=== PATIENT | male | born 1950 | race Caucasian/White ===

== ENCOUNTER 2024-11-24 21:40 | Emergency (ER) | payer MEDICARE, SELFPAY ==
[2024-11-24] VITALS (16 sets, daily range): BP systolic 141; BP diastolic 83; PULSE 97–118; TEMP 36.8; O2SAT 91–100; BMI 26.6
--- NOTE | 2024-11-24 22:00 | ECG_ITS ---
[facility] Test Date: 2024-11-24 Pat Name: ANDERS ABAD Department: Room: - Gender: Male Bartender: : 1950 Requested By: [id number] Order Number: [id number] Reading MD: REY PAZ M.D. Measurements Intervals [place] Rate: 97 P: 90 SD: 160 QRS: 63 QRSD: 90 T: 77 QT: 334 QTc: 389 Interpretive Statements 1100 Sinus rhythm 9110 normal ECG Compared to ECG 09/01/2022 11:35:34 No significant changes Electronically Signed On 11-25-2024 6:32:54 EST by REY PAZ M.D.
--- NOTE | 2024-11-24 22:02 | ED.SOB1 ---
HPI - SOB/Dyspnea General Chief Complaint: Shortness of Breath/Dyspnea Stated Complaint: DIFF BREATHING Time Seen by Provider: 11/24/24 21:54 Source: patient Mode of arrival: Wheelchair History of Present Illness HPI Narrative: This 74-year-old male with a history of tobacco use presents for evaluation of shortness of breath. The patient has been taking Mucinex for a head cold since last weekend. Today his symptoms got worse and he started become short of breath. He denies any gorge chest pain. He denies any hemoptysis. He denies any fevers or chills. He denies any nausea vomiting or diarrhea. He is notably tachypneic upon arrival with 2-3 word conversational dyspnea and marked coughing. Related Data Home Medications ?Medication ?Instructions ?Recorded ?Confirmed atorvastatin 20 mg tablet mg 11/24/24 irbesartan 150 tab 11/24/24 mg-hydrochlorothiazide 12.5 mg tablet omeprazole 20 mg capsule,delayed mg 11/24/24 release tramadol 50 mg tablet mg 11/24/24 zolpidem 10 mg tablet mg 11/24/24 Allergies Allergy/AdvReac Type Severity Reaction Status Date / Time No Known Drug Allergies Allergy Verified 11/24/24 21:54 Review of Systems ROS Status of ROS 10 or more systems reviewed and unremarkable except as noted in history and below [facility] Medical History (Updated 11/24/24 @ 23:15 by Anabel Rockwell MD) Hyperlipemia ?E78.5 - Hyperlipidemia, unspecified (ICD-10) Hypertension ?I10 - Essential (primary) hypertension (ICD-10) Exam Narrative Exam Narrative: Vital signs and Nursing Notes reviewed: Pt afebrile, he is tachycardic with a pulse of 1-2 and tachypneic with a respiratory of 36, he is not hypoxic with pulse ox of 97% on room air General: Awake, alert, oriented, nontoxic adult male with mild respiratory distress and 3-4 word conversational dyspnea HEENT: Normocephalic atraumatic, mucous membranes are moist and pink, eyes are clear, normal conjunctiva, vision is grossly intact, posterior pharynx is normal in appearance. Neck: Supple, no meningeal signs, no anterior or posterior cervical lymphadenopathy Chest: Coarse breath sounds with expiratory wheezing and scattered rhonchi, no rales, mild accessory muscle use with tachypnea, patient is not hypoxic with pulse ox of 97% on room air CVS: Regular rate and rhythm S1-S2, no murmurs rubs or gallops, pulses are brisk and equal bilaterally ABD: Soft, nondistended, nontender, no rebound guarding or rigidity, bowel sounds are normal, no pulsatile masses appreciated Extremities: Moving all extremities, no lower extremity tenderness or swelling noted, negative Homans' sign, patient is wearing a brace over his right knee stating that he has a meniscal tear on his knee Skin: Normal in appearance without rash,pallor, petechiae or purpura Neuro: No focal deficits Constitutional Vital Signs, click to edit/add: Last Vital Signs Temp 98.3 F 11/24/24 21:50 Pulse 107 H 11/24/24 23:00 Resp 20 11/24/24 23:00 BP 141/83 11/24/24 21:50 Pulse Ox 96 11/24/24 23:00 O2 Del Method Room Air 11/24/24 22:49 Course Vital Signs Vital signs: Vital Signs Temperature 98.3 F 11/24/24 21:50 Pulse Rate 102 H 11/24/24 21:50 Respiratory Rate 36 H 11/24/24 21:50 Blood Pressure 141/83 11/24/24 21:50 Pulse Oximetry 97 11/24/24 21:50 Oxygen Delivery Method Room Air 11/24/24 21:50 Temperature 98.3 F 11/24/24 21:50 Pulse Rate 107 H 11/24/24 23:00 Respiratory Rate 20 11/24/24 23:00 Blood Pressure 141/83 11/24/24 21:50 Pulse Oximetry 96 11/24/24 23:00 Oxygen Delivery Method Room Air 11/24/24 22:49 MDM - SOB/Dyspnea MDM Narrative Medical decision making narrative: This 74-year-old male with a history of tobacco use who states he smokes about a half a pack a day of cigarettes presents for evaluation of cough, wheezing and shortness of breath. His symptoms started with a upper respiratory tract infection that he describes as a head cold. Over the past several days it has spread into his chest and today he became short of breath. He denies any fever or chest pain. He has no lower extremity pain or swelling. He had taken 1 dose of amoxicillin that was prescribed to his earlier today without significant improvement. Upon arrival he was seen in room 9. He has diffuse expiratory wheezing and rhonchi. He was given a DuoNeb that he stated did not make him feel much better and given additional DuoNeb with clinical improvement. He was given IV Solu-Medrol, IV fluids and a dose of Tylenol with codeine for his cough. Routine labs are reviewed. He has a normal white count and hemoglobin. He is negative for COVID-19 and influenza. He has a normal troponin. Normal D-dimer. Electrolytes are normal with a mild elevation in his creatinine at 1.73. Lactic acid is normal. On reevaluation the patient's lungs have improved air entry and his cough has subsided somewhat. He was offered admission for further treatment of his shortness of breath but he declines. He will be medicated with a dose of doxycycline prior to discharge and discharged home with prescription for doxycycline, Medrol Dosepak, albuterol MDI and Tylenol with codeine suspension. He was encouraged to drink plenty of liquids and return to the emergency department for worsening symptoms or any concerns. Lab Data Attestation: I reviewed the patient's lab results. Labs: Lab Results 11/24/24 11/24/24 Range/Units 22:04 22:05 WBC 9.7 (4.0-11.0) 10^3/uL RBC 4.45 L (4.70-6.10) 10^6/uL Hgb 13.9 L (14.0-18.0) g/dL Hct 39.4 L (42.0-54.0) % MCV 88.5 (80.0-94.0) fL MCH 31.2 (25.9-34.0) pg MCHC 35.3 H (29.9-35.2) g/dL RDW 12.6 (11.0-15.0) % Plt Count 235 (150-450) 10^3/uL MPV 10.5 (9.5-13.5) fL Neut % (Auto) 82.0 H (43.0-75.0) % Lymph % (Auto) 9.6 L (20.5-60.0) % Andrew % (Auto) 7.2 (1.7-12.0) % Eos % (Auto) 0.6 L (0.9-7.0) % Baso % (Auto) 0.3 (0.2-2.0) % Neut # (Auto) 8.0 H (1.4-6.5) 10^3/uL Lymph # (Auto) 0.9 L (1.2-3.8) 10^3/uL Andrew # (Auto) 0.7 (0.3-0.8) 10^3/uL Eos # (Auto) 0.1 (0.0-0.7) 10^3/uL Baso # (Auto) 0.0 (0.0-0.1) 10^3/uL Abs Immat Gran (auto) 0.03 (0.00-0.03) 10^3/uL Imm/Tot Granulo (auto) 0.3 (0.0-0.5) % D-Dimer 0.39 (<=0.59) mg/L FEU Sodium 136 (136-145) mmol/L Potassium 3.4 L (3.5-5.1) mmol/L Chloride 98 (98-107) mmol/L Carbon Dioxide 22.5 (21.0-32.0) mmol/L Anion Gap 18.9 BUN 16.0 (7.0-18.0) mg/dL Creatinine 1.73 H (0.70-1.30) mg/dL Est GFR ( Amer) 47 L (>=60 mL/min/1.73m^2) Est GFR (Non-Af Amer) 39 L (>=60 mL/min/1.73m^2) BUN/Creatinine Ratio 9.2 Glucose 126 H (74-106) mg/dL Lactate 1.9 (0.4-2.0) mmol/L Calcium 9.1 (8.5-10.1) mg/dL Total Bilirubin 0.3 (0.2-1.0) mg/dL AST 33 (15-37) U/L ALT 38 (16-63) U/L Alkaline Phosphatase 107 (46-116) U/L Troponin I High Sens 7.1 (4.0-76.1) pg/mL NT-Pro-B Natriuret Pep 86.0 (<=900.0) pg/mL Total Protein 7.5 (6.4-8.2) g/dL Albumin 3.7 (3.4-5.0) g/dL Globulin 3.8 g/dL Albumin/Globulin Ratio 1.0 Influenza Type A Ag Negative Influenza Type B Ag Negative SARS-CoV-2 Ag (CV2AG) Negative (NEGATIVE) ECG Data Attestation: I personally reviewed and interpreted this ECG as follows: (Sinus rhythm 97 bpm, normal axis, normal intervals, no acute ST segment elevation or T wave inversion) Discharge Plan Discharge Chief Complaint: Shortness of Breath/Dyspnea Clinical Impression: Upper respiratory infection, acute Patient Disposition: Home, Self-Care Time of Disposition Decision: 23:15 Condition: Good Prescriptions / Home Meds: No Action atorvastatin 20 mg tablet irbesartan-hydrochlorothiazide 150-12.5 mg tablet tramadol 50 mg tablet omeprazole 20 mg capsule,delayed release(DR/EC) zolpidem 10 mg tablet Print Language: Armenian Instructions: Upper Respiratory Infection (ED), Acute Bronchitis (ED) Referrals: Physician,Non-Staff, [Physician] - 1 week
[2024-11-24] MEDS: IPRATROPIUM/ALBUTEROL SULFATE 3 ML AMPUL.NEB IH ×2 (22:14→22:51)
[2024-11-24] MEDS: HYDROCODONE BIT/HOMATROP 5 MG/1.5 MG TABLET 1 TAB PO (22:29)
[2024-11-24] MEDS: METHYLPREDNISOLONE SOD SUCC PF 125 MG/2 ML VIAL IVP (22:29)
[2024-11-24] MEDS: ONDANSETRON PF 4 MG/2 ML VIAL IV (22:29)
[2024-11-24 22:30] LABS: Basophils Percent Auto 0.3 % (0.2-2.0); Eosinophils Absolute Auto 0.1 10^3/uL (0.0-0.7); Eosinophils Percent Auto 0.6 % (0.9-7.0); Hematocrit 39.4 % (42.0-54.0); Hemoglobin 13.9 g/dL (14.0-18.0); Immature Granulocytes Abs Auto 0.03 10^3/uL (0.00-0.03); Immature Granulocytes Pct Auto 0.3 % (0.0-0.5); Lymphocytes Absolute Auto 0.9 10^3/uL (1.2-3.8); Lymphocytes Percent Auto 9.6 % (20.5-60.0); Mean Corpuscular HGB Conc 35.3 g/dL (29.9-35.2); Mean Corpuscular Hemoglobin 31.2 pg (25.9-34.0); Mean Corpuscular Volume 88.5 fL (80.0-94.0); Mean Platelet Volume 10.5 fL (9.5-13.5); Monocytes Absolute Auto 0.7 10^3/uL (0.3-0.8); Monocytes Percent Auto 7.2 % (1.7-12.0); Platelet Count 235 10^3/uL (150-450); Red Blood Count 4.45 10^6/uL (4.70-6.10); Red Cell Distribution Width 12.6 % (11.0-15.0); White Blood Count 9.7 10^3/uL (4.0-11.0)
[2024-11-24] MEDS: 0.9 % SODIUM CHLORIDE 1,000 ML 1000 ML IV (22:30)
[2024-11-24 22:48] LABS: Influenza Virus A Antigen Negative; Influenza Virus B Antigen Negative; Internal Control Within Normal Limits; SARS-CoV-2 Ag NEGATIVE (NEGATIVE)
[2024-11-24 22:54] LABS: Lactate/Lactic Acid 1.9 mmol/L (0.4-2.0)
[2024-11-24 22:59] LABS: Alanine Aminotransferase 38 U/L (16-63); Albumin Level 3.7 g/dL (3.4-5.0); Alkaline Phosphatase 107 U/L (46-116); Anion Gap 18.9; Aspartate Amino Transferase 33 U/L (15-37); BUN Creatinine Ratio 9.2; Bilirubin Total 0.3 mg/dL (0.2-1.0); Calcium 9.1 mg/dL (8.5-10.1); Carbon Dioxide 22.5 mmol/L (21.0-32.0); Chloride 98 mmol/L (98-107); Estimated GFR (African America 47 (>=60 mL/min/1.73m^2); Estimated GFR (Non-African Ame 39 (>=60 mL/min/1.73m^2); Globulin 3.8 g/dL; Glucose 126 mg/dL (74-106); Potassium 3.4 mmol/L (3.5-5.1); Sodium 136 mmol/L (136-145); Total Protein 7.5 g/dL (6.4-8.2); Troponin I High Sensitivity 7.1 pg/mL (4.0-76.1)
[2024-11-24 23:00] LABS: D Dimer 0.39 mg/L FEU (<=0.59)
[2024-11-24] MEDS: ALBUTEROL SULFATE 200 PUFF/6.7 GM INHALER IH (23:53)
[2024-11-24] MEDS: DOXYCYCLINE MONOHYDRATE 100 MG CAPSULE PO (23:53)
[2024-11-25] VITALS: PULSE 116
== END 2024-11-25 00:22 | disposition home or self-care (01) ==
PROVIDERS: Emergency Provider Emergency Medicine; PCP Internal Medicine
DX: J06.9 Acute upper respiratory infection, unspecified (principal); R06.02 Shortness of breath; F17.210 Nicotine dependence, cigarettes, uncomplicated
CPT/HCPCS: 36415; 71045; 80053; 83605; 83880; 84484; 85025; 85378; 87804; 87811; 93005; 94640; 96374; 96375; 99285; J2405; J2919

== ENCOUNTER 2025-01-04 14:23 | Outpatient (OUT) | payer MEDICARE, SELFPAY ==
--- NOTE | 2025-01-04 15:11 | P.GSHP_ITS ---
History of Present Illness History of Present Illness Chief complaint: bladder tumors, hx of bladder ca Narrative: Patient presents for presurgical testing. The patient states he has a yearly cystoscopy for surveillance of prior bladder cancer. The patient states he does have nocturia but denies any other urinary complaints at this time. Review of Systems ROS Narrative REVIEW OF SYSTEMS: Negative except as stated in HPI, ten or more systems reviewed. Constitutional: No fever, chills, weakness ENT: No sore throat or epistaxis Cardiovascular: No edema, chest pain, palpitations, or activity intolerance Respiratory: No shortness of breath, cough, or wheezing Musculoskeletal: No joint pain or swelling Gastrointestinal: No abdominal pain, constipation, diarrhea, or vomiting Genitourinary: No dysuria or hematuria Neurological: No numbness, tingling, weakness, or headache Psychiatric: No mood changes PFSH PFSH Medical History (Updated 01/04/25 @ 15:02 by Breana Parra NP) Hearing loss ?H91.90 - Unspecified hearing loss, unspecified ear (ICD-10) Back pain ?M54.9 - Dorsalgia, unspecified (ICD-10) Arthritis ?M19.90 - Unspecified osteoarthritis, unspecified site (ICD-10) Bladder cancer ?C67.9 - Malignant neoplasm of bladder, unspecified (ICD-10) Kidney stones ?N20.0 - Calculus of kidney (ICD-10) Bladder tumor ?D49.4 - Neoplasm of unspecified behavior of bladder (ICD-10) GERD (gastroesophageal reflux disease) ?K21.9 - Gastro-esophageal reflux disease without esophagitis (ICD-10) Bronchitis (11/24/24) ?J40 - Bronchitis, not specified as acute or chronic (ICD-10) Postoperative nausea and vomiting ?R11.2 - Nausea with vomiting, unspecified (ICD-10) ?Z98.890 - Other specified postprocedural states (ICD-10) Hyperlipemia ?E78.5 - Hyperlipidemia, unspecified (ICD-10) Hypertension ?I10 - Essential (primary) hypertension (ICD-10) Surgical History (Updated 01/04/25 @ 14:50 by Breana Parra NP) History of colonoscopy ?Z98.890 - Other specified postprocedural states (ICD-10) H/O transurethral resection of prostate ?Z98.890 - Other specified postprocedural states (ICD-10) ?Z90.79 - Acquired absence of other genital organ(s) (ICD-10) H/O transurethral resection of bladder tumor (TURBT) ?Z98.890 - Other specified postprocedural states (ICD-10) ?Z86.03 - Personal history of neoplasm of uncertain behavior (ICD-10) S/P cystoscopy ?Z98.890 - Other specified postprocedural states (ICD-10) History of lumbosacral spine surgery ?Z98.890 - Other specified postprocedural states (ICD-10) S/P cataract extraction and insertion of intraocular lens ?Z98.49 - Cataract extraction status, unspecified eye (ICD-10) ?Z96.1 - Presence of intraocular lens (ICD-10) Family History (Updated 01/04/25 @ 14:50 by Breana Parra NP) Other Family history of cancer Family history of coronary artery disease Family history of diabetes mellitus Family history of heart disease Family history of hypertension Family history of stroke Social History (Updated 01/04/25 @ 14:43 by Breana Parra NP) Within the past year, how often did you have a drink containing alcohol: never Score interpretation: A score less than 4 is consistent with normal alcohol consumption. Smoking status: Current every day smoker What tobacco products do you use: cigarettes Cigarettes per day: 10 Years smoked: 50 Smoking pack-years: 25.00 Non-prescribed substance use: denies use Highest level of school completed/degree received: high school graduate Meds Home Medications and Allergies Home Medications ?Medication ?Instructions ?Recorded ?Confirmed ?Type atorvastatin 20 mg tablet 20 mg PO DAILY 11/24/24 01/04/25 History irbesartan 150 1 tab PO DAILY 11/24/24 01/04/25 History mg-hydrochlorothiazide 12.5 mg tablet omeprazole 20 mg capsule,delayed 20 mg PO DAILY 11/24/24 01/04/25 History release tramadol 50 mg tablet 50 mg PO Q8H 11/24/24 01/04/25 History zolpidem 10 mg tablet 10 mg PO QPM 11/24/24 01/04/25 History aspirin 325 mg capsule 325 mg PO DAILY 01/04/25 01/04/25 History calcium 600 mg (as 1 tab PO DAILY 01/04/25 01/04/25 History carbonate)-vitamin D3 5 mcg (200 unit) tablet (Calcium 600 + D(3)) cranberry 500 mg capsule 500 mg PO DAILY 01/04/25 01/04/25 History multivitamin (Daily Multi-Vitamin 1 tab PO DAILY 01/04/25 01/04/25 History tablet) tadalafil 20 mg tablet 20 mg PO DAILY PRN sexual activity 01/04/25 01/04/25 History vitamin B complex (Complex B-100 1 tab PO DAILY 01/04/25 01/04/25 History tablet,extended release) Allergies Allergy/AdvReac Type Severity Reaction Status Date / Time No Known Drug Allergies Allergy Verified 01/04/25 14:42 Exam Narrative Exam Narrative: Constitutional: Awake, alert, comfortable, well-appearing, nontoxic, interactive , vital signs as charted Head: Normocephalic, atraumatic Neck: Supple, normal appearance, normal range of motion, no meningeal signs, no lymphadenopathy Respiratory: No respiratory distress, breath sounds clear Cardiovascular: Regular rate and rhythm, strong and regular heart tones Abdomen: Nontender, normal bowel sounds, soft, no CVA tenderness Musculoskeletal: Normal gait, no swelling or edema Skin: No rashes or induration, no lesions, only visible skin inspected Neuro: No neurological deficits, normal sensation Psychiatric: Oriented ?3, normal affect Assessment and Plan Assessment and Plan (1) Bladder tumor: (2) Bladder cancer: Plan Cystoscopy, TURBT, mitomycin bladder instillation scheduled with Dr. Leo January 17, 2025.
[2025-01-04 15:12] LABS: Basophils Percent Auto 0.5 % (0.2-2.0); Eosinophils Absolute Auto 0.2 10^3/uL (0.0-0.7); Eosinophils Percent Auto 2.5 % (0.9-7.0); Hematocrit 40.7 % (42.0-54.0); Immature Granulocytes Abs Auto 0.02 10^3/uL (0.00-0.03); Immature Granulocytes Pct Auto 0.3 % (0.0-0.5); Lymphocytes Absolute Auto 1.7 10^3/uL (1.2-3.8); Lymphocytes Percent Auto 21.1 % (20.5-60.0); Mean Corpuscular HGB Conc 34.4 g/dL (29.9-35.2); Mean Corpuscular Hemoglobin 31.3 pg (25.9-34.0); Mean Corpuscular Volume 90.8 fL (80.0-94.0); Mean Platelet Volume 10.1 fL (9.5-13.5); Monocytes Absolute Auto 0.7 10^3/uL (0.3-0.8); Monocytes Percent Auto 8.2 % (1.7-12.0); Neutrophils Absolute Auto 5.3 10^3/uL (1.4-6.5); Neutrophils Percent Auto 67.4 % (43.0-75.0); Platelet Count 268 10^3/uL (150-450); Red Blood Count 4.48 10^6/uL (4.70-6.10); Red Cell Distribution Width 13.2 % (11.0-15.0); White Blood Count 7.9 10^3/uL (4.0-11.0)
[2025-01-04 15:21] LABS: BUN Creatinine Ratio 10.9; Calcium 8.9 mg/dL (8.5-10.1); Chloride 102 mmol/L (98-107); Estimated GFR (African America 53 (>=60 mL/min/1.73m^2); Estimated GFR (Non-African Ame 44 (>=60 mL/min/1.73m^2); Glucose 88 mg/dL (74-106); Sodium 139 mmol/L (136-145)
[2025-01-04 15:36] LABS: INR 1.05; Partial Thromboplastin Time 25.1 sec (22.3-36.2); Prothrombin Time 11.1 sec (9.0-11.6)
== END 2025-01-04 14:24 | disposition home or self-care (01) ==
LOC: PST 14:24
PROVIDERS: PCP Internal Medicine; Visit Provider Urology
DX: Z01.812 Encounter for preprocedural laboratory examination (principal); Z01.818 Encounter for other preprocedural examination; D49.4 Neoplasm of unspecified behavior of bladder
CPT/HCPCS: 80048; 85025; 85610; 85730; G0463

== ENCOUNTER 2025-01-17 07:55 | Day surgery (SDC) | payer MEDICARE, SELFPAY ==
[2025-01-04 15:01] VITALS: BP 142/87; PULSE 75; TEMP 36.4; O2SAT 100; BMI 25.2
[2025-01-17] VITALS (13 sets, daily range): BP systolic 116–148; BP diastolic 64–97; PULSE 73–92; TEMP 36.1–36.7; O2SAT 96–100; BMI 24.9
[2025-01-17] MEDS: LACTATED RINGER'S SOLUTION 1,000 ML 50 ML IV ×2 (08:20→10:35)
[2025-01-17] MEDS: ALBUTEROL SULFATE 2.5 MG/3 ML VIAL NEB IH (08:55)
[2025-01-17] MEDS: CEFAZOLIN SODIUM 2 GM/50 ML D5W PREMIX IV (09:19)
[2025-01-17] MEDS: MITOMYCIN 40 MG in WATER FOR INJECTION,STERILE 20 ML 20 MG INTRAVESIC (09:57)
--- NOTE | 2025-01-17 10:06 | PM.URSON ---
Urology Surgery Operative Note Operative Note Procedure Date: 01/17/25 Time Out Performed: yes Pre-op Diagnosis: Recurrent bladder tumors Post-op Diagnosis: same as pre-op Procedures performed: 1. Cystoscopy. 2. Transurethral resection of bladder tumors approximately 3 cm. 3. Intravesical placement of Mitomycin-C Anesthesia: NILTON Primary Surgeon: Gerald Leo Complications: None Estimated blood loss (mL): 5 Findings: 2 areas of bladder tumors. 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 On surveillance cystoscopy he was found to have recurrent tumors. He now presents for TURBT and intravesical placement of Mitomycin-C. He has signed an informed consent after risks were explained. Detailed description of Procedure: The patient was brought to the operating room and placed on the operating room table in the supine position. SCDs were placed on the lower extremities and turned on and functioning during the entire case. Timeout was done by all parties in the room. We all agreed upon the patient's identification and the planned procedures for this patient. Genn. anesthesia was then administered. The patient was then repositioned into the modified dorsal lithotomy position. All pressure points were satisfactorily padded. Genitalia were sterilely prepped and draped in usual fashion. I started by passing a 26 Tristanian Olympus resectoscope with a standard bipolar loop electrode per urethra and into the bladder. The entire bladder was carefully evaluated. I found the 2 areas of tumors noted on the office cystoscopy. No other tumors were noted. I then started on the tumor near the dome. I uniformly and deeply resected this. The resection bed was coagulated fully. The back wall patch of tumors was then similarly resected and coagulated. The Ilich evacuator was used to get all the tumor pieces out of the bladder. These were sent for permanent sections. The scope was then removed. An 18 Tristanian Mohamud catheter was placed in the bladder. 40 mg of Mitomycin-C was then passed through the catheter and placed in the bladder. The catheter was clamped with a hemostat. The anesthetic was then reversed. He was then transferred to a [facility] bed and wheeled to PACU in stable condition.
--- NOTE | 2025-01-17 10:31 | PC.NURSE ---
1030- Patient positioned to right side. Catheter remains clamped.
--- NOTE | 2025-01-17 10:48 | PC.NURSE ---
1145- Patient positioned to left side. Catheter remains clamped.
--- NOTE | 2025-01-17 11:04 | PC.NURSE ---
1100- Repositioned on back. Catheter remains clamped.
--- NOTE | 2025-01-17 11:29 | PC.NURSE ---
1115- Patient positioned to Right side. Catheter remains clamped.
--- NOTE | 2025-01-17 11:30 | PC.NURSE ---
1130- Patient positioned to left side. Catheter remains clamped.
--- NOTE | 2025-01-17 11:47 | PC.NURSE ---
1145- Patient repositioned to back. Catheter remains intact.
--- NOTE | 2025-01-17 12:34 | PC.NURSE ---
1220- Patient c/o feeling full. Bladder scanned for 161cc of urine. Patient states that he wants to go home. Encouraged patient to drink a lot of fluids once getting home. Patient and patient's verbalized a understanding.
--- NOTE | 2025-01-18 06:23 | PC.NURSE ---
Addendum entered by Kiera Davis RN 01/18/25 07:46: The date for this entry was 01/17/25 was at 1230. Original Note: 01/18/25- (1230) Patient to BR and voids 100cc of slightly blood tinged urine without difficulty.
--- NOTE | 2025-01-18 06:24 | PC.NURSE ---
01/17/25 (1205) Mohamud unclamped and bladder drained. Mohamud removed.
== END 2025-01-17 12:38 | disposition home or self-care (01) ==
PROVIDERS: PCP Internal Medicine; Visit Provider Urology
PROC: (CPT 51720; principal; 2025-01-17 08:50)
DX: C67.9 Malignant neoplasm of bladder, unspecified (principal); K21.9 Gastro-esophageal reflux disease without esophagitis; E78.5 Hyperlipidemia, unspecified; R31.9 Hematuria, unspecified; R35.1 Nocturia; F17.210 Nicotine dependence, cigarettes, uncomplicated
CPT/HCPCS: 51720; 52234; 36415; 51798; 88305; J0690; J1100; J1805; J2405; J2704; J3010; J9281

== ENCOUNTER 2025-01-18 10:05 | Emergency (ER) | payer MEDICARE, SELFPAY ==
[2025-01-18 10:10] VITALS: BP 170/102; PULSE 86; TEMP 36.7; O2SAT 100; BMI 25.0
--- NOTE | 2025-01-18 10:23 | ED.GENADUL1 ---
HPI HPI - General Adult General Chief complaint: Urogenital-Male Stated complaint: post surgical complications - unable to urinate Time Seen by Provider: 01/18/25 10:07 Source: patient Mode of arrival: walk-in Limitations: no limitations History of Present Illness HPI narrative: Patient presents to ED complaining of lower abdominal pain and urinary retention. Patient states he had a cystoscopy yesterday and tumor resection in his bladder. He then had a chemo medication placed in the bladder and he said he had to turn from [id number] for 2 hours. He did say he is feeling constipated as well. The said they gave him Colace last night and he still has been unable to go. Patient states he has not urinated since midnight. Bladder scan done immediately on arrival reveals that there is about 190 mL in the bladder. Patient states he has been drinking but he did also have some vomiting. They called Dr. Leo office and they told him to either come to the emergency room or come to the office for evaluation. states she was not sure if she could drive him all the way to [place] because he has been vomiting. They came here for further evaluation. No fevers. Patient is slightly uncomfortable with lower abdominal pain. Resting in the bed alert and oriented x 3 Related Data Home Medications ?Medication ?Instructions ?Recorded ?Confirmed atorvastatin 20 mg tablet 20 mg PO DAILY 11/24/24 01/17/25 irbesartan 150 1 tab PO DAILY 11/24/24 01/17/25 mg-hydrochlorothiazide 12.5 mg tablet omeprazole 20 mg capsule,delayed 20 mg PO DAILY 11/24/24 01/17/25 release tramadol 50 mg tablet 50 mg PO Q8H 11/24/24 01/17/25 zolpidem 10 mg tablet 10 mg PO QPM 11/24/24 01/17/25 aspirin 325 mg capsule 325 mg PO DAILY 01/04/25 01/17/25 calcium 600 mg (as 1 tab PO DAILY 01/04/25 01/17/25 carbonate)-vitamin D3 5 mcg (200 unit) tablet (Calcium 600 + D(3)) cranberry 500 mg capsule 500 mg PO DAILY 01/04/25 01/17/25 multivitamin (Daily Multi-Vitamin 1 tab PO DAILY 01/04/25 01/17/25 tablet) tadalafil 20 mg tablet 20 mg PO DAILY PRN sexual activity 01/04/25 01/17/25 vitamin B complex (Complex B-100 1 tab PO DAILY 01/04/25 01/17/25 tablet,extended release) Previous Rx's ?Medication ?Instructions ?Recorded ondansetron 4 mg disintegrating 4 mg PO DAILY PRN nausea and 01/18/25 tablet vomiting #15 tabs oxybutynin chloride 5 mg tablet 5 mg PO Q8H PRN bladder spasms #20 01/18/25 tabs Allergies Allergy/AdvReac Type Severity Reaction Status Date / Time No Known Drug Allergies Allergy Verified 01/04/25 14:42 Opioid HPI Opioid Management Most Recent Opioid Data: Last Pain Scale 9 Today, 12:58 Last Pain Assessment 01/17/25, 07:58 Last MAR Pain Assessment Today, 10:34 Review of Systems ROS Status of ROS 10 or more systems reviewed and unremarkable except as noted in history and below [facility] Medical History (Updated 01/18/25 @ 14:14 by Doris Hollingsworth DO) Hearing loss ?H91.90 - Unspecified hearing loss, unspecified ear (ICD-10) Back pain ?M54.9 - Dorsalgia, unspecified (ICD-10) Arthritis ?M19.90 - Unspecified osteoarthritis, unspecified site (ICD-10) Bladder cancer ?C67.9 - Malignant neoplasm of bladder, unspecified (ICD-10) Kidney stones ?N20.0 - Calculus of kidney (ICD-10) Bladder tumor ?D49.4 - Neoplasm of unspecified behavior of bladder (ICD-10) GERD (gastroesophageal reflux disease) ?K21.9 - Gastro-esophageal reflux disease without esophagitis (ICD-10) Bronchitis (11/24/24) ?J40 - Bronchitis, not specified as acute or chronic (ICD-10) Postoperative nausea and vomiting ?R11.2 - Nausea with vomiting, unspecified (ICD-10) ?Z98.890 - Other specified postprocedural states (ICD-10) Hyperlipemia ?E78.5 - Hyperlipidemia, unspecified (ICD-10) Hypertension ?I10 - Essential (primary) hypertension (ICD-10) Surgical History (Updated 01/04/25 @ 14:50 by Breana Parra NP) History of colonoscopy ?Z98.890 - Other specified postprocedural states (ICD-10) H/O transurethral resection of prostate ?Z98.890 - Other specified postprocedural states (ICD-10) ?Z90.79 - Acquired absence of other genital organ(s) (ICD-10) H/O transurethral resection of bladder tumor (TURBT) ?Z98.890 - Other specified postprocedural states (ICD-10) ?Z86.03 - Personal history of neoplasm of uncertain behavior (ICD-10) S/P cystoscopy ?Z98.890 - Other specified postprocedural states (ICD-10) History of lumbosacral spine surgery ?Z98.890 - Other specified postprocedural states (ICD-10) S/P cataract extraction and insertion of intraocular lens ?Z98.49 - Cataract extraction status, unspecified eye (ICD-10) ?Z96.1 - Presence of intraocular lens (ICD-10) Family History (Updated 01/04/25 @ 14:50 by Breana Parra NP) Other Family history of cancer Family history of coronary artery disease Family history of diabetes mellitus Family history of heart disease Family history of hypertension Family history of stroke Social History (Updated 01/04/25 @ 14:43 by Breana Parra NP) Within the past year, how often did you have a drink containing alcohol: never Score interpretation: A score less than 4 is consistent with normal alcohol consumption. Smoking status: Current every day smoker What tobacco products do you use: cigarettes Cigarettes per day: 10 Years smoked: 50 Smoking pack-years: 25.00 Non-prescribed substance use: denies use Highest level of school completed/degree received: high school graduate Little interest or pleasure in doing things: not at all Feeling down, depressed, or hopeless: not at all Exam Narrative Exam Narrative: Time Seen: [] Vital Signs: [Per nurse's notes.] General: [Alert] Skin: [Warm, dry, no rash.] Head: [Normocephalic, atraumatic.] Neck: [Supple, trachea midline.] Eye: [Pupils are equal, round and reactive to light, extraocular movements are intact, normal conjunctiva.] Ears, nose, mouth and throat: oral mucosa moist. Cardiovascular: [Regular rate and rhythm, no murmur.] Respiratory: [Lungs are clear to auscultation, respirations are non-labored, breath sounds are equal.] Gastrointestinal: [Soft suprapubic tenderness as well as right and left lower quadrant tenderness. Hypoactive bowel sounds, non distended, MSK: 5 out of 5 muscle strength x 4 extremities no calf pain or edema Psychiatric: [Cooperative, appropriate mood & affect.] Neurological: [Alert and oriented to person, place, time, and situation, no focal neurological deficit observed.] Constitutional Vital Signs, click to edit/add: Last Vital Signs Temp 98.1 F 01/18/25 10:10 Pulse 87 01/18/25 13:01 Resp 18 01/18/25 13:01 BP 161/92 H 01/18/25 13:01 Pulse Ox 98 01/18/25 13:01 O2 Del Method Room Air 01/18/25 10:10 Course Vital Signs Vital signs: Vital Signs Temperature 98.1 F 01/18/25 10:10 Pulse Rate 86 01/18/25 10:10 Respiratory Rate 20 01/18/25 10:10 Blood Pressure 170/102 H 01/18/25 10:10 Pulse Oximetry 100 01/18/25 10:10 Oxygen Delivery Method Room Air 01/18/25 10:10 Temperature 98.1 F 01/18/25 10:10 Pulse Rate 87 01/18/25 13:01 Respiratory Rate 18 01/18/25 13:01 Blood Pressure 161/92 H 01/18/25 13:01 Pulse Oximetry 98 01/18/25 13:01 Oxygen Delivery Method Room Air 01/18/25 10:10 Medical Decision Making MDM Narrative Medical decision making narrative: Patient's labs show a slightly elevated white blood cell count of 15. His creatinine has bumped to 3. Patient received IV fluids and was given Ditropan for bladder spasms. CT scan does not show any acute bowel obstruction no free air no impacted stool or severe constipation. Normal postoperative findings on CT scan. Patient was able to urinate while he was here. I called and talked to Dr. Leo about the findings. He requested a Mohamud catheter be placed and remain in until his follow-up appointment on Thursday. He also reports that his office will order outpatient labs for another BUN and creatinine prior to his visit on Thursday. He was informed of the elevated creatinine. He told me to have the patient drink a lot of water and he wanted the Mohamud catheter. I relayed all this information to the patient who adamantly refused the Mohamud catheter placement. I informed him it was important for intake and output assessment as well as helping to prevent an acute bladder outlet obstruction. The patient expresses understanding but still refuses catheter placement. He said he will return if he is not urinating for greater than 6 hours. Patient will be discharged home with Ditropan for bladder spasms. Follow-up with Dr. Leo on Thursday as scheduled. Return to ED if unable to urinate or if he develops fevers vomiting or worsening symptoms in any way. Patient and are comfortable with care plan for home Differential Diagnosis Differential Diagnosis: UTI, bladder outlet obstruction, constipation hematuria Lab Data Lab results reviewed: Yes I reviewed the patient's lab results Labs: Lab Results 01/18/25 01/18/25 Range/Units 10:30 13:50 WBC 15.1 H (4.0-11.0) 10^3/uL RBC 4.45 L (4.70-6.10) 10^6/uL Hgb 14.1 (14.0-18.0) g/dL Hct 39.7 L (42.0-54.0) % MCV 89.2 (80.0-94.0) fL MCH 31.7 (25.9-34.0) pg MCHC 35.5 H (29.9-35.2) g/dL RDW 13.1 (11.0-15.0) % Plt Count 286 (150-450) 10^3/uL MPV 10.0 (9.5-13.5) fL Neut % (Auto) 85.1 H (43.0-75.0) % Lymph % (Auto) 9.0 L (20.5-60.0) % [place] % (Auto) 5.4 (1.7-12.0) % Eos % (Auto) 0.1 L (0.9-7.0) % Baso % (Auto) 0.1 L (0.2-2.0) % Neut # (Auto) 12.8 H (1.4-6.5) 10^3/uL Lymph # (Auto) 1.4 (1.2-3.8) 10^3/uL [place] # (Auto) 0.8 (0.3-0.8) 10^3/uL Eos # (Auto) 0.0 (0.0-0.7) 10^3/uL Baso # (Auto) 0.0 (0.0-0.1) 10^3/uL Abs Immat Gran (auto) 0.05 H (0.00-0.03) 10^3/uL Imm/Tot Granulo (auto) 0.3 (0.0-0.5) % Sodium 135 L (136-145) mmol/L Potassium 3.5 (3.5-5.1) mmol/L Chloride 95 L (98-107) mmol/L Carbon Dioxide 26.3 (21.0-32.0) mmol/L Anion Gap 17.2 BUN 30.0 H (7.0-18.0) mg/dL Creatinine 3.02 H (0.70-1.30) mg/dL Est GFR ( Amer) 25 L (>=60 mL/min/1.73m^2) Est GFR (Non-Af Amer) 20 L (>=60 mL/min/1.73m^2) BUN/Creatinine Ratio 9.9 Glucose 91 (74-106) mg/dL Calcium 9.5 (8.5-10.1) mg/dL Total Bilirubin 0.6 (0.2-1.0) mg/dL AST 18 (15-37) U/L ALT 13 L (16-63) U/L Alkaline Phosphatase 95 (46-116) U/L Total Protein 7.1 (6.4-8.2) g/dL Albumin 3.6 (3.4-5.0) g/dL Globulin 3.5 g/dL Albumin/Globulin Ratio 1.0 Urine Color Lt. yellow (YELLOW) Urine Clarity Clear (CLEAR) Urine pH 6.0 (5.0-9.0) Ur Specific [place] <=1.005 A (1.005-1.025) Urine Protein Negative (NEG/TRACE) mg/dL Urine Glucose (UA) Negative (NEGATIVE) mg/dL Urine Ketones Negative (NEGATIVE) mg/dL Urine Occult Blood Small A (NEGATIVE) Urine Nitrite Negative (NEGATIVE) Urine Bilirubin Negative (NEGATIVE) Urine Urobilinogen 0.2 (0.2-1.0) EU/dL Ur Leukocyte Esterase Trace A (NEGATIVE) Urine RBC 5-10 A (0-2) #/HPF Urine WBC 5-10 A (NONE SEEN) #/HPF Ur Squamous Epith Cells Few A (NONE/RARE) #/LPF Urine Crystals None seen (None Seen) #/HPF Urine Bacteria Trace A (NONE SEEN) #/HPF Urine Casts Seen A (NONE SEEN) #/LPF Hyaline Casts Rare Urine Mucus None seen (NONE SEEN) Ur Culture Indicated? Yes-[facility] [place] Data CT scan - abdomen: Attestation: I have reviewed the pertinent imaging results. Discharge Plan Discharge Chief Complaint: Urogenital-Male Clinical Impression: MARKY (acute kidney injury), Acute dehydration, Bladder spasms Patient Disposition: Home, Self-Care Time of Disposition Decision: 14:14 Condition: Good Mode of Transportation: Private Vehicle Prescriptions / Home Meds: New oxybutynin chloride 5 mg tablet 5 mg PO Q8H PRN (Reason: bladder spasms) Qty: 20 0RF ondansetron 4 mg tablet,disintegrating 4 mg PO DAILY PRN (Reason: nausea and vomiting) Qty: 15 0RF No Action tadalafil 20 mg tablet 20 mg PO DAILY PRN (Reason: sexual activity) multivitamin [Daily Multi-Vitamin] Tablet 1 tab PO DAILY Complex B-100 Tablet Extended Release 1 tab PO DAILY cranberry 500 mg capsule 500 mg PO DAILY Rx Instructions: administer with a meal calcium carbonate-vitamin D3 [Calcium 600 + D(3)] 600 mg-5 mcg (200 unit) tablet 1 tab PO DAILY aspirin 325 mg capsule 325 mg PO DAILY atorvastatin 20 mg tablet 20 mg PO DAILY irbesartan-hydrochlorothiazide 150-12.5 mg tablet 1 tab PO DAILY tramadol 50 mg tablet 50 mg PO Q8H omeprazole 20 mg capsule,delayed release(DR/EC) 20 mg PO DAILY zolpidem 10 mg tablet 10 mg PO QPM Print Language: Pashto Instructions: Acute Kidney Injury (DC) Referrals: IDANIA LUTZ [Primary Care Provider, Internal Medicine] - 1 week Gerald Leo MD [Physician, Urology] - 01/24/25 Discharge Date/Time: 01/18/25 14:23
[2025-01-18] MEDS: KETOROLAC TROMETHAMINE 30 MG/ML VIAL 15 MG IM (10:34)
[2025-01-18] MEDS: ONDANSETRON PF 4 MG/2 ML VIAL IV (10:34)
[2025-01-18] MEDS: 0.9 % SODIUM CHLORIDE 1,000 ML 100 ML IV (10:35)
[2025-01-18 10:39] LABS: Basophils Percent Auto 0.1 % (0.2-2.0); Eosinophils Percent Auto 0.1 % (0.9-7.0); Hematocrit 39.7 % (42.0-54.0); Hemoglobin 14.1 g/dL (14.0-18.0); Immature Granulocytes Abs Auto 0.05 10^3/uL (0.00-0.03); Immature Granulocytes Pct Auto 0.3 % (0.0-0.5); Lymphocytes Absolute Auto 1.4 10^3/uL (1.2-3.8); Mean Corpuscular HGB Conc 35.5 g/dL (29.9-35.2); Mean Corpuscular Hemoglobin 31.7 pg (25.9-34.0); Mean Corpuscular Volume 89.2 fL (80.0-94.0); Monocytes Absolute Auto 0.8 10^3/uL (0.3-0.8); Monocytes Percent Auto 5.4 % (1.7-12.0); Neutrophils Absolute Auto 12.8 10^3/uL (1.4-6.5); Neutrophils Percent Auto 85.1 % (43.0-75.0); Platelet Count 286 10^3/uL (150-450); Red Blood Count 4.45 10^6/uL (4.70-6.10); Red Cell Distribution Width 13.1 % (11.0-15.0); White Blood Count 15.1 10^3/uL (4.0-11.0)
[2025-01-18 10:58] LABS: Alanine Aminotransferase 13 U/L (16-63); Albumin Level 3.6 g/dL (3.4-5.0); Alkaline Phosphatase 95 U/L (46-116); Anion Gap 17.2; Aspartate Amino Transferase 18 U/L (15-37); BUN Creatinine Ratio 9.9; Bilirubin Total 0.6 mg/dL (0.2-1.0); Calcium 9.5 mg/dL (8.5-10.1); Carbon Dioxide 26.3 mmol/L (21.0-32.0); Chloride 95 mmol/L (98-107); Estimated GFR (African America 25 (>=60 mL/min/1.73m^2); Estimated GFR (Non-African Ame 20 (>=60 mL/min/1.73m^2); Globulin 3.5 g/dL; Glucose 91 mg/dL (74-106); Potassium 3.5 mmol/L (3.5-5.1); Sodium 135 mmol/L (136-145); Total Protein 7.1 g/dL (6.4-8.2)
[2025-01-18] MEDS: OXYBUTYNIN CHLORIDE 5 MG TAB XL PO (12:58)
[2025-01-18] MEDS: MORPHINE SULFATE 2 MG/ML SYRINGE IV (12:58)
[2025-01-18 13:01] VITALS: BP 161/92; PULSE 87; O2SAT 98
[2025-01-18 13:58] LABS: Bilirubin Urine NEGATIVE (NEGATIVE); Blood Urine SMALL (NEGATIVE); Clarity Urine CLEAR (CLEAR); Color Urine LT. YELLOW (YELLOW); Glucose Urine UA NEGATIVE (NEGATIVE); Ketones Urine NEGATIVE (NEGATIVE); Leukocyte Esterase Urine TRACE (NEGATIVE); Nitrite Urine NEGATIVE (NEGATIVE); Protein Urine NEGATIVE (NEG/TRACE); Specific Gravity Urine <=1.005 (1.005-1.025); Urobilinogen Urine 0.2 EU/dL (0.2-1.0)
[2025-01-18 14:09] LABS: Bacteria Urine TRACE #/HPF (NONE SEEN); Cast Seen? SEEN #/LPF (NONE SEEN); Crystals Seen? None Seen #/HPF (None Seen); Hyaline Casts Urine RARE; Mucus Urine NONE SEEN (NONE SEEN); Squamous Epithelial Cell Urine FEW #/LPF (NONE/RARE); Urine Culture Indicated YES-FRMC
== END 2025-01-18 14:23 | disposition home or self-care (01) ==
PROVIDERS: Emergency Provider Emergency Medicine; PCP Internal Medicine
DX: N17.9 Acute kidney failure, unspecified (principal); E86.0 Dehydration; N32.89 Other specified disorders of bladder; R10.30 Lower abdominal pain, unspecified; R33.9 Retention of urine, unspecified; F17.210 Nicotine dependence, cigarettes, uncomplicated; Z98.890 Other specified postprocedural states
CPT/HCPCS: 36415; 74176; 80053; 81001; 85025; 87086; 96361; 96372; 96374; 96375; 99285; J1885; J2270; J2405

== ENCOUNTER 2025-01-19 14:41 | Emergency (ER) | payer MEDICARE, SELFPAY ==
[2025-01-19 14:46] VITALS: BP 168/109; PULSE 114; TEMP 36.8; O2SAT 95; BMI 25.0
[2025-01-19] MEDS: ONDANSETRON PF 4 MG/2 ML VIAL IV ×2 (15:24→17:30)
[2025-01-19] MEDS: FENTANYL CITRATE/PF 100 MCG/2 ML VIAL 25 MCG IV (15:24)
[2025-01-19 15:35] VITALS: BP 143/85; PULSE 80; O2SAT 95
[2025-01-19 15:45] LABS: Basophils Percent Auto 0.4 % (0.2-2.0); Eosinophils Absolute Auto 0.1 10^3/uL (0.0-0.7); Eosinophils Percent Auto 0.7 % (0.9-7.0); Hematocrit 34.7 % (42.0-54.0); Hemoglobin 12.3 g/dL (14.0-18.0); Immature Granulocytes Abs Auto 0.04 10^3/uL (0.00-0.03); Immature Granulocytes Pct Auto 0.4 % (0.0-0.5); Lymphocytes Absolute Auto 1.1 10^3/uL (1.2-3.8); Lymphocytes Percent Auto 10.6 % (20.5-60.0); Mean Corpuscular HGB Conc 35.4 g/dL (29.9-35.2); Mean Corpuscular Hemoglobin 31.8 pg (25.9-34.0); Mean Corpuscular Volume 89.7 fL (80.0-94.0); Mean Platelet Volume 9.8 fL (9.5-13.5); Monocytes Absolute Auto 0.5 10^3/uL (0.3-0.8); Monocytes Percent Auto 4.8 % (1.7-12.0); Neutrophils Absolute Auto 8.3 10^3/uL (1.4-6.5); Neutrophils Percent Auto 83.1 % (43.0-75.0); Platelet Count 249 10^3/uL (150-450); Red Blood Count 3.87 10^6/uL (4.70-6.10); Red Cell Distribution Width 13.3 % (11.0-15.0)
[2025-01-19 15:55] LABS: Bilirubin Urine NEGATIVE (NEGATIVE); Blood Urine SMALL (NEGATIVE); Clarity Urine CLEAR (CLEAR); Color Urine LT. YELLOW (YELLOW); Glucose Urine UA NEGATIVE (NEGATIVE); Ketones Urine TRACE mg/dL (NEGATIVE); Leukocyte Esterase Urine TRACE (NEGATIVE); Nitrite Urine NEGATIVE (NEGATIVE); Protein Urine NEGATIVE (NEG/TRACE); Urobilinogen Urine 0.2 EU/dL (0.2-1.0)
[2025-01-19 15:56] LABS: Urine Microscopic Indicated YES
[2025-01-19 15:59] LABS: Alanine Aminotransferase 11 U/L (16-63); Albumin Globulin Ratio 1.1; Albumin Level 3.2 g/dL (3.4-5.0); Alkaline Phosphatase 85 U/L (46-116); Anion Gap 16.1; Aspartate Amino Transferase 15 U/L (15-37); BUN Creatinine Ratio 10.1; Bilirubin Total 0.7 mg/dL (0.2-1.0); Calcium 8.7 mg/dL (8.5-10.1); Carbon Dioxide 24.4 mmol/L (21.0-32.0); Chloride 95 mmol/L (98-107); Estimated GFR (African America 18 (>=60 mL/min/1.73m^2); Estimated GFR (Non-African Ame 15 (>=60 mL/min/1.73m^2); Glucose 83 mg/dL (74-106); Potassium 3.5 mmol/L (3.5-5.1); Sodium 132 mmol/L (136-145); Total Protein 6.2 g/dL (6.4-8.2)
[2025-01-19 16:03] LABS: Bacteria Urine TRACE #/HPF (NONE SEEN); Cast Seen? NONE SEEN #/LPF (NONE SEEN); Crystals Seen? None Seen #/HPF (None Seen); Mucus Urine NONE SEEN (NONE SEEN); Squamous Epithelial Cell Urine RARE #/LPF (NONE/RARE); Transitional Epi Cells Urine RARE #/LPF (NONE SEEN); Urine Culture Indicated YES-FRMC
[2025-01-19] MEDS: 0.9 % SODIUM CHLORIDE 1,000 ML 1000 ML IV ×2 (16:27→17:30)
--- NOTE | 2025-01-19 16:40 | ED.GENADUL1 ---
HPI HPI - General Adult General Chief complaint: Abdominal Pain Stated complaint: BLADDER SURGERY 2 DAYS AGO/ IN PAIN Time Seen by Provider: 01/19/25 14:45 Source: patient Mode of arrival: Wheelchair Limitations: no limitations History of Present Illness HPI narrative: Patient presents to the ED with severe suprapubic pain and nausea with vomiting. 2 days ago he underwent cystoscopy and removal of couple of bladder tumors following instillation of mitomycin. He presented to the ED yesterday with urinary retention but was able to void and declined urinary catheterization. It was noted that his kidney function had declined yesterday. Patient states that he last voided around midnight and has had very little urine output today. He does not report chills or fever. Related Data Home Medications ?Medication ?Instructions ?Recorded ?Confirmed atorvastatin 20 mg tablet 20 mg PO DAILY 11/24/24 01/17/25 irbesartan 150 1 tab PO DAILY 11/24/24 01/17/25 mg-hydrochlorothiazide 12.5 mg tablet omeprazole 20 mg capsule,delayed 20 mg PO DAILY 11/24/24 01/17/25 release tramadol 50 mg tablet 50 mg PO Q8H 11/24/24 01/17/25 zolpidem 10 mg tablet 10 mg PO QPM 11/24/24 01/17/25 aspirin 325 mg capsule 325 mg PO DAILY 01/04/25 01/17/25 calcium 600 mg (as 1 tab PO DAILY 01/04/25 01/17/25 carbonate)-vitamin D3 5 mcg (200 unit) tablet (Calcium 600 + D(3)) cranberry 500 mg capsule 500 mg PO DAILY 01/04/25 01/17/25 multivitamin (Daily Multi-Vitamin 1 tab PO DAILY 01/04/25 01/17/25 tablet) tadalafil 20 mg tablet 20 mg PO DAILY PRN sexual activity 01/04/25 01/17/25 vitamin B complex (Complex B-100 1 tab PO DAILY 01/04/25 01/17/25 tablet,extended release) Previous Rx's ?Medication ?Instructions ?Recorded ondansetron 4 mg disintegrating 4 mg PO DAILY PRN nausea and 01/18/25 tablet vomiting #15 tabs oxybutynin chloride 5 mg tablet 5 mg PO Q8H PRN bladder spasms #20 01/18/25 tabs cephalexin 500 mg capsule 500 mg PO BID 7 days #14 caps 01/19/25 hydrocodone 5 mg-acetaminophen 325 1 tab PO TID PRN pain 4 days #12 01/19/25 mg tablet tabs ondansetron 4 mg disintegrating 4 mg PO Q6H PRN nausea and 01/19/25 tablet vomiting #10 tabs Allergies Allergy/AdvReac Type Severity Reaction Status Date / Time No Known Drug Allergies Allergy Verified 01/04/25 14:42 Opioid HPI Opioid Management Most Recent Opioid Data: Last Pain Scale 9 01/18/25, 12:58 Last Pain Assessment 01/17/25, 07:58 Last MAR Pain Assessment 01/18/25, 10:34 Review of Systems ROS Status of ROS 10 or more systems reviewed and unremarkable except as noted in history and below [facility] Medical History Hearing loss ?H91.90 - Unspecified hearing loss, unspecified ear (ICD-10) Back pain ?M54.9 - Dorsalgia, unspecified (ICD-10) Arthritis ?M19.90 - Unspecified osteoarthritis, unspecified site (ICD-10) Bladder cancer ?C67.9 - Malignant neoplasm of bladder, unspecified (ICD-10) Kidney stones ?N20.0 - Calculus of kidney (ICD-10) Bladder tumor ?D49.4 - Neoplasm of unspecified behavior of bladder (ICD-10) GERD (gastroesophageal reflux disease) ?K21.9 - Gastro-esophageal reflux disease without esophagitis (ICD-10) Bronchitis (11/24/24) ?J40 - Bronchitis, not specified as acute or chronic (ICD-10) Postoperative nausea and vomiting ?R11.2 - Nausea with vomiting, unspecified (ICD-10) ?Z98.890 - Other specified postprocedural states (ICD-10) Hyperlipemia ?E78.5 - Hyperlipidemia, unspecified (ICD-10) Hypertension ?I10 - Essential (primary) hypertension (ICD-10) Surgical History History of colonoscopy ?Z98.890 - Other specified postprocedural states (ICD-10) H/O transurethral resection of prostate ?Z98.890 - Other specified postprocedural states (ICD-10) ?Z90.79 - Acquired absence of other genital organ(s) (ICD-10) H/O transurethral resection of bladder tumor (TURBT) ?Z98.890 - Other specified postprocedural states (ICD-10) ?Z86.03 - Personal history of neoplasm of uncertain behavior (ICD-10) S/P cystoscopy ?Z98.890 - Other specified postprocedural states (ICD-10) History of lumbosacral spine surgery ?Z98.890 - Other specified postprocedural states (ICD-10) S/P cataract extraction and insertion of intraocular lens ?Z98.49 - Cataract extraction status, unspecified eye (ICD-10) ?Z96.1 - Presence of intraocular lens (ICD-10) Family History Other Family history of cancer Family history of coronary artery disease Family history of diabetes mellitus Family history of heart disease Family history of hypertension Family history of stroke Social History Within the past year, how often did you have a drink containing alcohol: never Score interpretation: A score less than 4 is consistent with normal alcohol consumption. Smoking status: Current every day smoker What tobacco products do you use: cigarettes Cigarettes per day: 10 Years smoked: 50 Smoking pack-years: 25.00 Non-prescribed substance use: denies use Highest level of school completed/degree received: high school graduate Little interest or pleasure in doing things: not at all Feeling down, depressed, or hopeless: not at all Exam Narrative Exam Narrative: Patient is acutely distressed upon arrival complaining of suprapubic pain. Vital signs are fairly stable and he is afebrile. HEENT exam is normal to inspection. Neck supple. Lung sounds are clear to auscultation bilaterally. Heart has regular rate and rhythm S1-S2 normal. Abdomen soft with tenderness over the suprapubic region. No masses are felt. Extremities warm and dry. Constitutional Vital Signs, click to edit/add: Last Vital Signs Temp 98.2 F 01/19/25 14:46 Pulse 80 01/19/25 15:35 Resp 18 01/19/25 15:35 BP 143/85 H 01/19/25 15:35 Pulse Ox 95 01/19/25 15:35 O2 Del Method Room Air 01/19/25 14:46 Course Vital Signs Vital signs: Vital Signs Temperature 98.2 F 01/19/25 14:46 Pulse Rate 114 H 01/19/25 14:46 Respiratory Rate 18 01/19/25 14:46 Blood Pressure 168/109 H 01/19/25 14:46 Pulse Oximetry 95 01/19/25 14:46 Oxygen Delivery Method Room Air 01/19/25 14:46 Temperature 98.2 F 01/19/25 14:46 Pulse Rate 80 01/19/25 15:35 Respiratory Rate 18 01/19/25 15:35 Blood Pressure 143/85 H 01/19/25 15:35 Pulse Oximetry 95 01/19/25 15:35 Oxygen Delivery Method Room Air 01/19/25 14:46 Medical Decision Making MDM Narrative Medical decision making narrative: Patient voided 100 cc of clear looking urine in the ED. A Mohamud catheter was then inserted and he put out 500 cc of urine. His blood work is remarkable for marked worsening of his kidney function. I see that 2 weeks ago he had a normal BUN of 17 and today it is 40 his creatinine then was 1.56 and today it is 3.98. He is started on a bolus of 1 L of IV normal saline. I feel his renal function decline is secondary to urinary outflow obstruction. Patient is bolused with a second liter of saline and given Zofran for residual vomiting. He feels much better at this time. I have discussed his findings with Dr. Leo with whom he has an appointment on Thursday. He will be placed on [place] for pain, Zofran and on Keflex. He will be sent home with an indwelling Mohamud catheter. Lab Data Labs: Lab Results 01/19/25 01/19/25 Range/Units 15:00 15:40 WBC 10.0 (4.0-11.0) 10^3/uL RBC 3.87 L (4.70-6.10) 10^6/uL Hgb 12.3 L (14.0-18.0) g/dL Hct 34.7 L (42.0-54.0) % MCV 89.7 (80.0-94.0) fL MCH 31.8 (25.9-34.0) pg MCHC 35.4 H (29.9-35.2) g/dL RDW 13.3 (11.0-15.0) % Plt Count 249 (150-450) 10^3/uL MPV 9.8 (9.5-13.5) fL Neut % (Auto) 83.1 H (43.0-75.0) % Lymph % (Auto) 10.6 L (20.5-60.0) % [place] % (Auto) 4.8 (1.7-12.0) % Eos % (Auto) 0.7 L (0.9-7.0) % Baso % (Auto) 0.4 (0.2-2.0) % Neut # (Auto) 8.3 H (1.4-6.5) 10^3/uL Lymph # (Auto) 1.1 L (1.2-3.8) 10^3/uL [place] # (Auto) 0.5 (0.3-0.8) 10^3/uL Eos # (Auto) 0.1 (0.0-0.7) 10^3/uL Baso # (Auto) 0.0 (0.0-0.1) 10^3/uL Abs Immat Gran (auto) 0.04 H (0.00-0.03) 10^3/uL Imm/Tot Granulo (auto) 0.4 (0.0-0.5) % Sodium 132 L (136-145) mmol/L Potassium 3.5 (3.5-5.1) mmol/L Chloride 95 L (98-107) mmol/L Carbon Dioxide 24.4 (21.0-32.0) mmol/L Anion Gap 16.1 BUN 40.0 H (7.0-18.0) mg/dL Creatinine 3.98 H (0.70-1.30) mg/dL Est GFR ( Amer) 18 L (>=60 mL/min/1.73m^2) Est GFR (Non-Af Amer) 15 L (>=60 mL/min/1.73m^2) BUN/Creatinine Ratio 10.1 Glucose 83 (74-106) mg/dL Calcium 8.7 (8.5-10.1) mg/dL Total Bilirubin 0.7 (0.2-1.0) mg/dL AST 15 (15-37) U/L ALT 11 L (16-63) U/L Alkaline Phosphatase 85 (46-116) U/L Total Protein 6.2 L (6.4-8.2) g/dL Albumin 3.2 L (3.4-5.0) g/dL Globulin 3.0 g/dL Albumin/Globulin Ratio 1.1 Urine Color Lt. yellow (YELLOW) Urine Clarity Clear (CLEAR) Urine pH 6.0 (5.0-9.0) Ur Specific [place] 1.010 (1.005-1.025) Urine Protein Negative (NEG/TRACE) mg/dL Urine Glucose (UA) Negative (NEGATIVE) mg/dL Urine Ketones Trace A (NEGATIVE) mg/dL Urine Occult Blood Small A (NEGATIVE) Urine Nitrite Negative (NEGATIVE) Urine Bilirubin Negative (NEGATIVE) Urine Urobilinogen 0.2 (0.2-1.0) EU/dL Ur Leukocyte Esterase Trace A (NEGATIVE) Urine RBC 2-5 A (0-2) #/HPF Urine WBC 5-10 A (NONE SEEN) #/HPF Ur Squamous Epith Cells Rare (NONE/RARE) #/LPF Ur Transition Epith Cell Rare A (NONE SEEN) #/LPF Urine Crystals None seen (None Seen) #/HPF Urine Bacteria Trace A (NONE SEEN) #/HPF Urine Casts None seen (NONE SEEN) #/LPF Urine Mucus None seen (NONE SEEN) Ur [place] [place] Discharge Chief Complaint: Abdominal Pain Clinical Impression: Acute urinary retention, MARKY (acute kidney injury) Patient Disposition: Home, Self-Care Time of Disposition Decision: 18:07 Condition: Good Mode of Transportation: Private Vehicle Prescriptions / Home Meds: New hydrocodone-acetaminophen 5-325 mg tablet 1 tab PO TID PRN (Reason: pain) 4 Days Qty: 12 0RF cephalexin 500 mg capsule 500 mg PO BID 7 Days Qty: 14 0RF ondansetron 4 mg tablet,disintegrating 4 mg PO Q6H PRN (Reason: nausea and vomiting) Qty: 10 0RF No Action tadalafil 20 mg tablet 20 mg PO DAILY PRN (Reason: sexual activity) multivitamin [Daily Multi-Vitamin] Tablet 1 tab PO DAILY Complex B-100 Tablet Extended Release 1 tab PO DAILY cranberry 500 mg capsule 500 mg PO DAILY Rx Instructions: administer with a meal calcium carbonate-vitamin D3 [Calcium 600 + D(3)] 600 mg-5 mcg (200 unit) tablet 1 tab PO DAILY aspirin 325 mg capsule 325 mg PO DAILY atorvastatin 20 mg tablet 20 mg PO DAILY irbesartan-hydrochlorothiazide 150-12.5 mg tablet 1 tab PO DAILY tramadol 50 mg tablet 50 mg PO Q8H omeprazole 20 mg capsule,delayed release(DR/EC) 20 mg PO DAILY zolpidem 10 mg tablet 10 mg PO QPM oxybutynin chloride 5 mg tablet 5 mg PO Q8H PRN (Reason: bladder spasms) Qty: 20 0RF ondansetron 4 mg tablet,disintegrating 4 mg PO DAILY PRN (Reason: nausea and vomiting) Qty: 15 0RF Print Language: Kazakh Instructions: Acute Kidney Injury (DC), Mohamud Catheter Placement and Care (ED) Referrals: IDANIA LUTZ [Primary Care Provider, Internal Medicine] - 1 week
== END 2025-01-19 18:20 | disposition home or self-care (01) ==
PROVIDERS: Emergency Provider Emergency Medicine; PCP Internal Medicine
DX: R33.9 Retention of urine, unspecified (principal); N17.9 Acute kidney failure, unspecified; R10.9 Unspecified abdominal pain; R11.2 Nausea with vomiting, unspecified; Z98.890 Other specified postprocedural states; F17.210 Nicotine dependence, cigarettes, uncomplicated
CPT/HCPCS: 36415; 80053; 81001; 85025; 87086; 96361; 96374; 96375; 96376; 99285; J2405; J3010

== ENCOUNTER 2025-01-20 21:47 | Emergency (ER) | payer MEDICARE, SELFPAY ==
[2025-01-20 21:57] VITALS: BP 130/84; PULSE 95; TEMP 36.8; O2SAT 97; BMI 25.0
--- NOTE | 2025-01-20 22:39 | ED.MALEGU1 ---
HPI - Male Genitourinary General Chief complaint: Urogenital-Male Stated complaint: leaking cath Time Seen by Provider: 01/20/25 22:30 Source: patient Mode of arrival: walk-in History of Present Illness HPI Narrative: The patient is a 74 year old male presenting for urine leaking around his boateng catheter. It was preceded by a sensation that he actually had to have urination. He originally had the Boateng catheter placed for urinary retention. Patient stated he felt the urge to urinate. He said it was pressure but was not pain and it was simply the same sensation he would get when have to urinate. He states that then the urine went around the Boateng catheter but it was not a lot of urine. It was enough to soil his undergarments but was not an entire stream of urine. Patient denies any pain or discomfort at this time. He did not pull on the catheter. There has been no blood present. There is no blood in the urine. Patient has not followed up with urology or his primary care physician since placement yet. Related Data Home Medications ?Medication ?Instructions ?Recorded ?Confirmed atorvastatin 20 mg tablet 20 mg PO DAILY 11/24/24 01/17/25 irbesartan 150 1 tab PO DAILY 11/24/24 01/17/25 mg-hydrochlorothiazide 12.5 mg tablet omeprazole 20 mg capsule,delayed 20 mg PO DAILY 11/24/24 01/17/25 release tramadol 50 mg tablet 50 mg PO Q8H 11/24/24 01/17/25 zolpidem 10 mg tablet 10 mg PO QPM 11/24/24 01/17/25 aspirin 325 mg capsule 325 mg PO DAILY 01/04/25 01/17/25 calcium 600 mg (as 1 tab PO DAILY 01/04/25 01/17/25 carbonate)-vitamin D3 5 mcg (200 unit) tablet (Calcium 600 + D(3)) cranberry 500 mg capsule 500 mg PO DAILY 01/04/25 01/17/25 multivitamin (Daily Multi-Vitamin 1 tab PO DAILY 01/04/25 01/17/25 tablet) tadalafil 20 mg tablet 20 mg PO DAILY PRN sexual activity 01/04/25 01/17/25 vitamin B complex (Complex B-100 1 tab PO DAILY 01/04/25 01/17/25 tablet,extended release) Previous Rx's ?Medication ?Instructions ?Recorded ondansetron 4 mg disintegrating 4 mg PO DAILY PRN nausea and 01/18/25 tablet vomiting #15 tabs oxybutynin chloride 5 mg tablet 5 mg PO Q8H PRN bladder spasms #20 01/18/25 tabs cephalexin 500 mg capsule 500 mg PO BID 7 days #14 caps 01/19/25 hydrocodone 5 mg-acetaminophen 325 1 tab PO TID PRN pain 4 days #12 01/19/25 mg tablet tabs ondansetron 4 mg disintegrating 4 mg PO Q6H PRN nausea and 01/19/25 tablet vomiting #10 tabs Allergies Allergy/AdvReac Type Severity Reaction Status Date / Time No Known Drug Allergies Allergy Verified 01/04/25 14:42 Review of Systems ROS Narrative 10 Systems were reviewed, and unless noted in the HPI, all other systems are reviewed, unremarkable, or noncontributory. [facility] Medical History Hearing loss ?H91.90 - Unspecified hearing loss, unspecified ear (ICD-10) Back pain ?M54.9 - Dorsalgia, unspecified (ICD-10) Arthritis ?M19.90 - Unspecified osteoarthritis, unspecified site (ICD-10) Bladder cancer ?C67.9 - Malignant neoplasm of bladder, unspecified (ICD-10) Kidney stones ?N20.0 - Calculus of kidney (ICD-10) Bladder tumor ?D49.4 - Neoplasm of unspecified behavior of bladder (ICD-10) GERD (gastroesophageal reflux disease) ?K21.9 - Gastro-esophageal reflux disease without esophagitis (ICD-10) Bronchitis (11/24/24) ?J40 - Bronchitis, not specified as acute or chronic (ICD-10) Postoperative nausea and vomiting ?R11.2 - Nausea with vomiting, unspecified (ICD-10) ?Z98.890 - Other specified postprocedural states (ICD-10) Hyperlipemia ?E78.5 - Hyperlipidemia, unspecified (ICD-10) Hypertension ?I10 - Essential (primary) hypertension (ICD-10) Surgical History History of colonoscopy ?Z98.890 - Other specified postprocedural states (ICD-10) H/O transurethral resection of prostate ?Z98.890 - Other specified postprocedural states (ICD-10) ?Z90.79 - Acquired absence of other genital organ(s) (ICD-10) H/O transurethral resection of bladder tumor (TURBT) ?Z98.890 - Other specified postprocedural states (ICD-10) ?Z86.03 - Personal history of neoplasm of uncertain behavior (ICD-10) S/P cystoscopy ?Z98.890 - Other specified postprocedural states (ICD-10) History of lumbosacral spine surgery ?Z98.890 - Other specified postprocedural states (ICD-10) S/P cataract extraction and insertion of intraocular lens ?Z98.49 - Cataract extraction status, unspecified eye (ICD-10) ?Z96.1 - Presence of intraocular lens (ICD-10) Family History Other Family history of cancer Family history of coronary artery disease Family history of diabetes mellitus Family history of heart disease Family history of hypertension Family history of stroke Social History Within the past year, how often did you have a drink containing alcohol: never Score interpretation: A score less than 4 is consistent with normal alcohol consumption. Smoking status: Current every day smoker What tobacco products do you use: cigarettes Cigarettes per day: 10 Years smoked: 50 Smoking pack-years: 25.00 Non-prescribed substance use: denies use Highest level of school completed/degree received: high school graduate Little interest or pleasure in doing things: not at all Feeling down, depressed, or hopeless: not at all Exam Narrative Exam Narrative: Prior to examining the patient, I have washed with hospital approved and provided Antiseptic Hand Hospital Monitor and have also applied gloves.? Prior to touching the patient, I asked for consent to examine the patient.? General: Alert and oriented, well nourished, mild distress. Eye: PERRL, EOMI, normal conjunctiva. HENT: Normocephalic, normal hearing, moist oral mucosa, no scleral icterus, Lungs: Clear to auscultation and percussion, non-labored respiration. Heart: Normal rate, regular rhythm, no murmur, gallop or edema. Abdomen: Soft, non-tender, non-distended, normal bowel sounds, no masses. : circumcized male with a penile urethra boateng catheter placed. Bilateral descended testicles. No urine leaking around. Musculoskeletal: Normal range of motion and strength, no tenderness or swelling. Skin: Skin is warm, dry and pink, no rashes or lesions. Neurologic: Awake, alert, and oriented X3, CN II-XII intact. Psychiatric: Cooperative, appropriate mood and affect.? Following the conclusion of the examination, I have washed my hands thoroughly after removing examination gloves. Constitutional Vital Signs, click to edit/add: Last Vital Signs Temp 98.3 F 01/20/25 21:57 Pulse 95 H 01/20/25 21:57 Resp 18 01/20/25 21:57 BP 130/84 01/20/25 21:57 Pulse Ox 97 01/20/25 21:57 O2 Del Method Room Air 01/20/25 21:57 Course Course Hospital Course: Patient was seen and evaluated in the emergency department. I wanted to make sure that the patient was not having a Boateng catheter blockage. We checked a bladder scan and there is only 8 mL of urine present. Therefore I am not sure as to what happened but the amount of urine seemed negligible and the balloon appears to be intact and the Boateng catheter is in place. Vital Signs Vital signs: Vital Signs Temperature 98.3 F 01/20/25 21:57 Pulse Rate 95 H 01/20/25 21:57 Respiratory Rate 18 01/20/25 21:57 Blood Pressure 130/84 01/20/25 21:57 Pulse Oximetry 97 01/20/25 21:57 Oxygen Delivery Method Room Air 01/20/25 21:57 Temperature 98.3 F 01/20/25 21:57 Pulse Rate 95 H 01/20/25 21:57 Respiratory Rate 18 01/20/25 21:57 Blood Pressure 130/84 01/20/25 21:57 Pulse Oximetry 97 01/20/25 21:57 Oxygen Delivery Method Room Air 01/20/25 21:57 MDM - Male Genitourinary Differential Diagnosis Differential diagnosis: Likely urinary tract infection, urethritis and acute retention of urine Discharge Plan Discharge Chief Complaint: Urogenital-Male Clinical Impression: Complication of Boateng catheter Patient Disposition: Home, Self-Care Time of Disposition Decision: 22:41 Condition: Good Mode of Transportation: Private Vehicle Prescriptions / Home Meds: No Action tadalafil 20 mg tablet 20 mg PO DAILY PRN (Reason: sexual activity) multivitamin [Daily Multi-Vitamin] Tablet 1 tab PO DAILY Complex B-100 Tablet Extended Release 1 tab PO DAILY cranberry 500 mg capsule 500 mg PO DAILY Rx Instructions: administer with a meal calcium carbonate-vitamin D3 [Calcium 600 + D(3)] 600 mg-5 mcg (200 unit) tablet 1 tab PO DAILY aspirin 325 mg capsule 325 mg PO DAILY hydrocodone-acetaminophen 5-325 mg tablet 1 tab PO TID PRN (Reason: pain) 4 Days Qty: 12 0RF cephalexin 500 mg capsule 500 mg PO BID 7 Days Qty: 14 0RF ondansetron 4 mg tablet,disintegrating 4 mg PO Q6H PRN (Reason: nausea and vomiting) Qty: 10 0RF atorvastatin 20 mg tablet 20 mg PO DAILY irbesartan-hydrochlorothiazide 150-12.5 mg tablet 1 tab PO DAILY tramadol 50 mg tablet 50 mg PO Q8H omeprazole 20 mg capsule,delayed release(DR/EC) 20 mg PO DAILY zolpidem 10 mg tablet 10 mg PO QPM oxybutynin chloride 5 mg tablet 5 mg PO Q8H PRN (Reason: bladder spasms) Qty: 20 0RF ondansetron 4 mg tablet,disintegrating 4 mg PO DAILY PRN (Reason: nausea and vomiting) Qty: 15 0RF Print Language: Nicaraguan Instructions: Boateng Catheter Placement and Care (ED) Additional Instructions: Thank you for trusting us with your care today. Please follow-up with your urologist or primary care doctor for further instructions about the Boateng catheter. Referrals: IDANIA LUTZ [Primary Care Provider, Internal Medicine] - 1 week Discharge Date/Time: 01/20/25 22:50 Procedures ED Procedure Instructions Procedures Procedures: Bladder scan is 8 ml.
== END 2025-01-20 22:50 | disposition home or self-care (01) ==
PROVIDERS: Emergency Provider Emergency Medicine; PCP Internal Medicine
DX: T83.038A Leakage of other urinary catheter, initial encounter (principal); F17.210 Nicotine dependence, cigarettes, uncomplicated
CPT/HCPCS: 99284

== ENCOUNTER 2025-01-21 12:00 | Outpatient (OUT) | payer MEDICARE, SELFPAY ==
[2025-01-21 12:37] LABS: Basophils Percent Auto 0.3 % (0.2-2.0); Eosinophils Absolute Auto 0.2 10^3/uL (0.0-0.7); Eosinophils Percent Auto 3.3 % (0.9-7.0); Hematocrit 37.1 % (42.0-54.0); Hemoglobin 12.8 g/dL (14.0-18.0); Immature Granulocytes Abs Auto 0.02 10^3/uL (0.00-0.03); Immature Granulocytes Pct Auto 0.3 % (0.0-0.5); Lymphocytes Absolute Auto 0.7 10^3/uL (1.2-3.8); Lymphocytes Percent Auto 11.2 % (20.5-60.0); Mean Corpuscular HGB Conc 34.5 g/dL (29.9-35.2); Mean Corpuscular Hemoglobin 31.8 pg (25.9-34.0); Mean Corpuscular Volume 92.1 fL (80.0-94.0); Mean Platelet Volume 10.3 fL (9.5-13.5); Monocytes Absolute Auto 0.2 10^3/uL (0.3-0.8); Monocytes Percent Auto 3.8 % (1.7-12.0); Neutrophils Absolute Auto 5.2 10^3/uL (1.4-6.5); Neutrophils Percent Auto 81.1 % (43.0-75.0); Platelet Count 249 10^3/uL (150-450); Red Blood Count 4.03 10^6/uL (4.70-6.10); Red Cell Distribution Width 13.2 % (11.0-15.0); White Blood Count 6.4 10^3/uL (4.0-11.0)
[2025-01-21 12:42] LABS: Estimated GFR (African America 54 (>=60 mL/min/1.73m^2); Estimated GFR (Non-African Ame 45 (>=60 mL/min/1.73m^2)
== END 2025-01-21 12:01 | disposition home or self-care (01) ==
PROVIDERS: PCP Internal Medicine; Visit Provider Urology
DX: D72.829 Elevated white blood cell count, unspecified (principal); R33.9 Retention of urine, unspecified; D41.4 Neoplasm of uncertain behavior of bladder
CPT/HCPCS: 36415; 82565; 84520; 85025

== ENCOUNTER 2025-04-02 09:11 | Emergency (ER) | payer MEDICARE, SELFPAY ==
[2025-04-02 09:15] VITALS: BP 134/89; PULSE 89; TEMP 37.1; O2SAT 99; BMI 24.6
--- OUTSIDE RECORDS SUMMARY | 2025-04-02 09:19 | XMS_ITS | CCD ---
Author Organization [facility] Team Providers Care Cad Specialist Name Role Phone RICHARD DENNIS Primary Care Physician AHMET, DR CARUSO Attending Unavailable AHMET, DR CARUSO Admitting Unavailable BOLIVAR, DR EMERSON Primary Care Unavailable AHMET, DR CARUSO Consulting Unavailable NEFCY, PETER Consulting Unavailable AHMET, DR CARUSO Attending Unavailable AHMET, DR CARUSO Admitting Unavailable BOLIVAR, DR EMERSON Primary Care Unavailable AHMET, DR CARUSO Consulting Unavailable SHARP, LEE ANN Consulting Unavailable GEMBUS, RICHARD Consulting Unavailable Richard Dennis MD Unavailable [phone] Richard Dennis MD Primary Care Provider Gerald Leo MD Attending Provider Doris Hollingsworth DO Attending Provider Yunior Wong MD Attending Provider Gerald Leo Admitting Unavailable Gerald Leo Attending Unavailable Doris Hollingsworth Admitting Unavailable Doris Hollingsworth Attending Unavailable Yunior Wong Admitting Unavailable Yunior Wong Attending Unavailable Gerald LEO Attending Unavailable Gerald LEO Attending Unavailable Gerald LEO R Attending Unavailable Gerald LEO R Admitting Unavailable Gerald LEO Attending Unavailable MCKENNA GOMEZ Attending Unavailable MCKENNA GOMEZ Attending Unavailable ANKIT BROOKS Attending Unavailable RICHARD DENNIS Attending Unavailable MCKENNA GOMEZ Attending Unavailable MCKENNA GOMEZ Attending Unavailable Gerald LEO Attending Unavailable AWAIS DE LA CRUZ Attending Unavailable AWAIS DE LA CRUZ Attending Unavailable Allergies Allergy Classification Reported Allergen(s) Allergy Type Date of Onset Reaction(s) Facility (20 sources) beta-Blocking agent Drug Allergy 3 [facility] (2 sources) No Known Medication Allergies; Translations: [No Known Medication Allergies] Propensity to adverse reactions (disorder) [facility] Medications Current Medications Medication Drug Class(es) Dates Sig (Normalized) Sig (Original) aspirin 325 mg delayed release oral tablet (10 sources) Platelet Aggregation Inhibitor, Nonsteroidal Anti-inflammatory Drug Start: 06-07-2019 take 1 tablet by mouth once daily aspirin 325 mg Oral EC Tab 325 mg = 1 tab(s), Oral, Daily Start Date: 06/07/19 Status: Ordered Repeat number: 1 atorvastatin 20 mg oral tablet (20 sources) HMG-CoA Reductase Inhibitor Start: 06-07-2019 take 1 tablet by mouth in the morning atorvastatin (Lipitor) 20 MG tablet Indications: Mixed hyperlipidemia TAKE 1 TABLET BY MOUTH IN THE MORNING 100 tablet 3 03/21/2025 Active Calcium Citrate / Vitamin D (10 sources) Start: 08-19-2022 calcium-vitamin D Start Date: 08/19/22 Status: Ordered Repeat number: 1 Start: 08-19-2022 calcium-vitami n D Start Date: 08/19/22 Status: Ordered CALCIUM-VITAMIN D PO (20 sources) Start: 08-19-2022 CALCIUM-VITAMI N D PO Daily. 08/19/2022 Active Start: 08-19-2022 CALCIUM-VITAMI N D PO Daily. 0 08/19/2022 Active Cranberry preparation (20 sources) Non-Standardized Food Allergenic Extract, Non-Standardized Plant Allergenic Extract Start: 08-19-2022 Cranberry Start Date: 08/19/22 Status: Ordered Repeat number: 1 Start: 08-19-2022 Cranberry Star t Date: 08/19/22 Status: Ordered Start: 08-19-2022 Cranberry 125 MG tablet Daily. 08/19/2022 Active Start: 08-19-2022 Cranberry 125 MG tablet Daily. 0 08/19/2022 Active cyclobenzaprine hydrochloride 10 mg oral tablet (11 sources) Muscle Relaxant Start: 06-07-2019 take 1 tablet by mouth once daily as needed for muscle spasms cyclobenzaprine 10 mg Tab 10 mg = 1 tab(s), Oral, Daily, PRN for spasm Start Date: 06/07/19 Status: Ordered Repeat number: 1 diclofenac sodium 0.01 mg/mg topical gel (12 sources) Nonsteroidal Anti-inflammatory Drug diclofenac sodium 1 % gel Indications: Primary osteoarthritis of right knee Apply 2 g topically in the morning and 2 g in the evening and 2 g before bedtime. Active doxycycline hyclate 100 mg oral capsule (2 sources) Tetracycline-clas s Drug Start: 12-01-2024 End: 12-04-2024 doxycycline (Vibramycin) 100 MG capsule Indications: Acute bronchitis, unspecified organism Take 1 capsule (100 mg) by mouth in the morning and 1 capsule (100 mg) before bedtime. Do all this for 3 days. Take with at least 8 ounces (large glass) of water, do not lie down for 30 minutes after. 6 capsule 12/01/2024 12/04/2024 Active esomeprazole 20 mg delayed release oral capsule (10 sources) Proton Pump Inhibitor Start: 06-07-2019 take 1 capsule by mouth once daily Nexium 20 mg Cap-DR 20 mg = 1 cap(s), Oral, Daily Start Date: 06/07/19 Status: Ordered Repeat number: 1 hydroCHLOROthiazide 12.5 mg / irbesartan 150 mg oral tablet (20 sources) Thiazide Diuretic, Angiotensin 2 Receptor Katlyn Start: 06-15-2024 take 1 tablet by mouth in the morning irbesartan-hydroCHL OROthiazide (Avalide) 150-12.5 MG tablet Indications: Benign essential hypertension TAKE 1 TABLET BY MOUTH IN THE MORNING 100 tablet 3 06/15/2024 Active Start: 04-06-2023 take 1 tablet by desiree th in the morning irbesartan-hydroCHLOROthiazide (Avalide) 150-12.5 MG tablet Indications: Benign essential hypertension (CMS/HCC) TAKE 1 TABLET BY MOUTH IN THE MORNING 100 tablet 3 04/06/2023 Active Start: 08-19-2022 take 1 tablet by desiree th once daily hydrochlorothiazide-irbesartan 12.5 mg-1 50 mg Tab tab(s), Oral, Daily Start Date: 08/19/22 Status: Ordered Repeat number: 1 methylPREDNISolone 4 mg oral tablet (2 sources) Corticosteroid Start: 11-25-2024 End: 12-01-2024 methylPREDNISolone (Medrol Dospak) 4 MG tablets TAKE BY MOUTH DIRECTED ON INSIDE OF PACKAGE 11/25/2024 12/01/2024 Discontinued (Therapy completed) Multi Vitamin+ (10 sources) Start: 06-07-2019 Multi Vitamin+ See Instructions, Refill(s) 0 Start Date: 06/07/19 Status: Ordered Repeat number: 1 Start: 06-07-2019 Multi Vitamin+ See Instructions, Refill(s) 0 Start Date: 06/07/19 Status: Ordered omeprazole 20 mg delayed release oral capsule (20 sources) Proton Pump Inhibitor Start: 03-21-2025 take 1 capsule by mouth before mealtime omeprazole (PriLOSEC) [address] capsule Indications: Gastro-esophageal reflux disease without esophagitis TAKE 1 CAPSULE BY MOUTH IN THE MORNING BEFORE MEAL(S) 100 capsule 3 03/21/2025 Active Start: 03-16-2024 take 1 capsule by mo uth before mealtime omeprazole (PriLOSEC) [address] capsule Indications: Gastro-esophageal reflux disease without esophagitis TAKE 1 CAPSULE BY MOUTH IN THE MORNING BEFORE MEAL(S) 100 capsule 3 03/16/2024 Active Start: 02-24-2023 take 1 capsule by mo uth before mealtime omeprazole (PriLOSEC) [address] capsule Indications: Gastro-esophageal reflux disease without esophagitis Take 1 capsule (20 mg) by mouth in the morning. Take before meals. 100 capsule 3 02/24/2023 Active Start: 06-25-2021 take 1 mg by mouth once daily Omeprazole 20 mg Cap - DR mg, Oral, Daily, Refills(s) 0 Start Date: 06/25/21 Status: Ordered Repeat number: 1 oxybutynin chloride 5 mg oral tablet (3 sources) Cholinergic Muscarinic Antagonist Start: 03-27-2025 End: 05-26-2025 take 2 tablets by mouth at bedtime oxybutynin 5 mg Tab 10 mg = 2 tab(s), Oral, Bedtime, X 30 day(s), # 60 tab(s), Refills(s) 1, Pharmacy: [id number], 165, cm, 03/27/25 12:12:00 EDT, Height/Length Dosing, 67.3, kg, 03/27/25 12:12:00 EDT, Weight Dosing Start Date: 03/27/25 Stop Date: 05/26/25 Status: Ordered Quantity: 60.0 Unit: tab(s) Repeat number: 2 Start: 01-23-2025 End: 01-26-2025 take 1 tablet by mouth in the morning oxybutynin (Ditropan) 5 MG tablet Take 5 mg by mouth in the morning and 5 mg before bedtime. 01/23/2025 01/26/2025 Discontinued (Therapy completed) phenazopyridine hydrochloride 200 mg oral tablet (1 source) Start: 01-31-2025 End: 02-05-2025 take 1 tablet by mouth three times daily as needed for pain Pyridium 200 mg Tab 200 mg = 1 tab(s), Oral, TID, PRN bladder pain, X 5 day(s), # 15 tab(s), Refills(s) 0, Pharmacy: [id number], 165, cm, 01/31/25 10:27:00 EDT, Height/Length Dosing, 69.3, kg, 01/31/25 10:27:00 EDT, Weight Dosing Start Date: 01/31/25 Stop Date: 02/05/25 Status: Ordered Quantity: 15.0 Unit: tab(s) Repeat number: 1 predniSONE 10 mg oral tablet (2 sources) Start: 10-22-2023 End: 11-05-2023 take 1 tablet by mouth three times daily, then take 1 tablet by mouth twice daily, then take 1 tablet by mouth once daily predniSONE (Deltasone) 10 MG tablet Indications: Acute pain of right knee Take 1 tablet (10 mg) by mouth 3 (three) times a day for 3 days, THEN 1 tablet (10 mg) 2 (two) times a day for 3 days, THEN 1 tablet (10 mg) Daily for 3 days. 18 tablet 0 10/28/2023 11/05/2023 Active tadalafil 20 mg oral tablet (2 sources) Phosphodiesterase 5 Inhibitor Start: 03-30-2025 End: 03-30-2026 take 1 tablet by mouth once daily as needed tadalafil (Cialis) 20 MG tablet Indications: Erectile dysfunction, unspecified erectile dysfunction type Take 1 tablet (20 mg) by mouth Daily as needed for erectile dysfunction 10 tablet 11 03/30/2025 03/30/2026 Active Start: 06-15-2023 End: 06-14-2024 take 1 tablet by mouth once daily as needed tadalafil (Cialis) 20 MG tablet Indications: Erectile dysfunction, unspecified erectile dysfunction type Take 1 tablet (20 mg) by mouth Daily as needed for erectile dysfunction. 20 tablet 11 06/15/2023 06/14/2024 Active traMADol hydrochloride 50 mg oral tablet (20 sources) Opioid Agonist Start: 01-09-2025 End: 03-10-2025 take 1 tablet by mouth every six hours for pain traMADol (Ultram) 50 MG tablet Indications: DDD (degenerative disc disease), lumbar Take 1 tablet (50 mg) by mouth every 6 (six) hours if needed for severe pain 120 tablet 1 01/09/2025 03/10/2025 Active Start: 11-14-2024 End: 12-14-2024 take 1 tablet by mouth every six hours for pain traMADol (Ultram) 50 MG tablet Indications: DDD (degenerative disc disease), lumbar Take 1 tablet (50 mg) by mouth every 6 (six) hours if needed for severe pain 120 tablet 11/14/2024 12/14/2024 Active Start: 09-26-2024 End: 10-26-2024 take 1 tablet by mouth every six hours for pain traMADol (Ultram) 50 MG tablet Indications: DDD (degenerative disc disease), lumbar Take 1 tablet (50 mg) by mouth every 6 (six) hours if needed for severe pain 120 tablet 09/26/2024 10/26/2024 Active Start: 07-06-2024 End: 08-05-2024 take 1 tablet by mouth every six hours for pain traMADol (Ultram) 50 MG tablet Indications: DDD (degenerative disc disease), lumbar Take 1 tablet (50 mg) by mouth every 6 (six) hours if needed for severe pain 120 tablet 07/06/2024 08/05/2024 Active Start: 08-24-2023 take 1 tablet by desiree th every six hours for pain traMADol (Ultram) 50 MG tablet Indications: DDD (degenerative disc disease), lumbar , Chronic bilateral low back pain without sciatica Take 1 tablet (50 mg) by mouth every 6 (six) hours if needed for moderate pain 120 tablet 0 08/24/2023 Active Start: 06-07-2019 take 1 tablet by desiree th once daily traMADOL 50 mg Tab 50 mg = 1 tab(s), Oral, Daily Start Date: 06/07/19 Status: Ordered Repeat number: 1 traZODone hydrochloride 50 mg oral tablet (4 sources) Serotonin Reuptake Inhibitor Start: 01-30-2025 traZODone (Desyrel) 50 MG tablet Indications: Chronic insomnia Take 1 tablet (50 mg) by mouth as needed at bedtime for sleep 01/30/2025 Active Start: 01-26-2025 traZODone (Brendan yrel) 50 MG tablet Indications: Chronic insomnia Take 1-2 tablets (50-100 mg) by mouth as needed at bedtime for sleep 60 tablet 2 01/26/2025 Active zolpidem tartrate 10 mg oral tablet (20 sources) gamma-Aminobutyric Acid-ergic Agonist Start: 02-16-2025 zolpidem (Ambien) 10 MG tablet Indications: Chronic insomnia Take 1 tablet (10 mg) by mouth as needed at bedtime for sleep ICD 10:F51.04 30 tablet 5 02/16/2025 Active Start: 01-30-2025 End: 02-16-2025 zolpidem (Ambien) 10 MG tabl et Indications: Chronic insomnia Take 1 tablet (10 mg) by mouth as needed at bedtime for sleep ICD 10:F51.04 01/30/2025 02/16/2025 Discontinued (Reorder) Start: 01-27-2024 End: 01-26-2025 zolpidem (Ambien) 10 MG tabl et Indications: Chronic insomnia Take 1 tablet (10 mg) by mouth as needed at bedtime for sleep ICD 10:F51.04 30 tablet 2 11/14/2024 01/26/2025 Discontinued (Ineffective) Start: 06-15-2023 take 1 tablet by desiree th every 30 days as needed for sleep zolpidem (Ambien) 10 MG tablet Indications: Chronic insomnia Take 1 tablet (10 mg) by mouth as needed at bedtime for sleep. ICD 10:F51.04; 30 tablets is a 30 day supply 30 tablet 5 06/15/2023 Active Start: 06-25-2021 take 1 tablet by desiree th once daily at bedtime as needed for sleep zolpidem 10 mg oral tablet 10 mg = 1 tab(s), Oral, Once a day (at bedtime), PRN for sleep, Refills(s) 0 Start Date: 06/25/21 Status: Ordered Repeat number: 1 Completed/Discontinued Medications Medication Drug Class(es) Dates Sig (Normalized) Sig (Original) acetaminophen 325 mg / HYDROcodone bitartrate 5 mg oral tablet (2 sources) Opioid Agonist Start: 01-23-2025 End: 01-26-2025 take 1 tablet by mouth every six hours as needed HYDROcodone-acetam inophen (Tracy) 5-325 MG tablet Take 1 tablet by mouth every 6 (six) hours if needed 01/23/2025 01/26/2025 Discontinued (Therapy completed) cephalexin 500 mg oral capsule (2 sources) Cephalosporin Antibacterial Start: 01-23-2025 End: 01-26-2025 take 1 capsule by mouth in the morning cephalexin (Keflex) 500 MG capsule Take 500 mg by mouth in the morning and 500 mg before bedtime. 01/23/2025 01/26/2025 Discontinued (Therapy completed) ciprofloxacin 500 mg oral tablet (6 sources) Quinolone Antimicrobial Start: 01-23-2025 End: 01-26-2025 take 1 tablet by mouth in the morning ciprofloxacin (Cipro) 500 MG tablet Take 500 mg by mouth in the morning and 500 mg before bedtime. 01/23/2025 01/26/2025 Discontinued (Therapy completed) Start: 11-04-2024 take 1 tablet by desiree th once daily Cipro 500 mg Tab 500 mg = 1 tab(s), Oral, Daily, Take 1 tablet the day before the procedure and 1 tablet after the procedure, # 2 tab(s), Refills(s) 0, Pharmacy: [facility], 165, cm, 06/16/23 13:24:00 EDT, Height/Length Dosing, 75, kg, 06/16/23 13:24:00 EDT, Weight Dosing Start Date: 11/04/24 Status: Ordered Quantity: 2.0 Unit: tab(s) Repeat number: 1 Start: 11-10-2023 take 1 tablet by desiree th once daily Cipro 500 mg Tab 500 mg = 1 tab(s), Oral, Daily, Take 1 tablet the day before the procedure and 1 tablet after the procedure, # 2 tab(s), Refills(s) 0, Pharmacy: [id number], 165, cm, 06/16/23 13:24:00 EDT, Height/Length Dosing, 75, kg, 06/16/23 13:24:00 EDT, Weight Dosing Start Date: 11/10/23 Status: Ordered Start: 07-29-2022 take 1 tablet by desiree th once daily Cipro 500 mg Tab 500 mg = 1 tab(s), Oral, Daily, Take 1 tablet the day before the procedure and 1 tablet after the procedure, # 2 tab(s), Refills(s) 0, Pharmacy: [id number], 165, cm, 06/25/21 13:28:00 EDT, Height/Length Dosing, 71, kg, 06/25/21 13:28:00 EDT... Start Date: 07/29/22 Status: Ordered ondansetron 4 mg disintegrating oral tablet (2 sources) Serotonin-3 Receptor Antagonist Start: 01-18-2025 End: 01-26-2025 take 1 tablet by mouth every eight hours as needed ondansetron ODT (Zofran-ODT) 4 MG disintegrating tablet Take 4 mg by mouth every 8 (eight) hours if needed 01/18/2025 01/26/2025 Discontinued (Therapy completed) Problems Active Problems Problem Classification Problem Date Documented Date Episodic/Chronic Acute bronchitis (2 sources) Acute bronchitis; Translations: [Acute bronchitis, unspecified] 12-01-2024 Episodic Cancer; other and unspecified primary (8 sources) History of bladder neoplasm 05-12-2019 Episodic Chronic kidney disease (16 sources) Chronic kidney disease stage 3A ; Translations: [Chronic kidney disease, stage 3a (HCC) (CMS/HCC)] Onset: 12-06-2024 Resolved: 01-13-2025 06-06-2024 Chronic Disorders of lipid metabolism (20 sources) Hyperlipidemia; Translations: [Hyperlipidemia, unspecified] Onset: 09-11-2022 05-12-2019 Chronic Esophageal disorders (20 sources) Gastroesophageal reflux disease; Translations: [Gastro-esophageal reflux disease without esophagitis] Onset: 09-11-2022 05-12-2019 Chronic Essential hypertension (20 sources) Benign essential hypertension; Translations: [Essential (primary) hypertension] Onset: 12-19-2021 Resolved: 01-29-2024 02-22-2023 Chronic Hyperplasia of prostate (20 sources) Benign prostatic hypertrophy with outflow obstruction; Translations: [Benign prostatic hyperplasia with lower urinary tract symptoms] Onset: 08-19-2022 Chronic Miscellaneous mental health disorders (20 sources) Chronic insomnia; Translations: [Psychophysiologic insomnia] Onset: 02-22-2023 02-22-2023 Chronic Neoplasms of unspecified nature or uncertain behavior (4 sources) Neoplasm of unspecified behavior of bladder; Translations: [Neoplasm of uncertain behavior of bladder] Onset: 09-06-2022 01-03-2025 Episodic Osteoarthritis (20 sources) Osteoarthritis of right knee joint; Translations: [Unilateral primary osteoarthritis, right knee] Onset: 11-06-2023 11-06-2023 Chronic Other aftercare (1 source) snf (current) use of anticoagulants; Translations: [RETIREMENT CURRNT USE ANTICOAGULANTS] Onset: 09-11-2022 Episodic Other aftercare (1 source) snf (current) use of aspirin; Translations: [RETIREMENT CURRENT USE OF ASPIRIN] Onset: 09-11-2022 Episodic Other aftercare (1 source) Other roasterman (current) drug therapy; Translations: [OTH COMMISSARY STEWARD CURRENT DRUG THERAPY] Onset: 09-11-2022 Episodic Other diseases of bladder and urethra (1 source) Disorder of bladder; Translations: [Other specified disorders of bladder] Onset: 08-19-2022 Chronic Other diseases of kidney and ureters (2 sources) Urinary tract obstruction; Translations: [Other obstructive and reflux uropathy] Onset: 12-16-2022 Episodic Other male genital disorders (10 sources) Impotence of organic origin 05-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 Chronic Other male genital disorders (20 sources) Male erectile dysfunction, unspecified; Translations: [Impotence of organic origin] Onset: 02-22-2023 02-22-2023 Chronic Other nervous system disorders (20 sources) Chronic pain; Translations: [Other chronic pain] Onset: 02-22-2023 02-22-2023 Chronic Other non-traumatic joint disorders (1 source) Pain in right knee; Translations: [Pain in joint, lower leg] 10-28-2023 Episodic Screening and history of mental health and substance abuse codes (1 source) Personal history of nicotine dependence; Translations: [PERSONAL HISTORY OF NICOTINE DEPEND] Onset: 09-11-2022 Episodic Spondylosis; intervertebral disc disorders; other back problems (20 sources) Degeneration of lumbar intervertebral disc; Translations: [Other intervertebral disc degeneration, lumbar region] Onset: 02-22-2023 02-22-2023 Chronic Substance-related disorders (20 sources) Cigarette smoker ; Translations: [Nicotine dependence, cigarettes, uncomplicated] Onset: 02-22-2023 02-22-2023 Chronic Unclassified (1 source) CONTACT W/AND (SUSP) EXPOS COVID-19; Translations: [CONTACT W/AND (SUSP) EXPOS COVID-19] Onset: 09-06-2022 Past or Other Problems Problem Classification Problem Date Documented Date Episodic/Chronic Abdominal hernia (20 sources) Hiatal hernia; Translations: [Diaphragmatic hernia without obstruction or gangrene] Onset: 02-22-2023 02-22-2023 Episodic Calculus of urinary tract (20 sources) Kidney stone; Translations: [Calculus of kidney] Onset: 02-22-2023 05-12-2019 Episodic Cancer of bladder (20 sources) Malignant tumor of urinary bladder; Translations: [Malignant neoplasm of bladder, unspecified] Onset: 09-10-2022 Resolved: 12-06-2024 Chronic Cancer of bladder (20 sources) History of malignant neoplasm of bladder; Translations: [Personal history of malignant neoplasm of bladder] Onset: 08-19-2022 Episodic Genitourinary symptoms and ill-defined conditions (20 sources) Microscopic hematuria; Translations: [Other microscopic hematuria] Onset: 10-22-2023 05-12-2019 Episodic Other diseases of bladder and urethra (20 sources) Mass of urinary bladder; Translations: [Other specified disorders of bladder] Onset: 10-22-2023 Resolved: 12-06-2024 08-19-2022 Chronic Other injuries and conditions due to external causes (20 sources) Foreign body in bladder; Translations: [Foreign body in bladder, initial encounter] Onset: 09-10-2022 Episodic Other nervous system disorders (20 sources) Unsteady when standing; Translations: [Unsteadiness on feet] Onset: 02-22-2023 02-22-2023 Episodic Other nervous system disorders (20 sources) Abnormal gait; Translations: [Unspecified abnormalities of gait and mobility] Onset: 06-17-2021 10-22-2023 Episodic Other nutritional; endocrine; and metabolic disorders (20 sources) Overweight in adulthood with body mass index of 25 or more but less than 30; Translations: [Body mass index (BMI) 27.0-27.9, adult] Onset: 09-10-2022 Episodic Residual codes; unclassified (20 sources) Tobacco user; Translations: [Tobacco use] Onset: 01-26-2020 10-22-2023 Episodic Spondylosis; intervertebral disc disorders; other back problems (20 sources) Chronic low back pain; Translations: [Chronic low back pain] Onset: 02-22-2023 02-22-2023 Episodic Unclassified (1 source) Erectile dysfunction, unspecified erectile dysfunction type 03-30-2025 Results Test Name Value Interpretation Reference Range Facility Urology Office/Clinic Noteon 03-27-2025 Urology Office/Clinic Note Urology Office/Clinic Note HPI Staff Pt is here today for nocturia and also urge incontinence during sleep. Pt states that this started about 3-4 weeks ago. Pt states that he has been taking the Oxybutynin 1 in the morning and at night. Pt has started wearing pads at night. He does not need them during the day. He states that he is drinking normally during the day and not voiding very often but at night he is waking up sometimes 10x and wetting himself when he sleeps without knowing it. Bladder scan today is 38ml. Last urination was one hour ago. Review of Systems PHQ Score Initial Depression Screen Score: 1 SCORE No fever, chills, malaise, myalgia. No dysuria, pain w/ ejaculation, pain w/ BM. No blood in urine, ejaculate, or stool. No straining, stream changes. No discharge, odor, or change in color of urine. No perineal pain/pressure, scrotal pain, or suprapubic pain. Physical Exam Vitals & Measurements T: 37 ???C(Temporal Artery) HR: 83(Peripheral) RR: 16 BP: 134/80 HT: 65 in HT: 165 cm WT: 67.3 kg WT: 148.371 lb BMI: 24.72 General: nontoxic, NAD Mouth: moist mucosa Lungs: normal respiratory effort Cardio: regular rate, good distal perfusion Abdomen: nondistended Neurologic: Grossly normal Skin: No rashes or suspicious lesions Assessment/Plan 1. Nocturia (R35.1: Nocturia) Pain from last ov completely resolved. No daytime sx. Voiding up to 10x overnight and waking up wet. Taking Oxybutynin 5mg BID. PVR 38ml UA neg. No prostatitis sx. No LE edema. No AMBROCIO. -Switch to 10mg qhs. Call in 1 week w update. Ordered: [id number] Measure Post Void residual urine and/or bladder capacity by US- non-imaging E&M of Est. Patient Moderate 30-39 Min 36538 Urnls Dip Stick Auto w/o Microscopy POC [id number] Orders: oxybutynin, 10 mg = 2 tab(s), Oral, Bedtime, X 30 day(s), # 60 tab(s), Refills(s) 1, Pharmacy: [id number], 165, cm, 03/27/25 12:12:00 EDT, Height/Length Dosing, 67.3, kg, 03/27/25 12:12:00 EDT, Weight Dosing Follow-up With When Contact Information [facility] Additional Instructions: For procedure as scheduled. Patient Education Urinary Frequency, Adult Problem List/Past Medical History Ongoing Bladder cancer Bladder pain BMI 27.0-27.9,adult BPH without urinary obstruction Chronic GERD Hyperlipemia Kidney stone Nocturia Organic impotence Historical No qualifying data Procedure/Surgical History TURBT - Transurethral resection of bladder tumor (01/17/2025), Cystoscope (01/03/2025), Cystoscopy (06/16/2023), Cystoscopy (12/16/2022), TURBT - Transurethral resection of bladder tumor (09/04/2022), Cystoscopy (08/19/2022), Cystoscopy (06/25/2021), Cystoscopy (06/12/2020), Cystoscopy (06/07/2019), Cystoscopy (06/08/2018), TURP - Transurethral resection of prostate (11/23/2014), Cystoscopy and transurethral resection of bladder tumour (04/27/2014), Cystoscopy to remove object (06/08/2012), Cystoscopic anastomosis of ureter to bladder with insertion of stent into ureter (05/13/2012), Transrectal biopsy of prostate using ultrasound (US) guidance (10/24/2009), back surgery, Colonoscopy. Medications aspirin 325 mg Oral EC Tab, 325 mg= 1 tab(s), Oral, Daily atorvastatin 20 mg Tab, 20 mg= 1 tab(s), Oral, Daily calcium-vitamin D cyclobenzaprine 10 mg Tab, 10 mg= 1 tab(s), Oral, Daily, PRN hydrochlorothiazide- irbesartan 12.5 mg-150 mg Tab, Oral, Daily Multi Vitamin+, See Instructions Nexium 20 mg Cap-DR, 20 mg= 1 cap(s), Oral, Daily Omeprazole 20 mg Cap - DR, Oral, Daily oxybutynin 5 mg Tab, 10 mg= 2 tab(s), Oral, Bedtime, 1 refills traMADOL 50 mg Tab, 50 mg= 1 tab(s), Oral, Daily zolpidem 10 mg oral tablet, 10 mg= 1 tab(s), Oral, Once a day (at bedtime), PRN Allergies No Known Medication Allergies Social History Alcohol - Denies Alcohol Use, 06/07/2019 Never., 03/27/2025 Substance Abuse - Denies Substance Abuse, 06/07/2019 Never., 03/27/2025 Tobacco - Denies Tobacco Use, 06/07/2019 Former smoker, quit more than 30 days ago Tobacco Use:. Never Smokeless Tobacco Use:. Cigarettes, Yes, 03/27/2025 Family History Cancer: Mother.Negative: Brother. Heart disease: Father. Hypertension: Father. Immunizations Vaccine Date Status Comments SARS-CoV-2 (COVID-19) mRNA BNT-162b2 vax 07/11/2021 Recorded SARS-CoV-2 (COVID-19) Ad26 vaccine 12/14/2020 Recorded SARS-CoV-2 (COVID-19) mRNA BNT-162b2 vax 12/06/2020 Recorded SARS-CoV-2 (COVID-19) Ad26 vaccine 11/23/2020 Recorded SARS-CoV-2 (COVID-19) mRNA BNT-162b2 vax 11/15/2020 Recorded 2022-09-10: TPV65 pneumococcal 13-valent vaccine 08/02/2020 Recorded pneumococcal 23-valent vaccine 01/26/2020 Recorded pneumococcal 13-valent vaccine 09/03/2015 Recorded pneumococcal 23-valent vaccine 07/22/2007 Recorded Lab Results Ambulatory Point of Care Results Bilirubin Urine Dipstick: Negative (03/27/25 13:46:00) Blood Urine Dipstick: Negative (03/27/25 13:46:00) Gluco (more content not included)... Normal [facility] Comment on above: Result Comment: Elec tronically Signed By: AWAIS DE LA CRUZ PA-C\Date and Time Signed: 03/27/25 13:59 EDT Urology Office/Clinic Noteon 02-01-2025 Urology Office/Clinic Note Urology Office/Clinic Note Chief Complaint Bladder pain HPI Staff 74 year old male patient here for urinary pain since 01/26. Previous dx: bladder cancer, BPH without urinary obstruction. S/P TURBT, mitomycin C intraversal placement 01/17/25. PVR: 140 ml IPSS: 12 Was given oxybutynin 5mg qd, pain pill and antibiotic and stopped them per PRW 01/23/25. Took oxybutynin yesterday and felt better. Would want to start oxybutynin daily or something else to help. Denies hematuria. Review of Systems PHQ Score Initial Depression Screen Score: 0 SCORE No fever, chills, malaise, myalgia. No blood in urine, ejaculate, or stool. No discharge, odor, or change in color of urine. No perineal pain/pressure, scrotal pain. Physical Exam Vitals & Measurements HR: 79(Peripheral) RR: 16 BP: 128/82 HT: 165 cm HT: 65 in WT: 69.3 kg WT: 152.78 lb BMI: 25.45 General: nontoxic, NAD Mouth: moist mucosa Lungs: normal respiratory effort Cardio: regular rate, good distal perfusion Abdomen: nondistended Neurologic: Grossly normal Skin: No rashes or suspicious lesions Assessment/Plan 1. Bladder pain (R39.89: Other symptoms and signs involving the genitourinary system) Original TURBT 09/04/22 - Low grade noninvasive urothelial carcinoma. [1] S/p Cysto 01/03/25 - Two 1-2 cm tumors, one on the dome and one on the back floor. They look like classic low grade. Neg FISH/cytol. S/p TURBT, Mitomycin C intravesical placement 01/17/25 - Low grade noninvasive papillary urothelial carcinoma. Went to [facility] ER 01/18/25 due to inability to urinate, and 01/19/25 and 01/20/25 due to pain with catheter. Was given abx and pain meds. Advised pt to finish abx course. Renal fxn 01/21/25 - BUN 21, Cr 1.53, GFR 45. Advised pt function has improved. Was seen by PRW on 01/23/2025 to review pathology. Pt continues to have bladder pain. 9/10 pain when urinating. Mild at rest. Says the Oxybutynin from ER made no difference. PVR 140ml IO UA shows sm hgb only. No infection. Discussed we will trial Pyridium. Risks/benefits/side effects discussed. Call if no improvement after a few doses. Ordered: E&M of Est. Patient Moderate 30-39 Min [id number] Orders: ciprofloxacin, 500 mg = 1 tab(s), Oral, Daily, Take 1 tablet the day before the procedure and 1 tablet after the procedure, every 3 months, # 8 tab(s), Refills(s) 0, Pharmacy: [id number], 165, cm, 01/23/25 12:31:00 EDT, Height/Length Dosing, 69.3, kg, ... phenazopyridine, 200 mg = 1 tab(s), Oral, TID, PRN bladder pain, X 5 day(s), # 15 tab(s), Refills(s) 0, Pharmacy: [id number], 165, cm, 01/31/25 10:27:00 EDT, Height/Length Dosing, 69.3, kg, 01/31/25 10:27:00 EDT, Weight Dosing Urnls Dip Stick Auto w/o Microscopy POC [id number] Follow-up With When Contact Information Keep previously scheduled follow-up appointment. Additional Instructions: Patient Education Abdominal Pain, Adult Problem List/Past Medical History Ongoing Bladder cancer Bladder pain BMI 27.0-27.9,adult BPH without urinary obstruction Chronic GERD Hyperlipemia Kidney stone Organic impotence Historical No qualifying data Procedure/Surgical History TURBT - Transurethral resection of bladder tumor (01/17/2025), Cystoscope (01/03/2025), Cystoscopy (06/16/2023), Cystoscopy (12/16/2022), TURBT - Transurethral resection of bladder tumor (09/04/2022), Cystoscopy (08/19/2022), Cystoscopy (06/25/2021), Cystoscopy (06/12/2020), Cystoscopy (06/07/2019), Cystoscopy (06/08/2018), TURP - Transurethral resection of prostate (11/23/2014), Cystoscopy and transurethral resection of bladder tumour (04/27/2014), Cystoscopy to remove object (06/08/2012), Cystoscopic anastomosis of ureter to bladder with insertion of stent into ureter (05/13/2012), Transrectal biopsy of prostate using ultrasound (US) guidance (10/24/2009), back surgery, Colonoscopy. Medications aspirin 325 mg Oral EC Tab, 325 mg= 1 tab(s), Oral, Daily atorvastatin 20 mg Tab, 20 mg= 1 tab(s), Oral, Daily calcium-vitamin D cyclobenzaprine 10 mg Tab, 10 mg= 1 tab(s), Oral, Daily, PRN hydrochlorothiazide- irbesartan 12.5 mg-150 mg Tab, Oral, Daily Multi Vitamin+, See Instructions Nexium 20 mg Cap-DR, 20 mg= 1 cap(s), Oral, Daily Omeprazole 20 mg Cap - DR, Oral, Daily Pyridium 200 mg Tab, 200 mg= 1 tab(s), Oral, TID, PRN traMADOL 50 mg Tab, 50 mg= 1 tab(s), Oral, Daily zolpidem 10 mg oral tablet, 10 mg= 1 tab(s), Oral, Once a day (at bedtime), PRN Allergies No Known Medication Allergies Social History Alcohol - Denies Alcohol Use, 06/07/2019 Substance Abuse - Denies Substance Abuse, 06/07/2019 Tobacco - Denies Tobacco Use, 06/07/2019 Former smoker, quit more than 30 days ago Tobacco Use:. Never Smokeless Tobacco Use:. Cigarettes, Yes, 01/31/2025 Family History Cancer: Mother.Negative: Brother. Heart disease: Father. Hypertension: Father. Immunizations Vaccine Date Status Comments SARS-CoV-2 (COVID-19) mRNA BNT-162b2 vax 07/11/2021 Recor (more content not included)... Normal [facility] Comment on above: Result Comment: Elec tronically Signed By: AWAIS DE LA CRUZ PA-C\.nancy\Date and Time Signed: 02/01/25 09:40 EDT Ambulatory Visit Summaryon 0 01-31-2025 Ambulatory Visit Summary Ambulatory Visit Summary ANDERS LYMAN :1950 Visit Date:01/31/2025 Ambulatory Visit Instructions Your Diagnosis BPH without urinary obstruction Your Care Team Attending Physician - JONO CONN, AWAIS Potts Primary Care Physician - RICHARD DENNIS MD This Is Your Medications List acetaminophen-hydroc odone (acetaminophen-hydro codone 325 mg-5 mg oral tablet) aspirin (aspirin 325 mg Oral EC Tab) atorvastatin (atorvastatin 20 mg Tab) calcium-vitamin D cephalexin (cephalexin 500 mg Cap) cranberry (Cranberry) cyclobenzaprine (cyclobenzaprine 10 mg Tab) esomeprazole (Nexium 20 mg Cap-DR) hydrochlorothiazide- irbesartan (hydrochlorothiazide -irbesartan 12.5 mg-150 mg Tab) multivitamin (Multi Vitamin+) omeprazole (Omeprazole 20 mg Cap - DR) oxybutynin (oxybutynin 5 mg Tab) tramadol (traMADOL 50 mg Tab) zolpidem (zolpidem 10 mg oral tablet) Procedures Performed TURBT - Transurethral resection of bladder tumor (01/17/2025), Cystoscope (01/03/2025), Cystoscopy (06/16/2023), Cystoscopy (12/16/2022), TURBT - Transurethral resection of bladder tumor (09/04/2022), Cystoscopy (08/19/2022), Cystoscopy (06/25/2021), Cystoscopy (06/12/2020), Cystoscopy (06/07/2019), Cystoscopy (06/08/2018), TURP - Transurethral resection of prostate (11/23/2014), Cystoscopy and transurethral resection of bladder tumour (04/27/2014), Cystoscopy to remove object (06/08/2012), Cystoscopic anastomosis of ureter to bladder with insertion of stent into ureter (05/13/2012), Transrectal biopsy of prostate using ultrasound (US) guidance (10/24/2009), back surgery, Colonoscopy. Discharge Vitals Heart Rate (Peripheral) 79 Respiratory Rate 16 Blood Pressure 128/82 Height 165 cm Height 65 in Weight 69.3 kg Weight 152.78 lb BMI 25.45 What to do next Scheduled Follow-Up Appointments Thursday 8:15 AM EDT With: AHMET BLOCK, Gerald Farnsworth Where: [facility] [address] [address]- Medications What How Much When Instructions Unchanged acetaminophen-hydroc odone (acetaminophen-hydro codone 325 mg-5 mg oral tablet) 1 Tablets Unchanged aspirin (aspirin 325 mg Oral EC Tab) 1 Tablets By Mouth Every day Unchanged atorvastatin (atorvastatin 20 mg Tab) 1 Tablets By Mouth Every day Unchanged calcium-vitamin D Unchanged cephalexin (cephalexin 500 mg Cap) Unchanged cranberry (Cranberry) Unchanged cyclobenzaprine (cyclobenzaprine 10 mg Tab) 1 Tablets By Mouth Every day as needed for for spasm Unchanged esomeprazole (Nexium 20 mg Cap-DR) 1 Capsules By Mouth Every day Unchanged hydrochlorothiazide- irbesartan (hydrochlorothiazide -irbesartan 12.5 mg-150 mg Tab) By Mouth Every day Unchanged multivitamin (Multi Vitamin+) See instructions Unchanged omeprazole (Omeprazole 20 mg Cap - DR) By Mouth Every day Unchanged oxybutynin (oxybutynin 5 mg Tab) 1 Tablets Unchanged tramadol (traMADOL 50 mg Tab) 1 Tablets By Mouth Every day Unchanged zolpidem (zolpidem 10 mg oral tablet) 1 Tablets By Mouth Once a day (at bedtime) as needed for for sleep Allergies No Known Medication Allergies Problems Ongoing - Any problem that you are currently receiving treatment for. Bladder cancer Bladder neoplasm of uncertain malignant potential BMI 27.0-27.9,adult BPH without urinary obstruction Chronic GERD Hx of bladder cancer Hyperlipemia Kidney stone Organic impotence Patient Survey You may receive a survey via text or e-mail asking about your office visit. Please share your experience with us by completing your survey. We appreciate your feedback and thank you for choosing us for your care. Normal [facility] Reminderson 01-23-2025 Reminders Reminders - From: Sanaz Nichols To: RICKIE - Judi Leo; Sent: 01/23/2025 13:18:02 EDT Show up: 05/22/2025 13:17:00 EDT Subject: cysto/FISH/cytol Due Date/Time: 06/12/2025 13:18:00 EDT Reminder/Recall Patient is due in Jul 2025 for 3 month cysto/fish/cytol, bt ck Normal [facility] Urology Office/Clinic Noteon 01-23-2025 Urology Office/Clinic Note Urology Office/Clinic Note Chief Complaint f/u to TURBT HPI Staff 74 yr old male here for f/u following TURBT, Mohamud removal and PATH results. Dx: Hx of bladder cancer, BPH without urinary obstruction, Bladder neoplasm of uncertain malignant potential Pt states that he returned to the [facility] ED due to pain and they gave him a script for pain meds, 7 days of Keflex 500mg BID and Oxybutynin. History of Present Illness Tests reviewed: reviewed UA, operative note, path report, renal function labs, CBC I have reviewed the previous health record information and history for this patient from Dr. Leo. I have reviewed and verified the staff HPI to be accurate for this encounter. Review of Systems ROS - Provider Constitutional: denies weight loss, denies hot flashes. Eyes: denies eye problems. Gastrointestinal: denies nausea, denies vomiting. Cardiovascular: denies chest pain or angina. Integumentary: no dryness Musculoskeletal: denies musculoskeletal symptoms. ENMT: denies otolaryngeal symptoms. Respiratory: no shortness of breath. Heme/Lymph: denies easy bleeding tendency, denies easy bruising tendency. Psychiatric: no confusion, no anxiety. Genitourinary: See HPI. Physical Exam Vitals & Measurements T: 37 ???C(Temporal Artery) HR: 79(Peripheral) RR: 18 BP: 130/89 HT: 165 cm HT: 65 in WT: 69.3 kg WT: 152.78 lb BMI: 25.45 General Appearance: alert, no distress, well nourished, well developed male. Assessment/Plan 1. Bladder cancer (C67.9: Malignant neoplasm of bladder, unspecified) Original TURBT 09/04/22 - Low grade noninvasive urothelial carcinoma. [1] S/p Cysto 01/03/25 - Two 1-2 cm tumors, one on the dome and one on the back floor. They look like classic low grade. Neg FISH/cytol. S/p TURBT, Mitomycin C intravesical placement 01/17/25 - Low grade noninvasive papillary urothelial carcinoma. Catheter removed IO today wo complications. Previously went to [facility] ER 01/18/25 due to inability to urinate, and 01/19/25 and 01/20/25 due to pain with catheter. Was given abx and pain meds. Advised pt to finish abx course. Renal fxn 01/21/25 - BUN 21, Cr 1.53, GFR 45. Advised pt function has improved. I had a long session of counseling with the patient today. The pathology report reveals that bladder cancer is present, and I discussed the nature of this cancer in detail, including the grade of the cancer and the apparent stage, utilizing diagrams. We discussed the different treatment options for the cancer, based on the grade and stage of tumor. We discussed the available intravesical therapeutic options including perioperative, induction, and maintenance dosing schedules. Pt wishes to wait until cystoscopy for induction for mitomycin. -Will schedule surveillance cystoscopy w/ mitomycin induction. The risks and benefits for cystoscopy have been discussed. The risks include bleeding, infection, and irritation of the bladder and urinary channel, among others. The patient, after being informed of procedural details and after questions have been answered, wishes to proceed. Full informed consent has been obtained. Will order Local anesthesia. 2. BPH without urinary obstruction (N40.0: Benign prostatic hyperplasia without lower urinary tract symptoms) PSA: 05/07/21 - 14.3 (prostatitis) 06/04/21 - 2.40 12/16/22 - 1.5 12/18/23 - 1.74 S/p TURP 11/2014. No BPH meds. Follow-up With When Contact Information AHMET BLOCK, Gerald Farnsworth, URL [facility] [address] [place] [address] [phone] Additional Instructions: sched cysto/mitomycin Patient Education Chemotherapy Bladder Cancer I, Telma Dennis, personally scribed for Dr. Leo on 01/23/2025 12:59:26. . Documentation recorded by the scribe, Telma Dennis, accurately reflects the services(s) I performed and decisions made by me. Authenticated by Dr. Leo on 01/23/2025 13:01:32. Problem List/Past Medical History Ongoing Bladder cancer Bladder neoplasm of uncertain malignant potential BMI 27.0-27.9,adult BPH without urinary obstruction Chronic GERD Hx of bladder cancer Hyperlipemia Kidney stone Organic impotence Historical No qualifying data Procedure/Surgical History TURBT - Transurethral resection of bladder tumor (01/17/2025), Cystoscope (01/03/2025), Cystoscopy (06/16/2023), Cystoscopy (12/16/2022), TURBT - Transurethral resection of bladder tumor (09/04/2022), Cystoscopy (08/19/2022), Cystoscopy (06/25/2021), Cystoscopy (06/12/2020), Cystoscopy (06/07/2019), Cystoscopy (06/08/2018), TURP - Transurethral resection of prostate (11/23/2014), Cystoscopy and transurethral resection of bladder tumour (04/27/2014), Cystoscopy to remove object (06/08/2012), Cystoscopic anastomosis of ureter to bladder with insertion of stent into ureter (05/13/2012), Transrectal biopsy of prostate using ultrasound (US) guidance (10/24/2009), back surgery, Colonoscopy. Medications acetaminophen-hydroc o (more content not included)... Normal [facility] Comment on above: Result Comment: Elec tronically Signed By: Gerald LEO MD\.br\Date and Time Signed: 01/23/25 13:01 EDT\.br\Electronically Co-Signed By: Telma Dennis\.br\Date and Time Co-Signed: 01/23/25 12:59 EDT ALL CBC WITH AUTO DIFFon BASOPHILS ABSOLUTE AUTO 0 [facility] Basophils/100 WBC (Bld) 0.3 % 0.2 - 2.0 % [facility] Eosinophils/100 WBC (Bld) 3.3 % 0.9 - 7.0 % [facility] Erythrocyte distribution width (RBC) [Ratio] 13.2 % 11.0 - 15.0 % [facility] Hematocrit (Bld) [Volume fraction] 37.1 % Low 42.0 - 54.0 % [facility] Hemoglobin (Bld) [Mass/Vol] 12.8 g/dL Low 14.0 - 18.0 g/dL [facility] IMMATURE GRANULOCYTES ABS AUTO 0.02 [facility] Immature granulocytes/100 WBC (Bld) 0.3 % 0.0 - 0.5 % [facility] Interpretation and review of laboratory results Abnormal [facility] LYMPHOCYTES ABSOLUTE AUTO 0.7 Low [facility] Lymphocytes/100 WBC (Bld) 11.2 % Low 20.5 - 60.0 % [facility] MCH (RBC) [Entitic mass] 31.8 pg 25.9 - 34.0 pg [facility] MCHC (RBC) [Mass/Vol] 34.5 g/dL 29.9 - 35.2 g/dL [facility] MCV (RBC) [Entitic vol] 92.1 fL 80.0 - 94.0 fL [facility] MONOCYTES ABSOLUTE AUTO 0.2 Low [facility] Monocytes/100 WBC (Bld) 3.8 % 1.7 - 12.0 % [facility] NEUTROPHILS ABSOLUTE AUTO 5.2 [facility] Neutrophils/100 WBC (Bld) 81.1 % High 43.0 - 75.0 % [facility] Platelet mean volume (Bld) [Entitic vol] 10.3 fL 9.5 - 13.5 fL [facility] EO # 0.2 [facility] PLT 249 [facility] RBC 4.03 Low [facility] WBC 6.4 [facility] Urine Cultureon 01-19-2025 Bacteria identified Cx Nom (U) No Growth 2 Days PERFORMED BY: [place] [address] PATHOLOGIST PORTFOLIO MANAGER SOY SANDERS M.D. Normal [facility] Comment on above: Performed By: #### C UU #### [address] Urine Cultureon 01-18-2025 Bacteria identified Cx Nom (U) No Growth 2 Days PERFORMED BY: [place] [address] PATHOLOGIST PORTFOLIO MANAGER SOY SANDERS M.D. Normal [facility] Comment on above: Performed By: #### C UU #### [address] [place] [address] [facility] 01-17-2025 L Specimen: [id number] Received: 01/17/25 Status: THUY Giles Num: [id number] Spec Type: Surgical Subm Dr: Gerald Leo MD Tissues: A Urinary Bladder - TUR (BLADDER TUMORS) Procedures: Mai CHEATHAM/Zander Zazueta Age/ Patient Sex Location Account Attending Physician Anders Lyman 74/M LABELL [id number] Gerald Leo MD SPEC NUM: [id number] RECD: 01/17/25 STATUS: THUY GILES NUM: [id number] KOLBY: 01/17/[address]: Gerald Leo MD ENTERED: 01/17/[address] [facility] [address]: Malachi Orlando SPEC TYPE: Surgical DEPT: MOISÉS RENDON ENTERED BY: [id number] RECV BY: [id number] ORDERED: HE, Gross/Micro L5 ORDERED: HE, Gross/Micro L5 Pathological Diagnosis Tumor, urinary bladder, TURB: Low-grade papillary urothelial carcinoma, noninvasive. Muscularis propria is noted, negative for tumor. Comment: This case has been peer reviewed by another pathologist with agreement. Clinical Information Bladder tumor lesions, history of bladder cancer, hematuria Gross Description Part A is received in formalin labeled with the patients name, date of , and bladder tumors are 3 pink-acosta, rubbery tissue chips, 0.4, 0.5 and 0.8 cm in greatest dimension that weigh less than 1 g. The specimen is entirely submitted in a single cassette. (1, ns, BS07- 272 A) CPT Codes 17198 Specimen: [id number] Received: 01/17/25 Status: THUY Pattenbritta Num: [id number] Spec Type: Surgical Subm Dr: Gerald Leo MD Tissues: A Urinary Bladder - TUR (BLADDER TUMORS) Procedures: HE, Gross/Micro L5 Patient: Anders Lyman [id number] (Continued) Signed (signature on file) Soy Sanders MD 01/18/25 1513 Normal [facility] UroVysion Fish and Urine Cyt o ( Labs)on 01-11-2025 UVFISH & UC Diagnosis Info Invalid Interpretation Code [facility] Comment on above: Result Comment: A:Ur ine,Urine:Voided Diagnosis Summary - Adequate cellularity for evaluation. Diagnosis Summary - The [facility] FISH study detected normal copy numbers for chromosomes 3, 7, 17, and 9p21. 58 cells were analyzed in this evaluation. 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 This test does not rule out the possibility of a low grade non-invasive papillary urothelial carcinoma. These findings should be correlated with cytology and cystoscopy results. * CPT: 73742, 93287. Microscopic Notes - Microscopic Notes - Abnormal cells 9p21 deletions: Abnormal cells aneploid events: Total cells analyzed: 58 Hematuria: Gross Description Site ID:A color Yellow fixative Alcohol Received 100 mls of clear yellow fluid with the patient's name and, Urine on the vial. Electronically signed by : on: 01/11/2025 08:02:09 Performed By: #### 1 [id number] #### [facility] [address] [place] [id number] ALL BASIC METABOLIC PANELon 01-04-2025 Anion gap [Moles/Vol] 11 mmol/L [facility] Calcium [Mass/Vol] 8.9 mg/dL 8.5 - 10. 1 mg/dL [facility] Chloride [Moles/Vol] 102 mmol/L 98 - 107 mmol/L [facility] CO2 [Moles/Vol] 30 mmol/L 21.0 - 32.0 mmol/L [facility] Creatinine [Mass/Vol] 1.56 mg/dL High 0.70 - 1.30 mg/dL [facility] GFR/1.73 sq M.predicted CKD-EPI (S/P/Bld) [Vol rate/Area] 53 Low >=60 mL/min/1.73m 2 [facility] Glucose [Mass/Vol] 88 mg/dL 74 - 106 mg/dL [facility] Interpretation and review of laboratory results Abnormal [facility] Potassium [Moles/Vol] 4 mmol/L 3.5 - 5.1 mmol/L [facility] Sodium [Moles/Vol] 139 mmol/L 136 - 145 mmol/L [facility] EGFR-NON AF [place] 44 Low >=60 mL/min/1.73m 2 [facility] Urea nitrogen [Mass/Vol] 17 mg/dL 7.0 - 18.0 mg/dL [facility] Urea nitrogen/Creatinine [Mass ratio] 10.9 mg/mg [facility] Ambulatory Visit Summaryon 0 01-03-2025 Ambulatory Visit Summary Ambulatory Visit Summary ANDERS LYMAN :1950 Visit Date:01/03/2025 Ambulatory Visit Instructions Your Diagnosis Hx of bladder cancer BPH without urinary obstruction Bladder neoplasm of uncertain malignant potential Your Care Team Attending Physician - AHMET BLOCK, Gerald Farnsworth Primary Care Physician - BOLIVAR BLOCK, RICHARD Lopez This Is Your Medications List ciprofloxacin (Cipro 500 mg Tab) Contact prescribing physician if questions or concerns aspirin (aspirin 325 mg Oral EC Tab) atorvastatin (atorvastatin 20 mg Tab) calcium-vitamin D cranberry (Cranberry) cyclobenzaprine (cyclobenzaprine 10 mg Tab) esomeprazole (Nexium 20 mg Cap-DR) hydrochlorothiazide- irbesartan (hydrochlorothiazide -irbesartan 12.5 mg-150 mg Tab) multivitamin (Multi Vitamin+) omeprazole (Omeprazole 20 mg Cap - DR) tramadol (traMADOL 50 mg Tab) zolpidem (zolpidem 10 mg oral tablet) Procedures Performed Cystoscope (01/03/2025), Cystoscopy (06/16/2023), Cystoscopy (12/16/2022), TURBT - Transurethral resection of bladder tumor (09/04/2022), Cystoscopy (08/19/2022), Cystoscopy (06/25/2021), Cystoscopy (06/12/2020), Cystoscopy (06/07/2019), Cystoscopy (06/08/2018), TURP - Transurethral resection of prostate (11/23/2014), Cystoscopy and transurethral resection of bladder tumour (04/27/2014), Cystoscopy to remove object (06/08/2012), Cystoscopic anastomosis of ureter to bladder with insertion of stent into ureter (05/13/2012), Transrectal biopsy of prostate using ultrasound (US) guidance (10/24/2009), back surgery, Colonoscopy. Discharge Vitals Weight 69.3 kg Weight 152.78 lb What to do next You Need to Schedule the Following Appointments Follow Up with AHMET BLOCK, SHANELL Rodrigues When: Where: [facility] [address], [place] [address]- Medications What How Much When Instructions Unchanged ciprofloxacin (Cipro 500 mg Tab) 1 Tablets By Mouth Every day Take 1 tablet the day before the procedure and 1 tablet after the procedure Unchanged aspirin (aspirin 325 mg Oral EC Tab) 1 Tablets By Mouth Every day Contact prescribing physician if questions or concerns Unchanged atorvastatin (atorvastatin 20 mg Tab) 1 Tablets By Mouth Every day Contact prescribing physician if questions or concerns Unchanged calcium-vitamin D Contact prescribing physician if questions or concerns Unchanged cranberry (Cranberry) Contact prescribing physician if questions or concerns Unchanged cyclobenzaprine (cyclobenzaprine 10 mg Tab) 1 Tablets By Mouth Every day as needed for for spasm Contact prescribing physician if questions or concerns Unchanged esomeprazole (Nexium 20 mg Cap-DR) 1 Capsules By Mouth Every day Contact prescribing physician if questions or concerns Unchanged hydrochlorothiazide- irbesartan (hydrochlorothiazide -irbesartan 12.5 mg-150 mg Tab) By Mouth Every day Contact prescribing physician if questions or concerns Unchanged multivitamin (Multi Vitamin+) See instructions Contact prescribing physician if questions or concerns Unchanged omeprazole (Omeprazole 20 mg Cap - DR) By Mouth Every day Contact prescribing physician if questions or concerns Unchanged tramadol (traMADOL 50 mg Tab) 1 Tablets By Mouth Every day Contact prescribing physician if questions or concerns Unchanged zolpidem (zolpidem 10 mg oral tablet) 1 Tablets By Mouth Once a day (at bedtime) as needed for for sleep Contact prescribing physician if questions or concerns Medications and Immunizations Administered Given lidocaine Top 2% Gel w/Appl 6 mL, 5.5 mL, Topical. For: Hx of bladder cancer, BPH without urinary obstruction Allergies No Known Medication Allergies Problems Ongoing - Any problem that you are currently receiving treatment for. Bladder cancer Bladder neoplasm of uncertain malignant potential BMI 27.0-27.9,adult BPH without urinary obstruction Chronic GERD Hx of bladder cancer Hyperlipemia Kidney stone Organic impotence Patient Survey You may receive a survey via text or e-mail asking about your office visit. Please share your experience with us by completing your survey. We appreciate your feedback and thank you for choosing us for your care. Education Materials Transurethral Resection of Bladder Tumor, Care After The following information offers guidance on how to care for yourself after your procedure. Your health care provider may also give you more specific instructions. If you have problems or questions, contact your health care provider. What can I expect after the procedure? After the procedure, it is common to have: ??? A small amount of blood or small blood clots in your urine for up to 2 weeks. ??? Soreness or mild pain from your catheter. After your catheter is removed, you may have mild soreness, especially when urinating. ??? A need to urinate often. ??? Pain in your lower abdomen. Follow these instructions at home: Medicines ??? Ta (more content not included)... Normal [facility] Fish and Urine Cyt o ([facility])on 01-03-2025 [facility] Method of Extraction Voided Normal [facility] Comment on above: Performed By: #### 1 [id number] #### [facility] [address] [place] [address] [facility] Number of Jars 1 Invalid Interpretation Code [facility] Comment on above: Performed By: #### 1 [id number] #### [facility] [address] [place] [address] [facility] Specimen Urine Normal [facility] Comment on above: Performed By: #### 1 [id number] #### [facility] [address] [place] [address] [facility] Type of Service Technical Only Normal [facility] Comment on above: Performed By: #### 1 [id number] #### [facility] [address] [place] [address] Urology Office/Clinic Noteon 01-03-2025 Urology Office/Clinic Note Urology Office/Clinic Note Chief Complaint Cysto HPI Staff Cysto ABX TAKEN, need fish/cytol History of Present Illness Tests reviewed: I have reviewed the previous health record information and history for this patient from Dr. Leo. I have reviewed and verified the staff HPI to be accurate for this encounter. Review of Systems PHQ Score Initial Depression Screen Score: 0 SCORE ROS - Provider Constitutional: denies weight loss, denies hot flashes. Eyes: denies eye problems. Gastrointestinal: denies nausea, denies vomiting. Cardiovascular: denies chest pain or angina. Integumentary: no dryness Musculoskeletal: denies musculoskeletal symptoms. ENMT: denies otolaryngeal symptoms. Respiratory: no shortness of breath. Heme/Lymph: denies easy bleeding tendency, denies easy bruising tendency. Psychiatric: no confusion, no anxiety. Genitourinary: See HPI. Physical Exam Vitals & Measurements WT: 152.78 lb WT: 69.3 kg General Appearance: alert, no distress, well nourished, well developed male. Procedure Operative Information Anesthesia Type: Local Procedure: Local Cystoscopy Complications: None Surgical risks, benefits, details of the procedure have been explained to the patient. Full informed consent has been obtained. Intraoperative Information Prepped: Patient is brought back to the endoscopy suite. Patient is placed in supine position. Patient prepped in the usual fashion with Betadine solution. 2% Xylocaine Jelly is placed per Urethra. After waiting several minutes, the Cystoscope is introduced. The Urethra is: Normal The Prostatic Urethra is: Unobstructed The Bladder: _Two 1-2 cm tumors, one on the dome and one on the back floor. They look like classic low grade tumors. Trabeculated: Moderate (2) The Ureteral orifices: Show efflux of clear urine Specimens Removed: Voided specimen sent for FISH and Cytology test Removal: Cystoscope is removed. The patient tolerated it well. Postoperative Information Patient is discharged home with antibiotic coverage. Follow up arranged. Assessment/Plan 1. Hx of bladder cancer (Z85.51: Personal history of malignant neoplasm of bladder) Original TURBT 09/04/22 - Low grade noninvasive urothelial carcinoma. Prior cysto 12/22/23. Pt had IO cysto to check for bladder tumor recurrence without complications today. Pt took prophylactic abx prior to procedure. Will send voided specimen for FISH/cytol and call pt if positive. 2. BPH without urinary obstruction (N40.0: Benign prostatic hyperplasia without lower urinary tract symptoms) PSA: 05/07/21 - 14.3 (prostatitis) 06/04/21 - 2.40 12/16/22 - 1.5 12/18/23 - 1.74 S/p TURP 11/2014. No BPH meds. 3. Bladder neoplasm of uncertain malignant potential (D41.4: Neoplasm of uncertain behavior of bladder) See procedure section. -Will schedule Cysto with TURBT and mitomycin. The procedure risks, benefits, details, and treatment alternatives have been discussed with the patient. These include bleeding -- sometimes to the point of hemorrhaging, infection, risk of bladder perforation, recurrence of bladder tumor in 60-70% of patients, need for indwelling catheter for a variable amount of time, as well as the rare risk of needing an open operation to repair the bladder, among others. Additional therapy as well as follow-up bladder evaluation will most likely be required. Full informed consent has been obtained. Will order General anesthesia. -Surveillance cysto in 3 mos Follow-up With When Contact Information AHMET BLOCK, Gerald Farnsworth, URL [facility] [address] [place] [address]- Additional Instructions: sched TURBT/mitomycin then 3 mo surveillance cysto Patient Education Transurethral Resection of Bladder Tumor, Care After Transurethral Resection of Bladder Tumor Joelle Benítez, personally scribed for Dr. Leo on 01/03/2025 15:05:31. . Documentation recorded by the Joelle escalante, accurately reflects the services(s) I performed and decisions made by me. Authenticated by Dr. Loe on 01/03/2025 15:08:06. Problem List/Past Medical History Ongoing Bladder cancer Bladder neoplasm of uncertain malignant potential BMI 27.0-27.9,adult BPH without urinary obstruction Chronic GERD Hx of bladder cancer Hyperlipemia Kidney stone Organic impotence Historical No qualifying data Procedure/Surgical History Cystoscope (01/03/2025), Cystoscopy (06/16/2023), Cystoscopy (12/16/2022), TURBT - Transurethral resection of bladder tumor (09/04/2022), Cystoscopy (08/19/2022), Cystoscopy (06/25/2021), Cystoscopy (06/12/2020), Cystoscopy (06/07/2019), Cystoscopy (06/08/2018), TURP - Transurethral resection of prostate (11/23/2014), Cystoscopy and transurethral resection of bladder tumour (04/27/2014), Cystoscopy to remove object (06/08/2012), Cystoscopic anastomosis of ureter to bladder with insertion of stent into (more content not included)... Normal [facility] Comment on above: Result Comment: Elec tronically Signed By: Gerald LEO MD\.br\Date and Time Signed: 01/03/25 15:08 EDT\.br\Electronically Co-Signed By: Joelle Mullins\.br\Date and Time Co-Signed: 01/03/25 15:05 EDT Reminderson 11-03-2024 Reminders Reminders - From: Sanaz Nichols To: [facility] - Recalls Ahmet; Sent: 11/03/2024 15:05:19 EST Show up: 09/21/2025 15:05:00 EST Subject: cysto/fish/cytol Due Date/Time: 10/16/2025 15:05:00 EST Reminder/Recall Patient is due in December 2025 for 1 year cysto/needs fish/cytol, bt ck, PCP does PSA Normal [facility] CBC AUTO DIFFon 12-12-2022 BASO # 0.1 103/ul Normal 0.0-0.[address] [facility] Comment on above: Performed By: #### C BC #### [facility] [address] [place] [address] Dr. Som Puckett Basophils/100 WBC (Bld) 0.7 % Normal 0.2-2.[address] [facility] Comment on above: Performed By: #### C BC #### [facility] [address] [place] [address] Dr. Som Puckett EO # 0.3 103/ul Normal 0.0-0.7 [facility] Comment on above: Performed By: #### C BC #### [facility] [address] [place] [address] Dr. Som Puckett Eosinophils/100 WBC (Bld) 4.1 % Normal 0.9-7.[address] [facility] Comment on above: Performed By: #### C BC #### [facility] [address] [place] [address] Dr. Som Puckett Erythrocyte distribution width (RBC) [Ratio] 12.9 % Normal 11.0-15.[address] [facility] Comment on above: Performed By: #### C BC #### [facility] [address] [place] [address] Dr. Som Puckett Hematocrit (Bld) [Volume fraction] 43.2 % Normal 42.0-54.[address] [facility] Comment on above: Performed By: #### C BC #### [facility] [address] [place] [address] Dr. Som Puckett Hemoglobin (Bld) [Mass/Vol] 14.7 g/dL Normal 14.0-18.[address] [facility] Comment on above: Performed By: #### C BC #### [facility] [address] [place] [address] Dr. Som Puckett IG # 0.01 10e3/ul Normal 0.00-0.[address] [facility] Comment on above: Performed By: #### C BC #### [facility] [address] [place] [address] Dr. Som Puckett IG % 0.1 % Normal 0.0-0.[address] [facility] Comment on above: Performed By: #### C BC #### [facility] [address] [place] [address] Dr. Som Puckett LYMPH # 1.8 103/ul Normal 1.2-3.[address] [facility] Comment on above: Performed By: #### C BC #### [facility] [address] [place] [address] Dr. Som Puckett Lymphocytes/100 WBC (Bld) 26.1 % Normal 20.5-60.[address] [facility] Comment on above: Performed By: #### C BC #### [facility] [address] [place] [address] Dr. Som Puckett MANUAL DIFF REQ NO Normal [facility] Comment on above: Performed By: #### C BC #### [facility] [address] [place] [address] Dr. Som Puckett MCH (RBC) [Entitic mass] 30.4 pg Normal 25.9-34.[address] [facility] Comment on above: Performed By: #### C BC #### [facility] [address] [place] [address] Dr. Som Puckett MCHC (RBC) [Mass/Vol] 34.0 g/dL Normal 29.9-35.[address] [facility] Comment on above: Performed By: #### C BC #### [facility] [address] [place] [address] Dr. Som Puckett MCV (RBC) [Entitic vol] 89.3 fL Normal 80.0-94.[address] [facility] Comment on above: Performed By: #### C BC #### [facility] [address] [place] [address] Dr. Som Puckett MONO # 0.6 103/ul Normal 0.3-0.[address] [facility] Comment on above: Performed By: #### C BC #### [facility] [address] [place] [address] Dr. Som Puckett Monocytes/100 WBC (Bld) 8.4 % Normal 1.7-12.[address] [facility] Comment on above: Performed By: #### C BC #### [facility] [address] [address] [address] Som Puckett NEUT # 4.1 103/ul Normal 1.4-6.5 [facility] Comment on above: Performed By: #### C BC #### [facility] [address] [address] [address] Som Puckett Neutrophils/100 WBC (Bld) 60.6 % Normal 43.0-75.[address] [facility] Comment on above: Performed By: #### C BC #### [facility] [address] [place] [address] Dr. Som Puckett Platelet mean volume (Bld) [Entitic vol] 10.1 fL Normal 9.5-13.[address] [facility] Comment on above: Performed By: #### C BC #### [facility] [address] [place] [address] Dr. Som Puckett PLT 275 103/ul Normal 150-450 [facility] Comment on above: Performed By: #### C BC #### [facility] [address] [place] [address] Dr. Som Puckett RBC 4.84 106/ul Normal 4.70-6.10 [facility] Comment on above: Performed By: #### C BC #### [facility] [address] [place] [address] Dr. Som Puckett WBC 6.8 103/ul Normal 4.0-11.[address] [facility] Comment on above: Performed By: #### C BC #### [facility] [address] [place] [address] Dr. Som Puckett [facility] 08[facility]21 SARS-CoV-2 (COVID-19) RNA BRENDA+probe Ql (Unsp spec) Not detected Normal NOT DETECTED [facility] Comment on above: Result Comment: This test is not yet approved or cleared by the [place] FDA. When there are no FDA-approved or cleared tests available, and other criteria are met, FDA can make tests available under an emergency access mechanism called an Emergency Use Authorization (EUA). The EUA for this test is supported by the [place] of Health and Human Service's (HHS's) declaration that circumstances exist to justify the emergency use of in vitro diagnostics for the detection and/or diagnosis of the virus that causes COVID-19. This EUA will remain in effect (meaning this test can be used) for the duration of the COVID-19 declaration justifying emergency of IVDs, unless it is terminated or revoked by FDA (after which the test may no longer be used). When diagnostic testing is negative, the possibility of a false negative should be considered in the context of a patient's recent exposures and the presence of clinical signs and symptoms consistent with SARS-CoV-2. Performed By: #### [facility] #### [facility] [address] [place] [address] Dr. Som Puckett PROF CHEM 8 (BAS METB)on Anion gap [Moles/Vol] 12.0 mmol/L Normal [facility] Comment on above: Performed By: #### B MP #### [facility] [address] [place] [address] Dr. Som Puckett Calcium [Mass/Vol] 9.6 mg/dL Normal 8.5-10.1 [facility] Comment on above: Performed By: #### B MP #### [facility] [address] [place] [address] Dr. Som Puckett Chloride [Moles/Vol] 101 mmol/L Normal 98-107 [facility] Comment on above: Performed By: #### B MP #### [facility] [address] [place] [address] Dr. Som Puckett CO2 [Moles/Vol] 31.6 mmol/L Normal 21.0-32.0 [facility] Comment on above: Performed By: #### B MP #### [facility] [address] [place] [address] Dr. Som Puckett Creatinine [Mass/Vol] 1.36 mg/dL Critically high 0.70-1.30 [facility] Comment on above: Performed By: #### B MP #### [facility] [address] [address] [address] Som Puckett EGFR-AF SALVADOREAN >60 Normal >=60 [facility] Comment on above: Performed By: #### B MP #### [facility] [address] [address] [address] Som Puckett EGFR-NON AF [place]AN 52 mL/min/1.73m2 Critically low >=[address] [facility] Comment on above: Performed By: #### B MP #### [facility] [address] [address] [address] Som Puckett Glucose [Mass/Vol] 92 mg/dL Normal 74-106 [facility] Comment on above: Performed By: #### B MP #### [facility] [address] [address] [address] Som Puckett Potassium [Moles/Vol] 4.6 mmol/L Normal 3.5-5.[address] [facility] Comment on above: Performed By: #### B MP #### [facility] [address] [address] [address] Som Puckett Sodium [Moles/Vol] 140 mmol/L Normal 136-145 [facility] Comment on above: Performed By: #### B MP #### [facility] [address] [address] [address] Som Puckett Urea nitrogen [Mass/Vol] 19.0 mg/dL Critically high 7.0-18.[address] [facility] Comment on above: Performed By: #### B MP #### [facility] [address] [address] [address] Som Puckett Urea nitrogen/Creatinine [Mass ratio] 14.0 mg/mg Normal [facility] Comment on above: Performed By: #### B MP #### [facility] [address] [address] [address] Som Puckett PROTIMEon 09-01-2022 INR Coag (PPP) [Relative time] 1.01 {INR} Normal [facility] Comment on above: Performed By: #### P T, PTT #### [facility] [address] [place] [address] Dr. Som Puckett INR GUIDELINES SEE BELOW Normal [facility] Comment on above: Result Comment: MARIO RED INR: 2.0 - 3.0 CONDITIONS NOT LISTED BELOW 2.5 - 3.5 FOR PROSTHETIC HEART VALVE REPLACEMENT 2.5 - 3.5 RECURRENT THROMBOSIS Performed By: #### P T, PTT #### [facility] [address] [place] [address] Dr. Som Puckett PT Coag (PPP) [Time] 10.9 s Normal 9.0-11.[address] [facility] Comment on above: Performed By: #### P T, PTT #### [facility] [address] [place], [place] [address] Dr. Som Puckett PTTon 09-01-2022 aPTT Coag (Bld) [Time] 26.5 s Normal 22.3-36.[address] [facility] Comment on above: Performed By: #### P T, PTT #### [facility] [address] [address] [address] Som Puckett Vital Signs Date Time Vital Sign Value Performing Clinician Facility 01-31-2025 10:25-0400 Diastolic blood pressure 82 mm[Hg] AWAIS DE LA CRUZ [facility] 01-31-2025 10:25-0400 Heart rate 79 /min AWAIS DE LA CRUZ [facility] 01-31-2025 10:25-0400 Respiratory rate 16 /min AWAIS DE LA CRUZ [facility] 01-31-2025 10:25-0400 Systolic blood pressure 128 mm[Hg] AWAIS DE LA CRUZ [facility] 01-26-2025 13:40-0400 Body height 165.1 cm Mckenna GARDNER Work Phone: [facility] 01-26-2025 13:40-0400 Body mass index (BMI) [Ratio] 24.96 kg/m2 Mckenna Romanomer PA Work Phone: [facility] 01-26-2025 13:40-0400 Body weight 68.04 kg Mckenna Hemmer PA Work Phone: [facility] 01-26-2025 13:40-0400 Diastolic blood pressure 82 mm[Hg] Mckenna Hemmer PA Work Phone: [facility] 01-26-2025 13:40-0400 Heart rate 88 /min Mckenna Hemmer PA Work Phone: [facility] 01-26-2025 13:40-0400 Respiratory rate 16 /min Mckenna Hemmer PA Work Phone: [facility] 01-26-2025 13:40-0400 SaO2% (BldA) [Mass fraction] 97 % Mckenna Hemmer PA Work Phone: [facility] 01-26-2025 13:40-0400 Systolic blood pressure 124 mm[Hg] Mckenna Hemmer PA Work Phone: [facility] 01-13-2025 09:06-0400 Body height 165.1 cm Mckenna Hemmer PA Work Phone: [facility] 01-13-2025 09:06-0400 Body mass index (BMI) [Ratio] 25.13 kg/m2 Mckenna Hemmer PA Work Phone: [facility] 01-13-2025 09:06-0400 Body weight 68.49 kg Mckenna Hemmer PA Work Phone: [facility] 01-13-2025 09:06-0400 Diastolic blood pressure 80 mm[Hg] Mckenna Hemmer PA Work Phone: [facility] 01-13-2025 09:06-0400 Heart rate 81 /min Mckenna Hemmer PA Work Phone: [facility] 01-13-2025 09:06-0400 SaO2% (BldA) [Mass fraction] 96 % Cmkenna Hemmer PA Work Phone: [facility] 01-13-2025 09:06-0400 Systolic blood pressure 110 mm[Hg] Mckenna Hemmer PA Work Phone: [facility] 12-01-2024 10:42-0400 Body height 165.1 cm Mckenna Hemmer PA Work Phone: [facility] 12-01-2024 10:42-0400 Body mass index (BMI) [Ratio] 25.76 kg/m2 Mckenna Hemmer PA Work Phone: [facility] 12-01-2024 10:42-0400 Body temperature 97.3 [degF] Mckenna Hemmer PA Work Phone: [facility] 12-01-2024 10:42-0400 Body weight 70.22 kg Mckenna Hemmer PA Work Phone: [facility] 12-01-2024 10:42-0400 Diastolic blood pressure 74 mm[Hg] Mckenna Hemmer PA Work Phone: [facility] 12-01-2024 10:42-0400 Heart rate 81 /min Mckenna Hemmer PA Work Phone: [facility] 12-01-2024 10:42-0400 Respiratory rate 16 /min Mckenna Hemmer PA Work Phone: [facility] 12-01-2024 10:42-0400 SaO2% (BldA) [Mass fraction] 97 % Mckenna Hemmer PA Work Phone: [facility] 12-01-2024 10:42-0400 Systolic blood pressure 126 mm[Hg] Mckenna Hemmer PA Work Phone: [facility] 06-06-2024 09:59-0400 Body height 165.1 cm Richard Dennis MD Work Phone: [facility] 06-06-2024 09:59-0400 Body mass index (BMI) [Ratio] 24.96 kg/m2 Richard Dennis MD Work Phone: [facility] 06-06-2024 09:59-0400 Body weight 68.04 kg Richard Dennis MD Work Phone: [facility] 06-06-2024 09:59-0400 Diastolic blood pressure 80 mm[Hg] Richard Dennis MD Work Phone: [facility] 06-06-2024 09:59-0400 Heart rate 68 /min Richard Dennis MD Work Phone: [facility] 06-06-2024 09:59-0400 SaO2% (BldA) [Mass fraction] 95 % Richard Dennis MD Work Phone: [facility] 06-06-2024 09:59-0400 Systolic blood pressure 124 mm[Hg] Richard Dennis MD Work Phone: [facility] 12-16-2022 14:19-0400 Blood Pressure Location Gerald LEO [facility] 12-16-2022 14:19-0400 Diastolic blood pressure 99 mm[Hg] Gerald LEO [facility] 12-16-2022 14:19-0400 Heart rate 95 /min Gerald LEO [facility] 12-16-2022 14:19-0400 Systolic blood pressure 155 mm[Hg] Gerald LEO [facility] 08-19-2022 14:11-0500 Blood Pressure Location Gerald LEO [facility] 08-19-2022 14:11-0500 Diastolic blood pressure 99 mm[Hg] Gerald LEO [facility] 08-19-2022 14:11-0500 Heart rate 108 /min Gerald LEO [facility] 08-19-2022 14:11-0500 Systolic blood pressure 146 mm[Hg] Gerald LEO [facility] [place] Encounters Encounter Date Encounter Type Care Provider Facility Start: 03-30-2025 End: 03-30-2025 Telephone encounter Bria Phillips LPN Work Phone: [facility] Comment on above: Med Refill Start: 03-27-2025 End: 03-27-2025 ambulatory AWAIS DE LA CRUZ Facility:[facility] Start: 03-27-2025 End: 03-27-2025 Patient encounter procedure AWAIS DE LA CRUZ [facility] Start: 02-16-2025 End: 02-16-2025 Refill Miracle Lamb MA [facility] Comment on above: Chronic insomnia Start: 01-31-2025 End: 01-31-2025 ambulatory AWAIS DE LA CRUZ Facility:[facility] Start: 01-31-2025 End: 01-31-2025 Patient encounter procedure AWAIS DE LA CRUZ [facility] [place] Start: 01-30-2025 ambulatory Geraldemiliana LEO Facility :[facility] Start: 01-26-2025 End: 01-26-2025 Bamboo flowsmaxim GARDNER Work Phone: [facility] Start: 01-26-2025 End: 01-26-2025 Bamboo flowsheet Mckenna Gomez PA Work Phone: [facility] Start: 01-26-2025 End: 01-26-2025 Office outpatient visit 15 minutes Mckenna GARDNER Work Phone: [facility] Comment on above: Chronic insomnia (Pr imary Dx) Start: 01-26-2025 End: 01-26-2025 ambulatory MCKENNA GOMEZ Not Available Start: 01-23-2025 End: 01-23-2025 ambulatory Gerald Farnsworth LEO [facility] Start: 01-21-2025 End: 01-21-2025 Clinisync Result Encounter Generic External Data Provider [facility] Unsolicited Start: 01-21-2025 End: 01-21-2025 Clinisync Result Encounter Generic External Data Provider [facility] Unsolicited Start: 01-19-2025 End: 01-19-2025 ambulatory Yunior Wong [facility] Work Phone: Start: 01-19-2025 End: 01-19-2025 Departed Referred Gerald Leo MD Work Phone: [facility] Start: 01-19-2025 End: 01-19-2025 Clinisync Result Encounter Generic External Data Provider [facility] External Department Unsolicited Start: 01-19-2025 End: 01-19-2025 Clinisync Result Encounter Generic External Data Provider [facility] External Department Unsolicited Start: 01-18-2025 End: 01-18-2025 ambulatory Doris Hollingsworth [facility] Work Phone: Start: 01-18-2025 End: 01-18-2025 Departed Referred Gerald Leo MD Work Phone: [facility] Start: 01-18-2025 End: 01-18-2025 Clinisync Result Encounter Generic External Data Provider [facility] Department Unsolicited Start: 01-18-2025 End: 01-18-2025 Clinisync Result Encounter Generic External Data Provider [facility] External Department Unsolicited Start: 01-17-2025 End: 01-17-2025 ambulatory Gerald Leo [facility] Work Phone: Start: 01-17-2025 End: 01-17-2025 Departed Referred Gerald Leo MD Work Phone: [facility] Start: 01-17-2025 End: 01-17-2025 ambulatory Gerald LEO Facility:[id number] Start: 01-13-2025 End: 01-13-2025 Office outpatient visit 25 minutes Mckenna GARDNER Work Phone: [facility] Comment on above: Neoplasm of uncertai n behavior of bladder (Primary Dx); Hx of bladder cancer; Pre-operative examination; Stage 3b chronic kidney disease (HCC) (CMS/HCC); Benign essential hypertension (CMS/HCC) Start: 01-13-2025 End: 01-13-2025 Preprocedural examination done Mckenna GARDNER Work Phone: [facility] Start: 01-13-2025 End: 01-13-2025 ambulatory MCKENNA GOMEZ Not Available Start: 01-09-2025 End: 01-09-2025 Francisco Dennis MD Work Phone: [facility] Comment on above: DDD (degenerative di sc disease), lumbar Start: 01-04-2025 End: 01-04-2025 Clinisync Result Encounter Generic External Data Provider [facility] External Department Unsolicited Start: 01-04-2025 End: 01-04-2025 Clinisync Result Encounter Generic External Data Provider [facility] Department Unsolicited Start: 01-03-2025 End: 01-03-2025 Lab Drop off Gerald LEO [facility] Start: 01-03-2025 End: 01-03-2025 ambulatory Gerald LEO Facility:[facility] Start: 12-06-2024 End: 12-06-2024 ambulatory MCKENNA GOMEZ Not Available Start: 12-01-2024 End: 12-01-2024 Bamboo flowsheet Mckenna Gomez PA Work Phone: [facility] Start: 12-01-2024 End: 12-01-2024 Bamboo flowsheet Mckenna GARDNER Work Phone: [facility] Start: 12-01-2024 End: 12-01-2024 Office outpatient visit 25 minutes Mckenna GARDNER Work Phone: [facility] Comment on above: Acute bronchitis, un specified organism (Primary Dx); Tobacco user Start: 12-01-2024 End: 12-01-2024 ambulatory MCKENNA GOMEZ Not Available Start: 11-14-2024 End: 11-14-2024 Refill Richard Dennis MD Work Phone: [facility] Comment on above: Chronic insomnia; DDD (degenerative disc disease), lumbar Start: 09-26-2024 End: 09-26-2024 Refill Becki Hoff MD Work Phone: [facility] Comment on above: DDD (degenerative di sc disease), lumbar Start: 08-11-2024 End: 08-11-2024 Refill Miracle Lamb MA [facility] Comment on above: Chronic insomnia Start: 07-06-2024 End: 07-06-2024 Refill Miracle Lamb MA [facility] Comment on above: DDD (degenerative di sc disease), lumbar; Chronic insomnia Start: 06-06-2024 End: 06-06-2024 Bamboo flowsheet Richard Dennis MD Work Phone: [facility] Start: 06-06-2024 End: 06-06-2024 Bamboo flowsheet Richard Dennis MD Work Phone: [facility] Start: 06-06-2024 End: 06-06-2024 Office outpatient visit 15 minutes Richard Dennis MD Work Phone: [facility] Comment on above: Chronic kidney disea se, stage 3a (N18.31) (Primary Dx); Benign essential hypertension (CMS/HCC); Benign prostatic hyperplasia without lower urinary tract symptoms; Mixed hyperlipidemia (CMS/HCC) Start: 06-06-2024 End: 06-06-2024 ambulatory RICHARD DENNIS Not Available Start: 02-09-2024 End: 02-09-2024 ambulatory ANKIT BROOKS Not Available Start: 12-22-2023 End: 12-22-2023 Lab Drop off Gerald LEO [facility] Start: 12-22-2023 End: 12-22-2023 Patient encounter procedure Gerald LEO [facility] [place] Start: 10-28-2023 Telephone encounter Esther Monroy MA [facility] Comment on above: Med Refill Start: 06-16-2023 End: 06-16-2023 Lab Drop off Gerald LEO [facility] Start: 12-16-2022 End: 12-16-2022 Lab Drop off Gerald LEO [facility] Start: 12-16-2022 End: 12-16-2022 Patient encounter procedure Gerald LEO [facility] [employer] Start: 09-10-2022 End: 09-10-2022 Patient encounter procedure Gerald LEO [facility] [employer] Start: 09-06-2022 Encounter for preprocedural cardiovascular examination DR GERALD LEO [facility] Start: 09-06-2022 Encounter for preprocedural laboratory examination DR GERALD LEO [facility] Start: 09-04-2022 End: 09-04-[address] GERALD LEO Facility:[facility] Start: 09-01-2022 End: 09-02-[address] GERALD LEO Facility:[facility] Start: 09-01-2022 End: 09-02-2022 Encounter for preprocedural cardiovascular examination DR GERALD LEO Facility:[facility] Start: 08-19-2022 End: 08-19-2022 Patient encounter procedure Gerald LEO [facility] Procedures Date Procedure Procedure Detail Performing Clinician Start: 01-21-2025 ALL CBC WITH AUTO DIFF Generic External Data Provider Start: 01-19-2025 [facility]ULTURE - [facility] Ge neric External Data Provider Start: 01-18-2025 URINE CULTURE - [facility] Ge neric External Data Provider Start: 01-17-2025 Transurethral resect ion of bladder neoplasm AWAIS DE LA CRUZ Start: 01-04-2025 ALL BASIC METABOLIC PANEL Generic External Data Provider Start: 01-03-2025 Cystoscope, device (physical object) Gerald LEO Start: 06-16-2023 Cystoscopy Gerald ANDRESS Start: 12-16-2022 Cystoscopy Gerald UGALDE TERS Start: 09-04-2022 Transurethral resect ion of bladder neoplasm Gerald LEO Start: 08-19-2022 Cystoscopy Gerald ANDRESS Start: 06-25-2021 Cystoscopy Gerald ANDRESS Start: 06-12-2020 Cystoscopy Gerald ROPER Start: 06-07-2019 Cystoscopy Gerald ANDRESS Start: 06-08-2018 Cystoscopy Gerald ROPER Comment on above: 12/07/2006, 06/16/20 06, 09/18/2015, 04/25/2014, 08/01/2014, 10/31/2014, 02/20/2015, 06/05/2015, 12/11/2015, 06/10/2016, 06/09/2017, 06/08/2018 Start: 08-17-2017 Colonoscopy Esther Torres darlene ORELLANA Start: 11-23-2014 Transurethral prostatectomy Gerald LEO Start: 04-27-2014 Cystoscopy and transurethral resection of bladder tumor Gerald LEO Comment on above: Cysto/TURBT, rt rg, rt ureter, right stone basket Start: 06-08-2012 Cystoscopy to remove object Gerald LEO Start: 05-13-2012 Cystoscopic anastomo sis of ureter to bladder with insertion of stent into ureter Gerald LEO Comment on above: Cysto, Lt rg, left u reter, left ureteral dilation, left stent placement Start: 10-24-2009 Transrectal biopsy o f prostate using ultrasound guidance Gerald LEO back surgery Gerald LEO Colonoscopy Gerald LEO Plan of Treatment Date Care Activity Detail Author Start: 08-17-2027 Screening for malign ant neoplasm of colon [facility] Start: 05-22-2025 Influenza vaccination [facility] Start: 05-01-2025 End: 05-01-2025 Patient encounter procedure 05/01/2025 9:00 AM EDT Office Visit [facility] [address] [facility] [address] [place] [address] Mckenna Gomez PA [address] [facility] [address] [place] [address] [facility] Start: 04-24-2025 ambulatory Ambulatory Facility:[facility] Start: 01-26-2025 Medicare Annual Wellness (AWV) Medicare Annual Wellness (AWV) [facility] Start: 01-26-2025 End: 01-26-2025 Patient encounter procedure 01/26/2025 1:30 PM EDT Office Visit [facility] [address] [place] [address] [place] [address] Mckenna Gomez PA [address] [facility] [address] [place] [address] Arrived [facility] Comment on above: Arrived Start: 01-19-2025 Urine culture [facility] Start: 01-19-2025 Bacteria identified in Urine by Culture Urine Culture [facility] Start: 01-18-2025 End: 01-18-2025 Urine culture [facility] Start: 01-18-2025 Bacteria identified in Urine by Culture Urine Culture [facility] Start: 12-01-2024 End: 12-01-2024 Patient encounter procedure 12/01/2024 10:30 AM EDT Office Visit [facility] [address] [place] [address] [place] [address] Mckenna Gomez PA [address] [place] [address] [place] [address] Arrived [facility] Comment on above: Arrived Start: 06-06-2024 End: 06-06-2024 Patient encounter procedure 06/06/2024 10:00 AM EDT Office Visit [facility] [address] [place] [address] [place] [address] Richard Dennis MD [address] [place] [address] [place] [address] Arrived [facility] Comment on above: Arrived Start: 05-22-2024 Influenza vaccination Influenza Vacc ine (#1) [facility] Start: 05-06-2024 Medicare Annual Wellness (AWV) Medicare Annual Wellness (AWV) [facility] Start: 05-22-2023 Influenza vaccination Influenza Vacc ine (#1) [facility] Start: 1950 Screening for malign ant neoplasm of colon [facility] Start: 1950 Screening for malign ant neoplasm of lung Lung Cancer Screening Shared Decision Making [facility] [place] [facility] Lab Routine 01/18/2025 1:50 PM EDT [facility] - [facility] Lab Routine 01/19/2025 3:00 PM EDT [facility] Immunizations Immunization Date Immunization Notes Care Provider Fa cility 07-11-2021 SARS-CoV-2 (COVID-19 ) mRNA BNT-162b2 vax Gerald LEO [facility] 12-14-2020 SARS-CoV-2 (COVID-19 ) Ad26 vaccine, recombinant Gerald LEO [facility] 12-06-2020 SARS-CoV-2 (COVID-19 ) mRNA BNT-162b2 vax Gerald LEO [facility] 11-23-2020 SARS-CoV-2 (COVID-19 ) Ad26 vaccine, recombinant Gerald LEO [facility] 11-15-2020 SARS-CoV-2 (COVID-19 ) mRNA BNT-162b2 vax Gerald LEO [facility] Comment on above: Result Comment: 2021: [id number] 08-02-2020 pneumococcal conjuga te vaccine, 13 valent Geraldemiliana LEO [facility] 01-26-2020 pneumococcal polysaccharide vaccine, 23 valent Gerald LEO [facility] 09-03-2015 pneumococcal conjuga te vaccine, 13 valent Geraldemiliana LEO [facility] 07-22-2007 pneumococcal polysaccharide vaccine, 23 valent Gerald LEO [facility] Payers Date Payer Category Payer Self-pay 2022 Medicare [id number] 2022 Medicare (Managed Care) [employer] [id number] 2022 Private Health Insurance [id number] 1958 Medicare [id number] 1950 Unknown [id number] [id number] .2.593 1950 Unknown [id number] 2.16.840.1.983833.3.579 .2.593 1950 Unknown [id number] 2.16.840.1.776953.3.579 .2.727 1950 Unknown [id number] 2.16.840.1.729944.3.579 .2.72 1950 Unknown [id number] 2.16.840.1.429376.3.579 .2.727 1950 Unknown [id number] 2.16.840.1.144747.3.579 .2.727 1951 Unknown [id number] 2.16.840.1.787508.3.579 .2.1259 1951 Unknown [id number] 2.16.840.1.325386.3.579 .2.1259 1951 Unknown [id number] 2.16.840.1.445652.3.579 .2.1259 1951 Unknown [id number] 2.16.840.1.803660.3.579 .2.1259 1951 Unknown [id number] 2.16.840.1.191114.3.579 .2.1259 1951 Unknown [id number] 2.16.840.1.069152.3.579 .2.1259 1951 Unknown [id number] 2.16.840.1.277625.3.579 .2.727 1951 Unknown [id number] 2.16.840.1.187886.3.579 .2.727 1950 Unknown [id number] 2.16.840.1.072605.3.579 .2.727 Medicare Medicare [id number] Private Health Insurance [employer] [id number] Unknown [id number] 2.16.840.1.287343.3.579 .2.531 Unknown [id number] 2.16.840.1.266875.3.579 .2.531 Unknown [id number] 2.16.840.1.953179.3.579 .2.531 Social History Date Type Detail Facility Start: 08-19-2022 End: 03-27-2025 Tobacco smoking status Ex-smoker (finding) [facility] Start: 10-22-2023 End: 01-26-2025 Sex Assigned At Male [facility] Tobacco smoking status Never [facility] Start: 04-29-2023 [facility] Start: 04-29-2023 End: 01-13-2025 Tobacco use and exposure Smokeless tobacco non-user [facility] Start: 10-22-2023 End: 01-26-2025 History of Social function [facility] Start: 1950 Sex Assigned At Not on file [facility] Start: 01-27-2024 End: 01-13-2025 Tobacco smoking status NHIS Smokes tobacco daily [facility] History of tobacco use Cigarette Smoker [facility] Start: 06-06-2024 End: 01-26-2025 Alcoholic beverage intake Ex-drinker (finding) [facility] Start: 11-06-2023 Alcohol Comment Caffeine intak e: 1-2 cups per day [facility] Sexual Orientation [facility] Start: 05-12-2019 End: 01-21-2025 Sex Male (finding) [facility] Tobacco smoking stat us [facility]IS Unknown if ever smoked [facility] Work Phone: Start: 1950 Sex Assigned At Male [facility] Functional Status Date Assessment Result Facility 01-31-2025 Functional Status N/A [facility] 01-26-2025 Patient Health Quest ionnaire 2 item (PHQ-2) [Reported] [facility] 12-16-2022 Functional Status N/A [facility] 09-10-2022 Functional Status N/A [facility] 08-19-2022 Functional Status N/A [facility] Clinical Notes 08-19-2022 to 03-30-2025 Telephone Encounter - KENDRA Hamilton - 03/30/2025 1:00 PM EDTTelephone Encounter - KENDRA Hamilton - 03/30/2025 1:00 PM EDTTelephone Encounter - Bria Phillips LPN - 03/30/2025 11:18 AM EDT Note Date & Type Note Facility 03-30-2025 Telephone encounter Note Tadalafil sent. [facility] 03-30-2025 Miscellaneous Notes Tadalafil sent. LM on VM asking for refill of Tadalafil, not on current med list, looks like it was stopped in January 2023. documented in this encounter [facility] 03-30-2025 Telephone encounter Note LM on VM asking for refill of Tadalafil, not on current med list, looks like it was stopped in January 2023. T [facility] 03-27-2025 Hospital Discharge instructions Patient Education 03/27/2025 13:58:39 Urinary Frequency, Adult Urinary Frequency, Adult Urinary frequency means urinating more often than usual. You may urinate every 1 2 hours even though you drink a normal amount of fluid and do not have a bladder infection or condition. Although you urinate more often than normal, the total amount of urine produced in a day is normal. With urinary frequency, you may have an urgent need to urinate often. The stress and anxiety of needing to find a bathroom quickly can make this urge worse. This condition may go away on its own, or you may need treatment at home. Home treatment may include bladder training, exercises, taking medicines, or making changes to your diet. Follow these instructions at home: Bladder health Your health care provider will tell you what to do to improve bladder health. You may be told to: Keep a bladder diary. Keep track of: ?What you eat and drink. ?How often you urinate. ?How much you urinate. Follow a bladder training program. This may include: ?Learning to delay going to the bathroom. ?Double urinating, also called voiding. This helps if you are not completely emptying your bladder. ?Scheduled voiding. Do Kegel exercises. Kegel exercises strengthen the muscles that help control urination, which may help the condition. Eating and drinking Follow instructions from your health care provider about eating or drinking restrictions. You may be told to: Avoid caffeine. Drink fewer fluids, especially alcohol. Avoid drinking in the evening. Avoid foods or drinks that may irritate the bladder. These include coffee, tea, soda, artificial sweeteners, citrus, tomato-based foods, and chocolate. Eat foods that help prevent or treat constipation. Constipation can make urinary frequency worse. You may need to take these actions to prevent or treat constipation: ?Drink enough fluid to keep your urine pale yellow. ?Take kqfv-mqi-auerofy or prescription medicines. ?Eat foods that are high in fiber, such as beans, whole grains, and fresh fruits and vegetables. ?Limit foods that are high in fat and processed sugars, such as fried or sweet foods. General instructions Take ncix-aox-chjlskc and prescription medicines only as told by your health care provider. Keep all follow-up visits. This is important. Contact a health care provider if: You start urinating more often. You feel pain or irritation when you urinate. You notice blood in your urine. Your urine looks cloudy. You develop a fever. You begin vomiting. Get help right away if: You are unable to urinate. Summary Urinary frequency means urinating more often than usual. With urinary frequency, you may urinate every 1 2 hours even though you drink a normal amount of fluid and do not have a bladder infection or other bladder condition. Your health care provider may recommend that you keep a bladder diary, follow a bladder training program, or make dietary changes. If told by your health care provider, do Kegel exercises to strengthen the muscles that help control urination. Take xugw-ast-zxhlkjt and prescription medicines only as told by your health care provider. Contact a health care provider if your symptoms do not improve or get worse. This information is not intended to replace advice given to you by your health care provider. Make sure you discuss any questions you have with your health care provider. Document Revised: 04/12/2021 Document Reviewed: 04/12/2021 [employer] Patient Education 2023 miiCard. Follow Up Care 03/22/2025 08:43:26 With:[facility] Natalya Address: When: Unknown Comments:For procedure as scheduled. [facility] [place] 03-27-2025 Note Patient Education Urology Urinary Frequency, Adult Urinary frequency means urinating more often than usual. You may urinate every 1?2 hours even though you drink a normal amount of fluid and do not have a bladder infection or condition. Although you urinate more often than normal, the total amount of urine produced in a day is normal. With urinary frequency, you may have an urgent need to urinate often. The stress and anxiety of needing to find a bathroom quickly can make this urge worse. This condition may go away on its own, or you may need treatment at home. Home treatment may include bladder training, exercises, taking medicines, or making changes to your diet. Follow these instructions at home: Bladder health Your health care provider will tell you what to do to improve bladder health. You may be told to: ??? Keep a bladder diary. Keep track of: ? What you eat and drink. ? How often you urinate. ? How much you urinate. ??? Follow a bladder training program. This may include: ? Learning to delay going to the bathroom. ? Double urinating, also called voiding. This helps if you are not completely emptying your bladder. ? Scheduled voiding. ??? Do Kegel exercises. Kegel exercises strengthen the muscles that help control urination, which may help the condition. Eating and drinking Follow instructions from your health care provider about eating or drinking restrictions. You may be told to: ??? Avoid caffeine. ??? Drink fewer fluids, especially alcohol. ??? Avoid drinking in the evening. ??? Avoid foods or drinks that may irritate the bladder. These include coffee, tea, soda, artificial sweeteners, citrus, tomato-based foods, and chocolate. ??? Eat foods that help prevent or treat constipation. Constipation can make urinary frequency worse. You may need to take these actions to prevent or treat constipation: ? Drink enough fluid to keep your urine pale yellow. ? Take qcvd-hbq-mhdjwxn or prescription medicines. ? Eat foods that are high in fiber, such as beans, whole grains, and fresh fruits and vegetables. ? Limit foods that are high in fat and processed sugars, such as fried or sweet foods. General instructions ??? Take piwy-jgu-gjctims and prescription medicines only as told by your health care provider. ??? Keep all follow-up visits. This is important. Contact a health care provider if: ??? You start urinating more often. ??? You feel pain or irritation when you urinate. ??? You notice blood in your urine. ??? Your urine looks cloudy. ??? You develop a fever. ??? You begin vomiting. Get help right away if: ??? You are unable to urinate. Summary ??? Urinary frequency means urinating more often than usual. With urinary frequency, you may urinate every 1?2 hours even though you drink a normal amount of fluid and do not have a bladder infection or other bladder condition. ??? Your health care provider may recommend that you keep a bladder diary, follow a bladder training program, or make dietary changes. ??? If told by your health care provider, do Kegel exercises to strengthen the muscles that help control urination. ??? Take kvqc-dvg-vxacmja and prescription medicines only as told by your health care provider. ??? Contact a health care provider if your symptoms do not improve or get worse. This information is not intended to replace advice given to you by your health care provider. Make sure you discuss any questions you have with your health care provider. Document Revised: 04/12/2021 Document Reviewed: 04/12/2021 [email or web address] Patient Education ? 2023 [email or web address]. [facility] 02-16-2025 Miscellaneous Notes OARRS reviewed, Rx sent into patient's pharmacy. documented in this encounter [facility] 02-16-2025 Telephone encounter Note OARRS reviewed, Rx sent into patient's pharmacy. [facility] 02-01-2025 Note Patient Education Gastroenterology Abdominal Pain, Adult Pain in the abdomen (abdominal pain) can be caused by many things. In most cases, it gets better with no treatment or by being treated at home. But in some cases, it can be serious. Your health care provider will ask questions about your medical history and do a physical exam to try to figure out what is causing your pain. Follow these instructions at home: Medicines ??? Take [id number] and prescription medicines only as told by your provider. ??? Do not take medicines that help you poop (laxatives) unless told by your provider. General instructions ??? Watch your condition for any changes. ??? Drink enough fluid to keep your pee (urine) pale yellow. Contact a health care provider if: ??? Your pain changes, gets worse, or lasts longer than expected. ??? You have severe cramping or bloating in your abdomen, or you vomit. ??? Your pain gets worse with meals, after eating, or with certain foods. ??? You are constipated or have diarrhea for more than 2?3 days. ??? You are not hungry, or you lose weight without trying. ??? You have signs of dehydration. These may include: ? Dark pee, very little pee, or no pee. ? Cracked lips or dry mouth. ? Sleepiness or weakness. ??? You have pain when you pee (urinate) or poop. ??? Your abdominal pain wakes you up at night. ??? You have blood in your pee. ??? You have a fever. Get help right away if: ??? You cannot stop vomiting. ??? Your pain is only in one part of the abdomen. Pain on the right side could be caused by appendicitis. ??? You have bloody or black poop (stool), or poop that looks like tar. ??? You have trouble breathing. ??? You have chest pain. These symptoms may be an emergency. Get help right away. Call 911. ??? Do not wait to see if the symptoms will go away. ??? Do not drive yourself to the hospital. This information is not intended to replace advice given to you by your health care provider. Make sure you discuss any questions you have with your health care provider. Document Revised: 06/24/2023 Document Reviewed: 06/24/2023 [employer] Patient Education ? 2023 [email or web address]. [facility] 01-26-2025 History of Present illness Narrative Images from the original note were not included. Subjective Patient ID: Anders Lyman is a 74 y.o. male who presents for insomnia. Anders is present today for evaluation of insomnia. States on January 17 he had a procedure on his bladder to remove 2 tumors. They injected a med in his bladder (states it is like a chemo med - Mitomycin-C) and ever since that procedure he cannot sleep and his mind is racing. He feels like his mind is wired, his body feels different. He is currently on Ambien and it is not working at all. had a lot of pain and was in the ER three times due to his pain level. 01/18, 01/19, and 01/20 was in [place] ER. Saw Dr. Leo on Thursday, the tumors were low grade, labs looked good. States he took as second Ambien 2-3 hours after the first last night and still could not sleep. Has increased his water intake. Current Outpatient Medications on File Prior to Visit Medication Sig Dispense Refill [DISCONTINUED] cephalexin (Keflex) 500 MG capsule Take 500 mg by mouth in the morning and 500 mg before bedtime. [DISCONTINUED] ciprofloxacin (Cipro) 500 MG tablet Take 500 mg by mouth in the morning and 500 mg before bedtime. [DISCONTINUED] HYDROcodone-acetaminophen (Tracy) 5-325 MG tablet Take 1 tablet by mouth every 6 (six) hours if needed [DISCONTINUED] ondansetron ODT (Zofran-ODT) 4 MG disintegrating tablet Take 4 mg by mouth every 8 (eight) hours if needed [DISCONTINUED] oxybutynin (Ditropan) 5 MG tablet Take 5 mg by mouth in the morning and 5 mg before bedtime. atorvastatin (Lipitor) 20 MG tablet TAKE 1 TABLET BY MOUTH IN THE MORNING 100 tablet 3 CALCIUM-VITAMIN D PO Daily. Cranberry 125 MG tablet Daily. diclofenac sodium 1 % gel Apply 2 g topically in the morning and 2 g in the evening and 2 g before bedtime. irbesartan-hydroCHLOROthiazide (Avalide) 150-12.5 MG tablet TAKE 1 TABLET BY MOUTH IN THE MORNING 100 tablet 3 omeprazole (PriLOSEC) [address] capsule TAKE 1 CAPSULE BY MOUTH IN THE MORNING BEFORE MEAL(S) 100 capsule 3 traMADol (Ultram) 50 MG tablet Take 1 tablet (50 mg) by mouth every 6 (six) hours if needed for severe pain 120 tablet 1 [DISCONTINUED] zolpidem (Ambien) 10 MG tablet Take 1 tablet (10 mg) by mouth as needed at bedtime for sleep ICD 10:F51.04 30 tablet 2 No current facility-administered medications on file prior to visit. I have reviewed and reconciled the history and medication list with the patient today. Allergies Allergen Reactions Beta Adrenergic Blockers Other Reaction(s): bronchospasm Social History Tobacco Use Smoking status: Every Day Current packs/day: 0.50 Average packs/day: 0.5 packs/day for 57.0 years (28.5 ttl pk-yrs) Types: Cigarettes Smokeless tobacco: Never Vaping Use Vaping status: Never Used Substance Use Topics Alcohol use: Not Currently Comment: Caffeine intake: 1-2 cups per day Drug use: Never Family History Problem Relation Name Age of Onset Cancer Mother Diabetes Mother Stroke Father Diabetes Father Hypertension Father Heart disease Father Past Medical History: Diagnosis Date Benign prostatic hyperplasia without lower urinary tract symptoms Bladder cancer (CMS/HCC) 10/22/2023 Bladder mass 10/22/2023 Chronic kidney disease DDD (degenerative disc disease), lumbar Diverticulitis Enlarged prostate Gastritis Gastroesophageal reflux disease without esophagitis Hiatal hernia Hyperlipemia (CMS/HCC) Insomnia Low back pain Lumbar degenerative disc disease Other chronic pain Right nephrolithiasis Sinusitis Past Surgical History: Procedure Laterality Date CATARACT EXTRACTION, BILATERAL 2023 COLONOSCOPY 2017 CYSTOSCOPY 04/2014 EGD 2017 LITHOTRIPSY 12/2014 LUMBAR FUSION 2011 PROSTATE BIOPSY TURP / TRANSURETHRAL INCISION / DRAINAGE PROSTATE 11/2014 Visit Vitals BP 124/82 Pulse 88 Resp 16 Ht 5' 5 Wt 150 lb SpO2 97% BMI 24.96 kg/m Smoking Status Every Day BSA 1.77 m Review of Systems Constitutional: Negative for chills, fatigue and fever. Respiratory: Negative for cough, shortness of breath and wheezing. Cardiovascular: Negative for chest pain, palpitations and leg swelling. Gastrointestinal: Negative for abdominal pain, constipation, diarrhea, nausea and vomiting. Genitourinary: Negative for dysuria, frequency, hematuria and urgency. Skin: Negative for rash. Psychiatric/Behavioral: Positive for sleep disturbance. Negative for dysphoric mood. The patient is nervous/anxious. Objective Physical Exam Constitutional: General: He is not in acute distress. Appearance: Normal appearance. HENT: Head: Normocephalic and atraumatic. Right Ear: Decreased hearing noted. Left Ear: Decreased hearing noted. Eyes: General: No scleral icterus. Cardiovascular: Rate and Rhythm: Normal rate and regular rhythm. Heart sounds: No murmur heard. Pulmonary: Effort: Pulmonary effort is normal. No respiratory distress. Breath sounds: Examination of the left-upper field reveals wheezing. Examination of the left-middle field reveals wheezing. Examination of the left-lower field reveals wheezing. Wheezing present. No rhonchi or rales. Musculoskeletal: General: No swelling. Skin: General: Skin is warm and dry. Neurological: General: No focal deficit present. Mental Status: He is alert and oriented to person, place, and time. Psychiatric: Mood and Affect: Mood is anxious (Appeared edgy). Speech: Speech normal. Behavior: Behavior is cooperative. Thought Content: Thought content normal. Cognition and Memory: Cognition normal. Judgment: Judgment normal. Assessment/Plan Diagnoses and all orders for this visit: Chronic insomnia - traZODone (Desyrel) 50 MG tablet; Take 1-2 tablets (50-100 mg) by mouth as needed at bedtime for sleep Stop Ambien as it has not been working for the patient. Trazodone as prescribed, can take 50-100 mg at bedtime, starting at 50 mg first to see how it affects him. Reviewed how the medication works as well as potential s/e. If not improving with the above, can consider alternative medications. They can contact the office on Thursday if needed. Follow up for Appointment As Scheduled. documented in this encounter [facility] 01-23-2025 Note Patient Education Oncology Chemotherapy Chemotherapy is a cancer treatment. It uses medicines to slow down or stop the growth of cancer. You may have chemotherapy to: ??? Cure your cancer. ??? Prevent the cancer from growing or spreading (metastasizing). ??? Ease symptoms and improve your quality of life (palliative care). ??? Improve the effects of radiation treatment. ??? Shrink a tumor before surgery. ??? Rid the body of cancer cells that remain after having a tumor surgically removed. The length of chemotherapy treatment depends on many factors, including: ??? The type and stage of your cancer. ??? How you respond to the chemotherapy. ??? Your side effects. What are the risks? Generally, this is a safe treatment. However, problems may occur, including: ??? Infection. ??? Bleeding. ??? Allergic reactions to medicines. You may have side effects from chemotherapy. What side effects you have depend on a variety of factors, including: ??? The type of chemotherapy medicine used. ??? Your dosage. ??? How long the medicine is used for. ??? Your overall health. What happens before treatment? You will meet with your cancer care team to discuss: ? Your treatment schedule. ? How your chemotherapy medicine will be given. ? Common side effects and how to prevent or treat them, which may include being given medicines. ??? You may have blood tests. What happens during treatment? Chemotherapy may be given continuously over time, or it may be given in cycles. Some common ways chemotherapy may be given include: ??? As a pill or capsule. ??? As a shot (injection). ??? As a skin (topical) cream. ??? As a special wafer that is put in your body where the cancer is. The wafer contains chemotherapy medicine. ??? As an injection into the cerebrospinal fluid (CSF) in the brain or spinal cord (intraventricular or intrathecal chemotherapy). ??? As an installation into the intraperitoneal (abdominal) cavity. ??? Through a small, thin tube (catheter). There are different kinds of catheters. You might have one that: ? Goes into a vein (intravenous catheter). An IV may be inserted into a vein each time you get a treatment or it can be used over several days. ? Goes into a vein in your neck that leads to a large vein close to your heart (non-tunneled catheter). This catheter has a risk of infection, so it is used for only a short time. ? Goes into a vein near your elbow (PICC line) and passes through into a large vein in your chest or upper arm. This may be used for weeks or months. ? Connects to an implanted device (port) that is inserted under the skin of your chest (port catheter). The port is attached to a catheter that is passed through into a large vein in your chest or upper arm. The port may stay in place for months or years. ? Goes through the skin of your chest and into a large vein close to your heart (tunneled catheter). This catheter may stay in place for months or years. While you are receiving your chemotherapy medicine, your cancer care team may monitor your blood pressure, heart rate, breathing rate, and blood oxygen level (vital signs) and watch for any problems. Some types of chemotherapy medicine are given only one time. Others are given for months, years, or for life. What can I expect after treatment? After chemotherapy, you may have side effects, such as: ??? Nausea and vomiting. ??? Appetite loss or a change in the way foods taste. ??? Constipation or diarrhea. ??? Fatigue. ??? Increased risk of infections, bruising, or bleeding. ??? Hair loss. ??? Mouth or throat sores. ??? Tingling, pain, or numbness in the hands and feet. ??? Dry, sensitive, itchy, or sore skin. ??? Memory changes. Follow these instructions at home: General instructions ??? If you get chemotherapy through an IV, PICC line, or port, check the site every day for signs of infection. Check for redness, swelling, pain, fluid, or warmth. ??? Wash your hands frequently with soap and water. Scrub your hands for at least 20 seconds. If soap and water are not available, use an alcohol based hand steam hoist operator that contains at least 60% alcohol. Have other members of your household wash their hands often. ??? Chemotherapy medicines leave the body through urine or stool (feces), but they can also be present in other body fluids including vomit, blood, vaginal fluids, and semen for up to 48 hours after receiving the medication. You must carefully follow some safety precautions to prevent harm to others while you are taking these medicines: ? Wash laundry that comes in contact with your body fluids separately. This includes clothing, sheets, and towels. Machine wash laundry twice in hot water with regular laundry detergent. ? Use a condom during vaginal, anal, and oral sex while you are taking chemotherapy medicines. These medicines can stay active in your (more content not included)... [facility] 01-13-2025 History of Present illness Narrative Images from the original note were not included. HPI surgical clearance Additional comments: Pt having cystocoopy/turbt-bladder tumor removal with dr leo on 01/17/25 Last edited by Miracle Lamb MA on 01/13/2025 7:11 AM. Subjective Patient ID: Anders Lyman is a 74 y.o. male who presents for surgical clearance (Pt having cystocoopy/turbt-bladder tumor removal with dr leo on 01/17/25 ). Pt stated TB stated the EKG from November that they are fine with using for clearance. States the only issue with anesthesia in the distant past was vomiting, but that was with a much longer procedure. Has had two other surgeries with Dr. Leo and has had no issues either time. No family history of difficulty with anesthesia. States the symptoms related to the bronchitis are completely gone. Has been walking more lately, trying to gradually increase how much he is walking. Does not drink any water, drinks Mt. Dew mostly, also lemonade. Takes Advil 4-5 times a week. Current Outpatient Medications on File Prior to Visit Medication Sig Dispense Refill atorvastatin (Lipitor) 20 MG tablet TAKE 1 TABLET BY MOUTH IN THE MORNING 100 tablet 3 CALCIUM-VITAMIN D PO Daily. Cranberry 125 MG tablet Daily. diclofenac sodium 1 % gel Apply 2 g topically in the morning and 2 g in the evening and 2 g before bedtime. irbesartan-hydroCHLOROthiazide (Avalide) 150-12.5 MG tablet TAKE 1 TABLET BY MOUTH IN THE MORNING 100 tablet 3 omeprazole (PriLOSEC) [address] capsule TAKE 1 CAPSULE BY MOUTH IN THE MORNING BEFORE MEAL(S) 100 capsule 3 traMADol (Ultram) 50 MG tablet Take 1 tablet (50 mg) by mouth every 6 (six) hours if needed for severe pain 120 tablet 1 zolpidem (Ambien) 10 MG tablet Take 1 tablet (10 mg) by mouth as needed at bedtime for sleep ICD 10:F51.04 30 tablet 2 [DISCONTINUED] traMADol (Ultram) 50 MG tablet Take 1 tablet (50 mg) by mouth every 6 (six) hours if needed for severe pain 120 tablet 0 No current facility-administered medications on file prior to visit. I have reviewed and reconciled the history and medication list with the patient today. Allergies Allergen Reactions Beta Adrenergic Blockers Other Reaction(s): bronchospasm Social History Tobacco Use Smoking status: Every Day Current packs/day: 0.50 Average packs/day: 0.5 packs/day for 57.0 years (28.5 ttl pk-yrs) Types: Cigarettes Smokeless tobacco: Never Substance Use Topics Alcohol use: Not Currently Comment: Caffeine intake: 1-2 cups per day Drug use: Never Family History Problem Relation Name Age of Onset Cancer Mother Diabetes Mother Stroke Father Diabetes Father Hypertension Father Heart disease Father Past Medical History: Diagnosis Date Benign prostatic hyperplasia without lower urinary tract symptoms Bladder cancer (CMS/HCC) 10/22/2023 Bladder mass 10/22/2023 Chronic kidney disease DDD (degenerative disc disease), lumbar Diverticulitis Enlarged prostate Gastritis Gastroesophageal reflux disease without esophagitis Hiatal hernia Hyperlipemia (CMS/HCC) Insomnia Low back pain Lumbar degenerative disc disease Other chronic pain Right nephrolithiasis Sinusitis Past Surgical History: Procedure Laterality Date CATARACT EXTRACTION, BILATERAL 2023 COLONOSCOPY 2016 CYSTOSCOPY 04/2014 EGD 2017 LITHOTRIPSY 12/2014 LUMBAR FUSION 2012 PROSTATE BIOPSY TURP / TRANSURETHRAL INCISION / DRAINAGE PROSTATE 11/2014 Visit Vitals BP 110/80 Pulse 81 Ht 5' 5 Wt 151 lb SpO2 96% BMI 25.13 kg/m Smoking Status Every Day BSA 1.77 m Review of Systems Constitutional: Negative for chills, fatigue and fever. HENT: Negative for congestion, ear pain, rhinorrhea, sinus pressure and sore throat. Eyes: Negative for pain, discharge and redness. Respiratory: Negative for cough, shortness of breath and wheezing. Cardiovascular: Negative for chest pain, palpitations and leg swelling. Gastrointestinal: Negative for abdominal pain, constipation, diarrhea, nausea and vomiting. Genitourinary: Negative for dysuria, frequency and urgency. Musculoskeletal: Negative for arthralgias and back pain. Skin: Negative for rash. Neurological: Negative for dizziness, numbness and headaches. Psychiatric/Behavioral: Negative for confusion, dysphoric mood and sleep disturbance. Objective Physical Exam Constitutional: General: He is not in acute distress. Appearance: Normal appearance. HENT: Head: Normocephalic and atraumatic. Right Ear: Tympanic membrane normal. There is impacted cerumen. Left Ear: Tympanic membrane and ear canal normal. Nose: Nose normal. Mouth/Throat: Mouth: Mucous membranes are moist. Pharynx: Oropharynx is clear. Eyes: General: No scleral icterus. Extraocular Movements: Extraocular movements intact. Conjunctiva/sclera: Conjunctivae normal. Pupils: Pupils are equal, round, and reactive to light. Cardiovascular: Rate and Rhythm: Normal rate and regular rhythm. Pulses: Normal pulses. Pulmonary: Effort: Pulmonary effort is normal. Breath sounds: Normal breath sounds. No wheezing, rhonchi or rales. Abdominal: General: Bowel sounds are normal. There is no distension. Palpations: Abdomen is soft. Tenderness: There is no abdominal tenderness. There is no guarding. Musculoskeletal: General: No swelling, tenderness, deformity or signs of injury. Normal range of motion. Cervical back: Normal range of motion. No tenderness. Lymphadenopathy: Cervical: No cervical adenopathy. Skin: General: Skin is warm and dry. Findings: No erythema. Neurological: General: No focal deficit present. Mental Status: He is alert and oriented to person, place, and time. Cranial Nerves: No cranial nerve deficit. Sensory: No sensory deficit. Motor: No weakness. Coordination: Coordination normal. Gait: Gait normal. Psychiatric: Mood and Affect: Mood normal. Behavior: Behavior normal. Thought Content: Thought content normal. Judgment: Judgment normal. Clinisync Result Encounter on 01/04/2025 Component Date Value Ref Range Status SODIUM 01/04/2025 139 136 - 145 mmol/L Final POTASSIUM 01/04/2025 4.0 3.5 - 5.1 mmol/L Final CHLORIDE 01/04/2025 102 98 - 107 mmol/L Final CARBON DIOXIDE 01/04/2025 30.0 21.0 - 32.0 mmol/L Final ANION GAP 01/04/2025 11.0 Final GLUCOSE 01/04/2025 88 74 - 106 mg/dL Final BLOOD UREA NITROGEN 01/04/2025 17.0 7.0 - 18.0 mg/dL Final CREATININE 01/04/2025 1.56 (H) 0.70 - 1.30 mg/dL Final [facility] EGFR-AF SALVADOREAN 01/04/2025 53 (L) >=60 mL/min/1.73m 2 Final [facility] EGFR-NON AF SALVADOREAN 01/04/2025 44 (L) >=60 mL/min/1.73m 2 Final BUN CREATININE RATIO 01/04/2025 10.9 Final CALCIUM 01/04/2025 8.9 8.5 - 10.1 mg/dL Final [facility] WBC 01/04/2025 7.9 4.0 - 11.0 10 3/uL Final [facility] RBC 01/04/2025 4.48 (L) 4.70 - 6.10 10 6/uL Final [facility] HGB 01/04/2025 14.0 14.0 - 18.0 g/dL Final [facility] HCT 01/04/2025 40.7 (L) 42.0 - 54.0 % Final [facility] MCV 01/04/2025 90.8 80.0 - 94.0 fL Final [facility] MCH 01/04/2025 31.3 25.9 - 34.0 pg Final [facility] MCHC 01/04/2025 34.4 29.9 - 35.2 g/dL Final [facility] RDW 01/04/2025 13.2 11.0 - 15.0 % Final [facility] PLT 01/04/2025 268 150 - 450 10 3/uL Final [facility] MPV 01/04/2025 10.1 9.5 - 13.5 fL Final NEUTROPHILS PERCENT AUTO 01/04/2025 67.4 43.0 - 75.0 % Final LYMPHOCYTES PERCENT AUTO 01/04/2025 21.1 20.5 - 60.0 % Final MONOCYTES PERCENT AUTO 01/04/2025 8.2 1.7 - 12.0 % Final [facility] EO % 01/04/2025 2.5 0.9 - 7.0 % Final BASOPHILS PERCENT AUTO 01/04/2025 0.5 0.2 - 2.0 % Final IMMATURE GRANULOCYTES PCT AUTO 01/04/2025 0.3 0.0 - 0.5 % Final NEUTROPHILS ABSOLUTE AUTO 01/04/2025 5.3 1.4 - 6.5 10 3/uL Final LYMPHOCYTES ABSOLUTE AUTO 01/04/2025 1.7 1.2 - 3.8 10 3/uL Final MONOCYTES ABSOLUTE AUTO 01/04/2025 0.7 0.3 - 0.8 10 3/uL Final [facility] EO # 01/04/2025 0.2 0.0 - 0.7 10 3/uL Final BASOPHILS ABSOLUTE AUTO 01/04/2025 0.0 0.0 - 0.1 10 3/uL Final IMMATURE GRANULOCYTES ABS AUTO 01/04/2025 0.02 0.00 - 0.03 10 3/uL Final PROTHROMBIN TIME 01/04/2025 11.1 9.0 - 11.6 sec Final [facility] INR 01/04/2025 1.05 Final Comment: DESIRED INR: 2.0-3.0 CONDITIONS NOT LISTED BELOW 2.5-3.5 FOR PROSTHETIC HEART VALVE REPLACEMENT 2.5-3.5 RECURRENT THROMBOSIS PARTIAL THROMBOPLASTIN TIME 01/04/2025 25.1 22.3 - 36.2 sec Final Assessment/Plan Diagnoses and all orders for this visit: Neoplasm of uncertain behavior of bladder Patient is scheduled for a Cystoscopy, TURBT - Bladder Tumor Removal, with Dr. Gerald Leo on 01/17/2025. He will be under general anesthesia for the procedure. Hx of bladder cancer See above. Pre-operative examination The patient was interviewed and examined. The patient's medical history and medications were reviewed. Patient is to follow guidance of surgical team regarding all medications. He is currently holding his Aspirin. There are no uncontrolled medical problems at present. Patient is active and has no chest pain or dyspnea. All available PAT was reviewed including labs from 01/04/2025, also reviewed ECG from 11/24/2024 which showed Sinus Rhythm, normal ECG. There are no medical contraindications for surgery noted at this time, and the patient is considered low to intermediate risk for the planned upcoming procedure. The patient is cleared for surgery without additional testing. Stage 3b chronic kidney disease (HCC) ([facility]) Advised pt that his kidney function has gradually been worsening. He is now stage 3b. Advised pt to limit OTC NSAID use whenever possible. Can try Tylenol as needed. Also encouraged him to gradually decrease his Mt. Dew intake and increase his water intake. Benign essential hypertension ([facility]) Patient's blood pressure is currently well controlled. Continue with current medications and I will continue to monitor. Advised that hydrochlorothiazide may also Follow up for Appointment As Scheduled. documented in this encounter [facility] 01-03-2025 Note Patient Education Oncology Transurethral Resection of Bladder Tumor, Care After The following information offers guidance on how to care for yourself after your procedure. Your health care provider may also give you more specific instructions. If you have problems or questions, contact your health care provider. What can I expect after the procedure? After the procedure, it is common to have: ??? A small amount of blood or small blood clots in your urine for up to 2 weeks. ??? Soreness or mild pain from your catheter. After your catheter is removed, you may have mild soreness, especially when urinating. ??? A need to urinate often. ??? Pain in your lower abdomen. Follow these instructions at home: Medicines ??? Take rnfc-uxo-ychxowo and prescription medicines only as told by your health care provider. ??? If you were prescribed an antibiotic medicine, take it as told by your health care provider. Do not stop taking the antibiotic even if you start to feel better. ??? Ask your health care provider if the medicine prescribed to you: ? Requires you to avoid driving or using machinery. ? Can cause constipation. You may need to take these actions to prevent or treat constipation: ? Drink enough fluid to keep your urine pale yellow. ? Take zvvh-nax-sfaypqa or prescription medicines. ? Eat foods that are high in fiber, such as beans, whole grains, and fresh fruits and vegetables. ? Limit foods that are high in fat and processed sugars, such as fried or sweet foods. Activity ??? If you were given a sedative during the procedure, it can affect you for several hours. Do not drive or operate machinery until your health care provider says that it is safe. ??? Rest as told by your health care provider. ??? Avoid sitting for a long time without moving. Get up to take short walks every 1?2 hours. This is important to improve blood flow and breathing. Ask for help if you feel weak or unsteady. ??? Do not lift anything that is heavier than 10 lb (4.5 kg), or the limit that you are told, until your health care provider says that it is safe. ??? Avoid intense physical activity for as long as told by your health care provider. ??? Do not have sex until your health care provider approves. ??? Return to your normal activities as told by your health care provider. Ask your health care provider what activities are safe for you. General instructions ??? If you have a catheter, follow instructions from your health care provider about caring for your catheter and your drainage bag. ??? Do not drink alcohol for as long as told by your health care provider. This is especially important if you are taking prescription pain medicines. ??? Do not use any products that contain nicotine or tobacco. These products include cigarettes, chewing tobacco, and vaping devices, such as e-cigarettes. If you need help quitting, ask your health care provider. ??? Wear compression stockings as told by your health care provider. These stockings help to prevent blood clots and reduce swelling in your legs. ??? Keep all follow-up visits. This is important. ? You will need to be followed closely with regular checks of your bladder and urethra (cystoscopies) to make sure that the cancer does not come back. Contact a health care provider if: ??? You have blood in your urine for more than 2 weeks. ??? You become constipated. Signs of constipation may include: ? Having fewer than three bowel movements in a week. ? Difficulty having a bowel movement. ? Stools that are dry, hard, or larger than normal. ??? You have a urinary catheter in place, and you have: ? Spasms or pain. ? Problems with your catheter or your catheter is blocked. ??? Your catheter has been taken out but you are unable to urinate. ??? You have signs of infection, such as: ? Fever or chills. ? Cloudy or bad-smelling urine. Get help right away if: ??? You have severe abdominal pain that gets worse or does not improve with medicine. ??? You have a lot of large blood clots in your urine. ??? You develop swelling or pain in your leg. ??? You have difficulty breathing. These symptoms may be an emergency. Get help right away. Call 911. ??? Do not wait to see if the symptoms will go away. ??? Do not drive yourself to the hospital. Summary ??? After your procedure, it is common to have a small amount of blood or small blood clots in your urine, soreness or mild pain from your catheter, and pain in your lower abdomen. ??? Take rtgt-pja-mvjftvu and prescription medicines only as told by your health care provider. ??? Rest as told by your health care provider. Follow your health care provider's instructions about returning to normal activities. Ask what activities are safe for you. ??? If you have a catheter, follow instructions from your health care provider about caring for your catheter and your drainage bag. (more content not included)... [facility] 12-01-2024 History of Present illness Narrative Images from the original note were not included. Subjective Patient ID: Anders Lyman is a 74 y.o. male who presents for [facility] ER follow up from 11/24/24. Anders is present today for [facility] follow up. He was seen at [facility] ER on 11/24/24 Dx. Bronchitis and rx'd Doxycycline and Methylprednisolone. He is improving but still has a cough with yellow phlegm, chest congestion, SOB. He has 1 more pill of the ATB and did finish the steroid yesterday. Also has Albuterol HFA on hand as needed. He is using Robitussin for cough. They did two breathing treatments on him, was negative for Covid and Influenza. ECG and CXR were done and were good per pt. Current Outpatient Medications on File Prior to Visit Medication Sig Dispense Refill [DISCONTINUED] methylPREDNISolone (Medrol Dospak) 4 MG tablets TAKE BY MOUTH DIRECTED ON INSIDE OF PACKAGE atorvastatin (Lipitor) 20 MG tablet TAKE 1 TABLET BY MOUTH IN THE MORNING 100 tablet 3 CALCIUM-VITAMIN D PO Daily. Cranberry 125 MG tablet Daily. irbesartan-hydroCHLOROthiazide (Avalide) 150-12.5 MG tablet TAKE 1 TABLET BY MOUTH IN THE MORNING 100 tablet 3 omeprazole (PriLOSEC) [address] capsule TAKE 1 CAPSULE BY MOUTH IN THE MORNING BEFORE MEAL(S) 100 capsule 3 traMADol (Ultram) 50 MG tablet Take 1 tablet (50 mg) by mouth every 6 (six) hours if needed for severe pain 120 tablet 0 zolpidem (Ambien) 10 MG tablet Take 1 tablet (10 mg) by mouth as needed at bedtime for sleep ICD 10:F51.04 30 tablet 2 No current facility-administered medications on file prior to visit. I have reviewed and reconciled the history and medication list with the patient today. Allergies Allergen Reactions Beta Adrenergic Blockers Other Reaction(s): bronchospasm Social History Tobacco Use Smoking status: Every Day Current packs/day: 0.50 Average packs/day: 0.5 packs/day for 57.0 years (28.5 ttl pk-yrs) Types: Cigarettes Smokeless tobacco: Never Substance Use Topics Alcohol use: Not Currently Comment: Caffeine intake: 1-2 cups per day Drug use: Never Family History Problem Relation Name Age of Onset Cancer Mother Diabetes Mother Stroke Father Diabetes Father Hypertension Father Heart disease Father Past Medical History: Diagnosis Date Benign prostatic hyperplasia without lower urinary tract symptoms Chronic kidney disease DDD (degenerative disc disease), lumbar Diverticulitis Enlarged prostate Gastritis Gastroesophageal reflux disease without esophagitis Hiatal hernia Hyperlipemia (CMS/HCC) Insomnia Low back pain Lumbar degenerative disc disease Other chronic pain Right nephrolithiasis Sinusitis Past Surgical History: Procedure Laterality Date COLONOSCOPY 2017 CYSTOSCOPY 04/2014 EGD 2017 LITHOTRIPSY 12/2014 LUMBAR FUSION 2012 PROSTATE BIOPSY TURP / TRANSURETHRAL INCISION / DRAINAGE PROSTATE 11/2014 Visit Vitals BP 126/74 Pulse 81 Temp 97.3 F Resp 16 Ht 5' 5 Wt 154 lb 12.8 oz SpO2 97% BMI 25.76 kg/m Smoking Status Every Day BSA 1.79 m Review of Systems Constitutional: Negative for chills, fatigue and fever. Respiratory: Positive for cough and shortness of breath. Negative for wheezing. Cardiovascular: Negative for chest pain, palpitations and leg swelling. Gastrointestinal: Negative for abdominal pain, constipation, diarrhea, nausea and vomiting. Skin: Negative for rash. Objective Physical Exam Constitutional: General: He is not in acute distress. Appearance: Normal appearance. HENT: Head: Normocephalic and atraumatic. Right Ear: Decreased hearing noted. Left Ear: Decreased hearing noted. Eyes: General: No scleral icterus. Cardiovascular: Rate and Rhythm: Normal rate and regular rhythm. Heart sounds: No murmur heard. Pulmonary: Effort: Pulmonary effort is normal. No respiratory distress. Breath sounds: Examination of the right-upper field reveals rhonchi. Examination of the left-upper field reveals rhonchi. Rhonchi present. No wheezing or rales. Musculoskeletal: General: No swelling. Skin: General: Skin is warm and dry. Neurological: General: No focal deficit present. Mental Status: He is alert and oriented to person, place, and time. Psychiatric: Mood and Affect: Mood normal. Behavior: Behavior normal. Assessment/Plan Diagnoses and all orders for this visit: Acute bronchitis, unspecified organism Will have patient complete 10 full days of Doxycycline, additional 3 day supply was sent to patient's pharmacy. Pt has completed Medrol Bandar. Continue Albuterol as needed. Can use OTC Robitussin or Mucinex prn. Stay hydrated. Get plenty of rest. Contact office if symptoms do not continue to improve. Hold Calcium while on the Doxycycline. Tobacco user Discussed smoking cessation with the patient. Encouraged patient to cut back and soon quit smoking. Health risks of smoking, and benefits of quitting reviewed with the patient. The patient was seen today in follow up of recent hospital ER visit. All available hospital records/labs/diagnostics were reviewed and discussed with the patient. ER discharge meds were reviewed. Any changes to plan are as noted. Follow up in about 2 months (around 01/31/2025) for Medicare Wellness Visit. documented in this encounter [facility] 08-11-2024 Telephone encounter Note OARRS reviewed, Rx sent into patient's pharmacy. [facility] 08-11-2024 Miscellaneous Notes OARRS reviewed, Rx sent into patient's pharmacy. documented in this encounter [facility] 07-06-2024 Telephone encounter Note OARRS reviewed, Rx sent into patient's pharmacy. [facility] 07-06-2024 Miscellaneous Notes OARRS reviewed, Rx sent into patient's pharmacy. documented in this encounter [facility] 06-06-2024 History of Present illness Narrative Images from the original note were not included. HPI Follow-up Additional comments: Pain med Results Additional comments: labs Last edited by Rosio Valentin LPN on 06/06/2024 9:59 AM. Subjective Patient ID: Anders Lyman is a 74 y.o. male who presents for Follow-up (Pain med), Results (labs), and Hypertension. Hypertension Patient is here for follow-up of elevated blood pressure. Blood pressure is well controlled at home. Cardiac symptoms: none. Patient denies chest pain, claudication, dyspnea, near-syncope, syncope, and tachypnea. Hypertension Pertinent negatives include no chest pain, palpitations or shortness of breath. Current Outpatient Medications on File Prior to Visit Medication Sig Dispense Refill atorvastatin (Lipitor) 20 MG tablet TAKE 1 TABLET BY MOUTH IN THE MORNING 100 tablet 3 CALCIUM-VITAMIN D PO Daily. Cranberry 125 MG tablet Daily. irbesartan-hydroCHLOROthiazide (Avalide) 150-12.5 MG tablet TAKE 1 TABLET BY MOUTH IN THE MORNING 100 tablet 3 omeprazole (PriLOSEC) [address] capsule TAKE 1 CAPSULE BY MOUTH IN THE MORNING BEFORE MEAL(S) 100 capsule 3 zolpidem (Ambien) 10 MG tablet Take 1 tablet (10 mg) by mouth as needed at bedtime for sleep ICD 10:F51.04; 30 tablets is a 30 day supply 30 tablet 5 [] traMADol (Ultram) 50 MG tablet Take 1 tablet (50 mg) by mouth every 6 (six) hours if needed for severe pain 120 tablet 0 No current facility-administered medications on file prior to visit. I have reviewed and reconciled the history and medication list with the patient today. Allergies Allergen Reactions Beta Adrenergic Blockers Other Reaction(s): bronchospasm Social History Tobacco Use Smoking status: Every Day Current packs/day: 0.50 Average packs/day: 0.5 packs/day for 57.0 years (28.5 ttl pk-yrs) Types: Cigarettes Smokeless tobacco: Never Substance Use Topics Alcohol use: Not Currently Comment: Caffeine intake: 1-2 cups per day Drug use: Never Family History Problem Relation Name Age of Onset Cancer Mother Diabetes Mother Stroke Father Diabetes Father Hypertension Father Heart disease Father Past Medical History: Diagnosis Date Benign prostatic hyperplasia without lower urinary tract symptoms Chronic kidney disease DDD (degenerative disc disease), lumbar Diverticulitis Enlarged prostate Gastritis Gastroesophageal reflux disease without esophagitis Hiatal hernia Hyperlipemia (CMS/HCC) Insomnia Low back pain Lumbar degenerative disc disease Other chronic pain Right nephrolithiasis Sinusitis Past Surgical History: Procedure Laterality Date COLONOSCOPY 2017 CYSTOSCOPY 04/2014 EGD 2017 LITHOTRIPSY 12/2014 LUMBAR FUSION 2011 PROSTATE BIOPSY TURP / TRANSURETHRAL INCISION / DRAINAGE PROSTATE 11/2014 Visit Vitals Ht 5' 5 BMI 25.96 kg/m Smoking Status Every Day BSA 1.8 m Review of Systems Respiratory: Negative for shortness of breath. Cardiovascular: Negative for chest pain and palpitations. Objective Physical Exam Constitutional: General: He is not in acute distress. Appearance: He is normal weight. He is not ill-appearing. HENT: Head: Normocephalic. Cardiovascular: Rate and Rhythm: Normal rate and regular rhythm. Heart sounds: Normal heart sounds. No murmur heard. Pulmonary: Effort: Pulmonary effort is normal. Breath sounds: Normal breath sounds. Musculoskeletal: General: No swelling. Left lower leg: No edema. Neurological: Mental Status: He is alert. Psychiatric: Mood and Affect: Mood normal. No visits with results within 2 Month(s) from this visit. Latest known visit with results is: Office Visit on 01/27/2024 Component Date Value Ref Range Status WHITE BLOOD CELL COUNT 04/27/2024 5.7 3.8 - 10.8 Thousand/uL Final RED BLOOD CELL COUNT 04/27/2024 4.61 4.20 - 5.80 Million/uL Final HEMOGLOBIN 04/27/2024 14.0 13.2 - 17.1 g/dL Final HEMATOCRIT 04/27/2024 42.3 38.5 - 50.0 % Final MCV 04/27/2024 91.8 80.0 - 100.0 fL Final MCH 04/27/2024 30.4 27.0 - 33.0 pg Final MCHC 04/27/2024 33.1 32.0 - 36.0 g/dL Final RDW 04/27/2024 13.6 11.0 - 15.0 % Final PLATELET COUNT 04/27/2024 262 140 - 400 Thousand/uL Final MPV 04/27/2024 10.7 7.5 - 12.5 fL Final ABSOLUTE NEUTROPHILS 04/27/2024 3,386 1,500 - 7,800 cells/uL Final ABSOLUTE LYMPHOCYTES 04/27/2024 1,454 850 - 3,900 cells/uL Final ABSOLUTE MONOCYTES 04/27/2024 507 200 - 950 cells/uL Final ABSOLUTE EOSINOPHILS 04/27/2024 336 15 - 500 cells/uL Final ABSOLUTE BASOPHILS 04/27/2024 17 0 - 200 cells/uL Final NEUTROPHILS 04/27/2024 59.4 % Final LYMPHOCYTES 04/27/2024 25.5 % Final MONOCYTES 04/27/2024 8.9 % Final EOSINOPHILS 04/27/2024 5.9 % Final BASOPHILS 04/27/2024 0.3 % Final TSH W/REFLEX TO FT4 04/27/2024 1.73 0.40 - 4.50 mIU/L Final CHOLESTEROL, TOTAL 04/27/2024 163 <200 mg/dL Final HDL CHOLESTEROL 04/27/2024 43 > OR = 40 mg/dL Final TRIGLYCERIDES 04/27/2024 133 <150 mg/dL Final LDL-CHOLESTEROL 04/27/2024 97 mg/dL (calc) Final Comment: Reference range: <100 Desirable range <100 mg/dL for primary prevention; <70 mg/dL for patients with CHD or diabetic patients with > or = 2 CHD risk factors. LDL-C is now calculated using the Ana calculation, which is a validated novel method providing better accuracy than the Friedewald equation in the estimation of LDL-C. [place] RIGGS et al. MEKA. 2013;310(19): 5329-3839 (http://education.FinalCAD/faq/VTA787) CHOL/HDLC RATIO 04/27/2024 3.8 <5.0 (calc) Final NON HDL CHOLESTEROL 04/27/2024 120 <130 mg/dL (calc) Final Comment: For patients with diabetes plus 1 major ASCVD risk factor, treating to a non-HDL-C goal of <100 mg/dL (LDL-C of <70 mg/dL) is considered a therapeutic option. Glucose 04/27/2024 93 65 - 99 mg/dL Final Comment: Fasting reference interval BUN 04/27/2024 16 7 - 25 mg/dL Final Creatinine 04/27/2024 1.41 (H) 0.70 - 1.28 mg/dL Final EGFR 04/27/2024 53 (L) > OR = 60 mL/min/1.73m2 Final BUN/CREATININE RATIO 04/27/2024 11 6 - 22 (calc) Final Sodium 04/27/2024 140 135 - 146 mmol/L Final Potassium, Bld 04/27/2024 4.3 3.5 - 5.3 mmol/L Final Chloride 04/27/2024 103 98 - 110 mmol/L Final Carbon Dioxide 04/27/2024 30 20 - 32 mmol/L Final Calcium 04/27/2024 9.4 8.6 - 10.3 mg/dL Final PROTEIN, TOTAL 04/27/2024 6.9 6.1 - 8.1 g/dL Final ALBUMIN 04/27/2024 4.2 3.6 - 5.1 g/dL Final GLOBULIN 04/27/2024 2.7 1.9 - 3.7 g/dL (calc) Final ALBUMIN/GLOBULIN RATIO 04/27/2024 1.6 1.0 - 2.5 (calc) Final BILIRUBIN, TOTAL 04/27/2024 0.6 0.2 - 1.2 mg/dL Final ALKALINE PHOSPHATASE 04/27/2024 83 35 - 144 U/L Final AST 04/27/2024 19 10 - 35 U/L Final ALT 04/27/2024 11 9 - 46 U/L Final Assessment/Plan Diagnoses and all orders for this visit: Chronic kidney disease, stage 3a (N18.31) - This is a chronic medical condition that is stable since last assessment. No changes in treatment are suggested at this time. Benign essential hypertension (CMS/HCC) Benign prostatic hyperplasia without lower urinary tract symptoms - seeing Urology. Mixed hyperlipidemia (CMS/HCC) - Recent lab work for this condition was reviewed and discussed with the patient. Labs are at or near goal, no changes to medication are planned. No follow-ups on file. documented in this encounter [facility] 12-22-2023 Hospital Discharge instructions Patient Education 12/22/2023 12:59:38 Cancer Screening for Men Cancer Screening for Men A cancer screening is a test or exam that checks for cancer. Your health care provider will recommend specific cancer screenings based on your age, medical history (including risk factors), and family history of cancer. Work with your health care provider to create a cancer screening schedule that protects your health. Who should have screening? All men should be considered for screening of certain cancers, including colorectal cancer, prostate cancer, lung cancer, and skin cancer. Your health care provider may recommend screenings for other types of cancer if: You had cancer before. You have a family member with cancer. You have abnormal genes that could increase the risk of cancer. You have risk factors for certain cancers, such as current or past use of tobacco products, or being overweight. When you should be screened for cancer depends on: Your age. Your medical history and your family's medical history. Certain lifestyle factors, such as smoking or other use of tobacco products. Environmental exposure, such as to asbestos. How is screening done? Colorectal cancer All adults should have screenings starting at age 45 and continuing until age 75. Your health care provider may recommend screening before age 45. You will have tests every 1 10 years, depending on your results and the type of screening test. People at increased risk should start screening at an earlier age. Talk with your health care provider about which screening test is right for you and how often you should be screened. Colorectal cancer screening looks for cancer or for growths called polyps that often form before cancer starts. Tests to look for cancer or polyps include: Colonoscopy or flexible sigmoidoscopy. For these procedures, a flexible tube with a small camera is inserted into the rectum. CT colonography. This test uses X-rays and a contrast dye to check the colon for polyps. If a polyp is found, you may need to have a colonoscopy so the polyp can be located and removed. Tests to look for cancer in the stool (feces) include: Guaiac-based fecal occult blood test (FOBT). This test can find blood in stool. It can be done at home with a kit. Fecal immunochemical test (FIT). This test can find blood in stool. For this test, you will need to collect stool samples at home. Stool DNA test. This test looks for blood in stool and any changes in DNA that can lead to colon cancer. For this test, you will need to collect a stool sample at home and send it to a lab. Prostate cancer Prostate cancer screening for men with average risk may start at age 50. Men with risk factors may need to be screened earlier, at ages 40 45. Talk with your health care provider about whether screening is right for you and, if so, how often you should be screened. Prostate cancer screening is done with blood tests and a digital rectal exam. During this exam, a health care provider uses a gloved finger to check prostate size. You may need to be screened for prostate cancer if: You have risk factors for prostate cancer, such as being or having a close family member with prostate cancer. You have had gene changes or a genetic condition that was passed on to you from a parent (inherited). These gene changes or genetic conditions include BRCA1 or BRCA2 gene mutations or Mcdonald syndrome. You have symptoms of prostate cancer, such as problems urinating or problems getting or keeping an erection (erectile dysfunction). When you have been screened for prostate cancer, future screening may be recommended based on the results of your blood tests. Lung cancer Lung cancer screening is done with a CT scan that looks for abnormal changes in the lungs. Discuss lung cancer screening with your health care provider if you are 50 80 years old and if any of the following apply to you: You currently smoke. You used to smoke heavily. You have a smoking history of 1 pack of cigarettes a day for 20 years or 2 packs a day for 10 years. You have quit smoking within the past 15 years. You may need to be screened every year if you smoke heavily or if you used to smoke. Skin cancer Skin cancer screening is done by checking the skin for unusual moles or spots and any changes in existing moles. Your health care provider should check your skin for signs of skin cancer at every physical exam. You should check your skin every month and tell your health care provider right away if anything looks unusual. Men with a bgkaoz-xvkx-swtlfq risk for skin cancer may want to see a skin tanner (mechanical handyman) for an annual body check. What are the benefits of screening? Cancer screening is done to look for cancer in the very early stages, before it spreads and becomes harder to treat and before you would start to notice symptoms. Finding cancer early improves the chances of successful treatment. It may save your life. Where to find more information [place] [employer]: www.cancer.org Centers for Disease Control and Prevention: www.cdc.gov National Cancer [place]: www.cancer.gov Contact a health care provider if: You have concerns about any signs or symptoms of cancer. These may include: Skin problems. You may have: ?Moles of an unusual shape or color. ?Changes in existing moles. ?A sore on your skin that does not heal. Tiredness (fatigue) that does not go away. Losing weight without trying. Blood in your urine or stool. Problems with urination. You may have: ?Changes in urination habits. ?Painful urination. Painful ejaculation. Problems with coughing or breathing. These may include: ?Coughing or trouble breathing that does not go away. ?Coughing up blood. Frequent pain or cramping in your abdomen. Summary Your health care provider will recommend specific cancer screenings based on your age, medical history, and family history of cancer. Work with your health care provider to create a cancer screening schedule that protects your health. Finding cancer early improves the chances of successful treatment. It may save your life. Contact a health care provider if you have concerns about any signs or symptoms of cancer. This information is not intended to replace advice given to you by your health care provider. Make sure you discuss any questions you have with your health care provider. Document Revised: 02/03/2022 Document Reviewed: 08/03/2020 [employer] Patient Education 2022 miiCard. Follow Up Care 11/10/2023 15:38:08 With:AHMET BLOCK, Gerald Farnsworth, URL Address: [facility] [address] [place] [address]- [phone] When: Unknown Comments:cysto in 1 yr [facility] 12-22-2023 Evaluation + Plan note Diagnostic Tests PendingPSA Total 12/22/23 [facility] 12-22-2023 Evaluation + Plan note Diagnostic Tests PendingUroVysion Fish [facility] Urine Cyto ([facility]) 12/22/23 [facility] 10-28-2023 Telephone encounter Note [facility] Systems 10-28-2023 Miscellaneous Notes Sent Anders called stating he has 2 more prednisone pills left and is getting better but still having a decent amount of pain, he was wondering if he could get another refill of prednisone? documented in this encounter [facility] 10-28-2023 Telephone encounter Note Anders called stating he has 2 more prednisone pills left and is getting better but still having a decent amount of pain, he was wondering if he could get another refill of prednisone? [facility] 06-16-2023 Evaluation + Plan note Diagnostic Tests Pending[facility]Vysion Fish and Urine Cyto ([facility]) 06/16/23 [facility] 12-16-2022 Hospital Discharge instructions Patient Education 12/16/2022 15:20:59 Benign Prostatic Hyperplasia Benign Prostatic Hyperplasia Benign prostatic hyperplasia (BPH) is an enlarged prostate gland that is caused by the normal aging process and not by cancer. The prostate is a walnut-sized gland that is involved in the production of semen. It is located in front of the rectum and below the bladder. The bladder stores urine and the urethra is the tube that carries the urine out of the body. The prostate may get bigger as a man gets older. An enlarged prostate can press on the urethra. This can make it harder to pass urine. The build-up of urine in the bladder can cause infection. Back pressure and infection may progress to bladder damage and kidney (renal) failure. What are the causes? This condition is part of a normal aging process. However, not all men develop problems from this condition. If the prostate enlarges away from the urethra, urine flow will not be blocked. If it enlarges toward the urethra and compresses it, there will be problems passing urine. What increases the risk? This condition is more likely to develop in men over the age of 50 years. What are the signs or symptoms? Symptoms of this condition include: Getting up often during the night to urinate. Needing to urinate frequently during the day. Difficulty starting urine flow. Decrease in size and strength of your urine stream. Leaking (dribbling) after urinating. Inability to pass urine. This needs immediate treatment. Inability to completely empty your bladder. Pain when you pass urine. This is more common if there is also an infection. Urinary tract infection (UTI). How is this diagnosed? This condition is diagnosed based on your medical history, a physical exam, and your symptoms. Tests will also be done, such as: A post-void bladder scan. This measures any amount of urine that may remain in your bladder after you finish urinating. A digital rectal exam. In a rectal exam, your health care provider checks your prostate by putting a lubricated, gloved finger into your rectum to feel the back of your prostate gland. This exam detects the size of your gland and any abnormal lumps or growths. An exam of your urine (urinalysis). A prostate specific antigen (PSA) screening. This is a blood test used to screen for prostate cancer. An ultrasound. This test uses sound waves to electronically produce a picture of your prostate gland. Your health care provider may refer you to a specialist in kidney and prostate diseases (urologist). How is this treated? Once symptoms begin, your health care provider will monitor your condition (active surveillance or watchful waiting). Treatment for this condition will depend on the severity of your condition. Treatment may include: Observation and yearly exams. This may be the only treatment needed if your condition and symptoms are mild. Medicines to relieve your symptoms, including: ?Medicines to shrink the prostate. ?Medicines to relax the muscle of the prostate. Surgery in severe cases. Surgery may include: ?Prostatectomy. In this procedure, the prostate tissue is removed completely through an open incision or with a laparoscope or robotics. ?Transurethral resection of the prostate (TURP). In this procedure, a tool is inserted through the opening at the tip of the penis (urethra). It is used to cut away tissue of the inner core of the prostate. The pieces are removed through the same opening of the penis. This removes the blockage. ?Transurethral incision (TUIP). In this procedure, small cuts are made in the prostate. This lessens the prostate's pressure on the urethra. ?Transurethral microwave thermotherapy (TUMT). This procedure uses microwaves to create heat. The heat destroys and removes a small amount of prostate tissue. ?Transurethral needle ablation (TUNA). This procedure uses radio frequencies to destroy and remove a small amount of prostate tissue. ?Interstitial laser coagulation (ILC). This procedure uses a laser to destroy and remove a small amount of prostate tissue. ?Transurethral electrovaporization (TUVP). This procedure uses electrodes to destroy and remove a small amount of prostate tissue. ?Prostatic urethral lift. This procedure inserts an implant to push the lobes of the prostate away from the urethra. Follow these instructions at home: Take byle-ucf-qiguejl and prescription medicines only as told by your health care provider. Monitor your symptoms for any changes. Contact your health care provider with any changes. Avoid drinking large amounts of liquid before going to bed or out in public. Avoid or reduce how much caffeine or alcohol you drink. Give yourself time when you urinate. Keep all follow-up visits as told by your health care provider. This is important. Contact a health care provider if: You have unexplained back pain. Your symptoms do not get better with treatment. You develop side effects from the medicine you are taking. Your urine becomes very dark or has a bad smell. Your lower abdomen becomes distended and you have trouble passing your urine. Get help right away if: You have a fever or chills. You suddenly cannot urinate. You feel lightheaded, or very dizzy, or you faint. There are large amounts of blood or clots in the urine. Your urinary problems become hard to manage. You develop moderate to severe low back or flank pain. The flank is the side of your body between the ribs and the hip. These symptoms may represent a serious problem that is an emergency. Do not wait to see if the symptoms will go away. Get medical help right away. Call your local emergency services (911 in the [place] Do not drive yourself to the hospital. Summary Benign prostatic hyperplasia (BPH) is an enlarged prostate that is caused by the normal aging process and not by cancer. An enlarged prostate can press on the urethra. This can make it hard to pass urine. This condition is part of a normal aging process and is more likely to develop in men over the age of 50 years. Get help right away if you suddenly cannot urinate. This information is not intended to replace advice given to you by your health care provider. Make sure you discuss any questions you have with your health care provider. Document Released: 09/07/2006 Document Revised: 08/02/2019 Document Reviewed: 10/12/2017 [employer] Patient Education 2020 [employer]. Follow Up Care 11/24/2022 09:28:41 With:AHMET BLOCK, Gerald Farnsworth, URL Address: [address] [place] [phone] When: Unknown Comments:6 month cysto/fish/cytol [facility] 12-16-2022 Evaluation + Plan note Diagnostic Tests PendingPSA Total 12/16/22 [facility] 12-16-2022 Evaluation + Plan note Diagnostic Tests PendingUroVysion Fish and Urine Cyto ([facility]) 12/16/22 [facility] 09-10-2022 Hospital Discharge instructions Patient Education 09/10/2022 12:32:12 Bladder Cancer Bladder Cancer Bladder cancer is an abnormal growth of tissue in the bladder. The bladder is the balloon-like sac in the pelvis. It collects and stores urine that comes from the kidneys through the ureters. The bladder wall is made of layers. If cancer spreads into these layers and through the wall of the bladder, it becomes more difficult to treat. What are the causes? The cause of this condition is not known. What increases the risk? The following factors may make you more likely to develop this condition: Smoking. Workplace risks (occupational exposures), such as rubber, leather, textile, dyes, chemicals, and paint. Being white. Your age. Most people with bladder cancer are over the age of 55. Being male. Having chronic bladder inflammation. Having a personal history of bladder cancer. Having a family history of bladder cancer (heredity). Having had chemotherapy or radiation therapy to the pelvis. Having been exposed to arsenic. What are the signs or symptoms? Initial symptoms of this condition include: Blood in the urine. Painful urination. Frequent bladder or urine infections. Increase in urgency and frequency of urination. Advanced symptoms of this condition include: Not being able to urinate. Low back pain on one side. Loss of appetite. Weight loss. Fatigue. Swelling in the feet. Bone pain. How is this diagnosed? This condition is diagnosed based on your medical history, a physical exam, urine tests, lab tests, imaging tests, and your symptoms. You may also have other tests or procedures done, such as: A narrow tube being inserted into your bladder through your urethra (cystoscopy) in order to view the lining of your bladder for tumors. A biopsy to sample the tumor to see if cancer is present. If cancer is present, it will then be staged to determine its severity and extent. Staging is an assessment of: The size of the tumor. Whether the cancer has spread. Where the cancer has spread. It is important to know how deeply into the bladder wall cancer has grown and whether cancer has spread to any other parts of your body. Staging may require blood tests or imaging tests, such as a CT scan, MRI, bone scan, or chest X-ray. How is this treated? Based on the stage of cancer, one treatment or a combination of treatments may be recommended. The most common forms of treatment are: Surgery to remove the cancer. Procedures that may be done include transurethral resection and cystectomy. Radiation therapy. This is high-energy X-rays or other particles. This is often used in combination with chemotherapy. Chemotherapy. During this treatment, medicines are used to kill cancer cells. Immunotherapy. This uses medicines to help your own immune system destroy cancer cells. Follow these instructions at home: Take yzgs-xbd-zkyhapc and prescription medicines only as told by your health care provider. Maintain a healthy diet. Some of your treatments might affect your appetite. Consider joining a support group. This may help you learn to cope with the stress of having bladder cancer. Tell your cancer care team if you develop side effects. They may be able to recommend ways to relieve them. Keep all follow-up visits as told by your health care provider. This is important. Where to find more information [employer] [employer]: www.cancer.org National Cancer [place] (NCI): www.cancer.gov Contact a health care provider if: You have symptoms of a urinary tract infection. These include: ?Fever. ?Chills. ?Weakness. ?Muscle aches. ?Abdominal pain. ?Frequent and intense urge to urinate. ?Burning feeling in the bladder or urethra during urination. Get help right away if: There is blood in your urine. You cannot urinate. You have severe pain or other symptoms that do not go away. Summary Bladder cancer is an abnormal growth of tissue in the bladder. This condition is diagnosed based on your medical history, a physical exam, urine tests, lab tests, imaging tests, and your symptoms. Based on the stage of cancer, surgery, chemotherapy, or a combination of treatments may be recommended. Consider joining a support group. This may help you learn to cope with the stress of having bladder cancer. This information is not intended to replace advice given to you by your health care provider. Make sure you discuss any questions you have with your health care provider. Document Released: 09/09/2004 Document Revised: 08/20/2018 Document Reviewed: 08/11/2017 [employer] Patient Education 2020 [employer]. 09/10/2022 12:32:11 Calorie Counting for Weight Loss Calorie Counting for Weight Loss Calories are units of energy. Your body needs a certain amount of calories from food to keep you going throughout the day. When you eat more calories than your body needs, your body stores the extra calories as fat. When you eat fewer calories than your body needs, your body cruz fat to get the energy it needs. Calorie counting means keeping track of how many calories you eat and drink each day. Calorie counting can be helpful if you need to lose weight. If you make sure to eat fewer calories than your body needs, you should lose weight. Ask your health care provider what a healthy weight is for you. For calorie counting to work, you will need to eat the right number of calories in a day in order to lose a healthy amount of weight per week. A dietitian can help you determine how many calories you need in a day and will give you suggestions on how to reach your calorie goal. A healthy amount of weight to lose per week is usually 1 2 lb (0.5 0.9 kg). This usually means that your daily calorie intake should be reduced by 500 750 calories. Eating 1,200 1,500 calories per day can help most women lose weight. Eating 1,500 1,800 calories per day can help most men lose weight. What is my plan? My goal is to have calories per day. If I have this many calories per day, I should lose around pounds per week. What do I need to know about calorie counting? In order to meet your daily calorie goal, you will need to: Find out how many calories are in each food you would like to eat. Try to do this before you eat. Decide how much of the food you plan to eat. Write down what you ate and how many calories it had. Doing this is called keeping a food log. To successfully lose weight, it is important to balance calorie counting with a healthy lifestyle that includes regular activity. Aim for 150 minutes of moderate exercise (such as walking) or 75 minutes of vigorous exercise (such as running) each week. Where do I find calorie information? The number of calories in a food can be found on a Nutrition Facts label. If a food does not have a Nutrition Facts label, try to look up the calories online or ask your dietitian for help. Remember that calories are listed per serving. If you choose to have more than one serving of a food, you will have to multiply the calories per serving by the amount of servings you plan to eat. For example, the label on a package of bread might say that a serving size is 1 slice and that there are 90 calories in a serving. If you eat 1 slice, you will have eaten 90 calories. If you eat 2 slices, you will have eaten 180 calories. How do I keep a food log? Immediately after each meal, record the following information in your food log: What you ate. Don't forget to include toppings, sauces, and other extras on the food. How much you ate. This can be measured in cups, ounces, or number of items. How many calories each food and drink had. The total number of calories in the meal. Keep your food log near you, such as in a small notebook in your pocket, or use a mobile wilbur or website. Some programs will calculate calories for you and show you how many calories you have left for the day to meet your goal. What are some calorie counting tips? Use your calories on foods and drinks that will fill you up and not leave you hungry: ?Some examples of foods that fill you up are nuts and nut butters, vegetables, lean proteins, and high-fiber foods like whole grains. High-fiber foods are foods with more than 5 g fiber per serving. ?Drinks such as sodas, specialty coffee drinks, alcohol, and juices have a lot of calories, yet do not fill you up. Eat nutritious foods and avoid empty calories. Empty calories are calories you get from foods or beverages that do not have many vitamins or protein, such as candy, sweets, and soda. It is better to have a nutritious high-calorie food (such as an avocado) than a food with few nutrients (such as a bag of chips). Know how many calories are in the foods you eat most often. This will help you calculate calorie counts faster. Pay attention to calories in drinks. Low-calorie drinks include water and unsweetened drinks. Pay attention to nutrition labels for low fat or fat free foods. These foods sometimes have the same amount of calories or more calories than the full fat versions. They also often have added sugar, starch, or salt, to make up for flavor that was removed with the fat. Find a way of tracking calories that works for you. Get creative. Try different apps or programs if writing down calories does not work for you. What are some portion control tips? Know how many calories are in a serving. This will help you know how many servings of a certain food you can have. Use a measuring cup to measure serving sizes. You could also try weighing out portions on a kitchen scale. With time, you will be able to estimate serving sizes for some foods. Take some time to put servings of different foods on your favorite plates, bowls, and cups so you know what a serving looks like. Try not to eat straight from a bag or box. Doing this can lead to overeating. Put the amount you would like to eat in a cup or on a plate to make sure you are eating the right portion. Use smaller plates, glasses, and bowls to prevent overeating. Try not to multitask (for example, watch TV or use your computer) while eating. If it is time to eat, sit down at a table and enjoy your food. This will help you to know when you are full. It will also help you to be aware of what you are eating and how much you are eating. What are tips for following this plan? Reading food labels Check the calorie count compared to the serving size. The serving size may be smaller than what you are used to eating. Check the source of the calories. Make sure the food you are eating is high in vitamins and protein and low in saturated and trans fats. Shopping Read nutrition labels while you shop. This will help you make healthy decisions before you decide to purchase your food. Make a grocery list and stick to it. Cooking Try to cook your favorite foods in a healthier way. For example, try baking instead of frying. Use low-fat dairy products. Meal planning Use more fruits and vegetables. Half of your plate should be fruits and vegetables. Include lean proteins like poultry and fish. How do I count calories when eating out? Ask for smaller portion sizes. Consider sharing an entree and sides instead of getting your own entree. If you get your own entree, eat only half. Ask for a box at the beginning of your meal and put the rest of your entree in it so you are not tempted to eat it. If calories are listed on the menu, choose the lower calorie options. Choose dishes that include vegetables, fruits, whole grains, low-fat dairy products, and lean protein. Choose items that are boiled, broiled, grilled, or steamed. Stay away from items that are buttered, battered, fried, or served with cream sauce. Items labeled crispy are usually fried, unless stated otherwise. Choose water, low-fat milk, unsweetened iced tea, or other drinks without added sugar. If you want an alcoholic beverage, choose a lower calorie option such as a glass of wine or light beer. Ask for dressings, sauces, and syrups on the side. These are usually high in calories, so you should limit the amount you eat. If you want a salad, choose a garden salad and ask for grilled meats. Avoid extra toppings like cabral, cheese, or fried items. Ask for the dressing on the side, or ask for olive oil and vinegar or lemon to use as dressing. Estimate how many servings of a food you are given. For example, a serving of cooked rice is cup or about the size of half a baseball. Knowing serving sizes will help you be aware of how much food you are eating at restaurants. The list below tells you how big or small some common portion sizes are based on everyday objects: ?1 oz 4 stacked dice. ?3 oz 1 deck of cards. ?1 tsp 1 . ?1 Tbsp a ping-pong ball. ?2 Tbsp 1 ping-pong ball. ? cup baseball. ?1 cup 1 baseball. Summary Calorie counting means keeping track of how many calories you eat and drink each day. If you eat fewer calories than your body needs, you should lose weight. A healthy amount of weight to lose per week is usually 1 2 lb (0.5 0.9 kg). This usually means reducing your daily calorie intake by 500 750 calories. The number of calories in a food can be found on a Nutrition Facts label. If a food does not have a Nutrition Facts label, try to look up the calories online or ask your dietitian for help. Use your calories on foods and drinks that will fill you up, and not on foods and drinks that will leave you hungry. Use smaller plates, glasses, and bowls to prevent overeating. This information is not intended to replace advice given to you by your health care provider. Make sure you discuss any questions you have with your health care provider. Document Released: 09/07/2006 Document Revised: 05/27/2019 Document Reviewed: 08/07/2017 [employer] Patient Education 2020 [employer] Follow Up Care 08/21/2022 10:38:02 With:AHMET BLOCK, Gerald Farnsworth, URL Address: [address] [place] [phone] (1) When:Within 4 Month(s) Comments:Cysto & FISH/Cyto [facility] Natalya 09-01-2022 Note EXAM: XR CHEST 2 V HISTORY: Pre-surgery evaluation COMPARISON: None. TECHNIQUE: Upright PA and lateral chest x-ray FINDINGS: The heart is not enlarged and there is elongation of the thoracic aorta. No acute infiltrate, effusion or pneumothorax is identified. A small amount of linear atelectasis or scarring is seen in the right mid lung anteriorly. The osseous structures are grossly intact. Hardware projects over the lumbar spine. IMPRESSION: No acute infiltrate or evidence of cardiac decompensation. A very small amount of linear atelectasis or scarring is seen in the right side. Direct comparison with a previous study is recommended to verify stability of these findings. Electronically authenticated by: PRECIOUS AVERY Date: 2022-09-01 13:[address] [facility] 08-19-2022 Hospital Discharge instructions Patient Education 08/19/2022 14:14:54 Benign Prostatic Hyperplasia Benign Prostatic Hyperplasia Benign prostatic hyperplasia (BPH) is an enlarged prostate gland that is caused by the normal aging process and not by cancer. The prostate is a walnut-sized gland that is involved in the production of semen. It is located in front of the rectum and below the bladder. The bladder stores urine and the urethra is the tube that carries the urine out of the body. The prostate may get bigger as a man gets older. An enlarged prostate can press on the urethra. This can make it harder to pass urine. The build-up of urine in the bladder can cause infection. Back pressure and infection may progress to bladder damage and kidney (renal) failure. What are the causes? This condition is part of a normal aging process. However, not all men develop problems from this condition. If the prostate enlarges away from the urethra, urine flow will not be blocked. If it enlarges toward the urethra and compresses it, there will be problems passing urine. What increases the risk? This condition is more likely to develop in men over the age of 50 years. What are the signs or symptoms? Symptoms of this condition include: Getting up often during the night to urinate. Needing to urinate frequently during the day. Difficulty starting urine flow. Decrease in size and strength of your urine stream. Leaking (dribbling) after urinating. Inability to pass urine. This needs immediate treatment. Inability to completely empty your bladder. Pain when you pass urine. This is more common if there is also an infection. Urinary tract infection (UTI). How is this diagnosed? This condition is diagnosed based on your medical history, a physical exam, and your symptoms. Tests will also be done, such as: A post-void bladder scan. This measures any amount of urine that may remain in your bladder after you finish urinating. A digital rectal exam. In a rectal exam, your health care provider checks your prostate by putting a lubricated, gloved finger into your rectum to feel the back of your prostate gland. This exam detects the size of your gland and any abnormal lumps or growths. An exam of your urine (urinalysis). A prostate specific antigen (PSA) screening. This is a blood test used to screen for prostate cancer. An ultrasound. This test uses sound waves to electronically produce a picture of your prostate gland. Your health care provider may refer you to a specialist in kidney and prostate diseases (urologist). How is this treated? Once symptoms begin, your health care provider will monitor your condition (active surveillance or watchful waiting). Treatment for this condition will depend on the severity of your condition. Treatment may include: Observation and yearly exams. This may be the only treatment needed if your condition and symptoms are mild. Medicines to relieve your symptoms, including: ?Medicines to shrink the prostate. ?Medicines to relax the muscle of the prostate. Surgery in severe cases. Surgery may include: ?Prostatectomy. In this procedure, the prostate tissue is removed completely through an open incision or with a laparoscope or robotics. ?Transurethral resection of the prostate (TURP). In this procedure, a tool is inserted through the opening at the tip of the penis (urethra). It is used to cut away tissue of the inner core of the prostate. The pieces are removed through the same opening of the penis. This removes the blockage. ?Transurethral incision (TUIP). In this procedure, small cuts are made in the prostate. This lessens the prostate's pressure on the urethra. ?Transurethral microwave thermotherapy (TUMT). This procedure uses microwaves to create heat. The heat destroys and removes a small amount of prostate tissue. ?Transurethral needle ablation (TUNA). This procedure uses radio frequencies to destroy and remove a small amount of prostate tissue. ?Interstitial laser coagulation (ILC). This procedure uses a laser to destroy and remove a small amount of prostate tissue. ?Transurethral electrovaporization (TUVP). This procedure uses electrodes to destroy and remove a small amount of prostate tissue. ?Prostatic urethral lift. This procedure inserts an implant to push the lobes of the prostate away from the urethra. Follow these instructions at home: Take dufn-jco-buvqwsa and prescription medicines only as told by your health care provider. Monitor your symptoms for any changes. Contact your health care provider with any changes. Avoid drinking large amounts of liquid before going to bed or out in public. Avoid or reduce how much caffeine or alcohol you drink. Give yourself time when you urinate. Keep all follow-up visits as told by your health care provider. This is important. Contact a health care provider if: You have unexplained back pain. Your symptoms do not get better with treatment. You develop side effects from the medicine you are taking. Your urine becomes very dark or has a bad smell. Your lower abdomen becomes distended and you have trouble passing your urine. Get help right away if: You have a fever or chills. You suddenly cannot urinate. You feel lightheaded, or very dizzy, or you faint. There are large amounts of blood or clots in the urine. Your urinary problems become hard to manage. You develop moderate to severe low back or flank pain. The flank is the side of your body between the ribs and the hip. These symptoms may represent a serious problem that is an emergency. Do not wait to see if the symptoms will go away. Get medical help right away. Call your local emergency services (911 in the [place] Do not drive yourself to the hospital. Summary Benign prostatic hyperplasia (BPH) is an enlarged prostate that is caused by the normal aging process and not by cancer. An enlarged prostate can press on the urethra. This can make it hard to pass urine. This condition is part of a normal aging process and is more likely to develop in men over the age of 50 years. Get help right away if you suddenly cannot urinate. This information is not intended to replace advice given to you by your health care provider. Make sure you discuss any questions you have with your health care provider. Document Released: 09/07/2006 Document Revised: 08/02/2019 Document Reviewed: 10/12/2017 [employer] Patient Education 2020 [employer]Card. Follow Up Care 07/29/2022 11:11:04 With:Gerald LEO MD, URL Address: [facility] [address], [place] [address]- When: Unknown [facility] 08-19-2022 Evaluation + Plan note Diagnostic Tests PendingUroVysion Fish and Urine Cyto ([facility]) 08/19/22 [facility] Evaluation + Plan note Future Appointments Appointment Date:01/23/2025 12:15:00 PM Scheduled Provider:Gerald LEO MD Location:[facility] Appointment Type:URO Office Visit Diagnostic Tests PendingUroVysion Fish and Urine Cyto ([facility]) 01/03/25 [facility] Evaluation + Plan note Future Appointments Appointment Date:04/24/2025 08:15:00 AM Scheduled Provider:Gerald LEO MD Location:[facility] Appointment Type:URO Procedure 15 min [facility] Evaluation note Diagnosis Acute pain of right knee documented [facility] encounter [facility] Diagnosis DDD (degenerative disc disease), lumbar Degeneration of lumbar or lumbosacral intervertebral disc Chronic insomnia Insomnia, unspecified documented [facility]* Diagnosis Chronic insomnia Insomnia, unspecified documented [facility]* Diagnosis Chronic kidney disease, stage 3a (N18.31)- Primary Benign essential hypertension (CMS/HCC) Essential hypertension, benign Benign prostatic hyperplasia without lower urinary tract symptoms Mixed hyperlipidemia (CMS/HCC) Mixed hyperlipidemia documented [facility]* Diagnosis DDD (degenerative disc disease), lumbar Degeneration of lumbar or lumbosacral intervertebral disc documented [facility]* Diagnosis Chronic insomnia Insomnia, unspecified DDD (degenerative disc disease), lumbar Degeneration of lumbar or lumbosacral intervertebral disc documented [facility]* Diagnosis Acute bronchitis, unspecified organism- Primary Tobacco user Tobacco use disorder documented in [facility]* Diagnosis DDD (degenerative disc disease), lumbar Degeneration of lumbar or lumbosacral intervertebral disc documented in this encounter 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 noteNo assessment information [facility]University [facility] Work Phone: Evaluation note* Diagnosis Chronic insomnia- Primary Insomnia, unspecified documented in this encounter [facility]* Diagnosis Chronic insomnia Insomnia, unspecified documented in this encounter [facility]* Diagnosis Erectile dysfunction, unspecified erectile dysfunction type documented in this encounter [facility] course Narrative No data available for this section [facility] Hospital Discharge instructions No data available for this section [facility] No data available for this section [facility] Summary Purpose Family History No Family History Records Found No data available for this section No data available for this section No data available for this section No Family History Records FoundNo Family History Records FoundNo Family History Records Found No data available for this section No data available for this section No Family History Records Found Advance Directives No Advanced Directives Records Found Advance Directive Response Recorded Date/ Time Advance Directives No June 29, 2021 10:26am Chief Complaint and Reason for Visit Chief Complaint Admit Date Unknown January 17, 2025 9:5 5am Unknown January 18, 2025 2:1 0pm Unknown January 19, 2025 3:00pm Additional Source Comments Patient Care team informatio n (unrecognized section and content) Cad Specialist Relationship Specialty Start Date End Date Richard Dennis MD [address] [place] [address] [address] [place] [address] PCP - [employer] 09/21/21 Richard Dennis MD [address] [place] [address] [place] [address] PCP - General Internal Medicine 02/23/23 Cad Specialist Relationship Specialty Start Date End Date Richard Dennis MD [address] [place] [address] [place] [address] PCP - [employer] 09/21/21 Richard Dennis MD [address] [place] [place] [address] PCP - General Internal Medicine 02/23/23 Cad Specialist Relationship Specialty Start Date End Date Richard Dennis MD [address] [place] [address] PCP - [employer] 09/21/21 Richard Dennis MD [address] [place] [address] PCP - General Internal Medicine 02/23/23 Cad Specialist Relationship Specialty Start Date End Date Richard Dennis MD [address] [place] [place] [address] PCP - [employer] 09/21/21 Richard Dennis MD [address] [place] [address] PCP - General Internal Medicine 02/23/23 Cad Specialist Relationship Specialty Start Date End Date Richard Dennis MD [address] [place] [address] PCP - [employer] 09/21/21 Richard Dennis MD [address] [place] [place] [address] PCP - General Internal Medicine 02/23/23 Cad Specialist Relationship Specialty Start Date End Date Richard Dennis MD [address] [place] [address] PCP - [employer] 09/21/21 Richard Dennis MD [address] [place] [address] PCP - General Internal Medicine 02/23/23 Cad Specialist Relationship Specialty Start Date End Date Richard Dennis MD [address] [place] [address] PCP - Human 09/21/21 Richard Dennis MD [address] [place] [place] [address] PCP - General Internal Medicine 02/23/23 Cad Specialist Relationship Specialty Start Date End Date Richard Dennis MD [address] [place] [address] PCP - [employer] 09/21/21 Richard Dennis MD [address] [place] [address] PCP - General Internal Medicine 02/23/23 Team Status: Inactive Member Role Status Dates Gerald Leo MD Attending Provider Active St art: January 17, 2025 End: January 17, 2025 Team Status: Inactive Member Role Status Dates Doris Hollingsworth DO Attending Provider Active Sta rt: January 18, 2025 End: January 18, 2025 Team Status: Inactive Member Role Status Dates Yunior Wong MD Attending Provider Active Start : January 19, 2025 End: January 19, 2025 Cad Specialist Relationship Specialty Start Date End Date Richard Dennis MD [address] [facility] [address] [place] [address] PCP - [employer] 09/21/21 Richard Dennis MD [address] [facility] [address] [place] [address] PCP - General Internal Medicine 02/23/23 Cad Specialist Relationship Specialty Start Date End Date Richard Dennis MD [address] [facility] [address] [place] [address] PCP - [employer] 09/21/21 Richard Dennis MD [address] [facility] [address] [place] [address] PCP - General Internal Medicine 02/23/23 Cad Specialist Relationship Specialty Start Date End Date Richard Dennis MD [address] [facility] [address] [place] [address] PCP - [employer] 09/21/21 Richard Dennis MD [address] [facility] [address] [place] [address] PCP - General Internal Medicine 02/23/23 (unrecognized sect ion and content) No Status Records FoundNo Status Records FoundNo Status Records FoundNo Status Records FoundNo Status Records Found INFORMATION SOURCE (unrecogn ized section and content) DATE CREATED AUTHOR 09/13/2022 [facility] [place] [facility] DATE CREATED AUTHOR AUTHOR'S ORGANIZ ATION 01/24/2025 [facility] DATE CREATED AUTHOR AUTHOR'S ORGANIZ ATION 01/25/2025 [facility] DATE CREATED AUTHOR AUTHOR'S ORGANIZ ATION 01/28/2025 [facility] DATE CREATED AUTHOR AUTHOR'S ORGANIZ ATION 03/31/2025 [facility] Reason for Visit (unrecogniz ed section and content) Reason Onset Date Comments Med Refill 10/28/2023 Reason Onset Date Comments Med Refill 07/06/2024 Reason Onset Date Comments Med Refill 08/11/2024 Reason Comments Follow-up Pain med Results labs Hypertension Reason Onset Date Comments Med Refill 09/26/2024 Reason Onset Date Comments Med Refill 11/14/2024 Reason Onset Date Comments Med Refill 01/09/2025 Reason Comments surgical clearance Pt having cystocoopy /turbt-bladder tumor removal with dr leo on 01/17/25 Reason Onset Date Comments Med Refill 02/16/2025 Reason Onset Date Comments Med Refill 03/30/2025 Goals (unrecognized section and content) Goals may be documented in a n alternate section FOR RECORDS PERTAINING TO PATIENTS WHO ARE OR HAVE BEEN ENROLLED IN A CHEMICAL DEPENDENCY/SUBSTANCEABUSE PROGRAM, SOME INFORMATION MAY BE OMITTED. This clinical summary was aggregated from multiple sources. Caution should be exercised in using it in the provision of clinical care. This summary normalizes information from multiple sources, and as a consequence, information in this document may materially change the coding, format and clinical context of patient data. In addition, data may be omitted in some cases. CLINICAL DECISIONS SHOULD BE BASED ON THE PRIMARY CLINICAL RECORDS. [facility]. provides no warranty or guarantee of the accuracy or completeness of information in this document.
--- NOTE | 2025-04-02 09:37 | CT_ITS ---
The [address] [address] Patient Name: ANDERS ABAD MRN: [id number] date: 1950 Sex: M Assigned Patient Location: ER Current Patient Location: ER Accession/Order Number: [id number] Exam Date: 04/02/2025 10:39 Report Date: 04/02/2025 10:43 At the request of: ITALO EUBANKS MD Procedure: CT lumbar spine wo con CT lumbar spine wo con 04/02/2025 10:23 AM History:Back pain TECHNIQUE: Multi detector CT axial slices of the lumbar spine were obtained without IV contrast. Volumetric acquisition sagittal, coronal, and 3-D reconstructions were performed and reviewed on a separate workstation. CT was performed with one or more of the following dose reduction techniques: Automated exposure control, adjustment of the mA and/or kV according to patient size, or use of iterative reconstruction technique. COMPARISON: 01/18/2025 FINDINGS: There is preservation of the vertebral body heights. There is posterior and intervertebral fusion from L3 through L5. No hardware complication or malalignment. Posterior decompression is noted at L4. There is severe disc height loss at L1-L2, L2-3, and L5-S1. No fractures or dislocations are seen. There is 2 mm of retrolisthesis of L1 upon L2 and L2 upon L3 secondary to facet hypertrophy. The paraspinous soft tissues are within normal limits. The visualized lung parenchyma is unremarkable. Multiple 1 to 2 mm nonobstructing renal stones are present. Atherosclerotic changes are noted in the abdominal aorta with mild aneurysmal dilatation just above the bifurcation measuring up to 3 cm in greatest axial dimension. CT/CT lumbar spine wo con IMPRESSION: No acute bony abnormality or malalignment. There is posterior and intervertebral fusion from L3 through L5. No hardware complication or malalignment. There is severe disc height loss at L1-L2, L2-3, and L5-S1. Impression dictated by: Jack Barrow M.D. 04/02/2025 10:43 AM Dictation Location: [place] [address] Electronically authenticated by: [id number] Y Date: 04/02/2025 10:43
[2025-04-02] MEDS: OXYCODONE HCL/ACETAMINOPHEN 5MG/325MG 1 TAB PO (10:07)
[2025-04-02] MEDS: KETOROLAC TROMETHAMINE 30 MG/ML VIAL 15 MG IM (10:08)
[2025-04-02] MEDS: ORPHENADRINE 60 MG/2 ML VIAL IM (10:08)
[2025-04-02] MEDS: METHYLPREDNISOLONE SOD SUCC PF 40 MG/ML VIAL IM (10:09)
--- NOTE | 2025-04-02 13:58 | ED.BACK1 ---
HPI HPI - Back Pain/Injury General Chief Complaint: Back Pain/Injury Stated Complaint: BACK PAIN Time Seen by Provider: 04/02/25 09:29 Source: patient Mode of arrival: walk-in Limitations: no limitations History of Present Illness HPI Narrative: The patient presented to us with a lower back pain not associated with any numbness tingling or any radiation to the lower extremity, the patient have a history of chronic back issues and multiple surgeries Patient mentioned that her pain got worse after he carried some bottles of water, and this happened few days ago Patient have no incontinence of urine or stool ,he does not have any numbness tingling down his leg Related Data Home Medications ?Medication ?Instructions ?Recorded ?Confirmed atorvastatin 20 mg tablet 20 mg PO DAILY 11/24/24 04/02/25 irbesartan 150 1 tab PO DAILY 11/24/24 04/02/25 mg-hydrochlorothiazide 12.5 mg tablet omeprazole 20 mg capsule,delayed 20 mg PO DAILY 11/24/24 04/02/25 release tramadol 50 mg tablet 50 mg PO Q8H 11/24/24 01/17/25 zolpidem 10 mg tablet 10 mg PO QPM 11/24/24 04/02/25 aspirin 325 mg capsule 325 mg PO DAILY 01/04/25 04/02/25 calcium 600 mg (as 1 tab PO DAILY 01/04/25 04/02/25 carbonate)-vitamin D3 5 mcg (200 unit) tablet (Calcium 600 + D(3)) cranberry 500 mg capsule 500 mg PO DAILY 01/04/25 04/02/25 multivitamin (Daily Multi-Vitamin 1 tab PO DAILY 01/04/25 01/17/25 tablet) tadalafil 20 mg tablet 20 mg PO DAILY PRN sexual activity 01/04/25 04/02/25 vitamin B complex (Complex B-100 1 tab PO DAILY 01/04/25 01/17/25 tablet,extended release) Previous Rx's ?Medication ?Instructions ?Recorded ondansetron 4 mg disintegrating 4 mg PO DAILY PRN nausea and 01/18/25 tablet vomiting #15 tabs oxybutynin chloride 5 mg tablet 5 mg PO Q8H PRN bladder spasms #20 01/18/25 tabs cephalexin 500 mg capsule 500 mg PO BID 7 days #14 caps 01/19/25 hydrocodone 5 mg-acetaminophen 325 1 tab PO TID PRN pain 4 days #12 01/19/25 mg tablet tabs ondansetron 4 mg disintegrating 4 mg PO Q6H PRN nausea and 01/19/25 tablet vomiting #10 tabs orphenadrine citrate 100 mg 100 mg PO DAILY #10 tabs 04/02/25 tablet,extended release prednisone 20 mg tablet 40 mg (2 x 20 mg) PO DAILY 5 days 04/02/25 #10 tabs tramadol 50 mg tablet 50 mg PO BID PRN pain 3 days #6 04/02/25 tabs Allergies Allergy/AdvReac Type Severity Reaction Status Date / Time No Known Drug Allergies Allergy Verified 04/02/25 09:20 Opioid HPI Opioid Management Most Recent Opioid Data: Last Pain Scale 0 Today, 10:32 Last ED Pain Assessment Today, 10:32 Last MAR Pain Assessment Today, 10:07 Review of Systems ROS Status of ROS 10 or more systems reviewed and unremarkable except as noted in history and below [facility] Medical History Hearing loss ?H91.90 - Unspecified hearing loss, unspecified ear (ICD-10) Back pain ?M54.9 - Dorsalgia, unspecified (ICD-10) Arthritis ?M19.90 - Unspecified osteoarthritis, unspecified site (ICD-10) Bladder cancer ?C67.9 - Malignant neoplasm of bladder, unspecified (ICD-10) Kidney stones ?N20.0 - Calculus of kidney (ICD-10) Bladder tumor ?D49.4 - Neoplasm of unspecified behavior of bladder (ICD-10) GERD (gastroesophageal reflux disease) ?K21.9 - Gastro-esophageal reflux disease without esophagitis (ICD-10) Bronchitis (11/24/24) ?J40 - Bronchitis, not specified as acute or chronic (ICD-10) Postoperative nausea and vomiting ?R11.2 - Nausea with vomiting, unspecified (ICD-10) ?Z98.890 - Other specified postprocedural states (ICD-10) Hyperlipemia ?E78.5 - Hyperlipidemia, unspecified (ICD-10) Hypertension ?I10 - Essential (primary) hypertension (ICD-10) Surgical History History of colonoscopy ?Z98.890 - Other specified postprocedural states (ICD-10) H/O transurethral resection of prostate ?Z98.890 - Other specified postprocedural states (ICD-10) ?Z90.79 - Acquired absence of other genital organ(s) (ICD-10) H/O transurethral resection of bladder tumor (TURBT) ?Z98.890 - Other specified postprocedural states (ICD-10) ?Z86.03 - Personal history of neoplasm of uncertain behavior (ICD-10) S/P cystoscopy ?Z98.890 - Other specified postprocedural states (ICD-10) History of lumbosacral spine surgery ?Z98.890 - Other specified postprocedural states (ICD-10) S/P cataract extraction and insertion of intraocular lens ?Z98.49 - Cataract extraction status, unspecified eye (ICD-10) ?Z96.1 - Presence of intraocular lens (ICD-10) Family History Other Family history of cancer Family history of coronary artery disease Family history of diabetes mellitus Family history of heart disease Family history of hypertension Family history of stroke Social History Within the past year, how often did you have a drink containing alcohol: never Score interpretation: A score less than 4 is consistent with normal alcohol consumption. Smoking status: Current every day smoker What tobacco products do you use: cigarettes Cigarettes per day: 10 Years smoked: 50 Smoking pack-years: 25.00 Non-prescribed substance use: denies use Highest level of school completed/degree received: high school graduate Little interest or pleasure in doing things: not at all Feeling down, depressed, or hopeless: not at all Exam Narrative Exam Narrative: Nurses notes and vital signs reviewed and patient is not hypoxic. General: Well-appearing and in no apparent distress. Skin: Warm, dry, no pallor noted. No rash. Head: Normocephalic, atraumatic. Neck: Supple, non-tender. Eye: Pupils are equal, round and EOMI. No scleral icterus. Ears, Nose, Mouth, and Throat: TM are clear, no nasal mucosal hypertrophy. Oral mucosa is moist, no posterior oropharynx erythema, uvula is mid-line Cardiovascular: Regular Rate and Rhythm without murmur, gallop or rub. Respiratory: No accessory muscle use or respiratory distress. Lungs are clear to auscultation, no wheezing, rales or rhonchi Chest Wall: no tenderness Back: Intervertebral line tenderness at the lumbar level there is no intervertebral line tenderness at the thoracic or cervical level, the patient also have paraspinal muscle tenderness of the lower right lumbar level Musculoskeletal: normal ROM, no calf or popliteal tenderness, no lower extremity edema/swelling GI: Abdomen is soft, non-distended. Normal bowel sounds. No masses appreciated. No tenderness to palpation. No rebound, guarding, or rigidity noted. Neurological: A&O x4. No cranial nerve dysfunction observed. Constitutional Vital Signs, click to edit/add: Last Vital Signs Temp 98.7 F 04/02/25 09:15 Pulse 89 04/02/25 09:15 Resp 20 04/02/25 09:15 BP 134/89 04/02/25 09:15 Pulse Ox 99 04/02/25 09:15 O2 Del Method Room Air 04/02/25 09:15 Course Vital Signs Vital signs: Vital Signs Temperature 98.7 F 04/02/25 09:15 Pulse Rate 89 04/02/25 09:15 Respiratory Rate 20 04/02/25 09:15 Blood Pressure 134/89 04/02/25 09:15 Pulse Oximetry 99 04/02/25 09:15 Oxygen Delivery Method Room Air 04/02/25 09:15 Temperature 98.7 F 04/02/25 09:15 Pulse Rate 89 04/02/25 09:15 Respiratory Rate 20 04/02/25 09:15 Blood Pressure 134/89 04/02/25 09:15 Pulse Oximetry 99 04/02/25 09:15 Oxygen Delivery Method Room Air 04/02/25 09:15 MDM - Back Pain/Injury MDM Narrative Medical decision making narrative: The patient presented to us with exacerbation of his back pain and causing him to have significantly severe pain mostly with movement CT of the lumbar spine showed no acute pathology The patient was provided with pain medication in the ER after which she was feeling much better he was discharged home with supportive care and pain medication . And educated about alarming symptoms that would bring him back to the ER The patient is to follow up with primary care physician in next 2-3 days or to return to the emergency department should any of the signs or symptoms worsen or new symptoms develop. The patient agrees with the following Diagnosis and Treatment plan and the patient will be discharged home. Discharge Plan Discharge Chief Complaint: Back Pain/Injury Clinical Impression: Back pain Patient Disposition: Home, Self-Care Time of Disposition Decision: 11:22 Condition: Good Prescriptions / Home Meds: New prednisone 20 mg tablet 40 mg PO DAILY 5 Days Qty: 10 0RF tramadol 50 mg tablet 50 mg PO BID PRN (Reason: pain) 3 Days Qty: 6 0RF orphenadrine citrate 100 mg tablet extended release 100 mg PO DAILY Qty: 10 0RF No Action tadalafil 20 mg tablet 20 mg PO DAILY PRN (Reason: sexual activity) multivitamin [Daily Multi-Vitamin] Tablet 1 tab PO DAILY Complex B-100 Tablet Extended Release 1 tab PO DAILY cranberry 500 mg capsule 500 mg PO DAILY Rx Instructions: administer with a meal calcium carbonate-vitamin D3 [Calcium 600 + D(3)] 600 mg-5 mcg (200 unit) tablet 1 tab PO DAILY aspirin 325 mg capsule 325 mg PO DAILY hydrocodone-acetaminophen 5-325 mg tablet 1 tab PO TID PRN (Reason: pain) 4 Days Qty: 12 0RF cephalexin 500 mg capsule 500 mg PO BID 7 Days Qty: 14 0RF ondansetron 4 mg tablet,disintegrating 4 mg PO Q6H PRN (Reason: nausea and vomiting) Qty: 10 0RF atorvastatin 20 mg tablet 20 mg PO DAILY irbesartan-hydrochlorothiazide 150-12.5 mg tablet 1 tab PO DAILY tramadol 50 mg tablet 50 mg PO Q8H omeprazole 20 mg capsule,delayed release(DR/EC) 20 mg PO DAILY zolpidem 10 mg tablet 10 mg PO QPM oxybutynin chloride 5 mg tablet 5 mg PO Q8H PRN (Reason: bladder spasms) Qty: 20 0RF ondansetron 4 mg tablet,disintegrating 4 mg PO DAILY PRN (Reason: nausea and vomiting) Qty: 15 0RF Print Language: Tamazight Instructions: Back Pain (ED) Referrals: IDANIA LUTZ [Primary Care Provider, Internal Medicine] - 1 week Discharge Date/Time: 04/02/25 11:41
== END 2025-04-02 11:41 | disposition home or self-care (01) ==
PROVIDERS: Emergency Provider Emergency Medicine; PCP Internal Medicine
DX: M54.50 Low back pain, unspecified (principal); Z98.1 Arthrodesis status; F17.210 Nicotine dependence, cigarettes, uncomplicated
CPT/HCPCS: 72131; 96372; 99285; J1885; J2360; J2919

== ENCOUNTER 2025-07-27 13:43 | Outpatient (OUT) | payer MEDICARE, SELFPAY ==
--- OUTSIDE RECORDS SUMMARY | 2023-12-02 08:55 | XMS_ITS | Continuity of Care Document ---
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 Trochanteric bursitis, left hip (chief complaint) Trochanteric bursitis, left hip True Jack. [address], [place], [id number] , [place]. tel:[phone] Referring Provider: Jack Novak, [address] [place], [address] . tel:[phone] Office/outpa tient visit,[facility], [facility], [address] [place], [address], [place] tel:[phone] Trochanteric bursitis, left hip (chief complaint) Trochanteric bursitis, left hip 4 True Jack. [address], [place], [id number] , [place]. tel:[phone] Referring Provider: Jack Novak, [address] [facility], [place], [address] . tel:[phone] Family History Family Member Type Diagnosis Age At Onset Sister Problem (finding) Diabetes mellitus Mother Problem (finding) Family history of Osteo arthritis Brother Problem (finding) Congenital heart diseas e Brother Problem (finding) Diabetes mellitus Brother Problem (finding) Hypertension Mother Problem (finding) Family history of Spine Disorder Payers Payer name Insurance type Covered green party ID Authoriza tiluis(s) [place] [employer] - [id number] Social History Type Description Quantity Date Captured Comments Alcohol Use Details Unknown Caffeine Use Details Unknown Tobacco Use Status No Information Smoking Status No Information Sex Male Chief Complaint And Reason For Visit From encounter dated '12/02/2023 13:55'. Trochanteric bursitis, left hip (chief complaint). Description: Patient seen today for follow-up ofhis left hip. Had an epidural steroid injection a week ago and by the next morning had almost complete relief of his left lateral hip pain. Continues to have significant improvement. Reason For Referral Reason For Referral No Information History Of Present Illness Encounter Date Complaint History Of Prese nt Illness Trochanteric bursitis, left hip Patient seen today for follow-up of his left hip. Had an epidural steroid injection a week ago and by the next morning had almost complete relief of his left lateral hip pain. Continues to have significant improvement. Trochanteric bursitis, left hip Patient comes in the office today for evaluation of his left hip. Patient reports having increased lateral sided left hip pain for the last 6 weeks. He does not recall any injury or event leading to the onset of symptoms. He has tried some [id number] medications without any symptomatic improvement. He reports the pain bothers him on a daily basis at this point. His symptoms are worse with standing and ambulation. After he is up moving for a little bit it does seem to loosen up to a moderate degree. He has some pain at night but has not really been awoken by his symptoms as of yet. He also feels some pain with going up and down stairs. Most the pain is lateral over the greater trochanter region. He has a little bit of radiation of pain down the lateral thigh. He denies any pain in the anterior hip or groin region. He does have a history of some lumbar issues and does get epidural steroid injections on occasion. He denies any current associated numbness, tingling or focal motor weakness. Functional Status Date Functional Assessmen t No Information Instructions Date Instruction Additional Infor makayla Given the response t o the epidural certainly seems like his back is the more likely source of his hip pain and trochanteric bursitis but he certainly has a component of that as well. For now going to hold off on any further hip treatment. He did go to therapy a few times for trochanteric bursitis and this was not helpful at all. Again I think reinforcing the back is the likely source of his symptoms. Continue with his current back treatment options and will follow-up with us for his hip as needed Related to Trochanteric bursitis, left hip We have reviewed the patient's history, imaging and exam findings in detail. We explained to the patient that his history and exam findings are most consistent with some trochanteric bursitis we cannot fully rule out some contribution from his back or his hip. At this time, we have recommended moving forward with a course of physical therapy to try and work on hip mobility and IT band stretching as well as treatments for his trochanteric bursitis. Unfortunately he cannot use anti-inflammatories as he has some cardiac issues that require anticoagulant. The patient is in agreement with this plan. Should the patient have continued symptoms after 4 to 6 weeks he will plan to follow back up in clinic for further treatment recommendations. Related to Trochanteric bursitis, left hip Assessments Type Assessment Date assessment Trochanteric bursitis, left hip Mental Status Date Cognitive Assessment Orientation - [place] ed to time, place, person, situation. Patient Care Teams Name Effective Dates (start - stop) Status Members No Information
--- NOTE | 2025-07-27 13:47 | CT_ITS ---
The [address] [address] Patient Name: ANDERS ABAD MRN: [id number] date: 1950 Sex: M Assigned Patient Location: CT Current Patient Location: CT Accession/Order Number: [id number] Exam Date: 07/27/2025 13:51 Report Date: 07/27/2025 15:25 At the request of: SHADY SHANNON MD Procedure: CT abdomen pelvis wo con CT ABDOMEN AND PELVIS WITHOUT INTRAVENOUS CONTRAST: CLINICAL HISTORY: Suprapubic Pain, History Of Kidney Stones COMPARISON: 01/18/2025 TECHNIQUE: Spiral images were obtained through the abdomen and pelvis without intravenous contrast. This CT exam was performed using one or more following dose reduction techniques: Automated exposure control, adjustment of the mA and/or kV according to patient size, or use of iterative reconstruction technique. FINDINGS: Lung Bases: [No focal opacity.] Organs:Punctate left renal calculus, nonobstructive. No hydronephrosis or obstructive uropathy. Otherwise the liver, spleen, adrenals, kidneys, and pancreas are unremarkable.[ GI: Mild retained stool the colon. No bowel obstruction. Colonic diverticulosis noted. Small right inguinal hernia containing a small loop of bowel.[ Pelvis:[There is bladder wall thickening anteriorly measuring extending to the anterior anterior aspect of the dome. 9 mm. There is minimal residual prevesical haziness perivesicle haziness..] Peritoneum/Retroperitoneum:No free air or free fluid. Moderate plaque involving the aorta measure up to 2.5 x 2.7 cm.[ Abd wall/Bones:Postsurgical changes lumbar spine[ CT/CT abdomen pelvis wo con IMPRESSION: Anterior bladder wall thickening up to 9 mm could relate to under distention versus possible neoplastic process. Consider correlation with cystoscopy versus cystogram as warranted.. Minimal residual haziness of the prevesical fat overall improved from prior examination. Punctate left renal calculus no hydronephrosis or obstructive uropathy.. Suspected small right inguinal hernia containing a loop of nonobstructive small bowel. Impression dictated by: Werner Ellis M.D. 07/27/2025 3:25 PM Dictation Location: [place] [address] Electronically authenticated by: [id number] Y Date: 07/27/2025 15:25
--- OUTSIDE RECORDS SUMMARY | 2025-07-27 13:49 | XMS_ITS | Encounter Summary ---
Author Organization [facility] Address [address] [place] [address] Care Team Providers Care Gas Dispatcher Name Role Phone Richard Dennis MD Primary Care Provider [phone] Mckenna Dawn PA Unavailable [phone] Encounter Details DateTypeDepartmentCare Team (Latest Contact Info)Ncrbbvlpxzt34/05/2025bstract [facility] [address] [place] [address] Richard Dennis MD [address] [place] [address] Social History Tobacco UseTypesPacks/DayYears UsedDateSmoking Tobacco: Every DayCigarettes0.557 Smokeless Tobacco: NeverAlcohol UseStandard Drinks/WeekCommentsNot Currently0 (1 standard drink = 0.6 oz pure alcohol)Caffeine intake: 1-2 cups per dayPHQ-2 AnswerDate RecordedPatient Health Questionnaire-2 [id number] and Gender InformationValueDate RecordedSex Assigned at BirthNot on fileLegal SexMale 12/03/2022 7:10 PM EDTGender IdentityNot on fileSexual OrientationNot on file documented as of this encounter Plan of Treatment Not on file documented as of this encounter Visit Diagnoses Not on filedocumented in this encounter Additional Health Concerns AssessmentNoted TimePHQ-9 Depression Total Score: 8:00 AM EDT documented as of this encounter Care Teams Team MemberRelationshipSpecialtyStart DateEnd Date Richard Dennis MD [address] [place], [place] [id number] PCP - GeneralInternal Medicine02/23/23 Mckenna Dawn PA [address] [place] [id number] PCP - Human09/21/2211documented as of this encounter
--- OUTSIDE RECORDS SUMMARY | 2025-07-27 13:49 | XMS_ITS | CCD ---
Author Organization [facility] Care Team Providers Care Broadcast Operations Engineer Name Role Phone RICHARD DENNIS Primary Care Physician MIRTHA, DR CARUSO Attending Unavailable MIRTHA, DR CARUSO Admitting Unavailable BOLIVAR, DR EMERSON Primary Care Unavailable MIRTHA, DR CARUSO Consulting Unavailable NEFCY, PETER Consulting Unavailable SHANNON, DR CARUSO Attending Unavailable SHANNON, DR CARUSO Admitting Unavailable DENNIS, DR EMERSON Primary Care Unavailable MIRTHA, DR CARUSO Consulting Unavailable SHARP, LEE ANN Consulting Unavailable GEMBUS, RICHARD Consulting Unavailable Richard Dennis MD Unavailable Richard Dennis MD Primary Care Provider Shady Shannon MD Attending Provider [phone] Doris Hollingsworth DO Attending Provider [phone] Yunior Wong MD Attending Provider [phone] Shady Shannon Admitting Unavailable Shady Shannon Attending Unavailable Doris Hollingsworth Admitting Unavailable Doris Hollingsworth Attending Unavailable Yunior Wong Admitting Unavailable Yunior Wong Attending Unavailable FILOMENA STEVENS Attending Unavailable FILOMENA STEVENS Attending Unavailable Shady SHANNON Admitting Unavailable SHANNON, Shady Farnsworth Attending Unavailable SHANNONShady Attending Unavailable HEMMERMCKENNA Attending Unavailable HEMMERMCKENNA Attending Unavailable HEMMERMCKENNA Attending Unavailable HEMMERMCKENNA Attending Unavailable HEMMERMCKENNA Attending Unavailable RICHARD DENNIS Attending Unavailable Shady SHANNON R Attending Unavailable SHANNON, Shady R Attending Unavailable SHANNON, Shady R Attending Unavailable SHANNON, Shady R Admitting Unavailable SHANNON, Shady R Attending Unavailable Orzech, Delmi X Attending Unavailable Orzech, Delmi X Attending Unavailable Orzech, Delmi X Attending Unavailable SHANNONShady R Attending Unavailable SHANNON, Shady R Admitting Unavailable SHANNON, Shady R Attending Unavailable Shady SHANNON Attending Unavailable Shady SHANNON Admitting Unavailable Delmi Medrano Attending Unavailable Allergies Allergy ClassificationReported Allergen(s)Allergy TypeDate of OnsetReaction(s) Facility (20 sources)beta-Blocking agentDrug Ewnajnj45-13-6210[facility] (3 sources)No Known Medication Allergies; Translations: [No Known Medication Allergies]Propensity to adverse reactions (disorder)[facility] Repository Medications Current Medications MedicationDrug Class(es)DatesSig (Normalized)Sig (Original)aspirin 325 mg delayed release oral tablet (13 sources)Platelet Aggregation Inhibitor, Nonsteroidal Anti-inflammatory Drug Start: 25-72-7261zdrx 1 tablet by mouth once dailyaspirin 325 mg Oral EC Tab 325 mg = 1 tab(s), Oral, Daily Start Date: 06/07/19 Status: Ordered Medication Dispense Status: Completed Total Allowed Fills: 1 Fills Dispensed: 0atorvastatin 20 mg oral tablet (20 sources)HMG-CoA Reductase InhibitorStart: 10-91-0703zshr 1 tablet by mouth once dailyatorvastatin 20 mg Tab 20 mg = 1 tab(s), Oral, Daily Start Date: 06/07/19 Status: Ordered MedicationDispense Status: Completed Total Allowed Fills: 1 Fills Dispensed: 0Calcium Citrate / Vitamin D (13 sources)Start: 81-26-5283glbhvqk-vitamin D Start Date: 08/19/22 Status: Ordered Medication Dispense Status: Completed Total Allowed Fills: 1 Fills Dispensed: 0Start: 53-13-3609bltshcr-vitamin D Start Date: 08/19/22 Status: Ordered Repeat number: 1Start: 80-88-2898gjyuyyw-vitamin D Start Date: 08/19/22 Status: OrderedCALCIUM-VITAMIN D PO (20 sources)Start: 41-65-0841WVMDTRH-VITAMIN D PO Daily. 08/19/2022 ActiveStart: 12-83-5540DQZZZCB-VITAMIN D PO Daily. 0 08/19/2022 ActiveCranberry preparation (20 sources)Non-Standardized Food Allergenic Extract, Non-Standardized Plant Allergenic ExtractStart: 05-49-8497Ptpqkkcqh Start Date: 08/19/22 Status: Ordered Repeat number: 1Start: 29-00-0055Qtilowtzr Start Date: 08/19/22 Status: OrderedStart: 02-10-9436Umazstvbl 125 MG tablet Daily. 08/19/2022 ActiveStart: 65-86-8710Vkvyaemai 125 MG tablet Daily. 0 08/19/2022 Activecyclobenzaprine hydrochloride 10 mg oral tablet (14 sources)Muscle RelaxantStart: 17-91-1161cric 1 tablet by mouth once daily as needed for muscle spasmscyclobenzaprine 10 mg Tab 10 mg = 1 tab(s), Oral, Daily, PRN for spasm Start Date: 06/07/19 Status: Ordered Medication Dispense Status: Completed Total Allowed Fills: 1 Fills Dispensed: 0diclofenac sodium 0.01 mg/mg topical gel (15 sources)Nonsteroidal Anti-inflammatory Drugdiclofenac sodium 1 % gel Indications: Primary osteoarthritis of right knee Apply 2 g topically in the morning and 2 g in the evening and 2 g before bedtime. Activedoxycycline hyclate 100 mg oral capsule (2 sources)Tetracycline-class DrugStart: 12-01-2024 End: 33-86-3828skngxvvdlep (Vibramycin) 100 MG capsule Indications: Acute bronchitis, unspecified organism Take 1 capsule (100 mg) by mouth in the morning and 1 capsule (100 mg) before bedtime. Do all this for 3 days. Take with at least 8 ounces (large glass) of water, do not lie down for 30 minutes after. 6 capsule 12/01/2024 12/04/2024 Activeesomeprazole 20 mg delayed release oral capsule (13 sources)Proton Pump InhibitorStart: 13-07-4329tmxe 1 capsule by mouth once dailyNexium 20 mg Cap-DR 20 mg = 1 cap(s), Oral, Daily Start Date: 06/07/19 Status: Ordered Medication Dispense Status: Completed Total Allowed Fills: 1 Fills Dispensed: 0hydroCHLOROthiazide 12.5 mg / irbesartan 150 mg oral tablet (20 sources)Thiazide Diuretic, Angiotensin 2 Receptor BlockerStart: 06-15-2024 End: 29-62-8155bxyn 1 tablet by mouth in the morningirbesartan- hydroCHLOROthiazide (Avalide) 150-12.5 MG tablet Indications: Benign essential hypertension TAKE 1 TABLET BY MOUTH IN THE MORNING 100 tablet 3 06/15/2024 05/01/2025 Discontinued (Side effects)Start: 81-66-8834mitk 1 tablet by mouth in the morningirbesartan-hydroCHLOROthiazide (Avalide) 150-12.5 MG tablet Indications: Benign essential hypertension (CMS/HCC) TAKE 1 TABLET BY MOUTH IN THE MORNING 100 tablet 3 04/06/2023 ActiveStart: 22-03-6365wixx 1 tablet by mouth once dailyhydrochlorothiazide-irbesartan 12.5 mg-150 mg Tab tab(s), Oral, Daily Start Date: 08/19/22 Status: Ordered Medication Dispense Status: Completed Total Allowed Fills: 1 Fills Dispensed: 0irbesartan 300 mg oral tablet (2 sources)Angiotensin 2 Receptor BlockerStart: 84-37-4636twsj 1 tablet by mouth at bedtimeirbesartan (Avapro) 300 MG tablet Indications: Benign essential hypertension Take 1 tablet (300 mg)by mouth at bedtime 30 tablet 2 05/01/2025 ActiveStart: 97-28-4772tjjp 1 tablet by mouth at bedtimeirbesartan (Avapro) 300 MG tablet Indications: Benign essential hypertension Take 1 tablet (300 mg)by mouth at bedtime 30 tablet 2 05/01/2025 ActivemethylPREDNISolone 4 mg oral tablet (2 sources)CorticosteroidStart: 11-25-2024 End: 57-25-7425pwwssvMCWGBQWibjos (Medrol Dospak) 4 MG tablets TAKE BY MOUTH DIRECTED ON INSIDE OF PACKAGE 11/25/2024 12/01/2024 Discontinued (Therapy completed)Multi Vitamin+ (13 sources)Start: 38-36-5745Koeoj Vitamin+ See Instructions, Refill(s) 0 Start Date: 06/07/19 Status: Ordered Medication Dispense Status: Completed Total Allowed Fills: 1 Fills Dispensed: 0Start: 64-50-4910Jsmeh Vitamin+ See Instructions, Refill(s) 0 Start Date: 06/07/19 Status: Ordered Repeat number: 1 Start: 20-55-6334Ybzar Vitamin+ See Instructions, Refill(s) 0 Start Date: 06/07/19 Status: Orderedomeprazole 20 mg delayed release oral capsule (20 sources)Proton Pump InhibitorStart: 97-82-3406bilm 1 capsule by mouth before mealtimeomeprazole (PriLOSEC) [address] capsule Indications: Gastro-esophageal reflux disease without esophagitis TAKE 1 CAPSULE BY MOUTH IN THE MORNING BEFORE MEAL(S) 100 capsule 3 03/21/2025 ActiveStart: 40-56-3798cqac 1 capsule by mouth before mealtimeomeprazole (PriLOSEC) [address] capsule Indications: Gastro- esophageal reflux disease without esophagitis TAKE 1 CAPSULE BY MOUTH IN THE MORNING BEFORE MEAL(S) 100 capsule 3 03/16/2024 ActiveStart: 33-98-3451hajz 1 capsule by mouth before mealtimeomeprazole (PriLOSEC) [address] capsule Indications: Gastro-esophageal reflux disease without esophagitis Take 1 capsule (20 mg) by mouth in the morning. Take before meals. 100 capsule 3 02/24/2023 Act iveStart: 34-13-3183zruw 1 mg by mouth once dailyOmeprazole 20 mg Cap - DR mg, Oral, Daily, Refills(s) 0 Start Date: 06/25/21 Status: Ordered Medication Dispense Status: Completed Total Allowed Fills: 1 Fills Dispensed: 0oxybutynin chloride 5 mg oral tablet (8 sources)Cholinergic Muscarinic AntagonistStart: 03-27-2025 End: 90-39-0244qibz 2 tablets by mouth at bedtimeoxybutynin 5 mg Tab 10 mg = 2 tab(s), Oral, Bedtime, X 30 day(s), # 60 tab(s), Refills(s) 1, Pharmacy: [facility], 165, cm, 03/27/25 12:12:00 EDT, Height/Length Dosing, 67.3, kg, 03/27/25 12:12:00 EDT, Weight Dosing Start Date: 03/27/25 Stop Date: 05/26/25 Status: Ordered Quantity: 60.0 Unit: tab(s) Repeat number: 2Start: 01-23-2025 End: 76-74-2765wpbk 1 tablet by mouth in the morningoxybutynin (Ditropan) 5 MG tablet Take 5 mg by mouth in the morning and 5 mg before bedtime. 01/23/2025 01/26/2025 Discontinued (Therapy completed)phenazopyridine hydrochloride 200 mg oral tablet (1 source)Start: 01-31-2025 End: 50-84-6867swdq 1 tablet by mouth three times daily as needed for pain Pyridium 200 mg Tab 200 mg = 1 tab(s), Oral, TID, PRN bladder pain, X 5 day(s), # 15 tab(s), Refills(s) 0, Pharmacy: [facility], 165, cm, 01/31/25 10:27:00 EDT, Height/Length Dosing, 69.3,kg, 01/31/25 10:27:00 EDT, Weight Dosing Start Date: 01/31/25 Stop Date: 02/05/25 Status: Ordered Quantity: 15.0 Unit: tab(s) Repeat number: 1predniSONE 10 mg oral tablet (2 sources)Start: 10-22-2023 End: 11-92-6796ehqn 1 tablet by mouth three times daily, then take 1 tablet by mouth twice daily, then take 1 tablet by mouth once dailypredniSONE (Deltasone) 10 MG tablet Indications: Acute pain of right knee Take 1 tablet (10 mg) by out 3 (three) times a day for 3 days, THEN 1 tablet (10 mg) 2 (two) times a day for 3 days, THEN 1tablet (10 mg) Daily for 3 days. 18 tablet 0 10/28/2023 11/05/2023 Activetadalafil 5 mg oral tablet (7 sources)Phosphodiesterase 5 InhibitorStart: 07-24-2025 End: 91-78-8825wruc 1 tablet by mouth once dailytadalafil 5 mg oral tablet 5 mg = 1 tab(s), Oral, Daily, Take for urination., X 30 day(s), # 30 tab(s), Refills(s) 11, Pharmacy: [facility], 165, cm, 07/24/25 8:18:00 EST, Height/Length Dosing, 69, kg, 07/24/25 8:18:00 EST, Weight Dosing Start Date: 07/24/25 Stop Date: 07/19/26 Status: Ordered Medication Dispense Status: Completed Quantity: 30.0 Unit: tab(s) Total Allowed Fills: 12 Fills Dispensed: 0 Indications: Benign prostatic hyperplasia without lower urinary tract symptoms; Start: 74-56-6988kgwi 1 tablet by mouth once dailytadalafil 5 mg oral tablet 5 mg = 1 tab(s), Oral, Daily, FOR BPH, # 30 tab(s), Refills(s) 3, Pharmacy: [facility], 165, cm, 05/04/25 15:50:00 EDT, Height/Length Dosing, 67.1, kg, 05/04/25 15:50:00 EDT, Weight Dosing Start Date: 05/04/25 Status: Ordered Quantity: 30.0 Unit: tab(s) Repeat number: 4 Indications: Benign prostatic hyperplasia without lower urinary tract symptoms;Start: 03-30-2025 End: 13-54-1405pvfg 1 tablet by mouth once daily as neededtadalafil (Cialis) 20 MG tablet Indications: Erectile dysfunction, unspecified erectile dysfunction type Take 1 tablet (20 mg) by mouth Daily as needed for erectile dysfunction 10 tablet 11 03/31/2025 03/31/2026 ActiveStart: 06-15-2023 End: 46-18-4818pkbc 1 tablet by mouth once daily as neededtadalafil (Cialis) 20 MG tablet Indications: Erectile dysfunction, unspecified erectile dysfunction type Take 1 tablet (20 mg) by mouth Daily as needed for erectile dysfunction. 20 tablet 11 06/15/2023 06/14/2024 Activetamsulosin hydrochloride 0.4 mg oral capsule (6 sources)alpha-Adrenergic BlockerStart: 07-24-2025 End: 12-48-8785qzdb 1 capsule by mouth once dailytamsulosin 0.4 mg Cap 0.4 mg = 1 cap(s), Oral, Daily, Stop taking if experiencing dizziness or light headedness., X 30 day(s), # 30 cap(s), Refills(s) 11, Pharmacy: [facility], 165, cm, 07/24/25 8:18:00 EST, Height/Length Dosing, 69, kg, 07/24/25 8:18:00 EST, Weight Dosing Start Date: 07/24/25 Stop Date: 07/19/26 Status: Ordered Medication Dispense Status: Completed Quantity: 30.0 Unit: cap(s) Total Allowed Fills: 12 Fills Dispensed: 0Start: 94-91-9098snry 1 capsule by mouth once dailytamsulosin 0.4 mg Cap 0.4 mg = 1 cap(s), Oral, Daily, # 30 cap(s), Refills(s) 11, [facility], [facility], cm, 04/24/25 8:15:00 EDT, Height/Length Dosing, 66, kg, 04/24/25 8:15:00 EDT, Weight Dosing Start Date: 04/24/25 Status: Ordered Quantity: 30.0 Unit: cap(s) Repeat number: 12 Indicat ions: Nocturia; Benign prostatic hyperplasia without lower urinary tract symptoms;traMADol hydrochloride 50 mg oral tablet (20 sources)Opioid AgonistStart: 01-09-2025 End: 91-78-0383dbsz 1 tablet by mouth every six hours for paintraMADol (Ultram) 50 MG tablet Indications: DDD (degenerative disc disease), lumbar Take 1 tablet (50 mg) by mouth every 6 (six) hours if needed for severe pain 120 tablet 1 01/09/2025 03/10/2025 ActiveStart: 11-14-2024 End: 70-00-4738lyhc 1 tablet by mouth every six hours for paintraMADol (Ultram) 50 MG tablet Indications: DDD (degenerative disc disease), lumbar Take 1 tablet (50 mg) by mouth every 6 (six) hours if needed for severe pain 120 tablet 11/14/2024 12/14/2024 ActiveStart: 09-26-2024 End: 57-35-4793rwae 1 tablet by mouth every six hours for paintraMADol (Ultram) 50 MG tablet Indications: DDD (degenerative disc disease), lumbar Take 1 tablet (50 mg) by mouth every 6 (six) hours if needed for severe pain 120 tablet 09/26/2024 10/26/2024 ActiveStart: 08-24-2023 End: 09-25-0109ewev 1 tablet by mouth every six hours for paintraMADol (Ultram) 50 MG tablet Indications: DDD (degenerative disc disease), lumbar Take 1 tablet (50 mg) by mouth every 6 (six) hours if needed for severe pain 120 tablet 07/06/2024 08/05/2024 ActiveStart: 90-93-1169qtcy 1 tablet by mouth once daily traMADOL 50 mg Tab 50 mg = 1 tab(s), Oral, Daily Start Date: 06/07/19 Status: Ordered Medication Dispense Status: Completed Total Allowed Fills: 1 Fills Dispensed: 0traZODone hydrochloride 50 mg oral tablet (7 sources)Serotonin Reuptake InhibitorStart: 04-21-2025 End: 01-87-5442upeVOQbla (Desyrel) 50 MG tablet Indications: Chronic insomnia TAKE 1 TO 2 TABLETS BY MOUTH NEEDED AT BEDTIME FOR SLEEP 60 tablet 04/21/2025 05/01/2025 Discontinued (Therapy completed)Start: 29-62-9452jlzNLYiny (Desyrel) 50 MG tablet Indications: Chronic insomnia Take 1 tablet (50 mg) by mouth as nee ded at bedtime for sleep 01/30/2025 ActiveStart: 04-70-3821wniFTYenq (Desyrel) 50 MG tablet Indications: Chronic insomnia Take 1-2 tablets (50-100 mg) by mouth as needed at bedtime for sleep 60 tablet 2 01/26/2025 Activezolpidem tartrate 10 mg oral tablet (20 sources)gamma-Aminobutyric Acid-ergic AgonistStart: 01-30-2025 End: 89-48-7225kuzcmiiy (Ambien) 10 MG tablet Indications: Chronic insomnia Take 1 tablet (10 mg) by mouth as needed at bedtime for sleep ICD 10:F51.04 30 tablet 5 02/16/2025 ActiveStart: 01-27-2024 End: 31-53-2900mwjvmnen (Ambien) 10 MG tablet Indications: Chronic insomnia Take 1 tablet (10 mg) by mouth as needed at bedtime for sleep ICD 10:F51.04 30 tablet 2 11/14/2024 01/26/2025 Discontinued (Ineffective)Start: 34-83-3978uhws 1 tablet by mouth every 30 days as needed for sleepzolpidem (Ambien) 10 MG tablet Indications: Chronic insomnia Take 1 tablet (10 mg) by mouth as needed at bedtime for sleep. ICD 10:F51.04; 30 tablets is a 30 day supply 30 tablet 5 06/15/2023 ActiveStart: 34-57-8050ymcj 1 tablet by mouth once daily at bedtime as needed for sleepzolpidem 10 mg oral tablet 10 mg = 1 tab(s), Oral, Once a day (at bedtime), PRN for sleep, Refills(s) 0 Start Date: 06/25/21 Status: Ordered Medication Dispense Status: Completed Total Allowed Fills: 1 Fills Dispensed: 0 Completed/Discontinued Medications MedicationDrug Class(es)DatesSig (Normalized)Sig (Original)acetaminophen 325 mg / HYDROcodone bitartrate 5 mg oral tablet (2 sources)Opioid AgonistStart: 01-23-2025 End: 34-51-3953pwky 1 tablet by mouth every six hours as neededHYDROcodone- acetaminophen ([place]) 5-325 MG tablet Take 1 tablet by mouth every 6 (six) hours if needed 01/23/2025 01/26/2025 Discontinued (Therapy completed)cephalexin 500 mg oral capsule (2 sources)Cephalosporin AntibacterialStart: 01-23-2025 End: 77-91-5192bctx 1 capsule by mouth in the morningcephalexin (Keflex) 500 MG capsule Take 500 mg by mouth in the morning and 500 mg before bedtime. 01/26/2025 Discontinued (Therapy completed)ciprofloxacin 500 mg oral tablet (6 sources)Quinolone AntimicrobialStart: 01-23-2025 End: 48-26-1487popr 1 tablet by mouth in the morningciprofloxacin (Cipro) 500 MG tablet Take 500 mg by mouth in the morning and 500 mg before bedtime. 01/23/2025 01/26/2025 Discontinued (Therapy completed)Start: 50-89-9602dcbm 1 tablet by mouth once dailyCipro 500 mg Tab 500 mg = 1 tab(s), Oral, Daily, Take 1 tablet the day before the procedure and 1 tablet after the procedure, # 2 tab(s), Refills(s) 0, Pharmacy: [facility], 165, cm, 06/16/23 13:24:00 EDT, Height/Length Dosing, 75, kg, 06/16/23 13:24:00 EDT, Weight Dosing Start Date: 11/04/24 Status: Ordered Quantity: 2.0 Unit: tab(s) Repeat number: 1Start: 06-04-3748xchd 1 tablet by mouth once dailyCipro 500 mg Tab 500 mg = 1 tab(s), Oral, Daily, Take 1 tablet the day before the procedure and 1 tablet after the procedure, # 2 tab(s), Refills(s) 0, Pharmacy: [facility], 165, cm, 06/16/23 13:24:00 EDT, Height/Length Dosing, 75, kg, 06/16/23 13:24:00 EDT, Weight Dosing Start Date: 11/10/23 Status: OrderedStart: 44-87-3722kgrx 1 tablet by mouth once dailyCipro 500 mg Tab 500 mg = 1 tab(s), Oral, Daily, Take 1 tablet the day before the procedure and 1 tablet after the procedure, # 2 tab(s), Refills(s) 0, Pharmacy: [facility], 165, cm, 06/25/21 13:28:00 EDT, Height/Length Dosing, 71, kg, 06/25/21 13:28:00 EDT... Start Date: 07/29/22 Status:Orderedondansetron 4 mg disintegrating oral tablet (2 sources)Serotonin-3 Receptor AntagonistStart: 01-18-2025 End: 96-83-1390fhea 1 tablet by mouth every eight hours as neededondansetron ODT (Zofran-ODT) 4 MG disintegrating tablet Take 4 mg by mouth every 8 (eight) hours ifneeded 01/18/2025 01/26/2025 Discontinued (Therapy completed)1 ml triamcinolone acetonide 40 mg/ml prefilled syringe (4 sources)CorticosteroidStart: 05-01-2025 End: 21-29-5693cewkqnpuwhwyw acetonide (Kenalog-40) injection 40 mgStart: 05-01-2025 End: 41-68-4849mcbeuj 40 mg by intramuscular injection once40 mg, Intramuscular, Once, On Thu05/01/25 at 1015, For 1 doseStart: 05-01-2025 End: 22-69-1621torfmhpeozvas acetonide (Kenalog-40) injection 40 mgStart: 05-01-2025 End: 70-27-6124ithvfi 40 mg by intramuscular injection once40 mg, Intramuscular, Once, On Thu05/01/25 at 1015, For 1 dose Problems Active Problems Problem ClassificationProblemDateDocumented DateEpisodic/ChronicAbdominal hernia (20 sources)Hiatal hernia; Translations: [Diaphragmatic hernia without obstruction or gangrene]Onset: 008327-06-4414RiwcyxmeIcfzyhdgk pain (2 sources)Suprapubic pain; Translations: [Suprapubic pain (finding)]Onset: 88-57-3542BtdsozjsDhlft bronchitis (2 sources)Acute bronchitis; Translations: [Acute bronchitis, unspecified] 34-90-0462QrzkbwyqOjgmqndvixygkz/social admission (2 sources)Patient encounter status; Translations: [Other specified counseling] 27-27-5248ZswxklylBbdcosgk of urinary tract (20 sources)Kidney stone; Translations: [Calculus of kidney]Onset: 02-22-2023 52-72-4103PfxhiuwiVyhozb of bladder (20 sources)Malignant tumor of urinary bladder; Translations: [Malignant neoplasm of bladder, unspecified]Onset: 09-10-2022 Resolved: 38-32-7741IozwaluIpfrhk of bladder (20 sources)History of malignant neoplasm of bladder; Translations: [Personal history of malignant neoplasm of bladder]Onset: 43-46-3944GwadomndStbdfc; other and unspecified primary (8 sources)History of bladder ytpetcrp58-37-2746JcnmmzxnYqkgwz; other and unspecified primary (3 sources)H/O: malignant cpsinhsm18-78-0891LbbqkztpFvbwpvtpl of lipid metabolism (20 sources)Hyperlipidemia; Translations: [Hyperlipidemia, unspecified]Onset: 324199-28-4422BsdhhwhBlihsupaxk disorders (20 sources)Gastroesophageal reflux disease; Translations: [Gastro-esophageal reflux disease without esophagitis]Onset: 686275-91-6175JbydoieMopbzweig hypertension (20 sources)Benign essential hypertension; Translations: [Essential (primary) hypertension]Onset: 12-19-2021 Resolved: 617600-38-9667PeyptmqLmxdvohprgduh symptoms and ill-defined conditions (20 sources)Microscopic hematuria; Translations: [Other microscopic hematuria] Onset: 689585-91-0624ZqvkhyhyEejiiiukvaq of prostate (20 sources)Benign prostatic hypertrophy with outflow obstruction; Translations: [Benign prostatic hyperplasia with lower urinary tract symptoms]Onset: 84-98-3810FhvqfgtCkpczcouiytcc mental health disorders (20 sources)Chronic insomnia; Translations: [Psychophysiologic insomnia]Onset: 125314-82-0003ZreeiooHhovctuxy of unspecified nature or uncertain behavior (4 sources)Neoplasm of unspecified behavior of bladder; Translations: [Neoplasm of uncertain behavior of bladder]Onset: 857505-96-2405Tmmrofmq Osteoarthritis (20 sources)Osteoarthritis of right knee joint; Translations: [Unilateral primary osteoarthritis, right knee]Onset: 705110-07-3449MrmrjqvCnhdm aftercare (1 source)terminal block assembler (current) use of anticoagulants; Translations: [FIBREGLASS GUN HAND CURRNT USE ANTICOAGULANTS]Onset: 13-84-6500WcogigthOaklm aftercare (1 source)[facility] (current) use of aspirin; Translations: [FIBRE[employer] G[employer] HAND CURRENT USE OF ASPIRIN]Onset: 52-71-4001SsdzzvnrGgeye aftercare (1 source)Other intermediate designer (current) drug therapy; Translations: [OTH ALF CURRENT DRUG THERAPY]Onset: 67-75-7031TtbneyhiKtyot diseases of bladder and urethra (1 source)Disorder of bladder; Translations: [Other specified disorders of bladder]Onset: 70-00-8120DkomtedZwjsi diseases of kidney and ureters (2 sources)Urinary tract obstruction; Translations: [Other obstructive and reflux uropathy]Onset: 51-51-8679AoatnityQnhxx male genital disorders (13 sources)Impotence of organic ezmkag81-79-5663YaeokygGpngg male genital disorders (20 sources)Male erectile dysfunction, unspecified; Translations: [Impotence of organic origin]Onset: 844526-29-4200KxkkvshVnbox nervous system disorders (20 sources)Chronic pain; Translations: [Other chronic pain]Onset: 02-22-2023 06-81-1905GcgyrswRdodk nervous system disorders (2 sources)Chronic low back pain; Translations: [Other chronic pain]05-01-2025 ChronicOther nervous system disorders (20 sources)Unsteady when standing; Translations: [Unsteadiness on feet]Onset: 986634-72-7000AvomouykXwebl nervous system disorders (20 sources)Abnormal gait; Translations: [Unspecified abnormalities of gait and mobility]Onset: 263754-82-9832LtibdgpvXdzyl non-traumatic joint disorders (1 source)Pain in right knee; Translations: [Pain in joint, lower leg]10-28-2023 EpisodicOther nutritional; endocrine; and metabolic disorders (20 sources)Overweight in adulthood with body mass index of 25 or more but less than 30; Translations: [Body mass index (BMI) 27.0-27.9, adult]Onset: 09-10-2022 Resolved: 70-35-6874MqrhdhzzVjgke screening for suspected conditions (not mental disorders or infectious disease) (5 sources)Raised prostate specific antigen; Translations: [Elevated prostate specific antigen [PSA]]Onset: 003441-10-1649IfdxrjrzXotzmwmra and history of mental health and substance abuse codes (1 source)Personal history of nicotine dependence; Translations: [PERSONAL HISTORY OF NICOTINE DEPEND]Onset: 74-02-0550MofrqlirHnkphfqbfti; intervertebral disc disorders; other back problems (20 sources)Degeneration of lumbar intervertebral disc; Translations: [Other intervertebral disc degeneration, lumbar region]Onset: [id number] ChronicSpondylosis; intervertebral disc disorders; other back problems (20 sources)Chronic low back pain; Translations: [Chronic low back pain]Onset: [id number]-ptwxqrp disorders (20 sources)Cigarette smoker ; Translations: [Nicotine dependence, cigarettes, uncomplicated]Onset: [id number] (1 source)CONTACT W/AND (SUSP) EXPOS COVID-19; Translations: [CONTACT W/AND (SUSP) EXPOS COVID-19]Onset: 19-29-1824Fjlmyuxgsdvz (2 sources)Patient encounter [id number] Past or Other Problems Problem ClassificationProblemDateDocumented DateEpisodic/ChronicAcute and unspecified renal failure (2 sources)Acute renal failure syndromeOnset: [id number] Chronic kidney disease (20 sources)Chronic kidney disease stage 3A ; Translations: [Chronic kidney disease, stage 3a (HCC) (CMS/HCC)]Onset: 12-06-2024 Resolved: [id number] disorders (2 sources)Mood disordersOnset: Other diseases of bladder and urethra (20 sources)Mass of urinary bladder; Translations: [Other specified disorders of bladder]Onset: 10-22-2023 Resolved: [id number] injuries and conditions due to external causes (20 sources)Foreign body in bladder; Translations: [Foreign body in bladder, initial encounter]Onset: 09-10-2022 Resolved: [id number] codes; unclassified (20 sources)Tobacco user; Translations: [Tobacco use]Onset: 01-26-2020 Resolved: [id number] (1 source)Erectile dysfunction, unspecified erectile dysfunction [id number] Results Test NameValueInterpretationReference RangeFacilityAmbulatory Visit Summaryon [id number] Visit SummaryAmbulatory Visit Summary ANDERS LYMAN :1950 Visit Date:07/24/2025 Ambulatory Visit Instructions Your Diagnosis History of bladder cancer BPH without urinary obstruction Nocturia Elevated PSA Bladder stones Suprapubic pain History of kidney stones Tests Performed CT Abdomen/Pelvis w/o Contrast -- Results Pending -- Please visit your patient portal for your results or contact your primary care physician. Your Care Team Attending Physician - Shady SHANNON MD Primary Care Physician - RICHARD DENNIS MD This Is Your Medications List tadalafil (tadalafil 5 mg oral tablet) tamsulosin (tamsulosin 0.4 mg Cap) Contact prescribing physician if questions or concerns aspirin (aspirin 325 mg Oral EC Tab) atorvastatin (atorvastatin 20 mg Tab) calcium-vitamin D cyclobenzaprine (cyclobenzaprine 10 mg Tab) esomeprazole (Nexium 20 mg Cap-DR) hydrochlorothiazide-irbesartan (hydrochlorothiazide-irbesartan 12.5 mg-150 mg Tab) multivitamin (Multi Vitamin+) omeprazole (Omeprazole 20 mg Cap - DR) tramadol (traMADOL 50 mg Tab) zolpidem (zolpidem 10 mg oral tablet) Procedures Performed Cystoscopy (07/24/2025), Cystoscopy (04/24/2025), TURBT - Transurethral resection of bladder tumor (01/17/2025), Cystoscope (01/03/2025), Cystoscopy (06/16/2023), Cystoscopy (12/16/2022), TURBT - Transurethral resection of bladder tumor (09/04/2022), Cystoscopy (08/19/2022), Cystoscopy (06/25/2021), Cystoscopy (06/12/2020), Cystoscopy (06/07/2019), Cystoscopy (06/08/2018), Colonoscopy (08/17/2017), TURP - Transurethral resection of prostate (11/23/2014), Cystoscopy and transurethral resection of bladder tumour (04/27/2014), Cystoscopy to remove object (06/08/2012), Cystoscopic anastomosis of ureter to bladder with insertion of stent into ureter (05/13/2012), Transrectal biopsy of prostate using ultrasound (US) guidance (10/24/2009), back surgery, Colonoscopy. Discharge Vitals Heart Rate (Peripheral) 72 Respiratory Rate 16 Blood Pressure 150/90 Height 165 cm Height 65 in Weight 69 kg Weight 152.119 lb BMI 25.34 What to do next Scheduled Follow-Up Appointments 2025 10:00 AM EST With: Where: [facility] [address] [place] [address]- 2025 10:20 AM EST With: SILVANO Medrano APRN, Delmi X Where: [facility] [address] [place] [address]- You Need to Schedule the Following Appointments Follow Up with MIRTHA BLOCK, SHANELL Rodrigues When: Where: [facility] [address] , [place] [address]- Medications What How Much When Why Instructions New tamsulosin (tamsulosin 0.4 mg Cap) 1 Capsules By Mouth Every day Duration: 30 Days Refills: Stop taking if experiencing dizziness or lightheadedness. Pickup at [facility] Changed tadalafil (tadalafil 5 mg oral tablet) 1 Tablets By Mouth Every day BPH without urinary obstruction Duration: 30 Days Take for urination. Pickup at [facility] Unchanged aspirin (aspirin 325 mg Oral EC [...] prescribing physician if questions or concerns Unchanged hydrochlorothiazide-irbesartan (hydrochlorothiazide-irbesartan 12.5 mg-150 mg Tab) By Mouth Every day Contact prescribing physician if questions or concerns Unchanged multivitamin (Multi Vitamin+) See instructions Contact prescribing physician if questionsor concerns Unchanged omeprazole (Omeprazole 20 mg Cap [...] Contact prescribing physician if questions or concerns Pharmacy Information [facility]: [address] [place], [place] [id number] [phone] Medications and Immunizations Administered Given lidocaine Top 2% Gel w/Appl 6 mL, 6 mL, Topical. For: History of bladder cancer, BPH without urinary obstruction, Nocturia, Elevated PSA Allergies No Known Medication Allergies Problems Ongoing - Any problem that you are currently receiving treatment for. Acute kidney injury Bladder cancer (more content not included)...[facility] CenterUrology Office/Clinic Noteon [id number] Office/Clinic NoteUrology Office/Clinic Note Chief Complaint Cysto HPI Staff Cysto for 3 mo bladder tumor check. Abx taken. Original Dx: TURBT 09/04/22 - Low grade noninvasive urothelial carcinoma. Most recent recurrence: TURBT, Mitomycin C intravesical placement 01/17/25 - Low grade noninvasive papillary urothelial carcinoma. Pt has been up a lot lately urinating, is concerned for a UTI. UA was done in office. History of Present Illness Tests reviewed: UA I have reviewed the previous health record information and history for this patient from Dr. Shannon. I have reviewed and verified the staff [...] See HPI. Physical Exam Vitals & Measurements HR: 72(Peripheral) RR: 16 BP: 150/90 HT: 165 cm HT: 65 in WT: 69 kg WT: 152.119 lb BMI: 25.34 General Appearance: alert, no distress, well nourished, well developed adult. Procedure Operative Information Anesthesia Type: Local Procedure: [...] The Prostatic Urethra is: Unobstructed The Bladder: No tumors. Healing previous resection sites. One area from prior resection with necrotic tissue from the dome site. Several small bright yellow stones in the bladder. No sign of infection. ?ureteral stone causing all of his sxs? check ct. Trabeculated: Moderate (2) The Ureteral orifices: Show efflux of clear urine Specimens Removed: Voided specimen sent for FISH and Cytology test Removal: Cystoscope is removed. The patient tolerated it well. Postoperative Information Patient is discharged home with antibiotic coverage. Follow up arranged. Assessment/Plan 1. History of bladder cancer (Z85.51: Personal history of malignant neoplasm of bladder) Original TURBT 09/04/22 - Low grade noninvasive urothelial carcinoma. [1] S/p TURBT, Mitomycin C intravesical placement 01/17/25 - Low grade noninvasive papillary urothelialcarcinoma. Prior cysto 04/24/25. Pt had IO cysto to check for bladder tumor recurrence without complications today. Pt took prophylactic abx prior to procedure. Will send voided specimen for FISH/cytol and call pt if positive. 2. BPH without urinary obstruction (N40.0: Benign prostatic hyperplasia without lower urinary tractsymptoms) PSA: 05/07/21 - 14.3 (prostatitis) 06/04/21 - 2.40 12/16/22 - 1.5 12/18/23 - 1.74 S/p TURP 11/2014. UA shows trace-intact blood and trace leuks. Do not think pt is infected. Suspectsecondary to necrotic tissue. Will send urine for cx since pt concerned for infection. Taking Cialis 5 mg qd. Pt would like to restart flomax. -Send urine for cx -Start Flomax 0.4 mg qd. SEs discussed. Stop taking and notify office if experiencing persistent dizziness/lightheadedness. Sent to . -Cont Cialis 5 mg qd, refill sent 3. Nocturia (R35.1: Nocturia) getting up 6x/night since original TURBT in 2021 [1] Stopped Flomax and started Cialis 5 mg qd at prior OV. 4. Elevated PSA (R97.20: Elevated prostate specific antigen [PSA]) PSA: 05/07/21 - 14.3 (prostatitis) 06/04/21 - 2.40 12/16/22 - 1.50 12/18/23 - 1.74 04/24/25 - 6.53 05/01/25 - 3.80 & 18% Follow up 11/16/25 with AO as scheduled or sooner if needed. Pt understands and agrees with plan. -Nurse visit for PSA F&T 11/09/25 5. Bladder stones (N21.0: Calculus in bladder) See procedure section. 6. Suprapubic pain (R10.24: Suprapubic pain) C/o suprapubic pain. Possible ureteral stone? Recommend CT to assess. Pt has hx of stones. Pt agreeable. -Schedule CT AP wo con 7. History of kidney stones (Z87.442: Personal history of urinary calculi) See #6. Follow-up With When Contact Information Shady SHANNON MD, URL [facility] [address] [place] [address]- Additional Instructions: Follow up 11/16/25 with AO (pending CT) Patient Education Cancer Screening for Males I, Joelle Mullins, personally scribed for Dr. Shannon on 07/24/2025 08:52:45. . Doc (more content not included)...[facility] CenterComment on above:Result Comment: Electronically Signed By: Shady SHANNON MD\.br\Date and Time Signed: 07/24/25 08:55 EST\.br\Electronically Co-Signed By: Joelle Mullins\.br\Date and Time Co-Signed: 07/24/25 08:53 ESTReminderson 05-25-2025 RemindersReminders From: Sanaz Nichols To: [facility] - Recallmynor Shannon; Sent: 05/25/2025 10:50:39 EDT Show up: 07/22/2025 10:50:00 EDT Subject: cysto/fish/cytol Due Date/Time: 08/14/2025 10:50:00 EST Reminder/Recall Patient is due in Oct 2025 for 3 month cysto/fish/cytol, bt ck, ? PSANormal [facility]rer [facility] CenterRemindersReminders From: Sanaz Nichols To: [facility] - Recalls Mirtha; Sent: 01/23/2025 13:18:02 EDT Show up: 05/22/2025 13:17:00 EDT Subject: cysto/FISH/cytol Due Date/Time: 06/12/2025 13:18:00 EDT Reminder/Recall Patient is due in Jul 2025 for 3 month cysto/fish/cytol, bt ck Spoke to pts , pt sched for 07/24/25 [facility] [place] office.LGNoOhioHealth Riverside Methodist HospitalProvider Letteron [id number] LetterProvider Letter May 11, 2025 ANDERS LYMAN [address] [place] [address] : 1950 Dear Anders , We have been trying to reach you with no success. It is important that you return our call regarding a message from your provider upon receiving this letter. Also, at the time of your call, please provide us with your current information. Thank you for your prompt attention to this matter. Sincerely, [facility] [place] [address] NoOhioHealth Riverside Methodist HospitalUrology Office/Clinic Noteon [id number] Office/Clinic NoteUrology Office/Clinic Note Chief Complaint Nocturia HPI Staff 74 year old male patient here for nocturia (8-10x a night) . Pt had cysto done with PRW 04/24/25 and a fish/cytol done. Previous dx: hx of bladder cancer, BPH without obstruction, nocturia Was to start Flomax 0.4 mg qd 04/24/25 IPSS: 15 denies dysuria, denies visible blood, has some abdominal pain while coughing, etc. denies flank pain PVR: 34 ml History of Present Illness I have reviewed and verified the staff HPI to be accurate for this encounter. Portions of this record may have been created with voice recognition artificial intelligence software, specifically [employer] and or [employer]. Substitutions may have occurred due to the inherent limitations of voice recognition and artificial intelligence software. Review of Systems PHQ Score Initial Depression Screen Score: 0 SCORE Physical Exam Vitals & Measurements T: 36.8 ???C(Temporal Artery) HR: 85(Peripheral) RR: 16 BP: 140/90 HT: 165 cm HT: 65 in WT: 147.93 lb WT: 67.1 kg BMI: 24.65 General: Well developed, well nourished, in no acute distress. Assessment/Plan PRW pt 1. Nocturia (R35.1: Nocturia) getting up 6x/night since original TURBT in 2021 extremely bothersome Started tamsulosin at time of cysto 1.5 wk ago. Has not make any difference in any of his urinary sxs. Pt does note that when he takes his PRN cialis for ED, his nocturia is significantly improved aswell as daytime frequency sxs/stream. We discussed low dose cialis daily for the management of BPH sxs, SEs. Pt wishes to trial this. -stop tamsulosin -start cialis QD -pt declined scheduled f/u at this time 2. BPH without urinary obstruction (N40.0: Benign prostatic hyperplasia without lower urinary tractsymptoms) S/p TURP 11/2014. No BPH meds. [3] s/p cysto 04/24/25 - unobstructed prostatic urethra IPSS 15 started on tamsulosin 0.4 mg QD at time of cysto - pt does not feel this has made any improvement of his stream or urinary sxs. see #1 -stop tamsulosin per pt preference -start cialis 5 mg QD 3. Screening PSA (prostate specific antigen) (Z12.5: Encounter for screening for malignant neoplasmof prostate) PSA: 05/07/21 - 14.3 (prostatitis) 06/04/21 - 2.40 12/16/22 - 1.5 12/18/23 - 1.74 05/01/25 - 3.8 & 18% Most recent PSA not reviewed while pt in office. Will need recheck level d/t increase. -repeat PSA 2 wks, will call w/ results 4. History of bladder cancer (Z85.51: Personal history of malignant neoplasm of bladder) Original TURBT 09/04/22 - Low grade noninvasive urothelial carcinoma. [1] S/p Cysto 01/03/25 - Two 1-2 cm tumors, one on the dome and one on the back floor. They look like classic low grade. Neg FISH/cytol. S/p TURBT, Mitomycin C intravesical placement 01/17/25 - Low grade noninvasive papillary urothelialcarcinoma. s/p cysto 04/24/25 - healing previous resection sites, necrotic tissue from the dome site. No tumors or stones. -plan for surveillance cysto/FISH/cytol Jul 2025 Follow-up No qualifying data available Patient Education Urinary Frequency, Adult Benign Prostatic Hyperplasia Problem List/Past Medical History Ongoing Acute kidney injury Bladder cancer Bladder pain BMI 27.0-27.9,adult BPH without urinary obstruction Chronic GERD History of bladder cancer Hyperlipemia Kidney stone Nocturia Organic impotence Screening PSA (prostate specific antigen) Historical Chronic kidney disease stage 3A. Procedure/Surgical History Cystoscopy (04/24/2025), TURBT - Transurethral resection of bladder tumor (01/17/2025), Cystoscope (01/03/2025), Cystoscopy (06/16/2023), Cystoscopy (12/16/2022), TURBT - Transurethral resection of bladder tumor (09/04/2022), Cystoscopy (08/19/2022), Cystoscopy (06/25/2021), Cystoscopy (06/12/2020), Cystoscopy (06/07/2019), Cystoscopy (06/08/2018), TURP - Transurethral resection of prostate (11/23/2014), Cystoscopy and transurethral resection of bladder tumour (04/27/2014), Cystoscopy to removeobject (06/08/2012), Cystoscopic anastomosis of ureter to bladder with insertion of stent into ureter (05/13/2012), Transrectal biopsy of prostate using ultrasound (US) guidance (10/24/2009), back surgery, Colonoscopy. Medications aspirin 325 mg Oral EC Tab, 325 mg= 1 tab(s), Oral, Daily atorvastatin 20 mg Tab, 20 mg= 1 tab(s), Oral, Daily calcium-vitamin D cyclobenzaprine 10 mg Tab, 10 mg= 1 tab(s), Oral, Daily, PRN hydrochlorothiazide-irbesartan 12.5 mg-150 mg Tab, Oral, Daily Multi Vitamin+, See Instructions Nexium 20 mg Cap-DR, 20 mg= 1 cap(s), Oral, Daily Omeprazole 20 mg Cap - DR, Oral, Daily oxybutynin 5 mg Tab, 10 mg= 2 tab(s), Oral, Bedtime, 1 refills, Not taking tadalafil 5 mg oral tablet, 5 mg= 1 tab(s), Oral, Daily, 3 refills tamsulosin 0.4 mg Cap, 0.4 mg= 1 cap(s), Oral, Daily, 11 refills traMADOL 50 mg Tab, 50 mg= 1 tab(s), Oral, Daily zolpidem 10 mg oral tablet, 10 mg= 1 tab(s), (more content not included)... [facility] CenterComment on above:Result Comment: Electronically Signed By: SILVANO Medrano APRN, Delmi Owens\.br\Date and Time Signed: 05/08/25 09:58 EDTAmbulatory Visit Summaryon [id number] Visit SummaryAmbulatory Visit Summary ANDERS LYMAN :1950 Visit Date:05/04/2025 Ambulatory Visit Instructions Your Diagnosis Nocturia BPH without urinary obstruction History of bladder cancer Screening PSA (prostate specific antigen) Your Care Team Attending Physician - SILVANO Medrano APRN, [place] X Primary Care Physician - RICHARD DENNIS MD This Is Your Medications List aspirin (aspirin 325 mg Oral EC Tab) atorvastatin (atorvastatin 20 mg Tab) calcium-vitamin D cyclobenzaprine (cyclobenzaprine 10 mg Tab) esomeprazole (Nexium 20 mg Cap-DR) hydrochlorothiazide-irbesartan (hydrochlorothiazide-irbesartan 12.5 mg-150 mg Tab) multivitamin (Multi Vitamin+) omeprazole (Omeprazole 20 mg Cap - DR) oxybutynin (oxybutynin 5 mg Tab) tamsulosin (tamsulosin 0.4 mg Cap) tramadol (traMADOL 50 mg Tab) zolpidem (zolpidem 10 mg oral tablet) Procedures Performed Cystoscopy (04/24/2025), TURBT - Transurethral resection of bladder tumor (01/17/2025), Cystoscope (01/03/2025), Cystoscopy (06/16/2023), Cystoscopy (12/16/2022), TURBT - Transurethral resection of bladder tumor (09/04/2022), Cystoscopy (08/19/2022), Cystoscopy (06/25/2021), Cystoscopy (06/12/2020), Cystoscopy (06/07/2019), Cystoscopy (06/08/2018), TURP - Transurethral resection of prostate (11/23/2014), Cystoscopy and transurethral resection of bladder tumour (04/27/2014), Cystoscopy to removeobject (06/08/2012), Cystoscopic anastomosis of ureter to bladder with insertion of stent into ureter (05/13/2012), Transrectal biopsy of prostate using ultrasound (US) guidance (10/24/2009), back surgery, Colonoscopy. Discharge Vitals Temperature (Temporal Artery) 36.8 ???C Heart Rate (Peripheral) 85 Respiratory Rate 16 Blood Pressure 140/90 Height 65 in Height 165 cm Weight 147.93 lb Weight 67.1 kg BMI 24.65 Medications What How Much When Why Instructions Unchanged aspirin (aspirin 325 mg Oral EC Tab) 1 Tablets By Mouth Every day Unchanged atorvastatin (atorvastatin 20 mg Tab) 1 Tablets By Mouth Every day Unchanged calcium-vitamin D Unchanged cyclobenzaprine (cyclobenzaprine 10 mg Tab) 1 Tablets By Mouth Every day as needed for for spasm Unchanged esomeprazole (Nexium 20 mg Cap-DR) 1 Capsules By Mouth Every day Unchanged hydrochlorothiazide-irbesartan (hydrochlorothiazide-irbesartan 12.5 mg-150 mg Tab) By Mouth Every day Unchanged multivitamin (Multi Vitamin+) See instructions Unchanged omeprazole (Omeprazole 20 mg Cap - DR) By Mouth Every day Unchanged oxybutynin (oxybutynin 5 mg Tab) 2 Tablets By Mouth At bedtime Duration: 30 Days Unchanged tamsulosin (tamsulosin 0.4 mg Cap) 1 Capsules By Mouth Every day Nocturia BPH without urinary obstruction Unchanged tramadol (traMADOL 50 mg Tab) 1 Tablets By Mouth Every day Unchanged zolpidem (zolpidem 10 mg oral tablet) 1 Tablets By Mouth Once a day (at bedtime) as needed for for sleep Allergies No Known Medication Allergies Problems Ongoing - Any problem that you are currently receiving treatment for. Acute kidney injury Bladder cancer Bladder pain BMI 27.0-27.9,adult BPH without urinary obstruction Chronic GERD History of bladder cancer Hyperlipemia Kidney stone Nocturia Organic impotence Screening PSA (prostate specific antigen) Historical - Any problem that you are no longer receiving treatment for. Chronic kidney disease stage 3A. Patient Survey You may receive a survey via text or e-mail asking about your office visit. Please share your experience with us by completing your survey. We appreciate your feedback and thank you for choosing us for your care. Patient Portal You may access all of your results and other medical record information on our secure patient portal. If you are not signed up for this yet, please contact Health Information [facility] at [phone] to get signed up today. Language Information Language assistance services are available as needed. [facility] CenterBASAINT ELIZABETH EDGEWOOD METABOLIC PANELon [id number]/CREATININE RATIOSEE NOTE:Normal6-22Quest DiagnosticsComment on above:Result Comment: Not Reported: BUN and Creatinine are within reference range.Performed By: #### [id number], [id number] #### [facility] of [address], [address] [place] [address] Vocational Trainer: Kendall Ambrosio MDCalcium [Mass/Vol]9.4 mg/dLNormal8.6-10.3Quest DiagnosticsComment on above:Performed By: #### 33233, 93562 #### [facility] [address], [address] [place] [address] Vocational Trainer: Kendall Ambrosio MDChloride [Moles/Vol]102 mmol/VGcukvv95-595 Quest DiagnosticsComment on above:Performed By: #### 18749, 30708 #### [facility] [address], [address] [place] [address] Vocational Trainer: Kendall Ambrosio MDCO2 [Moles/Vol]28 mmol/EQqvpag74-98Dzifs DiagnosticsComment on above:Performed By: #### 13996, 44142 #### [facility] [address], [address] [place] [address] Vocational Trainer: Kendall Ambrosio MDCreatinine [Mass/Vol]1.18 mg/dLNormal0.70-1.28 [facility] DiagnosticsComment on above:Performed By: #### 73727, 97703 #### [facility] [address], [address] [place] [address] Vocational Trainer: Kendall Ambrosio MDGFR/1.73 sq M.predicted among non-blacks MDRD (S/P/Bld) [Vol rate/Area]65 mL/min/{1.73_m2}Normal> OR = 60[facility] Comment on above:Performed By: #### 28081, 41931 #### [facility] [place] [address] Vocational Trainer: Kendall Ambrosio MDGlucose [Mass/Vol]84 mg/oSCpfzuh78-85Kdugl DiagnosticsComment on above:Result Comment: Fasting reference intervalPerformed By: #### 25030, 29219 #### [facility] [place] [address] Vocational Trainer: Kendall Ambrosio MDPotassium [Moles/Vol]3.9 mmol/LNormal3.5-5.3 Quest DiagnosticsComment on above:Performed By: #### 79181, 73301 #### [facility] [place] [address] Vocational Trainer: Kendall Ambrosio MDSodium [Moles/Vol]139 mmol/DVlgcfn609-387Tqguf DiagnosticsComment on above:Performed By: #### 63859, 51552 #### [facility] [place] [address] Vocational Trainer: Kendall Ambrosio MDUrea nitrogen [Mass/Vol]17 mg/dLNormal7-25 Quest DiagnosticsComment on above:Performed By: #### 00423, 38399 #### [facility] [place] [address] Vocational Trainer: Kendall Ambrosio MDPSA (FREE AND TOTAL)on 76-15-8002UUN, % FREE18 % (calc)Low>25Quest DiagnosticsComment on above:Result Comment: PSA(ng/mL) Free PSA(%) Estimated(x) Probability of Cancer(as%) 0-2.5 (*) Approx. 1 2.6-4.0(1) 0-27(2) 24(3) 4.1-10(4) 0-10 56 11-15 28 16-20 20 21-25 16 >or =26 8 >10(+) N/A >50 References:(1)Jaleel et al.:Urology 60: 469-474 (2002) (2)Jaleel et al.:J.Urol 168: 922-925 (2001) Free PSA(%) Sensitivity(%) Specificity(%) < or = 25 85 19 < or = 30 93 9 (3)Catalona et al.:MEKA 277: 8775-0277 (1996) (4)Catalona et al.:MEKA 279: 0630-9774 (1997) (x)These estimates vary with age, ethnicity, family history and LUIS M results. (*)The diagnostic usefulness of % Free PSA has not been established in patients with total PSA below 2.6 ng/mL (+)In men with PSA above 10 ng/mL, prostate cancer risk is determined by total PSA alone. The Total PSA value from this assay system is standardized against the equimolar PSA standard. The test result will be approximately 20% higher when compared to the WHO-standardized Total PSA (Siemens assay). Comparison of serial PSA results should be interpreted with this fact in mind. PSA was performed using the Byron Tess Immunoassay method. Values obtained from different assay methods cannot be used interchangeably. PSA levels, regardless of value, should not be interpreted as absolute evidence of the presence or absence of disease.Performed By: #### 11425, 96609 #### [facility] [place] [address] Vocational Trainer: Kendall GUTHRIE, FREE0.7 ng/mLNormalQuest Diagnostics Comment on above:Performed By: #### 19447, 58438 #### [facility] [place] [address] Vocational Trainer: Kendall DORSEYSA, TOTAL3.8 ng/mLNormal< OR = 4.0Quest DiagnosticsComment on above:Performed By: #### [id number], 59212 #### [facility] [place] [address] Vocational Trainer: Kendall Ambrosio MDUroVysion Fish and Urine Cyto ( Labs)on [id number] & UCDiagnosis InfoInvalid Interpretation [facility] Medical CenterComment on above:Result Comment: A:Urine,Urine:Voided Diagnosis Summary - Adequate cellularity for evaluation. Diagnosis Summary - The UroVysion FISH study detected normal copy numbers for chromosomes 3, 7, 17,and 9p21. 34 cells were analyzed in this evaluation. 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 This test does not rule out the possibility of a low grade non-invasive papillary urothelial carcinoma. These findings should be correlated with cytology and cystoscopy results. * CPT: 87515, 40778. Microscopic Notes - Microscopic Notes - Abnormal cells 9p21 deletions: Abnormal cells aneploid events: Total cells analyzed: 34 Hematuria: Gross Description Site ID:A color Yellow fixative Alcohol Received 100 mls of clear yellow fluid with the patient's name and, Urine on the vial. Electronically signed by : on: 05/01/2025 10:14:22Performed By: #### [id number] #### [facility] [address] [place], [place] [address]JICOI PANEL, STANDARDon [id number] [Mass/Vol]177 mg/dLNormal<200Quest DiagnosticsComment on above:Performed By: #### 47638, 5530 #### [facility] [address], [address] [place] [phone] Vocational Trainer: Kendall Ambrosio MDCholesterol in HDL [Mass/Vol]42 mg/dLNormal> OR = 40Quest DiagnosticsComment on above:Performed By: #### 66345, 2220 #### [facility] [address] , [address] [place] [phone] Vocational Trainer: Kendall Ambrosio MDCholesterol in LDL [Mass/Vol]110 mg/dLHigh Quest DiagnosticsComment on above:Result Comment: Reference range: <100 Desirable range <100 mg/dL for primary prevention; <70 mg/dL for patients with CHD or diabetic patients with > or = 2 CHD risk factors. LDL-C is now calculated using the Trenton-Finch calculation, which is a validated novel method providing better accuracy than the Friedewald equation in the estimation of LDL-C. Trenton SS et al. MEKA. 2013;310(19): 1634-0454 (http://education.[employer]/faq/ONQ532)Performed By: #### 43397, 7600 #### [facility] [address], [address] [place] [address] Vocational Trainer: Kendall MYERSholesterol.total/Cholesterol in HDL [Mass ratio]4.2 {ratio}Normal<5.0Quest DiagnosticsComment on above:Performed By: #### 42065, 7600 #### [facility] [address], [address] [place] [address] Vocational Trainer: Kendall HDZ HDL [id number] mg/dL (calc)High<130 Quest DiagnosticsComment on above:Result Comment: For patients with diabetes plus 1 major ASCVD risk factor, treating to a non-HDL-C goal of <100 mg/dL (LDL-C of <70 mg/dL) is considered a therapeutic option.Performed By: #### 12059, 7600 #### [facility] [address], [address] [place] [address] Vocational Trainer: Kendall Ambrosio MDTriglyceride [Mass/Vol]135 mg/dLNormal<150 Quest DiagnosticsComment on above:Performed By: #### 32114, 7600 #### [facility] [address], [address] [place] [address] Vocational Trainer: Kendall Ambrosio MDPSA, TOTALon [id number], TOTAL6.53 ng/mL High< OR = 4.00Quest DiagnosticsComment on above:Result Comment: The total PSA value from this assay system is standardized against the WHO standard. The test result will be approximately 20% lower when compared to the equimolar-standardized total PSA (Byron Tess). Comparison of serial PSA results should be interpreted with this fact in mind. This test was performed using the Siemens chemiluminescent method. Values obtained from different assay methods cannot be used interchangeably. PSA levels, regardless of value, should not be interpreted as absolute evidence of the presence or absence of disease.Performed By: #### 5363 #### [facility] [address] [place] [address] Rd, [address] [place] [address] Vocational Trainer: Kendall Ambrosio MDTS W/REFLEX TO FT4on [id number] W/REFLEX TO FT41.36 mIU/LNormal0.40-4.50Quest DiagnosticsComment on above:Performed By: #### 15590, 7600 #### [facility] [address], [address] [place] [address] Vocational Trainer: Kendall Ambrosio MDAmbulatory Visit Summaryon 04-24-2025 Ambulatory Visit SummaryAmbulatory Visit Summary ANDERS LYMAN :1950 Visit Date:04/24/2025 Ambulatory Visit Instructions Your Diagnosis History of bladder cancer BPH without urinary obstruction Nocturia Your Care Team Attending Physician - MIRTHA BLOCK, Shady Farnsworth Primary Care Physician - BOLIVAR BLOCK, RICHARD Lopez This Is Your Medications List tamsulosin (tamsulosin 0.4 mg Cap) Contact prescribing physician if questions or concerns aspirin (aspirin 325 mg Oral EC Tab) atorvastatin (atorvastatin 20 mg Tab) calcium-vitamin D cyclobenzaprine (cyclobenzaprine 10 mg Tab) esomeprazole (Nexium 20 mg Cap-DR) hydrochlorothiazide-irbesartan (hydrochlorothiazide-irbesartan 12.5 mg-150 mg Tab) multivitamin (Multi Vitamin+) omeprazole (Omeprazole 20 mg Cap - DR) oxybutynin (oxybutynin 5 mg Tab) tramadol (traMADOL 50 mg Tab) zolpidem (zolpidem 10 mg oral tablet) Procedures Performed Cystoscopy (04/24/2025), TURBT - Transurethral resection of bladder tumor (01/17/2025), Cystoscope (01/03/2025), Cystoscopy (06/16/2023), Cystoscopy (12/16/2022), TURBT - Transurethral resection of bladder tumor (09/04/2022), Cystoscopy (08/19/2022), Cystoscopy (06/25/2021), Cystoscopy (06/12/2020), Cystoscopy (06/07/2019), Cystoscopy (06/08/2018), TURP - Transurethral resection of prostate (11/23/2014), Cystoscopy and transurethral resection of bladder tumour (04/27/2014), Cystoscopy to removeobject (06/08/2012), Cystoscopic anastomosis of ureter to bladder with insertion of stent into ureter (05/13/2012), Transrectal biopsy of prostate using ultrasound (US) guidance (10/24/2009), back surgery, Colonoscopy. Discharge Vitals Heart Rate (Peripheral) 84 Respiratory Rate 20 Blood Pressure 154/93 Height 165 cm Height 65 in Weight 66 kg Weight 145.505 lb BMI 24.24 What to do next You Need to Schedule the Following Appointments Follow Up with MIRTHA BLOCK, SHANELL Rodrigues When: Where: [facility] [address] , [place] [phone] Medications What How Much When Why Instructions New tamsulosin (tamsulosin 0.4 mg Cap) 1 Capsules By Mouth Every day Nocturia BPH without urinary obstruction Refills: 11 Pickup at [facility] Unchanged aspirin (aspirin 325 mg Oral EC [...] prescribing physician if questions or concerns Unchanged hydrochlorothiazide-irbesartan (hydrochlorothiazide-irbesartan 12.5 mg-150 mg Tab) By Mouth Every day Contact prescribing physician if questions or concerns Unchanged multivitamin (Multi Vitamin+) See instructions Contact prescribing physician if questionsor concerns Unchanged omeprazole (Omeprazole 20 mg Cap - DR) By Mouth Every day Contact prescribing physician if questions or concerns Unchanged oxybutynin (oxybutynin 5 mg Tab) 2 Tablets By Mouth At bedtime Duration: 30 Days Contact prescribing physician if questions or concerns Unchanged tramadol (traMADOL 50 mg Tab) 1 Tablets By Mouth Every day Contact prescribing physician if questions or concerns Unchanged zolpidem (zolpidem 10 mg oral tablet) 1 Tablets By Mouth Once a day (at bedtime) as needed for for sleep Contact prescribing physician if questions or concerns Pharmacy Information [facility]: [address] [place], [place] [id number] [phone] Medications and Immunizations Administered Given lidocaine Top 2% Gel w/Appl 6 mL, 6 mL, Topical. For: History of bladder cancer Allergies No Known Medication Allergies Problems Ongoing - Any problem that you are currently receiving treatment for. Bladder cancer Bladder pain BMI 27.0-27.9,adult BPH without urinary obstruction Chronic GERD History of bladder cancer Hyperlipemia Kidney stone Nocturia Organic impotence Patient Survey You may receive a survey via text or e-mail asking about your office visit. Please share your experience with us by completing your survey. We appreciate your feedback and thank you for choosing us for your care. Education Materials Benign Prostatic Hyperplasia Benign prostatic hyperplasia (BPH) is an enlarged prostate gland that is caused by the normal agingprocess. The prostate may get bigger as a man gets older. The condition is not caused by cancer. The prostate is a walnut-sized gland that is involved in the production of semen. It is located in front of the rectum and below the bladder. The bladder stores uri (more content not included)...Normal [facility] HospitalUroVysion Fish and Urine Cyto (P4 Labs)on 04-24-2025 UVUC Method of ExtractionVoidedNoOhioHealth Riverside Methodist HospitalComment on above:Performed By: #### [id number] #### [facility] [address] [place], [place] [address]RNTL Number of Yivx7Pqgpazr Interpretation CodeKnox Community HospitalComment on above:Performed By: #### [id number] #### [facility] [address] [place], [place] [address]IHVW SpecimenUrineAdams County Regional Medical CenterComment on above:Performed By: #### [id number] #### [facility] [address] [place], [place] [address]FJXM Type of ServiceTechnical OnlyAdams County Regional Medical CenterComment on above:Performed By: #### [id number] #### [facility] [address] [place], [place] [address]Gkatlpv Office/Clinic Noteon [id number] Office/Clinic NoteUrology Office/Clinic Note Chief Complaint Patient is here for Cysto/FISh/cytol HPI Staff 74 yr old male here for Cysto/ needs FISH/CYTO Dx: Nocturia History of Present Illness Tests reviewed: reviewed UA I have reviewed the previous health record information and history for this patient from Filomena Stevens PA-C. I have reviewed and verified the staff [...] See HPI. Physical Exam Vitals & Measurements HR: 84(Peripheral) RR: 20 BP: 154/93 HT: 165 cm HT: 65 in WT: 66 kg WT: 145.505 lb BMI: 24.24 General Appearance: alert, no distress, well nourished, [...] The Prostatic Urethra is: Unobstructed The Bladder: healing previous resection sites. necrotic tissue from the dome site. No tumors or stones. , Trabeculated: Moderate (2) The Ureteral orifices: Show efflux of clear urine The Urethra was dilated to: _ Ukrainian with sounds. Specimens Removed: Voided specimen sent for FISH and Cytology test Removal: Cystoscope is removed. The patient tolerated it well. Postoperative Information Patient is discharged home with antibiotic coverage. Follow up arranged. Assessment/Plan 1. History of bladder cancer (Z85.51: Personal history of malignant neoplasm of bladder) Original TURBT 09/04/22 - Low grade noninvasive urothelial carcinoma. [1] S/p Cysto 01/03/25 - Two 1-2 cm tumors, one on the dome and one on the back floor. They look like classic low grade. Neg FISH/cytol. S/p TURBT, Mitomycin C intravesical placement 01/17/25 - Low grade noninvasive papillary urothelialcarcinoma. [2] Pt had IO cysto to check for bladder tumor recurrence without complications today. Pt took prophylactic abx prior to procedure. Will send voided specimen for FISH/cytol and call pt if positive. Cystotoday was negative for recurrence. Follow up for cysto in 3 mos or sooner if needed. Pt understands and agrees with plan. 2. BPH without urinary obstruction (N40.0: Benign prostatic hyperplasia without lower urinary tractsymptoms) PSA: 05/07/21 - 14.3 (prostatitis) 06/04/21 - 2.40 12/16/22 - 1.5 12/18/23 - 1.74 S/p TURP 11/2014. No BPH meds. [3] Getting up ~6x/night. Very bothersome. Discussed starting Flomax. Possible SEs discussed. not on oxybutynin anymore. Pt wishes to try this. -Start Flomax 0.4mg qd. Rx sent to [facility]. 3. Nocturia (R35.1: Nocturia) See #2. Follow-up With When Contact Information MIRTHA BLOCK, Shady Farnsworth, URL [facility] [address] , [place] [phone] Additional Instructions: 3 mos cysto/FISH/cytol Patient Education Benign Prostatic Hyperplasia I, Telma Dennis, personally scribed for Dr. Shannon on 04/24/2025 08:31:10. . Documentation recorded by the scribe, Telma Dennis, accurately reflects the services(s) I performed and decisions made by me. Authenticated by Dr. Shannon on 04/24/2025 08:33:39. Problem List/Past Medical History Ongoing Bladder cancer Bladder pain BMI 27.0-27.9,adult BPH without urinary obstruction Chronic GERD History of bladder cancer Hyperlipemia Kidney stone Nocturia Organic impotence Historical No qualifying data Procedure/Surgical History Cystoscopy (04/24/2025), TURBT - Transurethral resection of bladder tumor (01/17/2025), Cystoscope (01/03/2025), Cystoscopy (06/16/2023), Cystoscopy (12/16/2022), TURBT - Transurethral resection of bladder tumor (09/04/2022), Cystoscopy (08/19/2022), Cystoscopy (06/25/2021), Cystoscopy (06/12/2020), Cystoscopy (06/07/2019), Cystoscopy (06/08/2018), TURP - Transurethral resection of prostate (11/23/2014), Cystoscopy and transurethral resection of bladder tumour (04/27/2014), Cystoscopy to removeobject (06/08/2012), Cystoscopic anastomosis of ureter to bladder with insertion of stent into ureter (05/13 (more content not included)...[facility] Medical CenterComment on above: Result Comment: Electronically Signed By: Shady SAHNNON MD\.br\Date and Time Signed: 04/24/25 08:33 EDT\.br\Electronically Co-Signed By: Telma Dennis\.br\Date and Time Co-Signed: 04/24/25 08:31 EDTPatient Letter FTon [id number] Letter FTPatient Letter [facility] [place] March 31, 2025 ANDERS ESMER [address] [place] [address] : 1950 To who it may concern, Anders sEmer, : 1950, is a current urology patient of [facility] being treated for bladder cancer. I am sending this letter in response to the denial of payment for this patients Cystoscopy/ Trans-urethral resection of bladder tumor and Mitomycin treatment completed on 01/17/25. This patient has ahistory of recurrent bladder cancer, and given the fact that there is a nationwide shortage on BCG treatments, Mitomycin was given at the time of his surgery. It was medically necessary for this patient to have the treatment given his history of bladder cancer recurrences. I have enclosed a copy ofthe path report along with this letter in hope that you will reconsider covering the charges for these services. Thank you for your consideration in this matter. Sincerely, Shady Shannon M.D., F.A.C.S. [facility] [address] [place], [place] [id number] , option #3NormalFisher Grace Medical CenterUrology Office/Clinic Noteon [id number] Office/Clinic NoteUrology Office/Clinic Note HPI Staff Pt is here today for nocturia and also urge incontinence during sleep. Pt states that this started about 3-4 weeks ago. Pt states that he has been taking the Oxybutynin 1 in the morning and at night.Pt has started wearing pads at night. He does not need them during the day. He states that he is drinking normally during the day and not voiding very often but at night he is waking up sometimes 10xand wetting himself when he sleeps without knowing [...] Call in 1 week w update. Ordered: 42857 Measure Post Void residual urine and/or bladder capacity by US- non-imaging E&M of Est. Patient Moderate 30-39 Min 90392 Urnls Dip Stick Auto w/o Microscopy POC 55497 Orders: oxybutynin, 10 mg = 2 tab(s), Oral, Bedtime, X 30 day(s), # 60 tab(s), Refills(s) 1, Pharmacy: [facility], 165, cm, 03/27/25 12:12:00 EDT, Height/Length Dosing, 67.3, kg, 03/27/25 12:12:00EDT, Weight Dosing Follow-up With When Contact Information [facility] Additional Instructions: For procedure as scheduled. Patient [...] with insertion of stent into ureter (05/13/2012), Transrect al biopsy of prostate using ultrasound (US) guidance (10/24/2009), back surgery, Colonoscopy. Medications aspirin 325 mg Oral EC Tab, 325 mg= 1 tab(s), Oral, Daily atorvastatin 20 mg Tab, 20 mg= 1 tab(s), Oral, Daily calcium-vitamin D cyclobenzaprine 10 mg Tab, 10 mg= 1 tab(s), Oral, Daily, PRN hydrochlorothiazide-irbesartan 12.5 mg-150 mg Tab, Oral, Daily Multi [...] Negative (03/27/25 13:46:00) Gluco (more content not included)...[facility] Medical CenterComment on above:Result Comment: Electronically Signed By: FILOMENA STEVENS PA-C\Date and Time Signed: 03/27/2513:59 EDTUrology Office/Clinic Noteon [id number] Office/Clinic NoteUrology Office/Clinic Note Chief Complaint Bladder pain HPI [...] placement 01/17/25 - Low grade noninvasive papillary urothelialcarcinoma. Went to [facility] ER 01/18/25 due to inability to urinate, [...] urinating. Mild at rest. Says the Oxybutynin fromER made no difference. PVR 140ml IO UA shows sm hgb only. No infection. Discussed we will trial Pyridium. Risks/benefits/side effects discussed. Call if no improvement after a few doses. Ordered: E&M of Est. Patient Moderate 30-39 Min 92501 Orders: ciprofloxacin, 500 mg = 1 tab(s), Oral, Daily, Take 1 tablet the day before the procedure and 1 tablet after the procedure, every 3 months, # 8 tab(s), Refills(s) 0, Pharmacy: [facility], 165, cm, 01/23/25 12:31:00 EDT, Height/Length Dosing, 69.3, kg, ... phenazopyridine, 200 mg = 1 tab(s), Oral, TID, PRN bladder pain, X 5 day(s), # 15 tab(s), Refills(s) 0, Pharmacy: [facility], 165, cm, 01/31/25 10:27:00 EDT, Height/Length Dosing, 69.3, kg, 01/31/25 10:27:00 EDT, Weight Dosing Urnls Dip Stick Auto w/o Microscopy POC 86525 Follow-up With When Contact Information Keep previously [...] with insertion of stent into ureter (05/13/2012), Transrect al biopsy of prostate using ultrasound (US) guidance (10/24/2009), back surgery, Colonoscopy. Medications aspirin 325 mg Oral EC Tab, 325 mg= 1 tab(s), Oral, Daily atorvastatin 20 mg Tab, 20 mg= 1 tab(s), Oral, Daily calcium-vitamin D cyclobenzaprine 10 mg Tab, 10 mg= 1 tab(s), Oral, Daily, PRN hydrochlorothiazide-irbesartan 12.5 mg-150 mg Tab, Oral, Daily Multi [...] [id number] vax 07/11/2021 Recor (more content not included)...[facility] Medical CenterComment on above:Result Comment: Electronically Signed By: FILOMENA STEVENS PA-C\.br\Date and Time Signed: 02/01/2509:40 EDTAmbulatory Visit Summaryon [id number] Visit Summary Ambulatory Visit Summary ANDERS LYMAN :1950 Visit Date:01/31/2025 Ambulatory Visit Instructions Your Diagnosis BPH without urinary obstruction Your Care Team Attending Physician - FILOMENA STEVENS PA-C Primary Care Physician - RICHARD DENNIS MD This Is Your Medications List acetaminophen-hydrocodone (acetaminophen-hydrocodone 325 mg-5 mg oral tablet) aspirin (aspirin 325 mg Oral EC Tab) atorvastatin (atorvastatin 20 mg Tab) calcium-vitamin D cephalexin (cephalexin 500 mg Cap) cranberry (Cranberry) cyclobenzaprine (cyclobenzaprine 10 mg Tab) esomeprazole (Nexium 20 mg Cap-DR) hydrochlorothiazide-irbesartan (hydrochlorothiazide-irbesartan 12.5 mg-150 mg Tab) multivitamin (Multi Vitamin+) [...] with insertion of stent into ureter (05/13/2012), Transrect al biopsy of prostate using ultrasound (US) guidance (10/24/2009), back surgery, Colonoscopy. Discharge Vitals Heart Rate (Peripheral) 79 Respiratory Rate 16 Blood Pressure 128/82 Height 165 cm Height 65 in Weight 69.3 kg Weight 152.78 lb BMI 25.45 What to do next Scheduled Follow-Up Appointments Thursday 8:15 AM EDT With: MIRTHA BLOCK, Shady Farnsworth Where: [facility] [address] [address]- Medications What How Much When Instructions Unchanged acetaminophen-hydrocodone (acetaminophen-hydrocodone 325 mg-5 mg oral tablet) 1 Tablets [...] 1 Capsules By Mouth Every day Unchanged hydrochlorothiazide-irbesartan (hydrochlorothiazide-irbesartan 12.5 mg-150 mg Tab) By Mouth Every [...] you for choosing us for your care. [facility] CenterUrology Office/Clinic Noteon [id number] Office/Clinic NoteUrology Office/Clinic Note Chief Complaint f/u to TURBT HPI Staff 74 yr old male here for f/u following TURBT, Mohamud removal and PATH results. Dx: Hx of bladder cancer, BPH without urinary obstruction, Bladder neoplasm of uncertain malignant potential Pt states that he returned to the [facility] ED due to pain and they gave him a script for pain meds, 7 days of Keflex 500mg BID and Oxybutynin. History of Present Illness Tests reviewed: reviewed UA, operative note, path report, renal function labs, CBC I have reviewed the previous health record information and history for this patient from Dr. Shannon. I have reviewed and verified the staff [...] placement 01/17/25 - Low grade noninvasive papillary urothelialcarcinoma. Catheter removed IO today wo complications. Previously went to [facility] ER 01/18/25 due to inability to urinate, [...] cancer in detail, including the grade of thecancer and the apparent stage, utilizing diagrams. We discussed the different treatment options forthe cancer, based on the grade and stage [...] (N40.0: Benign prostatic hyperplasia without lower urinary tractsymptoms) PSA: 05/07/21 - 14.3 (prostatitis) 06/04/21 - 2.40 12/16/22 - 1.5 12/18/23 - 1.74 S/p TURP 11/2014. No BPH meds. Follow-up With When Contact Information MIRTHA BLOCK, Shady Farnsworth, URL [facility] [address], [place] [phone] Additional Instructions: sched cysto/mitomycin Patient Education Chemotherapy Bladder Cancer I, Telma Dennis, personally scribed for Dr. Shannon on 01/23/2025 12:59:26. . Documentation recorded by the scribeTelma, accurately reflects the services(s) I performed and decisions made by me. Authenticated by Dr. Shannon on 01/23/2025 13:01:32. Problem List/Past Medical History [...] with insertion of stent into ureter (05/13/2012), Transrect al biopsy of prostate using ultrasound (US) guidance (10/24/2009), back surgery, Colonoscopy. Medications acetaminophen-hydroco (more content not included)...[facility] Medical CenterComment on above:Result Comment: Electronically Signed By: Shady SHANNON MD\.br\Date and Time Signed: 01/23/25 13:01 EDT\.br\Electronically Co- Signed By: Telma Dennis\.br\Date and Time Co-Signed: 01/23/25 12:59 EDTALL CBC WITH AUTO DIFFon [id number] ABSOLUTE [id number] HealthcareBasophils/100 WBC (Bld)0.3 %0.2 - 2.0 %NOMS HealthcareEosinophils/100 WBC (Bld)3.3 %0.9 - 7.0 %[facility]OMS HealthcareErythrocyte distribution width (RBC) [Ratio]13.2 %11.0 - 15.0 % [facility] HealthcareHematocrit (Bld) [Volume fraction]37.1 %Low42.0 - 54.0 %[facility] HealthcareHemoglobin (Bld) [Mass/Vol]12.8 g/dLLow14.0 - 18.0 g/dLNOMS Healthcare IMMATURE GRANULOCYTES ABS AUTO0.02NOMS HealthcareImmature granulocytes/100 WBC (Bld)0.3 %0.0 - 0.5 %[facility] HealthcareInterpretation and review of laboratory resultsAbnormalNOMS HealthcareLYMPHOCYTES ABSOLUTE AUTO0.7LowNOMS Healthcare Lymphocytes/100 WBC (Bld)11.2 %Low20.5 - 60.0 %[facility] Medical CenterH (RBC) [Entitic mass]31.8 pg25.9 - 34.0 pgNOJefferson Memorial HospitalHC (RBC) [Mass/Vol]34.5 g/dL29.9 - 35.2 g/dLNOParkland Health CenterMCV (RBC) [Entitic vol]92.1 fL80.0 - 94.0 fLLDS HOSPITAL HealthcareMONOCYTES ABSOLUTE AUTO0.2LowNOMS HealthcareMonocytes/100 WBC (Bld)3.8 %1.7 - 12.0 %[facility] HealthcareNEUTROPHILS ABSOLUTE AUTO5.2[facility] Neutrophils/100 WBC (Bld)81.1 %High43.0 - 75.0 %[facility]OM[facility] HealthcarePlatelet mean volume (Bld) [Entitic vol]10.3 fL9.5 - 13.5 fLLDS HOSPITAL HealthcareTBH EO #0.2NOMS HealthcareTBH [id number] HealthcareTBH RBC4.03LowNOCT HealthcareTBH WBC6.4NOCT HealthcareCLINISYNCNOMS HealthcareUrine Cultureon [id number] identified Cx Nom (U)No Growth 2 Days PERFORMED BY: [place] [address] PATHOLOGIST NET ARCHITECT SOY SANDERS M.D.[facility] Physician GroupComment on above: Performed By: #### CUU #### [facility] [address] [place] [address] USAUrine Cultureon [id number] identified Cx Nom (U)No Growth 2 Days PERFORMED BY: [place] [address] PATHOLOGIST NET ARCHITECT SOY SANDERS M.D.[facility] Physician GroupComment on above: Performed By: #### CUU #### [facility] [address] [place] [address] USALon 01-17-2025L Specimen: [id number] Received: 01/17/25 Status: THUY Thomasalda Num: [id number] Spec Type: Surgical Subm Dr: Shady Shannon MD Tissues: A Urinary Bladder - TUR (BLADDER TUMORS) Procedures: Mai CHEATHAM/Zander L5 Age/ Patient Sex Location Account Attending Physician Anders Lyman 74/M LABELL [id number] Shady Shannon MD SPEC NUM: [id number] RECD: 01/17/25 STATUS: THUY THOMASAlda NUM: [id number] KOLBY: 01/17/[address]: Shady Shannon MD ENTERED: 01/17/[address]: Malachi Orlando SPEC TYPE: Surgical DEPT: MOISÉS RENDON ENTERED BY: [id number] RECV BY: [id number] ORDERED: HE, Gross/Micro L5 ORDERED: HE, Gross/Micro [...] submitted in a single cassette. (1, ns, BS80- 272 A) CPT Codes 58826 Specimen: [id number] Received: 01/17/25 Status: THUY Giles Num: [id number] Spec Type: Surgical Subm Dr: Shady Shannon MD Tissues: A Urinary Bladder - TUR (BLADDER TUMORS) Procedures: CHAPARRITA, Gross/Micro L5 Patient: Anders Lyman [id number] (Continued) Signed (signature on file) Soy Sanders MD 01/18/[address] [place] [address] Physician GroupUroVysion Fish and Urine Cyto ( Labs)on [id number] & UCDiagnosis InfoInvalid Interpretation CodeFisher Grace Medical CenterComment on above:Result Comment: A:Urine,Urine:Voided Diagnosis Summary - Adequate cellularity for evaluation. Diagnosis Summary - The UroVysion FISH study detected normal copy numbers for chromosomes 3, 7, 17,and 9p21. 58 cells were analyzed in this evaluation. 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 This test does not rule out the possibility of a low grade non-invasive papillary urothelial carcinoma. These findings should be correlated with cytology and cystoscopy results. * CPT: 63103, 30038. Microscopic Notes - Microscopic Notes - Abnormal cells 9p21 deletions: Abnormal cells aneploid events: Total cells analyzed: 58 Hematuria: Gross Description Site ID:A color Yellow fixative Alcohol Received 100 mls of clear yellow fluid with the patient's name and, Urine on the vial. Electronically signed by : on: 01/11/2025 08:02:09Performed By: #### [id number] #### [facility] [address] [place] [id number] BASIC METABOLIC PANELon 78-03-6838Dnizm gap [Moles/Vol]11 mmol/LNOMS HealthcareCalcium [Mass/Vol]8.9 mg/dL8.5 - 10.1 mg/dLNOMS Healthcare Chloride [Moles/Vol]102 mmol/L98 - 107 mmol/LNOMS HealthcareCO2 [Moles/Vol]30 mmol/L21.0 - 32.0 mmol/LNOMS HealthcareCreatinine [Mass/Vol]1.56 mg/dLHigh0.70 - 1.30 mg/dLNOMS HealthcareGFR/1.73 sq M.predicted CKD-EPI (S/P/Bld) [Vol rate/Area]53Low>=60 mL/min/1.73m 2NOMS HealthcareGlucose [Mass/Vol]88 mg/dL74 - 106 mg/dLNOCT HealthcareInterpretation and review of laboratory resultsAbnormal NOMS HealthcarePotassium [Moles/Vol]4 mmol/L3.5 - 5.1 mmol/LNOMS Healthcare Sodium [Moles/Vol]139 mmol/L136 - 145 mmol/LNOMS HealthcareTBH EGFR-NON AF SFPLDGPP20Sai>=60 mL/min/1.73m 2NOMS HealthcareUrea nitrogen [Mass/Vol]17 mg/dL 7.0 - 18.0 mg/dLNOCT HealthcareUrea nitrogen/Creatinine [Mass ratio]10.9 mg/mg NOMS HealthcareCLINISYNCNJD MCC[facility] HealthcareAmbulatory Visit Summaryon 01-03-2025 Ambulatory Visit SummaryAmbulatory Visit Summary ANDERS LYMAN :1950 Visit Date:01/03/2025 Ambulatory Visit Instructions Your Diagnosis Hx of bladder cancer BPH without urinary obstruction Bladder neoplasm of uncertain malignant potential Your Care Team Attending Physician - MIRTHA BLOCK, Shady Farnsworth Primary Care Physician - BOLIVAR BLOCK, RICHARD Lopez This Is Your Medications List ciprofloxacin (Cipro 500 mg Tab) Contact prescribing physician if questions or concerns aspirin (aspirin 325 mg Oral EC Tab) atorvastatin (atorvastatin 20 mg Tab) calcium-vitamin D cranberry (Cranberry) cyclobenzaprine (cyclobenzaprine 10 mg Tab) esomeprazole (Nexium 20 mg Cap-DR) hydrochlorothiazide-irbesartan (hydrochlorothiazide-irbesartan 12.5 mg-150 mg Tab) multivitamin (Multi Vitamin+) omeprazole (Omeprazole 20 mg Cap - DR) tramadol (traMADOL 50 mg Tab) zolpidem (zolpidem 10 mg oral tablet) Procedures Performed Cystoscope (01/03/2025), Cystoscopy (06/16/2023), Cystoscopy (12/16/2022), TURBT - Transurethral resection of bladder tumor (09/04/2022), Cystoscopy (08/19/2022), Cystoscopy (06/25/2021), Cystoscopy (06/12/2020), Cystoscopy (06/07/2019), Cystoscopy (06/08/2018), TURP - Transurethral resection of pro state (11/23/2014), Cystoscopy and transurethral resection of bladder tumour (04/27/2014), Cystoscopy to remove object (06/08/2012), Cystoscopic anastomosis of ureter to bladder with insertion of stent into ureter (05/13/2012), Transrectal biopsy of prostate using ultrasound (US) guidance (10/24/2009), back surgery, Colonoscopy. Discharge Vitals Weight 69.3 kg Weight 152.78 lb What to do next You Need to Schedule the Following Appointments Follow Up with MIRTHA BLOCK, SHANELL Rodrigues When: Where: [facility] [address], [place] [address]- Medications What How Much When Instructions Unchanged [...] prescribing physician if questions or concerns Unchanged hydrochlorothiazide-irbesartan (hydrochlorothiazide-irbesartan 12.5 mg-150 mg Tab) By Mouth Every day Contact prescribing physician if questions or concerns Unchanged multivitamin (Multi Vitamin+) See instructions Contact prescribing physician if questionsor concerns Unchanged omeprazole (Omeprazole 20 mg Cap [...] home: Medicines ??? Ta (more content not included)...NormalKnox Community HospitalUroVysion Fish and Urine Cyto (P4 Labs)on 29-50-1108TVMA Method of ExtractionVoidedNoOhioHealth Riverside Methodist HospitalComment on above:Performed By: #### [id number] #### [facility] [address] [place], [place] [address]USHP Number of Gxny7Edgotzb Interpretation CodeKnox Community HospitalComment on above:Performed By: #### [id number] #### [facility] [address] [place], [place] [address]GXQR SpecimenUrineNoOhioHealth Riverside Methodist HospitalComment on above:Performed By: #### [id number] #### [facility] [address] [place], [place] [address]YKKD Type of ServiceTechnical OnlyNormalFisher Grace Medical CenterComment on above:Performed By: #### [id number] #### [facility] [address] [place], [place] [address]Aefyvzt Office/Clinic Noteon [id number] Office/Clinic NoteUrology Office/Clinic Note Chief Complaint Cysto HPI Staff Cysto ABX TAKEN, need fish/cytol History of Present Illness Tests reviewed: I have reviewed the previous health record information and history for this patient from Dr. Shannon. I have reviewed and verified the staff [...] (N40.0: Benign prostatic hyperplasia without lower urinary tractsymptoms) PSA: 05/07/21 - 14.3 (prostatitis) 06/04/21 - [...] among others. Additional therapy as well as follow-upbladder evaluation will most likely be required. Full informed consent has been obtained. Will order General anesthesia. -Surveillance cysto in 3 mos Follow-up With When Contact Information MIRTHA BLOCK, Shady Farnsworth, URL [facility] [address], [place] [address]- Additional Instructions: sched TURBT/mitomycin then 3 mo surveillance cysto Patient Education Transurethral Resection of Bladder Tumor, Care After Transurethral Resection of Bladder Tumor Joelle Benítez, personally scribed for Dr. Shannon on 01/03/2025 15:05:31. . Documentation recorded by the scribe, Joelle Mullins, accurately reflects the services(s) I performed and decisions made by me. Authenticated by Dr. Shannon on 01/03/2025 15:08:06. Problem List/Past Medical History [...] Cystoscopy (06/08/2018), TURP - Transurethral resection of pro state (11/23/2014), Cystoscopy and transurethral resection of bladder tumour (04/27/2014), Cystoscopy to remove object (06/08/2012), Cystoscopic anastomosis of ureter to bladder with insertion of stent into (more content not included)... [facility] Medical CenterComment on above:Result Comment: Electronically Signed By: MIRTHA BLOCK, Shayd Farnsworth\.br\Date and Time Signed: 01/03/25 15:08 EDT\.br\Electronically Co-Signed By: Joelle Mullins\.br\Date and Time Co- Signed: 01/03/25 15:05 EDTReminderson [id number] From: Sanaz Nichols To: [facility] - Recalls Mirtha; Sent: 11/03/2024 15:05:19 EST Show up: 09/21/2025 15:05:00 EST Subject: cysto/fish/cytol Due Date/Time: 10/16/2025 15:05:00 EST Reminder/Recall Patient is due in December 2025 for 1 year cysto/needs fish/cytol, bt ck, PCP does PSANormalKnox Community HospitalCB AUTO DIFFon 12-03-5169ENSC #0.1 103/ul Normal0.0-0.1Good Samaritan HospitalComment on above:Performed By: #### CBC #### [facility] [address] [address] [address] Som PuckettBasophils/100 WBC (Bld)0.7 %Normal0.2-2.0[facility] Comment on above:Performed By: #### CBC #### [facility] [address] [place] [address] Dr. Som Montilla #0.3 103/ulNormal0.0-0.7The [facility] HospitalComment on above: Performed By: #### CBC #### [facility] [address] [place] [address] Dr. Som Tranosinophils/100 WBC (Bld)4.1 %Normal0.9-7.0[facility] Comment on above:Performed By: #### CBC #### [facility] [address] [place] [address] Dr. Som Tranrythrocyte distribution width (RBC) [Ratio]12.9 %Zhqjve30.0-15.0 The [facility] HospitalComment on above:Performed By: #### CBC #### [facility] [address] [place] [address] Dr. Som PuckettHematocrit (Bld) [Volume fraction]43.2 %Hauukw54.0-54.0The [facility] HospitalComment on above:Performed By: #### CBC #### [facility] [address] [place] [address] Dr. Som PuckettHemoglobin (Bld) [Mass/Vol]14.7 g/zEBtnzdk39.0-18.0The [facility] HospitalComment on above:Performed By: #### CBC #### [facility] [address] [place] [address] Dr. Som Ames #0.01 10e3/ulNormal0.00-0.03The [facility] HospitalComment on above:Performed By: #### CBC #### [facility] [address] [place] [address] Dr. Som Ames %0.1 %Normal0.0-0.5The [facility] HospitalComment on above: Performed By: #### CBC #### [facility] [address] [place] [address] Dr. Som Gutierrez #1.8 103/ulNormal1.2-3.8The [facility] HospitalComment on above:Performed By: #### CBC #### [facility] [address] [place] [address] Dr. Som Peraltahocytes/100 WBC (Bld)26.1 %Lruiwr29.5-60.0The [facility] HospitalComment on above:Performed By: #### CBC #### [facility] [address] [place] [address] Dr. Som Mckeon DIFF REQNONormalThe [facility] HospitalComment on above: Performed By: #### CBC #### [facility] [address] [place] [address] Dr. Som Stafford (RBC) [Entitic mass]30.4 laNniico95.9-34.0The [facility] HospitalComment on above:Performed By: #### CBC #### [facility] [address] [place] [address] Dr. Som Stewart (RBC) [Mass/Vol]34.0 g/rORhfhfw57.9-35.2The [facility] HospitalComment on above:Performed By: #### CBC #### [facility] [address] [place] [address] Dr. Som Arcos (RBC) [Entitic vol]89.3 wYSyghei80.0-94.0The [facility] HospitalComment on above:Performed By: #### CBC #### [facility] [address] [place] [address] Dr. Som Lassiter #0.6 103/ulNormal0.3-0.8The [facility] HospitalComment on above:Performed By: #### CBC #### [facility] [address] [place] [address] Dr. Som Fisherocytes/100 WBC (Bld)8.4 %Normal1.7-12.0[facility] Comment on above:Performed By: #### CBC #### [facility] [address] [place] [address] Dr. Som Bedolla #4.1 103/ulNormal1.4-6.5The [facility] HospitalComment on above:Performed By: #### CBC #### [facility] [address] [place] [address] Dr. Som Huffutrophils/100 WBC (Bld)60.6 %Jmiabg43.0-75.0The [facility] HospitalComment on above:Performed By: #### CBC #### [facility] [address] [place] [address] Dr. Som Goncalveslet mean volume (Bld) [Entitic vol]10.1 fLNormal9.5-13.5The [facility] HospitalComment on above:Performed By: #### CBC #### [facility] [address] [place] [address] Dr. Som BanuelosT275 103/diXczxwx782-632Upy [facility] HospitalComment on above: Performed By: #### CBC #### [facility] [address] [place] [address] Dr. Som PuckettRBC4.84 106/ulNormal4.70-6.10The [facility] HospitalComment on above:Performed By: #### CBC #### [facility] [address] [place] [address] Dr. Som PuckettWBC6.8 103/ulNormal4.0-11.0The [facility] HospitalComment on above: Performed By: #### CBC #### [facility] [address] [place] [address] Dr. Som PuckettCovid-19 PCR (CVDTB)on 20-22-4831YBOD-CoV-2 (COVID-19) RNA BRENDA+probe Ql (Unsp spec)Not detectedNormalNOT DETECTEDThe [facility] Comment on above:Result Comment: This test is not yet approved or cleared by the [place] FDA. When there are no FDA-approved or cleared tests available, and other criteria are met, FDA can make tests available under an emergency access mechanism called an Emergency Use Authorization (EUA). The EUA for this test is supported by the Dining Room Tables Set Up Attendant of Health and Human Service's (HHS's) declaration that circumstances exist to justify the emergency use of in vitro diagnostics for the detection and/or diagnosis of the virus that causes COVID- 19. This EUA will remain in effect (meaning [...] of clinical signs and symptoms consistent with SARS-CoV-2.Performed By: #### CVDTBH #### [facility] [address] [place] [address] Dr. Som PuckettPROF CHEM 8 (BAS METB)on 87-62-6781Hpyjo gap [Moles/Vol]12.0 mmol/LNormalGood Samaritan HospitalComment on above:Performed By: #### BMP #### [facility] [address] [place] [address] Dr. Som PuckettCalcium [Mass/Vol]9.6 mg/dLNormal8.5-10.1[facility] Comment on above:Performed By: #### BMP #### [facility] [address] [place] [address] Dr. Som PuckettChloride [Moles/Vol]101 mmol/DIqksxk51-860AdjGood Samaritan Hospital Comment on above:Performed By: #### BMP #### [facility] [address] [place] [address] Dr. Som PuckettCO2 [Moles/Vol]31.6 mmol/YBrnkbd97.0-32.0[facility] Comment on above:Performed By: #### BMP #### [facility] [address] [place] [address] Dr. Som PuckettCreatinine [Mass/Vol]1.36 mg/dLCritically high0.70-1.30The [facility] HospitalComment on above:Performed By: #### BMP #### [facility] [address] [address] [address] Som TranGFR-AF COLOMBIAN>60Normal>=60The [facility] HospitalComment on above:Performed By: #### BMP #### [facility] [address] [address] [address] Som TranGFR-NON AF MQRNOGWJ86 mL/min/1.11s3Srabgrhemx low>=60The [facility] HospitalComment on above:Performed By: #### BMP #### [facility] [address] [address] [address] Som PuckettGlucose [Mass/Vol]92 mg/yUZhlwtk38-536TnjGood Samaritan Hospital Comment on above:Performed By: #### BMP #### [facility] [address] [address] [address] Som PuckettPotassium [Moles/Vol]4.6 mmol/LNormal3.5-5.1[facility] Comment on above:Performed By: #### BMP #### [facility] [address] [address] [address] Som PuckettSodium [Moles/Vol]140 mmol/HYtfrgv691-861IxeGood Samaritan Hospital Comment on above:Performed By: #### BMP #### [facility] [address] [address] [address] Som PuckettUrea nitrogen [Mass/Vol]19.0 mg/dLCritically high7.0-18.0The [facility] HospitalComment on above:Performed By: #### BMP #### [facility] [address] [address] [address] Som PuckettUrea nitrogen/Creatinine [Mass ratio]14.0 mg/mgNormalThe [facility] HospitalComment on above:Performed By: #### BMP #### [facility] [address] [address] [address] Som CazaresIMEluis 98-44-9145JPI Coag (PPP) [Relative time]1.01 {INR} NormalThe Vallejo HospitalComment on above:Performed By: #### PT, PTT #### [facility] [address] [place] [address] Dr. Som Strong [facility] HAVERTOWNSEE BELOWNoWyandot Memorial HospitalComment on above:Result Comment: DESIRED INR: 2.0 - 3.0 CONDITIONS NOT LISTED BELOW 2.5 - 3.5 FOR PROSTHETIC HEART VALVE REPLACEMENT 2.5 - 3.5 RECURRENT THROMBOSIS Performed By: #### PT, PTT #### [facility] [address] [place] [address] Dr. Som PuckettPT Coag (PPP) [Time]10.9 sNormal9.0-11.6ThTrumbull Memorial Hospital Comment on above:Performed By: #### PT, PTT #### [facility] [address] [place] [address] Dr. Som Patel 27-70-1615dHYD Coag (Bld) [Time]26.5 bYufttx21.3-36.2[facility]itan HospitalComment on above:Performed By: #### PT, PTT #### [facility] [address] [place] [address] Dr. Som Puckett Vital Signs Date TimeVital SignValuePerforming NkpjlfpcgZuqcuaqn02-36-1677 09:18-0400Body pcnjku121.1 cmMckenna Gomez PA Work Phone: [phone] CenterRlqzoejtus71-34-2667 09:18-0400Body mass index (BMI) [Ratio]24.63 kg/t8Qixnt Hemmer PA Work Phone: [phone] CenterVijomlecza76-42-1231 09:18-0400Body ikohlh17.13 kgMckenna Gomez PA Work Phone: [phone] CenterIujffemelo36-82-0448 09:18-0400Diastolic blood mrepjnoo85 mm[Hg]Mckenna Gomez PA Work Phone: [phone] CenterOatmynvktp21-99-1822 09:18-0400Heart rate92 /min Mckenna Gomez PA Work Phone: [facility] CenterZpelpwgidb19-17-2726 09:18-0400Respiratory rate16 /minLiamen Hemmer PA Work Phone: [facility] CenterNprpybyfrq59-86-0611 09:18-6614CfE2% (BldA) [Mass fraction]95 %Mckenna Hemmer PA Work Phone: [facility] CenterIfbacttwjo17-91-9153 09:18-0400Systolic blood vdrytrgn369 mm[Hg]Mckenna Hemmer PA Work Phone: [facility] CenterOwzppbtyon72-75-6927 10:25-0400Diastolic blood unefszra80 mm[Hg]FILOMENA STEVENS [facility]05-13-2025 10:25-0400Heart rate79 /minJENNIFER JONO [facility]05-13-2025 10:25-0400Respiratory rate16 /minJENNIFER JONO [facility]05-13-2025 10:25-0400Systolic blood spxwvwyk336 mm[Hg]FILOMENA STEVENS [facility]05-08-2025 13:40-0400Body xejcsb516.1 cmKaren Hemmer PA Work Phone: [facility] CenterBoqsbnlvcy54-04-2163 13:40-0400Body mass index (BMI) [Ratio]24.96 kg/r7Phnas Hemmer PA Work Phone: [facility] CenterFimkafhzgg68-90-8393 13:40-0400Body .04 kgLiamen Hemmer PA Work Phone: [facility] CenterEjprslwpqh48-60-3334 13:40-0400Diastolic blood jvnxorzw19 mm[Hg]Mckenna Hemmer PA Work Phone: [facility] CenterSikofuxmrz99-51-0495 13:40-0400Heart rate88 /min Mckenna Hemmer PA Work Phone: noParkland Health CenterFcluaghnoi16-60-3285 13:40-0400Respiratory rate16 /minLiamen Hemmer PA Work Phone: noParkland Health CenterVkqgnxwdtj54-35-1527 13:40-5400NsR6% (BldA) [Mass fraction]97 %Mckenna Hemmer PA Work Phone: [facility] CenterUliwokgjks38-26-4810 13:40-0400Systolic blood mm[Hg]Mckenna Hemmer PA Work Phone: [facility] CenterJusnsgeyre33-55-2390 09:06-0400Body ttemgo521.1 cmKaren Hemmer PA Work Phone: [facility] CenterAcyejyadyb42-42-3061 09:06-0400Body mass index (BMI) [Ratio]25.13 kg/m7Ynrbw Hemmer PA Work Phone: [facility] CenterZmujkphhmy22-33-1857 09:06-0400Body czrohy51.49 kgKaren Hemmer PA Work Phone: [facility] CenterAufxiropee35-82-0350 09:06-0400Diastolic blood mm[Hg]Mckenna Hemmer PA Work Phone: [facility] CenterHyevfhgjxy56-37-9376 09:06-0400Heart rate81 /min Mckenna Hemmer PA Work Phone: [facility] CenterUvptyvexxn16-90-2966 09:06-8937AvF5% (BldA) [Mass fraction]96 %Mckenna Hemmer PA Work Phone: [facility] CenterSgokvpmmyr71-73-0334 09:06-0400Systolic blood fbsqdkip585 mm[Hg]Mckenna Hemmer PA Work Phone: [facility] CenterAozriobhes67-41-5182 10:42-0400Body .1 cmKaren Hemmer PA Work Phone: [facility] CenterMfhcdyjxda98-28-4966 10:42-0400Body mass index (BMI) [Ratio]25.76 kg/d7Ayytc Hemmer PA Work Phone: [facility] CenterRktnrjnhfn81-92-0847 10:42-0400Body temperature 97.3 [degF]Mckenna Hemmer PA Work Phone: [facility] CenterZxhvpcsjlj45-82-1939 10:42-0400Body ircefc49.22 kgLiamen Hemmer PA Work Phone: NOParkland Health CenterCjdcqbmhuw34-83-8749 10:42-0400Diastolic blood wcqeqkri57 mm[Hg]Mckenna Hemmer PA Work Phone: [facility] CenterPtaacusqtg88-20-8040 10:42-0400Heart rate81 /min Mckenna Hemmer PA Work Phone: [place] [address]Rcxlfgjuep10-40-2055 10:42-0400Respiratory rate16 /minLiamen Hemmer PA Work Phone: [facility] CenterVhtwphjxav63-49-9082 10:42-4720PmM5% (BldA) [Mass fraction]97 %Mckenna Hemmer PA Work Phone: [facility] CenterDzsbqepxtx08-88-2957 10:42-0400Systolic blood rkmfpevx890 mm[Hg]Mckenna Hemmer PA Work Phone: [facility] CenterLudfxglztk16-56-9346 09:59-0400Body zovluy948.1 cmRichard Dennis MD Work Phone: [facility] CenterUzzcogdmus82-45-3030 09:59-0400Body mass index (BMI) [Ratio]24.96 kg/f3TkcgenRichard Dennis MD Work Phone: [facility] CenterWpigjpbxsd81-93-8863 09:59-0400Body graiaa99.04 kgRichard Dennis MD Work Phone: [address] [address]Suvtatrjxl75-53-4976 09:59-0400Diastolic blood fimvddgi26 mm[Hg]Richard Dennis MD Work Phone: NOParkland Health CenterBjddbdaych49-58-5770 09:59-0400Heart rate68 /min Richard Dennis MD Work Phone: [address] [address]Serpglxqeq23-16-9408 09:59-9681JkE8% (BldA) [Mass fraction]95 %Richard Dennis MD Work Phone: [facility] CenterRcoolgqchg15-02-0996 09:59-0400Systolic blood czzdddaq189 mm[Hg]Richard Dennis MD Work Phone: [facility] CenterWusjwhpvoc86-43-8476 14:19-0400Blood Pressure LocationPaSparkbrowserk BodBot [facility]03-28-2023 14:19-0400Diastolic blood mm[Hg]Shady SHANNON [facility]03-28-2023 14:19-0400Heart rate95 /minPatrick SHANNON [facility]03-28-2023 14:19-0400Systolic blood yzaecnwz077 mm[Hg]Shady SHANNON [facility] [place] [address]951-29-2022 14:11-0500Blood Pressure LocationPaElanti Systems [facility] [place] [address]951-29-2022 14:11-0500Diastolic blood lxionilt08 mm[Hg]Shady SHANNON [facility] [place] [address]951-29-2022 14:11-0500Heart abhd830 /minPatrick SHANNON [facility] [place] [address]951-29-2022 14:11-0500Systolic blood yurxvbcm084 mm[Hg]Shady SHANNON [facility] Encounters Encounter DateEncounter TypeCare ProviderFacilityStart: 07-24-2025 End: 22-45-9444assfesiqcpMestzlt R WATERSFacility:FTMCStart: 07-24-2025 End: 11-68-9268lcnfqaqatjRvxorwv Javad SHANNONFacility:FTMCStart: 07-24-2025 End: 73-79-5376nkmdjpvfgoKibrskt R MIRTHAFacility:EU BellevueStart: 07-24-2025 End: 08-10-9397Bcbhpuw encounter procedurePacaesar Javad SHANNON [facility] start: 05-04-2025 End: 63-36-7450xdjvcpnkdzOphiqm X OrzechFacility:EU [place]kyStart: 05-04-2025 End: 24-06-5076Qtzktus encounter procedureAurora X Orzech [facility] Start: 05-01-2025 End: 15-87-3077Zywnzs Landon GARDNER Work Phone: noms [place] Gong MedinceStart: 05-01-2025 End: 32-99-2728Ztiejb Landon GARDNER Work Phone: noms [place] Gong MedinceStart: 05-01-2025 End: 24-99-4551Ehzjiqb encounter procedureMckenna GARDNER Work Phone: NORA [place] Gong MedinceComment on above:Medicare annual wellness visit, subsequent (Primary Dx); ACP (advance care planning); Benign essential hypertension ; Elevated PSA; Stage 3b chronic kidney disease (CMS-HCC); Left sided sciatica; Bladder pain; Chronic insomnia; Other chronic pain; Hiatal hernia; Gastro-esophageal reflux disease without esophagitis; Benign prostatic hyperplasia without lower urinary tract symptoms; Erectile dysfunction, unspecified erectile dysfunction type; Hx of bladder cancer; Microscopic hematuria; Right nephrolithiasis; Degeneration of intervertebral disc of lumbar region with discogenic back pain and lower extremity pain; Primary osteoarthritis of right knee; Abnormal gait; Chronic bilateral low back pain with left-sided sciatica; Cigarette smoker; Mixed hyperlipidemia ; Nocturia; Unsteadiness on feetStart: 05-01-2025 End: 23-59-9701xghexegpawBGVWI M HEMMERNot AvailableStart: 04-24-2025 End: 05-78-8295lpqqwpgqxsZvumcbm Javad SHANNONFacility:FTMCStart: 04-24-2025 End: 86-68-9669Lrvtjhz encounter procedurePaceasar Farnsworth SHANNON [facility] start: 03-30-2025 End: 77-59-3364Zcowqphun encounterLadonna Alan TECHNICIAN [employer]MICAL CLEANING Work Phone: NOMS CI FMComment on above:Med RefillStart: 03-27-2025 End: 56-49-2605oanhclbuhrPKAJEVQG E PERRYFacility:EU BellevueStart: 03-27-2025 End: 60-20-0922Abobhft encounter procedureJENNIFER E JONO [facility] start: 02-16-2025 End: 70-61-0494HmsbnzEhsmkaj Adonis CUMMINS CI FMComment on above:Chronic insomniaStart: 01-31-2025 End: 08-94-7028vvdrvccoxcOHZWISIH E PERRYFacility:EU BellevueStart: 01-31-2025 End: 47-35-6521Gigszvm encounter procedureJENNIFER E JONO [facility] start: 65-94-8357kzbsbqqwbhFATBXMTF PERRYFacility:EU BellevueStart: 01-26-2025 End: 75-68-0404Wvctjy Landon GARDNER Work Phone: NOMS CI FMStart: 01-26-2025 End: 09-07-3430Mptxgvchristopher GARDNER Work Phone: NOMS CI FMStart: 01-26-2025 End: 09-53-1381Dzzwie outpatient visit 15 minutesMckenna GARDNER Work Phone: noms FMComment on above:Chronic insomnia (Primary Dx)Start: 01-26-2025 End: 69-09-9692dmfankubumAICLF M HEMMERNot AvailableStart: 01-23-2025 End: 98-07-7608luvlromietKpmhaoy R WATERSFacility:EU BellevueStart: 01-21-2025 End: 24-49-7896Tvdwcjcam Result EncounterGeneric External Data ProviderNOMS External Department UnsolicitedStart: 01-21-2025 End: 02-71-1028Xrdvwxglp Result EncounterGeneric External Data ProviderNOMS External Department UnsolicitedStart: 01-19-2025 End: 62-12-8021lhxqiakxmeLkqc [facility] Work Phone: Start: 01-19-2025 End: 51-40-0306Tzmqcqbg Jimy Shannon MD Work Phone: [facility] Path Spec [facility] HospStart: 01-19-2025 End: 34-44-7904Yfoqztwlk Result EncounterGeneric External Data ProviderNOMS External Department UnsolicitedStart: 01-19-2025 End: 13-18-3562Bemtgllhb Result EncounterGeneric External Data ProviderNOMS External Department UnsolicitedStart: 01-18-2025 End: 17-52-2324sqxhzrokhcOuufcr [facility] Work Phone: Start: 01-18-2025 End: 81-61-0948Nfsydtrc Jimy Shannon MD Work Phone: [facility] Path Spec [facility] HospStart: 01-18-2025 End: 72-27-7534Vkyhznhck Result EncounterGeneric External Data ProviderNOMS External Department UnsolicitedStart: 01-18-2025 End: 95-78-6285Pjszgodhe Result EncounterGeneric External Data ProviderNOMS External Department UnsolicitedStart: 01-17-2025 End: 43-84-1313odovlhnuxaHpjzblu 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); Hx of bladder cancer; Pre-operative examination; Stage 3b chronic kidney disease (HCC) (CMS/HCC); Benign essential hypertension (CMS/HCC)Start: 01-13-2025 End: 01-23-1356Yyevazbywejyk examination Jake GARDNER Work Phone: NOMS HealthcareStart: 01-13-2025 End: 09-87-0209dpukvtqgjvQGHMB M HEMMERNot AvailableStart: 01-09-2025 End: 11-18-9365EchpsuDmufjt B Berry MD Work Phone: noMS CI FMComment on above:DDD (degenerative disc disease), lumbarStart: 01-04-2025 End: 74-85-3634Fvrrkmcar Result EncounterGeneric External Data ProviderNOMS External Department UnsolicitedStart: 01-04-2025 End: 13-29-8043Lyjsyrpjx Result EncounterGeneric External Data ProviderNOMS External Department UnsolicitedStart: 01-03-2025 End: 22-52-8281Tgd Drop Gulshan SHANNON [facility] Start: 01-03-2025 End: 05-65-9128gnxqardnnjDebwick R WATERSFacility:FTMCStart: 12-06-2024 End: 15-47-0736ohpyytufvtFOZIN M HEMMERNot AvailableStart: 12-01-2024 End: 62-30-6116Hjlwsz Landon Gomez PA Work Phone: NOMS CI FMStart: 12-01-2024 End: 38-44-2275Zqcfdw Landon Gomez PA Work Phone: NOMS CI FMStart: 12-01-2024 End: 91-54-6854Hidbgz outpatient visit 25 minutesMckenna Gomez PA Work Phone: [phone] CI FMComment on above:Acute bronchitis, unspecified organism (Primary Dx); Tobacco userStart: 12-01-2024 End: 54-48-2223juxyovsnycLFGMA M HEMMERNot AvailableStart: 11-14-2024 End: 76-41-9747CsxrtjJfxzgp B Berry MD Work Phone: NOMS CI FMComment on above:Chronic insomnia; DDD (degenerative disc disease), lumbarStart: 09-26-2024 End: 34-22-6124JizefjEpbib M Alda MD Work Phone: NOMS CI FMComment on above:DDD (degenerative disc disease), lumbarStart: 08-11-2024 End: 00-38-9295JywhxgHthanbi Adonis CUMMINS CI FMComment on above:Chronic insomniaStart: 07-06-2024 End: 53-93-4476XbzgxjQhilbvy Hudson Fallsimelda CUMMINS CI FMComment on above:DDD (degenerative disc disease), lumbar; Chronic insomniaStart: 06-06-2024 End: 09-02-7497Fhpxhq Dawn Dennis MD Work Phone: NOMS CI FMStart: 06-06-2024 End: 16-35-0209Cmxieh Dawn Dennis MD Work Phone: NOMS CI FMStart: 06-06-2024 End: 75-79-9458Tpklnn outpatient visit 15 minutesRichard Dennis MD Work Phone: NOMS CI FMComment on above:Chronic kidney disease, stage 3a (N18.31) (Primary Dx); Benign essential hypertension (CMS/HCC); Benign prostatic hyperplasia without lower urinary tract symptoms; Mixed hyperlipidemia (CMS/HCC)Start: 06-06-2024 End: 46-87-5944mhqlyxprofUXJTXK B BERRYNot AvailableStart: 12-22-2023 End: 76-52-1320Mlv Drop offPaTencho Technology [facility] Start: 12-22-2023 End: 03-23-4151Rhtnkgr encounter procedurePaTencho Technology [facility] Start: 86-52-3021Dwacvzqjy encounterSophanitra Monroy MA NOMS CI FMComment on above:Med RefillStart: 06-16-2023 End: 20-62-0628Szo Drop offFolkstr [facility] Start: 12-16-2022 End: 37-70-5459Gkn Drop offFolkstr [facility] Start: 12-16-2022 End: 70-31-9137Cuicxjv encounter procedurePaMerchantry Javad BodBot [facility] Start: 09-10-2022 End: 85-88-0218Zhjmaqw encounter procedurePaMerchantry R BodBot [facility] Start: 60-48-7486Gbspywumw for preprocedural cardiovascular examinationDR SHADY Gleasonevue HospitalStart: 24-47-0065Qgdavakij for preprocedural laboratory examinationDR SHADY Gleasonevue HospitalStart: 09-04-2022 End: 19-44-3132prhcmoegeyVN SHADY SHANNONFacility:Q4Bvuqu: 09-01-2022 End: 00-56-4831losudexusmIG SHADY SHANNONFacility:Y8Uwgyr: 09-01-2022 End: 94-75-9688Pnbxjoyby for preprocedural cardiovascular examinationDR SHADY SHANNONFacility:W7Ceidz: 08-19-2022 End: 58-24-1659Jnptaif encounter procedurePagerbersherron SHANNON [facility] Natalya Procedures DateProcedureProcedure DetailPerforming ClinicianStart: 71-77-4642Cykykityme Shady SHANNON Start: 61-43-1156NbtwrfdyruVqizmqu WATERS Start: 92-25-7481WPJ CBC WITH AUTO DIFFGeneric External Data ProviderStart: 33-76-8869RRNDT CULTURE - FRMCGeneric External Data ProviderStart: 67-83-9839JILZO CULTURE - FRGeneric External Data Provider Start: 35-03-7058Pgjnmowdhxclk resection of bladder neoplasmFILOMENA STEVENS Start: 35-14-3847JQG BASIC METABOLIC PANELGeneric External Data ProviderStart: 94-25-1204Smyehqntqs, device (physical object) Shady SHANNON Start: 78-62-6300OqxxomyzenVrvybdp WATERS Start: 54-06-6211FrwwwmyoibBkldwnu WATERS Start: 28-75-7810Tybbcdekdhhxa resection of bladder neoplasmShady SHANNON Start: 15-72-7139QreatcaigmIzpcdpj WATERS Start: 74-96-3857FrgtrikbbpDewncjq WATERS Start: 21-85-1564DuvacafdpqBnseuyz WATERS Start: 34-72-1334JqxlwdpichYcpnbwd SHANNON Start: 36-18-4639RrkquqkiieQbnzjwl WATERS Comment on above:12/07/2006, 06/16/2006, 09/18/2015, 04/25/2014, 08/01/2014, 10/31/2014, 02/20/2015, 06/05/2015, 12/11/2015, 06/10/2016, 06/09/2017, 06/08/2018Start: 08-17-2017 End: 42-39-3165UgynhekmpmdZcbape Porfirio MAStart: 82-75-1104Ifpmpvlbslzil prostatectomyPacaesar SHANNON Start: 33-61-8822Vyysgrcmol and transurethral resection of bladder tumorPacaesar SHANNON Comment on above:Cysto/TURBT, rt rg, rt ureter, right stone basketStart: 59-85-1320Xsijcilbmb to remove objectPacaesar SHANNON Start: 34-85-1049Vlxjkqoxaxe anastomosis of ureter to bladder with insertion of stent into ureterShady SHANNON Comment on above:Cysto, Lt rg, left ureter, left ureteral dilation, left stent placementStart: 00-61-8746Wdhrkjqyfge biopsy of prostate using ultrasound guidanceDccaesar SHANNON back surgeryPacaesar SHANNON ColonoscopyShady BodBot Plan of Treatment DateCare ActivityDetailAuthorStart: 94-98-5892Mycfrfebi for malignant neoplasm of colonNOMS HealthcareStart: 08-11-2026Medicare Annual Wellness (AWV)Medicare Annual Wellness (AWV)NOMS HealthcareStart: 01-72-9261Sxrdrvjsu for malignant neoplasm of lungLung Cancer Screening Shared Decision MakingNOMS Healthcare Comment on above:Postponed from 1950 (Patient Refused)Start: 11-16-2025 ambulatoryAmbulatoryFacility:RICKIE [facility] Hospitaltart: 62-42-5207guieuldarsEinmyhwelz [facility]rt: 11-31-9626Hhwlfavaz vaccinationLDS HOSPITAL HealthcareStart: 05-01-2025 End: 05-44-1655CLK, total and freePSA, total and free Lab Routine Elevated PSA Expected: 05/01/2025 (Approximate), Expires: 05/01/2026NOCT Healthcare Work Phone: Comment on above:Expected: 05/01/2025 (Approximate), Expires: 05/01/2026Start: 05-01-2025 End: 34-81-5350Gkmgygl encounter procedureNOMS CI FMComment on above:Arrived Start: 05-08-2025Medicare Annual Wellness (AWV)Medicare Annual Wellness (AWV) NOMS HealthcareStart: 01-26-2025 End: 83-77-1732Tvybndi encounter mtfdjiqak65/08/2025 1:30 PM EDT Office Visit NOMS CI FM [address] [facility] [address] [place] [address] Mckenna Gomez PA [address] [facility] [address] [place] [address] ArrivedNOMS CI FMComment on above:ArrivedStart: 08-48-2471Isuyu [facility] Hospitaltart: 01-19-2025 Bacteria identified in Urine by CultureUrine [facility] Westtart: 01-18-2025 End: 89-53-4267Kirhr [facility] Hospitaltart: 01-18-2025 Bacteria identified in Urine by CultureUrine [facility] Westtart: 12-01-2024 End: 46-25-7070Lmebbhk encounter lopyjqwkm38/13/2025 10:30 AM EDT Office Visit [facility] [address] [facility] [address] [place] [address] Mckenna Gomez PA [address] [place] [address] [place] [address] ArrivedNOMS CI FMComment on above:ArrivedStart: 06-06-2024 End: 82-74-6980Wobseae encounter zyrrfdtbm21/16/2024 10:00 AM EDT Office Visit [facility] [address] [place] [address] [place] [id number] Richard Dennis MD [address] [place] [address] [place] [address] ArrivedNOMS CI FMComment on above:ArrivedStart: 05-22-2024 Influenza vaccinationInfluenza Vaccine (#1)NOMS HealthcareStart: 05-06-2024 Medicare Annual Wellness (AWV)Medicare Annual Wellness (AWV)[facility] Start: 34-74-1647Bsyxucofb vaccinationInfluenza Vaccine (#1)[facility] Start: 20-87-5492Gggkxnslo for malignant neoplasm of colonNOMS HealthcareStart: 47-28-4763Awsvgyxos for malignant neoplasm of lungLung Cancer Screening Shared Decision MakingNOMS HealthcareBasic metabolic 1998 panel - Serum or PlasmaBasic metabolic panel Lab Routine Stage 3b chronic kidney disease (CMS-HCC) Ordered: 05/01/2025NOMS HealthcareComment on above:Ordered: 05/01/2025[facility]INE CULTURE - [facility] [place] [facility] [place] Routine 01/18/2025 1:50 PM EDTNOMS HealthcareURINE CULTURE - [facility] Routine 01/19/2025 3:00 PM EDTNOCT HealthcarePSA Free & Total 05/15/25[facility]/25[facility] Immunizations Immunization DateImmunizationNotesCare GvosvkskNbamzkfm86-66-5809VHSH-JsV-9 (COVID-19) mRNA BNT-162b2 vaxGreater Works [employer]iv[employer] [facility] Chqlthuf35-96-6050FJET-UzL-7 (COVID-19) Ad26 vaccine, recombinantPaElanti Systems [facility]03-18-2021SARS-CoV-2 (COVID-19) mRNA BNT-162b2 vaxPatrick BodBot [facility]03-05-2021SARS-CoV-2 (COVID-19) Ad26 vaccine, recombinantPatrick SHANNON [facility]02-25-2021SARS-CoV-2 (COVID-19) mRNA BNT-162b2 vaxPatrick SHANNON [facility] Hospitalomment on above:Result Comment: 2022-09-10: KDH8969-89-5785maoeynqlhmcv conjugate vaccine, 13 valentPatrick SHANNON [facility]05-07-2020pneumococcal polysaccharide vaccine, 23 valentPatrick SHANNON [facility]12-14-2015pneumococcal conjugate vaccine, 13 valentPatrick SHANNON [facility]y11-01-2007pneumococcal polysaccharide vaccine, 23 valentPatrick SHANNON [facility] Payers DatePayer CategoryPayerPolicy [id number]-pay2023Medicare (Managed Care)HUMAN MEDICARE ADVANTAGE Member Subscriber Plan / Payer (Effective 2022-Present) Name: Anders Lyman Relation to Subscriber: Self Name: Anders Lyman Payer ID: [id number] (NAIC) Type: Not on file Address: [address] [id number] 2022Medicare [id number] Health Insurance [id number] [id number] 1950Unknown [id number] 2.16840.1.402131.3.57[id number] 2.16840.1.486158.3.57[id number] 2.16840.1.334864.3.57[id number] 2.16840.1.355969.3.57[id number] 2.16840.1.923710.3.57[id number] 2.16840.1.419019.3.57[id number] 2.16840.1.152890.3.57[id number] 2.16840.1.516430.3.57[id number] 2.16840.1.800820.3.57[id number] 2.16840.1.904467.3.57[id number] 2.16840.1.868205.3.57[id number] 2.16.840.1.686660.3.57[id number] 2.16.840.1.744090.3.57[id number] 2.16.840.1.166290.3.57[id number] 2.16.840.1.291435.3.57[id number] 2.16.840.1.805247.3.57[id number] 2.16.840.1.610679.3.57[id number] 2.16.840.1.553810.3.57[id number] 2.16.840.1.379597.3.57[id number] 2.16.840.1.595896.3.57[id number] 2.840.1.417541.3.57[id number] 2.16840.1.912904.3.57[id number] 2.16840.1.583659.3.5[id number] Health Insurancet Insurance Co [id number] 2.16.840.1.6[id number] 2.16.840.1.114093.3.579.2.531 [id number] 2.16.840.1.604983.3.579.2.531 Social History DateTypeDetailFacilityStart: 08-19-2022 End: 57-18-0703Lbdbacg smoking statusEx-smoker (finding)[facility] HospitalyStart: 10-22-2023 End: 10-41-6653Isk Assigned At [facility] smoking statusNeverExecutive [facility]rology of [facility] Start: 94-09-8476Vjdbvtl smoking status NHISNever smoked tobaccoNOMS Healthcare Start: 04-29-2023 End: 90-03-9623Tkoygrx use and exposureSmokeless tobacco non-userNOMS Healthcare Start: 10-22-2023 End: 79-90-9407Nvqwyik of Social functionNOMS HealthcareStart: 07-57-6557Upk Assigned At [facility] CenterNot on fileNOMS HealthcareStart: 01-27-2024 End: 96-05-2352Yxlaigl smoking status NHISSmokes tobacco dailyNOMS Healthcare History of tobacco useCigarette SmokerNOMS HealthcareStart: 06-06-2024 End: 03-86-7352Znwexvwzk beverage intakeEx-drinker (finding)[facility] Start: 38-50-1729Mhebsgt CommentCaffeine intake: 1-2 cups per dayNOMS Healthcare Sexual OrientationWexner Medical Center Start: 05-12-2019 End: 48-10-8784NocYmry (finding)[facility] smoking status NHISUnknown if ever smokedOhiohealth [facility]erington [facility] Work Phone: Start: 63-03-1134Atv Assigned At [facility] Functional Status LfhjIlhqrdtzawIqzvevGlcfgxyn02-49-4662Lgpwtzo Health Questionnaire 2 item (PHQ- 2) [Reported][facility] CenterSxbkxugawn17-39-2582Ucnmlrhodw StatusN/AExec[facility] of [facility] Oopnftgp89-62-8391Luknrub Health Questionnaire 2 item (PHQ-2) [Reported][facility] CenterKutrsuyhbw08-38-1309Vkdfnxdrqh StatusN/AExec[facility]rology of [place] 368952-21-2022Functional StatusN/A [facility] Hospitaly11-29-2022Functional StatusN/AExec[facility] of [facility] Clinical Notes 08-19-2022 to 07-24-2025 Note Date & EnuhIxrpHwffceln15-14-9409 Hospital Discharge instructions Patient Education 07/24/2025 08:10:28 Cancer Screening for Males Cancer Screening for Males A cancer screening is a test or exam that checks for cancer. Work with your health care provider tocreate a cancer screening schedule that protects your health. Who should have screening? All people who are male should be considered for screening of certain cancers, including colorectalcancer, prostate cancer, lung cancer, and skin cancer. Your health care provider may recommend screenings for other types of cancer if: You have had cancer before. You have a family member with cancer. You have genes that could increase the risk of cancer. You have risk factors for certain cancers, such as current or past use of tobacco products or beingoverweight. What are the benefits of screening? Cancer screening is done to look for cancer in the very early stages, before it spreads and becomesharder to treat and before you would start to notice symptoms. Finding cancer early improves the chances of successful treatment. It may save your life. When should I be screened for cancer? When you should be screened for cancer depends on: Your age. Your medical history and your family's medical history. Certain lifestyle factors, such as smoking or other use of tobacco products. Environmental exposure, such as to asbestos. How is screening done? Colorectal cancer Colorectal cancer screening looks for cancer or for growths called polyps that often form before cancer starts. Tests to look for cancer or polyps include: Colonoscopy or flexible sigmoidoscopy. For these procedures, a flexible tube with a small camera isinserted into the rectum. CT colonography. This test uses X-rays and a contrast dye to check the colon for polyps. Tests to look for cancer in the stool (feces) include: Guaiac-based fecal occult blood test (FOBT). This test can find blood in stool. It can be done at home with a kit. Fecal immunochemical test (FIT). This test can find blood in stool. For this test, you will need tocollect stool samples at home. Stool DNA test. This test looks for blood in stool and any changes in DNA that can lead to colon cancer. For this test, you will need to collect a stool sample at home and send it to a lab. All adults should have screenings starting at 45 years old and continuing through 75 years old. Formales 76 85 years old, the decision to be screened should be based on a person's preferences, life expectancy, overall health, and prior screening history. Your health care provider may recommend screening before 45 years old. You will have tests every 1 10 years, depending on your results and the type of screening test. People at increased risk should start screening at an earlier age. Talk withyour health care provider about which screening test is right for you and how often you should be screened. Prostate cancer Prostate cancer screening is done with blood tests and a digital rectal exam. During this exam, a health care provider uses a gloved finger to check prostate size. You may need to be screened for prostate cancer if: You have risk factors for prostate cancer, such as being an person or having a close family member with [...] on the results of your blood tests. Prostate cancer screening for males with average risk may start at 50 years old. Males with risk factors may need to be screened earlier, at 40 45 years old. Talk with your health care provider aboutwhether screening is right for you and, if so, how often you should be screened. Lung cancer Lung cancer screening is done [...] packs a day for 10 years. You may need to be screened [...] provider right away if anything looks unusual. Males with a hvlfzh-cexs-bbgxlx risk for skin cancer may want to see a mobile paint specialist (demand inspector) for an annual body check. Where to find more information [place] [employer]: cancer.org Centers for Disease Control and Prevention: cdc.gov National Cancer [place]: cancer.gov Contact a health care provider if: You have concerns about any signs or symptoms of cancer. These may include: ?Skin problems. You may have: ?Moles of an unusual shape or color. ?Changes in existing moles. ?A sore on your skin that does not heal. ?Tiredness (fatigue) that does not go away. ?Losing weight without trying. ?Blood in your urine or stool. ?Problems with urination. You may have: ?Changes in urination habits. ?Painful urination. ?Painful ejaculation. ?Problems with coughing or breathing. These may include: ?Coughing or trouble breathing that does not go away. ?Coughing up blood. ?Frequent pain or cramping in your abdomen. This information is not intended to replace advice given to you by your health care provider. Make sure you discuss any questions you have with your health care provider. Document Revised: 09/15/2023 Document Reviewed: 03/30/2023 [employer] Patient Education 2023 [employer]. Follow Up Care 07/07/2025 13:54:28 With:MIRTHA BLOCK, Shady [place]arn[place], URL Address: [facility] [address] , [place] [address]- When: Unknown [facility] [place] 11-03-2025 NotePatient Education Oncology Cancer Screening for Males A cancer screening is a test or exam that checks for cancer. Work with your health care provider tocreate a cancer screening schedule that protects your health. Who should have screening? All people who are male should be considered for screening of certain cancers, including colorectalcancer, prostate cancer, lung cancer, and skin cancer. Your health care provider may recommend screenings for other types of cancer if: ??? You have had cancer before. ??? You have a family member with cancer. ??? You have genes that could increase the risk of cancer. ??? You have risk factors for certain cancers, such as current or past use of tobacco products or being overweight. What are the benefits of screening? Cancer screening is done to look for cancer in the very early stages, before it spreads and becomesharder to treat and before you would start to notice symptoms. Finding cancer early improves the chances of successful treatment. It may save your life. When should I be screened for cancer? When you should be screened for cancer depends on: ??? Your age. ??? Your medical history and your family's medical history. ??? Certain lifestyle factors, such as smoking or other use of tobacco products. ??? Environmental exposure, such as to asbestos. How is screening done? Colorectal cancer Colorectal cancer screening looks for cancer or for growths called polyps that often form before cancer starts. Tests to look for cancer or polyps include: ??? Colonoscopy or flexible sigmoidoscopy. For these procedures, a flexible tube with a small camera is inserted into the rectum. ??? CT colonography. This test uses X-rays and a contrast dye to check the colon for polyps. Tests to look for cancer in the stool (feces) include: ??? Guaiac-based fecal occult blood test (FOBT). This test can find blood in stool. It can be done at home with a kit. ??? Fecal immunochemical test (FIT). This test can find blood in stool. For this test, you will need to collect stool samples at home. ??? Stool DNA test. This test looks for blood in stool and any changes in DNA that can lead to colon cancer. For this test, you will need to collect a stool sample at home and send it to a lab. All adults should have screenings starting at 45 years old and continuing through 75 years old. Formales 76?85 years old, the decision to be screened should be based on a person's preferences, life expectancy, overall health, and prior screening history. Your health care provider may recommend screening before 45 years old. You will have tests every 1?10 years, depending on your results and the type of screening test. People at increased risk should start screening at an earlier age. Talk withyour health care provider about which screening test is right for you and how often you should be screened. Prostate cancer Prostate cancer screening is done with blood tests and a digital rectal exam. During this exam, a health care provider uses a gloved finger to check prostate size. You may need to be screened for prostate cancer if: ??? You have risk factors for prostate cancer, such as being an person or having aclose family member with prostate cancer. ??? You have had gene changes or a genetic condition that was passed on to you from a parent (inherited). These gene changes or genetic conditions include BRCA1 or BRCA2 gene mutations or Mcdonald syndrome. ??? You have symptoms of prostate cancer, such as problems urinating or problems getting or keepingan erection (erectile dysfunction). When you have been screened for prostate cancer, future screening may be recommended based on the results of your blood tests. Prostate cancer screening for males with average risk may start at 50 years old. Males with risk factors may need to be screened earlier, at 40?45 years old. Talk with your health care provider aboutwhether screening is right for you and, if so, how often you should be screened. Lung cancer Lung cancer screening is done with a CT scan that looks for abnormal changes in the lungs. Discuss lung cancer screening with your health care provider if you are 50?80 years old and if any of the following apply to you: ??? You currently smoke. ??? You used to smoke heavily. ??? You have a smoking history of 1 pack of cigarettes a day for 20 years or 2 packs a day for 10 years. You may need to be screened [...] provider right away if anything looks unusual. Males with a osxawc-btep-gjtfvl risk for skin cancer may want to see a mobile paint specialist (dermatologi (more content not included)...[facility]08-18-2025 NotePatient Education Urology Urinary Frequency, Adult Urinary frequency [...] keep your urine pale yellow. ? Take ijaa-dcy-goicira or prescription medicines. ? Eat foods that are high in fiber, such as beans, whole grains, and fresh fruits and vegetables. ? Limit foods that are high in fat and processed sugars, such as fried or sweet foods. General instructions ??? Take cuxs-sny-smmyaqu and prescription medicines only as told by [...] fluid and do not have a bladder infectionor other bladder condition. ??? Your health care provider may recommend that you keep a bladder diary, follow a bladder training program, or make dietary changes. ??? If told by your health care provider, do Kegel exercises to strengthen the muscles that help control urination. ??? Take rpsc-lip-updkbqc and prescription medicines only as told by your health care provider. ??? Contact a health care provider if your symptoms do not improve or get worse. This information is not intended to replace advice given to you by your health care provider. Make sure you discuss any questions you have with your health care provider. Document Revised: 04/12/2021 Document Reviewed: 04/12/2021 [employer] Patient Education ? 2023 [employer]. Benign Prostatic Hyperplasia Benign prostatic hyperplasia (BPH) is an enlarged prostate gland that is caused by the normal agingprocess. The prostate may get bigger as a man gets older. The condition is not caused by cancer. The prostate is a walnut-sized gland that is involved in the production of semen. It is located in front of the rectum and below the bladder. The bladder stores urine. The urethra carries stored urine ou t of the body. An enlarged prostate can press on the urethra. This can make it harder to pass urine. The buildup of urine in the bladder can cause infection. Back pressure and infection may progress to bladder damage and kidney (renal) failure. What are the causes? This condition is part of the normal aging process. However, not all men develop problems from thiscondition. If the prostate enlarges away from the urethra, urine flow will not be blocked. If it enlarges toward the urethra and compresses it, there will be problems passing urine. What increases the risk? This condition is more likely to develop in men older than 50 years. What are the signs or symptoms? Symptoms of this condition include: ??? Getting up often during the night to urinate. ??? Needing to urinate frequently during the day. ??? Difficulty starting urine flow. ??? (more content not included)...[facility]08-11-2025 History of Present illness Narrative* KENDRA Hamilton - 05/01/2025 9:00 AM EDT Images from the original note were not included. HPI Med Refill Additional comments: Irbesartan-HCTZ Last edited by Bria Phillips LPN on 05/01/2025 9:14 AM. Subjective Patient ID: Anders Lyman is a 74 y.o. male who presents for Medicare Wellness. States the treatment to his bladder has really messed me up all Summer long. Has started drinking 1-2 bottles of water every day. Does drink Mt. Dew still, but not as much. Med Refill Pertinent negatives include no abdominal pain, arthralgias, chest pain, chills, congestion, coughing, fatigue, fever, headaches, nausea, numbness, rash, sore throat or vomiting. Medicare Wellness Over the past 2 weeks, how often have you been bothered by any of the following problems? Little interest or pleasure in doing things: Not at all Feeling down, depressed, or hopeless: Not at all Patient Health Questionnaire-2 Score: 0 Over the past 2 weeks, how often have you been bothered by any of the following problems? Trouble falling or staying asleep, or sleeping too much: Not at all Feeling tired or having little energy: Not at all Poor appetite or overeating: Not at all Feeling bad about yourself - or that you are a failure or have let yourself or your family down: Not at all Trouble concentrating on things, such as reading the newspaper or watching television: Not at all Moving or speaking so slowly that other people could have noticed? Or the opposite - being so fidgety or restless that you have been moving around a lot more than usual.: Not at all Thoughts that you would be better off or hurting yourself in some way: Not at all Patient Health Questionnaire-9 Score: 0 Massey Fall Risk History of Falling, Immediate or Within 3 Months: No Health Risk Assessment Form Do you need help eating, bathing, using the toilet, dressing, or getting around your home?: No Can you prepare your own meals?: Yes Can you do your own housework without help?: Yes Can you shop for groceries or clothes without help?: Yes Do you exercise for about 20 minutes 3 or more days a week?: Yes How confident are you that you can control and manage most of your health problems?: Very confident Can you mange your money, credit cards and accounts, pay bills and taxes?: Yes Vision Screening: Yes, no gross abnormalities Hearing Screening: Yes, no gross abnormalities Cognitive Screening Self Assessment: No overt cognitive deficiency is apparent by direct observation Three Word Registration: Village, Kitchen, Baby Clock Drawing: Normal Clock - 2 Three Word Recall: All 3 words correct - 3 Total Score (0-5 Points): 5 Pain Assessment Pain Score: 4 Advance Care Planning Do you have a living will?: Yes 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 Cranberry 125 MG tablet Daily. diclofenac sodium 1 % gel Apply 2 g topically in the morning and 2 g in the evening and 2 g before bedtime. omeprazole (PriLOSEC) [address] capsule TAKE 1 CAPSULE BY MOUTH IN THE MORNING BEFORE MEAL(S) 100 capsule 3 tadalafil (Cialis) 20 MG tablet Take 1 tablet (20 mg) by mouth Daily as needed for erectile dysfunction 10 tablet 11 zolpidem (Ambien) 10 MG tablet Take 1 tablet (10 mg) by mouth as needed at bedtime for sleep ICD 10:F51.04 30 tablet 5 [DISCONTINUED] irbesartan-hydroCHLOROthiazide (Avalide) 150-12.5 MG tablet TAKE 1 TABLET BY MOUTH IN THE MORNING 100 tablet 3 [DISCONTINUED] oxybutynin (Ditropan) 5 MG tablet Take 10 mg by mouth at bedtime (Patient not taking: Reported on 05/01/2025) [DISCONTINUED] traZODone (Desyrel) 50 MG tablet TAKE 1 TO 2 TABLETS BY MOUTH NEEDED AT BEDTIME FOR SLEEP 60 tablet 0 No current facility-administered medications on [...] without lower urinary tract symptoms Bladder cancer (HCC) 10/22/2023 Bladder mass 10/22/2023 Chronic kidney disease DDD (degenerative disc disease), lumbar Diverticulitis Enlarged prostate Foreign body in bladder 10/22/2023 Gastritis Gastroesophageal reflux disease without esophagitis Hiatal hernia Hyperlipemia Insomnia Low back pain Lumbar degenerative disc disease Other chronic pain Right nephrolithiasis Sinusitis Past Surgical History: Procedure Laterality Date CATARACT EXTRACTION, BILATERAL 2023 COLONOSCOPY 2016 CYSTOSCOPY 04/2014 EGD 2017 LITHOTRIPSY 12/2014 LUMBAR FUSION 2011 PROSTATE BIOPSY TURP / TRANSURETHRAL INCISION / DRAINAGE PROSTATE 11/2014 Visit Vitals BP (!) 144/92 Pulse 92 Resp 16 Ht 5' 5 Wt 148 lb SpO2 95% BMI 24.63 kg/m Smoking Status Every Day BSA 1.75 m Review of Systems Constitutional: Negative for [...] Negative for dysuria, frequency, hematuria and urgency. Musculoskeletal: Negative for arthralgias and back pain. Skin: Negative for rash. Neurological: Negative for dizziness, numbness and headaches. Psychiatric/Behavioral: Positive for sleep disturbance. Negative for confusion and dysphoric mood. The patient is not nervous/anxious. Objective Physical Exam Constitutional: General: He is not in acute distress. Appearance: Normal appearance. HENT: Head: Normocephalic and atraumatic. Right Ear: Tympanic membrane and ear canal normal. Decreased hearing noted. Left Ear: Tympanic membrane and ear canal normal. Decreased hearing noted. Nose: Nose normal. Mouth/Throat: Mouth: Mucous membranes are moist. Pharynx: Oropharynx is clear. Eyes: General: No scleral icterus. Extraocular Movements: Extraocular movements intact. Conjunctiva/sclera: Conjunctivae normal. Pupils: Pupils are equal, round, and reactive to light. Neck: Vascular: No carotid bruit. Cardiovascular: Rate and Rhythm: Normal rate and regular rhythm. Pulses: Normal pulses. Pulmonary: Effort: Pulmonary effort is normal. Breath sounds: Normal breath sounds. No wheezing, rhonchi or rales. Abdominal: General: Bowel sounds are normal. There is no distension. Palpations: Abdomen is soft. Tenderness: There is no abdominal tenderness. There is no guarding. Musculoskeletal: General: No swelling, tenderness, deformity or signs of injury. Cervical back: Normal range of motion. No tenderness. Lumbar back: Bony tenderness (Left SI joint) present. Positive left straight leg raise test. Lymphadenopathy: Cervical: No cervical adenopathy. Skin: General: Skin is warm and dry. Findings: No erythema. Neurological: General: No focal deficit present. Mental Status: He is alert and oriented to person, place, and time. Cranial Nerves: No cranial nerve deficit. Sensory: No sensory deficit. Motor: No weakness. Coordination: Coordination normal. Gait: Gait normal. Psychiatric: Mood and Affect: Mood is anxious. Behavior: Behavior normal. Thought Content: Thought content normal. Judgment: Judgment normal. Telephone on 04/24/2025 Component Date Value Ref Range Status PSA, TOTAL 04/24/2025 6.53 (H) < OR = 4.00 ng/mL Final Comment: The total PSA value from this assay system is standardized against the WHO standard. The test result will be approximately 20% lower when compared to the equimolar-standardized total PSA (Byron Gowrie). Comparison of serial PSA results should be interpreted with this fact in mind. This test was performed using the Siemens chemiluminescent method. Values obtained from different assay methods cannot be used interchangeably. PSA levels, regardless of value, should not be interpreted as absolute evidence of the presence or absence of disease. Telephone on 04/24/2025 Component Date Value Ref Range Status TSH W/REFLEX TO FT4 04/24/2025 1.36 0.40 - 4.50 mIU/L Final CHOLESTEROL, TOTAL 04/24/2025 177 <200 mg/dL Final HDL CHOLESTEROL 04/24/2025 42 > OR = 40 mg/dL Final TRIGLYCERIDES 04/24/2025 135 <150 mg/dL Final LDL CHOLESTEROL 04/24/2025 110 (H) mg/dL (calc) Final Comment: Reference range: <100 Desirable range <100 mg/dL for primary prevention; <70 mg/dL for patients with CHD or diabetic patients with > or = 2 CHD risk factors. LDL-C is now calculated using the Trenton-Josette calculation, which is a validated novel method providing better accuracy than the Friedewald equation in the estimation of LDL-C. Trenton SS et al. MEKA. 2013;310(19): 4670-4087 (http://education.Proximex.Veduca/faq/RZV123) CHOL/HDLC RATIO 04/24/2025 4.2 <5.0 (calc) Final NON HDL CHOLESTEROL 04/24/2025 135 (H) <130 mg/dL (calc) Final Comment: For patients with diabetes plus 1 major ASCVD risk factor, treating to a non-HDL-C goal of <100 mg/dL (LDL-C of <70 mg/dL) is considered a therapeutic option. Assessment & Plan 1. Medicare annual wellness visit, subsequent (Primary) Reviewed all relevant preventative screenings with the patient in detail. Medicare Wellness form completed and will be scanned into patient's chart. All needed testing was ordered. Will continue withyearly Medicare Wellness exams. 2. ACP (advance care planning) Patient willing to discuss ACP. Pt has Living Will and DPOA in place. 3. Benign essential hypertension BP remains elevated today. He does have a BP cuff at home, but has not been monitoring it. Admits it is higher when he is at a doctor's office. Discontinue hydrochlorothiazide due to kidneys, increase Irbesartan to 300 mg daily. Encouraged him to check his BP at home periodically, advised goal BP is < 130/80. If does not improve, they are to contact the office. - irbesartan (Avapro) 300 MG tablet; Take 1 tablet (300 mg) by mouth at bedtime Dispense: 30 tablet; Refill: 2 4. Elevated PSA Advised PSA was significantly elevated from previous. He is agreeable to additional testing. Reviewed multiple potential causes of elevated PSA. Will make sure Dr. Shannon receives a copy of the patient's PSA testing. - PSA, total and free 5. Stage 3b chronic kidney disease ([facility]) Will recheck kidney function today. Will notify pt of the results once received. Continue to stay hydrated. - Basic metabolic panel 6. Left sided sciatica Provided patient with Kenalog injection today, 40 mg IM, patient tolerated this well. Encouraged routine stretches. Contact office if does not improve, may need imaging for further evaluation. - triamcinolone acetonide (Kenalog-40) injection 40 mg 7. Bladder pain The patient is seeing a medical surgery nurse for this condition, treatment is deferred to that specialist. Correspondence from that specialist and any available testing were reviewed during today's visit. 8. Chronic insomnia This is a chronic medical condition that is stable since last assessment. No changes in treatment are suggested at this time. Continue Ambien as prescribed. Will monitor with routine follow ups. 9. Other chronic pain This is a chronic medical condition that is stable since last assessment. No changes in treatment are suggested at this time. 10. Hiatal hernia This is a chronic medical condition that is stable since last assessment. No changes in treatment are suggested at this time. Continue Omeprazole as prescribed. 11. Gastro-esophageal reflux disease without esophagitis This is a chronic medical condition that is stable since last assessment. No changes in treatment are suggested at this time. Continue Omeprazole as prescribed. 12. Benign prostatic hyperplasia without lower urinary tract symptoms Advised PSA was significantly elevated from previous. He is agreeable to additional testing. Reviewed multiple potential causes of elevated PSA. Will make sure Dr. Shannon receives a copy of the patient's PSA testing. 13. Erectile dysfunction, unspecified erectile dysfunction type This is a chronic medical condition that is stable since last assessment. No changes in treatment are suggested at this time. Continue Tadalafil as prescribed. 14. Hx of bladder cancer The patient is seeing a medical surgery nurse for this condition, treatment is deferred to that specialist. Correspondence from that specialist and any available testing were reviewed during today's visit. 15. Microscopic hematuria The patient is seeing a medical surgery nurse for this condition, treatment is deferred to that specialist. Correspondence from that specialist and any available testing were reviewed during today's visit. 16. Right nephrolithiasis The patient is seeing a medical surgery nurse for this condition, treatment is deferred to that specialist. Correspondence from that specialist and any available testing were reviewed during today's visit. 17. Degeneration of intervertebral disc of lumbar region with discogenic back pain and lower extremity pain Provided patient with Kenalog injection today, 40 mg IM, patient tolerated this well. Encouraged routine stretches. Contact office if does not improve, may need imaging for further evaluation. 18. Primary osteoarthritis of right knee This is a chronic medical condition that is stable since last assessment. No changes in treatment are suggested at this time. Can continue Voltaren Gel as needed. 19. Abnormal gait This is a chronic medical condition that is stable since last assessment. No recent falls. Will continue to monitor. 20. Chronic bilateral low back pain with left-sided sciatica Provided patient with Kenalog injection today, 40 mg IM, patient tolerated this well. Encouraged routine stretches. Contact office if does not improve, may need imaging for further evaluation. 21. Cigarette smoker Discussed smoking cessation with the patient. Encouraged patient to cut back and soon quit smoking.Health risks of smoking, and benefits of quitting reviewed with the patient. 22. Mixed hyperlipidemia This is a chronic medical condition that is stable since last assessment. No changes in treatment are suggested at this time. 23. Nocturia Will have patient continue to take the Flomax in the morning. He recently changed this at his 's suggestion. Will recheck at follow up as hydrochlorothiazide is being discontinued. 24. Unsteadiness on feet This is a chronic medical condition that is stable since last assessment. No recent falls. Will continue to monitor. Follow up in about 3 months (around 08/01/2025) for Hypertension, Medication Follow Up. Mckenna MARIE PA-C documented in this encounterWestern [facility] [id number] Hospital Discharge instructions Patient Education 04/24/2025 08:30:34 Benign Prostatic Hyperplasia Benign Prostatic Hyperplasia Benign prostatic hyperplasia (BPH) is an enlarged prostate gland that is caused by the normal agingprocess. The prostate may get bigger as a man gets older. The condition is not caused by cancer. The prostate is a walnut-sized gland that is involved in the production of semen. It is located in front of the rectum and below the bladder. The bladder stores urine. The urethra carries stored urine ou t of the body. An enlarged prostate can press on the urethra. This can make it harder to pass urine. The buildup of urine in the bladder can cause infection. Back pressure and infection may progress to bladder damage and kidney (renal) failure. What are the causes? This condition is part of the normal aging process. However, not all men develop problems from thiscondition. If the prostate enlarges away from the urethra, urine flow will not be blocked. If it enlarges toward the urethra and compresses it, there will be problems passing urine. What increases the risk? This condition is more likely to develop in men older than 50 years. What are the signs or [...] urethra. Follow these instructions at home: Take rgye-mrh-nxpubyd and prescription medicines only as told by your health care provider. Monitor your symptoms for any changes. Contact your health care provider with any changes. Avoid drinking large amounts of liquid before going to bed or out in public. Avoid or reduce how much caffeine or alcohol you drink. Give yourself time when you urinate. Keep all follow-up visits. This is important. Contact a health care provider if: You have unexplained back pain. Your symptoms do not get better with treatment. You develop side effects from the medicine you are taking. Your urine becomes very dark or has a bad smell. Your lower abdomen becomes distended and you have trouble passing urine. Get help right away if: You have a fever or chills. You suddenly cannot urinate. You feel light-headed or very dizzy, or you faint. There are large amounts of blood or clots in your urine. Your urinary problems become hard to manage. You develop moderate to severe low back or flank pain. The flank is the side of your body between the ribs and the hip. These symptoms may be an emergency. Get help right away. Call 911. Do not wait to see if the symptoms will go away. Do not drive yourself to the hospital. Summary Benign prostatic hyperplasia (BPH) is an enlarged prostate that is caused by the normal aging process. It is not caused by cancer. An enlarged prostate can press on the urethra. This can make it hard to pass urine. This condition is more likely to develop in men older than 50 years. Get help right away if you suddenly cannot urinate. This information is not intended to replace advice given to you by your health care provider. Make sure you discuss any questions you have with your health care provider. Document Revised: 03/26/2022 Document Reviewed: 03/26/2022 [employer] Patient Education 2023 [employer]. Follow Up Care 01/23/2025 13:11:59 With:MIRTHA BLOCK, Shady Farnsworth, URL Address: [facility] [address], [place] [address] [phone] When: Unknown [facility] 08-04-2025 NotePatient Education Urology Benign Prostatic Hyperplasia Benign prostatic hyperplasia (BPH) is an enlarged prostate gland that is caused by the normal agingprocess. The prostate may get bigger as a man gets older. The condition is not caused by cancer. The prostate is a walnut-sized gland that is involved in the production of semen. It is located in front of the rectum and below the bladder. The bladder stores urine. The urethra carries stored urine ou t of the body. An enlarged prostate can press on the urethra. This can make it harder to pass urine. The buildup of urine in the bladder can cause infection. Back pressure and infection may progress to bladder damage and kidney (renal) failure. What are the causes? This condition is part of the normal aging process. However, not all men develop problems from thiscondition. If the prostate enlarges away from the urethra, urine flow will not be blocked. If it enlarges toward the urethra and compresses it, there will be problems passing urine. What increases the risk? This condition is more likely to develop in men older than 50 years. What are the signs or symptoms? Symptoms of this condition include: ??? Getting up often during the night to urinate. ??? Needing to urinate frequently during the day. ??? Difficulty starting urine flow. ??? Decrease in size and strength of your urine stream. ??? Leaking (dribbling) after urinating. ??? Inability to pass urine. This needs immediate treatment. ??? Inability to completely empty your bladder. ??? Pain when you pass urine. This is more common if there is also an infection. ??? Urinary tract infection (UTI). How is this diagnosed? This condition is diagnosed based on your medical history, a physical exam, and your symptoms. Tests will also be done, such as: ??? A post-void bladder scan. This measures any amount of urine that may remain in your bladder after you finish urinating. ??? A digital rectal exam. In a rectal exam, your health care provider checks your prostate by putting a lubricated, gloved finger into your rectum to feel the back of your prostate gland. This exam detects the size of your gland and any abnormal lumps or growths. ??? An exam of your urine (urinalysis). ??? A prostate specific antigen (PSA) screening. This is a blood test used to screen for prostate cancer. ??? An ultrasound. This test uses sound waves [...] severity of your condition. Treatment may include: ??? Observation and yearly exams. This may be the only treatment needed if your condition and symptoms are mild. ??? Medicines to relieve your symptoms, including: ? Medicines to shrink the prostate. ? Medicines to relax the muscle of the prostate. ??? Surgery in severe cases. Surgery may include: ? Prostatectomy. In this procedure, the prostate tissue is removed completely through an open incision or with a laparoscope or robotics. ? Transurethral resection of the prostate (TURP). In this procedure, a tool is inserted through theopening at the tip of the penis (urethra). It is used to cut away tissue of the inner core of the prostate. The pieces are removed through the same opening of the penis. This removes the blockage. ? Transurethral incision (TUIP). In this procedure, small cuts are made in the prostate. This lessens the prostate's pressure on the urethra. ? Transurethral microwave thermotherapy (TUMT). This procedure uses microwaves to create heat. The heat destroys and removes a small amount of prostate tissue. ? Transurethral needle ablation (TUNA). This procedure uses radio frequencies to destroy and removea small amount of prostate tissue. ? Interstitial laser coagulation (ILC). This procedure uses a laser to destroy and remove a small amount of prostate tissue. ? Transurethral electrovaporization (TUVP). This procedure uses electrodes to destroy and remove a small amount of prostate tissue. ? Prostatic urethral lift. This procedure inserts an implant to push the lobes of the prostate awayfrom the urethra. Follow these instructions at home: ??? Take rpuo-gyk-aqopjji and prescription medicines only as told by your health care provider. ??? Monitor your symptoms for any changes. Contact your health care provider with any changes. ??? Avoid drinking large amounts of liquid before going to bed or out in public. ??? Avoid or reduce how much caffeine or alcohol you drink. ??? Give yourself time when you urinate. ??? Keep all follow-up visits. This is important. Contact a health care provider if: ??? You have unexplained back pain. ??? Your symptoms do not get (more content not included)...[facility]07-10-2025 Telephone encounter Note* Telephone Encounter - KENDRA Hamilton - 03/30/2025 1:00 PM EDT Tadalafil sent. [facility] [id number] Miscellaneous Notes* Telephone Encounter - KENDRA Hamilton - 03/30/2025 1:00 PM EDT Tadalafil sent. * Telephone Encounter - Bria Phillips LPN - 03/30/2025 11:18 AM EDT LM on VM asking for refill of Tadalafil, not on current med list, looks like it was stopped in January 2023. documented in this encounterWestern [facility] Health CenterXinyxkdtif70-47-5429 Telephone encounter Note* Telephone Encounter - Bria Phillips LPN - 03/30/2025 11:18 AM EDT LM on asking for refill of Tadalafil, not on current med list, looks like it was stopped in January 2023. [facility] CenterOyqnxfaqnd28-63-0128 Hospital Discharge instructions Patient Education 03/27/2025 13:58:39 [...] to keep your urine pale yellow. ?Take esdg-hjs-nnbhjeg or prescription medicines. ?Eat foods that are high in fiber, such as beans, whole grains, and fresh fruits and vegetables. ?Limit foods that are high in fat and processed sugars, such as fried or sweet foods. General instructions Take onse-sng-dxfbcac and prescription medicines only as told by [...] the muscles that help control urination. Take wvqt-mox-guvfxzi and prescription medicines only as told by your health care provider. Contact a health care provider if your symptoms do not improve or get worse. This information is not intended to replace advice given to you by your health care provider. Make sure you discuss any questions you have with your health care provider. Document Revised: 04/12/2021 Document Reviewed: 04/12/2021 [employer] Patient Education 2023 [employer]. Follow Up Care 03/22/2025 08:43:26 With:[facility] Natalya Address: When: Unknown Comments:For procedure as scheduled. [facility] [place] 07-07-2025 NotePatient Education Urology Urinary Frequency, Adult Urinary frequency [...] keep your urine pale yellow. ? Take drls-oqg-xalhvzi or prescription medicines. ? Eat foods that are high in fiber, such as beans, whole grains, and fresh fruits and vegetables. ? Limit foods that are high in fat and processed sugars, such as fried or sweet foods. General instructions ??? Take lopy-jhv-mqxlymu and prescription medicines only as told by [...] fluid and do not have a bladder infectionor other bladder condition. ??? Your health care provider may recommend that you keep a bladder diary, follow a bladder training program, or make dietary changes. ??? If told by your health care provider, do Kegel exercises to strengthen the muscles that help control urination. ??? Take eiqm-gte-ljpwlwq and prescription medicines only as told by your health care provider. ??? Contact a health care provider if your symptoms do not improve or get worse. This information is not intended to replace advice given to you by your health care provider. Make sure you discuss any questions you have with your health care provider. Document Revised: 04/12/2021 Document Reviewed: 04/12/2021 [employer] Patient Education ? 2023 [employer].[facility] 02-16-2025 Miscellaneous Notes* Telephone Encounter - KENDRA Hamilton - 02/16/2025 10:51 AM EDT OARRS reviewed, Rx sent into patient's pharmacy. documented in this encounterWestern [facility] CenterYgbcvfcvxy67-98-5137 Telephone encounter Note* Telephone Encounter - KENDRA Hamilton - 02/16/2025 10:51 AM EDT OARRS reviewed, Rx sent into patient's pharmacy. [facility] [id number] NotePatient Education Gastroenterology Abdominal Pain, Adult Pain in [...] these instructions at home: Medicines ??? Take chgw-xyf-rktlhgy and prescription medicines only as told by [...] provider. Document Revised: 06/24/2023 Document Reviewed: 06/24/2023 [employer] Patient Education ? 2023 [employer].[facility] 01-26-2025 History of Present illness Narrative* KENDRA Hamilton - 01/26/2025 1:30 PM EDT Images from the original note were not [...] level. 01/18, 01/19, and 01/20 was in [place] ER. Saw Dr. Shannon on Thursday, the tumors were low grade, [...] and 500 mg before bedtime. [DISCONTINUED] HYDROcodone-acetaminophen ([place]) 5-325 MG tablet Take 1 tablet by [...] disturbance. Negative for dysphoric mood. The patient isnervous/anxious. Objective Physical Exam Constitutional: General: He is [...] left-upper field reveals wheezing. Examination of the left-middlefield reveals wheezing. Examination of the left-lower field [...] patient. Trazodone as prescribed, can take 50-100 mgat bedtime, starting at 50 mg first to see how it affects him. Reviewed how the medication works aswell as potential s/e. If not improving with the above, can consider alternative medications. They can contact the office on Thursday if needed. Follow up for Appointment As Scheduled. documented in this encounterWestern [facility] Health CenterOtpioyunat73-20-9465 NotePatient Education Oncology Chemotherapy Chemotherapy is a cancer [...] time. Others are given for months, years, orfor life. What can I expect after treatment? [...] not available, use an alcohol based hand medical administrative technician that contains at least 60% alcohol. Have [...] stay active in your (more content not included)...[facility]04-25-2025 History of Present illness Narrative* KENDRA Hamilton - 01/13/2025 9:00 AM EDT Images from the original note were not included. HPI surgical clearance Additional comments: Pt having cystocoopy/turbt-bladder tumor removal with dr shannon on 01/17/25 Last edited by Miracle Lamb MA on 01/13/2025 7:11 AM. Subjective Patient ID: Anders Lyman is a 74 y.o. male who presents for surgical clearance (Pt having cystocoopy/turbt-bladder tumor removal with dr shannon on 01/17/25 ). Pt stated [facility] stated the EKG from November that they are fine with using for clearance. States the only issue with anesthesia in the distant past was vomiting, but that was with a much longer procedure. Has had two other surgeries with Dr. Shannon and has had no issues either time. [...] mg) by mouth every 6 (six) hours ifneeded for severe pain 120 tablet 0 No [...] 0.70 - 1.30 mg/dL Final [facility] EGFR-AF COLOMBIAN 01/04/2025 53 (L) >=60 mL/min/1.73m 2 Final [facility] EGFR-NON AF COLOMBIAN 01/04/2025 44 (L) >=60 mL/min/1.73m 2 Final [...] TURBT - Bladder Tumor Removal, with Dr. Shady Shannon on 01/17/2025. He will be under general [...] testing. Stage 3b chronic kidney disease (HCC) (CMS/HCC) Advised pt that his kidney function has gradually been worsening. He is now stage 3b. Advised pt tolimit OTC NSAID use whenever possible. Can try Tylenol as needed. Also encouraged him to gradually decrease his Mt. Dew intake and increase his water intake. Benign essential hypertension (CMS/HCC) Patient's blood pressure is currently well controlled. Continue with current medications and I willcontinue to monitor. Advised that hydrochlorothiazide may also Follow up for Appointment As Scheduled. documented in this encounterWestern Missouri Mental Health CenterOinfealjwl32-82-5741 NotePatient Education Oncology Transurethral Resection of Bladder Tumor, [...] these instructions at home: Medicines ??? Take ylso-cnq-muesgjf and prescription medicines only as told by your health care provider. ??? If you were prescribed an antibiotic medicine, take it as told by your health care provider. Donot stop taking the antibiotic even if you start to feel better. ??? Ask your health care provider if the medicine prescribed to you: ? Requires you to avoid driving or using machinery. ? Can cause constipation. You may need to take these actions to prevent or treat constipation: ? Drink enough fluid to keep your urine pale yellow. ? Take lvcd-nfr-xxpenvw or prescription medicines. ? Eat foods that [...] or the limit that you are told, untilyour health care provider says that it is [...] of blood or small blood clots in yoururine, soreness or mild pain from your catheter, and pain in your lower abdomen. ??? Take vqqx-fhj-chakvky and prescription medicines only as told by your health care provider. ??? Rest as told by your health care provider. Follow your health care provider's instructions about returning to normal activities. Ask what activities are safe for you. ??? If you have a catheter, follow instructions from your health care provider about caring for your catheter and your drainage bag. (more content not included)...[facility]03-13-2025 History of Present illness Narrative* KENDRA Hamilton - 12/01/2024 10:30 AM EDT Images from the original note were not included. Subjective Patient ID: Anders Lyman is a 74 y.o. male who presents for [facility] ER follow up from 11/24/24. Anders is present today for [facility] ER follow up. He was seen at [facility] ER on 11/24/24 Dx. Bronchitis and rx'd [...] patient to cut back and soon quit smoking.Health risks of smoking, and benefits of quitting reviewed with the patient. The patient was seen today in follow up of recent hospital ER visit. All available hospital records/labs/diagnostics were reviewed and discussed with the patient. ER discharge meds were reviewed. Anychanges to plan are as noted. Follow up in about 2 months (around 01/31/2025) for Medicare Wellness Visit. documented in this encounterWestern Missouri Mental Health CenterIptwwvykga66-07-8142 Telephone encounter Note* Telephone Encounter - KENDRA Hamilton - 08/11/2024 11:07 AM EST OARRS reviewed, Rx sent into patient's pharmacy. [facility] CenterDnuvjlrzil51-34-1575 Miscellaneous Notes* Telephone Encounter - KENDRA Hamilton - 08/11/2024 11:07 AM EST OARRS reviewed, Rx sent into patient's pharmacy. documented in this [facility]10-16-2024 Telephone encounter Note* Telephone Encounter - KENDRA Hamilton - 07/06/2024 1:35 PM EDT OARRS reviewed, Rx sent into patient's pharmacy. [facility] CenterCoujacdjrm78-55-0356 Miscellaneous Notes* Telephone Encounter - KENDRA Hamilton - 07/06/2024 1:35 PM EDT OARRS reviewed, Rx sent into patient's pharmacy. documented in this [facility]09-16-2024 History of Present illness Narrative* Richard Dennis MD - 06/06/2024 10:00 AM EDT Images from the original note were not [...] LDL-C. [place] RIGGS et al. MEKA. 2013;310(19): 0819-6059 ([email or web address]) CHOL/HDLC RATIO 04/27/2024 3.8 <5.0 (calc) Final [...] stable since last assessment. No changes in treatmentare suggested at this time. Benign essential hypertension (CMS/HCC) Benign prostatic hyperplasia without lower urinary tract symptoms - seeing Urology. Mixed hyperlipidemia (CMS/HCC) - Recent lab work for this condition was reviewed and discussed with the patient. Labs are at or near goal, no changes to medication are planned. No follow-ups on file. documented in this encounterWestern Missouri Mental Health CenterZteolthvrf25-55-2781 Hospital Discharge instructions Patient Education 12/22/2023 12:59:38 [...] health care provider may recommend screenings for othertypes of cancer if: You had cancer before. [...] a flexible tube with a small camera isinserted into the rectum. CT colonography. This test uses X-rays and a contrast dye to check the colon for polyps. If a polypis found, you may need to have a [...] stool. For this test, you will need tocollect stool samples at home. Stool DNA test. [...] if anything looks unusual. Men with a towdxs-qdik-hylaao risk for skin cancer may want to see a mobile paint specialist (demand inspector) for an annual body check. What are the benefits of screening? Cancer screening is done to look for cancer in the very early stages, before it spreads and becomesharder to treat and before you would start to notice symptoms. Finding cancer early improves the chances of successful treatment. It may save your life. Where to find more information [place] [employer]: www.cancer.org Centers for Disease Control and Prevention: www.cdc.gov National Cancer [place]: www.cancer.gov Contact a health care provider if: [...] provider. Document Revised: 02/03/2022 Document Reviewed: 08/03/2020 [employer] Patient Education 2022 [employer]. Follow Up Care 11/10/2023 15:38:08 With:MIRTHA BLOCK, Shady Farnsworth, URL Address: [facility] [address], [place] [address]- [phone] When: Unknown Comments:cysto in 1 yr [facility] 04-02-2024 Evaluation + Plan note Diagnostic Tests Pending * PSA Total 12/22/23 [facility] 04-02-2024 Evaluation + Plan note Diagnostic Tests Pending * UroVysion Fish and Urine Cyto ([facility]) 12/22/23 [facility]02-07-2024 Telephone encounter Note* Telephone Encounter - KENDRA Hamilton - 10/28/2023 4:18 PM EST Sent [facility] CenterSjxvtptcmw95-26-1552 Miscellaneous Notes* Telephone Encounter - KENDRA Hamilton - 10/28/2023 4:18 PM EST Sent * Telephone Encounter - Esther Monroy MA - 10/28/2023 3:25 PM EST Anders called stating he has 2 more prednisone pills left and is getting better but still having a decent amount of pain, he was wondering if he could get another refill of prednisone? documented in this encounterNOParkland Health CenterCytrswjedt33-13-3027 Telephone encounter Note* Telephone Encounter - Esther Monroy MA - 10/28/2023 3:25 PM EST Anders called stating he has 2 more prednisone pills left and is getting better but still having a decent amount of pain, he was wondering if he could get another refill of prednisone? [facility] [id number] Evaluation + Plan note Diagnostic Tests Pending * UroVysion Fish and Urine Cyto ([facility]) 06/16/23 [facility]03-28-2023 Hospital Discharge instructions Patient Education 12/16/2022 15:20:59 Benign Prostatic Hyperplasia Benign Prostatic Hyperplasia Benign prostatic hyperplasia (BPH) is an enlarged prostate gland that is caused by the normal agingprocess and not by cancer. The prostate is [...] urethra. Follow these instructions at home: Take cstn-pms-zphvblx and prescription medicines only as told by [...] 09/07/2006 Document Revised: 08/02/2019 Document Reviewed: 10/12/2017 [employer] Patient Education 2020 [employer]. Follow Up Care 11/24/2022 09:28:41 With:MIRTHA BLOCK, Shady Farnsworth, URL Address: [address] [place] [phone] When: Unknown Comments:6 month cysto/fish/cytol [facility] Natalya 03-28-2023 Evaluation + Plan note Diagnostic Tests Pending * PSA Total 12/16/22 [facility]03-28-2023 Evaluation + Plan note Diagnostic Tests Pending * UroVysion Fish and Urine Cyto ([facility]) 12/16/22 [facility] [place] [id number] Hospital Discharge instructions Patient Education 09/10/2022 12:32:12 [...] history, a physical exam, urine tests, lab tests,imaging tests, and your symptoms. You may also [...] tests or imaging tests, such as a CTscan, MRI, bone scan, or chest X-ray. How is this treated? Based on the stage of cancer, one treatment or a combination of treatments may be recommended. The most common forms of treatment are: Surgery to remove the cancer. Procedures that may be done include transurethral resection and cystectomy. Radiation therapy. This is high-energy X-rays or other particles. This is often used in combinationwith chemotherapy. Chemotherapy. During this treatment, medicines are used to kill cancer cells. Immunotherapy. This uses medicines to help your own immune system destroy cancer cells. Follow these instructions at home: Take vclx-wgd-wpascsa and prescription medicines only as told by your health care provider. Maintain a healthy diet. Some of your treatments might affect your appetite. Consider joining a support group. This may help you learn to cope with the stress of having bladdercancer. Tell your cancer care team if you develop side effects. They may be able to recommend ways to relieve them. Keep all follow-up visits as told by your health care provider. This is important. Where to find more information [place] [employer]: www.cancer.org National Cancer [place] (NCI): www.cancer.gov Contact a health care provider [...] history, a physical exam, urine tests, lab tests,imaging tests, and your symptoms. Based on the stage of cancer, surgery, chemotherapy, or a combination of treatments may be recommended. Consider joining a support group. This may help you learn to cope with the stress of having bladdercancer. This information is not intended to replace advice given to you by your health care provider. Make sure you discuss any questions you have with your health care provider. Document Released: 09/09/2004 Document Revised: 08/20/2018 Document Reviewed: 08/11/2017 [employer] Patient Education 2020 [employer]. 09/10/2022 12:32:11 Calorie Counting for Weight Loss [...] sure to eat fewer calories than your bodyneeds, you should lose weight. Ask your health care provider what a healthy weight is for you. For calorie counting to work, you will need to eat the right number of calories in a day in order to lose a healthy amount of weight per week. A dietitian can help you determine how many calories youneed in a day and will give you suggestions on how to reach your calorie goal. A healthy amount of weight to lose per week is usually 1 2 lb (0.5 0.9 kg). This usually means thatyour daily calorie intake should be reduced by [...] label. If a food does not have aNutrition Facts label, try to look up the calories online or ask your dietitian for help. Remember that calories are listed per serving. If you choose to have more than one serving of a food, you will have to multiply the calories per serving by the amount of servings you plan to eat. Forexample, the label on a package of bread [...] you how many calories you have left forthe day to meet your goal. What are [...] fat free foods. These foods sometimes have thesame amount of calories or more calories than the full fat versions. They also often have added sugar, starch, or salt, to make up for flavor that was removed with the fat. Find a way of tracking calories that works for you. Get creative. Try different apps or programs ifwriting down calories does not work for you. What are some portion control tips? Know how many calories are in a serving. This will help you know how many servings of a certain food you can have. Use a measuring cup to measure serving sizes. You could also try weighing out portions on a kitchenscale. With time, you will be able to [...] serving size may be smaller than what youare used to eating. Check the source of the calories. Make sure the food you are eating is high in vitamins and proteinand low in saturated and trans fats. Shopping [...] steamed. Stay away from items that are buttered,battered, fried, or served with cream sauce. Items [...] a serving of cooked rice is cup orabout the size of half a baseball. Knowing serving sizes will help you be aware of how much food you are eating at restaurants. The list below tells you how big or small some common portion sizes arebased on everyday objects: ?1 oz 4 stacked [...] label. If a food does not have aNutrition Facts label, try to look up the [...] 09/07/2006 Document Revised: 05/27/2019 Document Reviewed: 08/07/2017 [employer] Patient Education 2020 [employer]. Follow Up Care 08/21/2022 10:38:02 With:MIRTAH BLOCK, Shady Farnsworth, URL Address: [address] [place], [place] [id number] Business (1) When:Within 4 Month(s) Comments:Cysto & FISH/Cyto [facility] 12-12-2022 NoteEXAM: XR CHEST 2 V HISTORY: Pre-surgery evaluation [...] Electronically authenticated by: PRECIOUS AVERY Date: 2022-09-01 13:11[facility]11-29-2022 Hospital Discharge instructions Patient Education 08/19/2022 14:14:54 Benign Prostatic Hyperplasia Benign Prostatic Hyperplasia Benign prostatic hyperplasia (BPH) is an enlarged prostate gland that is caused by the normal agingprocess and not by cancer. The prostate is [...] urethra. Follow these instructions at home: Take hvgm-ntb-shpybuk and prescription medicines only as told by [...] 09/07/2006 Document Revised: 08/02/2019 Document Reviewed: 10/12/2017 [employer] Patient Education [employer]. Follow Up Care 07/29/2022 11:11:04 With:Shady SHANNON MD, URL Address: [facility] [address], [place] [address]- When: Unknown [facility] 11-29-2022 Evaluation + Plan note Diagnostic Tests Pending * UroVysion Fish and Urine Cyto ([facility]) 08/19/22 [facility] Evaluation + Plan note Future Appointments Appointment Date:01/23/2025 12:15:00 PM Scheduled Provider:Shady SHANNON MD Location:[facility] Appointment Type:URO Office Visit Diagnostic Tests Pending * UroVysion Fish and Urine Cyto ([facility]) 01/03/25 [facility] Evaluation + Plan note Future Appointments Appointment Date:04/24/2025 08:15:00 AM Scheduled Provider:Shady SHANNON MD Location:[facility] Appointment Type:URO Procedure 15 min 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 Hx of bladder cancer Personal history of malignant neoplasm of bladder Pre-operative examination Unspecified pre-operative examination Stage 3b chronic kidney disease (HCC) (CMS/HCC) Benign essential hypertension (CMS/HCC) Essential hypertension, benign documented in this [facility] noteNo assessment information availableOhiohealth [facility] Work Phone: Evaluation note* Diagnosis Chronic insomnia- Primary Insomnia, unspecified documented [facility]* Diagnosis Chronic insomnia Insomnia, unspecified documented [facility]* Diagnosis Erectile dysfunction, unspecified erectile dysfunction type documented in this [facility]* Diagnosis Medicare annual wellness visit, subsequent- Primary ACP (advance care planning) Other specified counseling Benign essential hypertension Essential hypertension, benign Elevated PSA Elevated prostate specific antigen (PSA) Stage 3b chronic kidney disease (CMS-HCC) Left sided sciatica Sciatica Bladder pain Other symptoms involving urinary system Chronic insomnia Insomnia, unspecified Other chronic pain Hiatal hernia Diaphragmatic hernia without mention of obstruction or gangrene Gastro-esophageal reflux disease without esophagitis Benign prostatic hyperplasia without lower urinary tract symptoms Erectile dysfunction, unspecified erectile dysfunction type Hx of bladder cancer Personal history of malignant neoplasm of bladder Microscopic hematuria Right nephrolithiasis Degeneration of intervertebral disc of lumbar region with discogenic back pain and lower extremity pain Primary osteoarthritis of right knee Abnormal gait Abnormality of gait Chronic bilateral low back pain with left-sided sciatica Cigarette smoker Tobacco use disorder Mixed hyperlipidemia Mixed hyperlipidemia Nocturia Unsteadiness on feet documented in this encounter [facility] Narrative No data available for this section [facility] Hospital Discharge instructions No data available for this section [facility] No data available for this section [facility] Summary Purpose Family History No Family History Records Found No data available for this section No data available for this section No data available for this section No Family History Records Found No data available for this section No data available for this section No data available for this section No Family History Records FoundNo Family History Records FoundNo Family History Records Found No data available for this section No Family History Records Found No data [...] team informatio n (unrecognized section and content) Team MemberRelationshipSpecialtyStart DateEnd Date Richard Dennis MD [address] [facility] [address] [place] [address] PCP - [employer]1 Richard Dennis MD [address] [facility] [address] [place] [address] PCP - GeneralInternal Medicine02/23/23Team MemberRelationshipSpecialtyStart Date End Date Richard Dennis MD [address] [facility] [address] [place] [address] PCP - [employer]1 Richard Dennis MD [address] [place] [address] [place] [address] PCP - GeneralInternal Medicine02/23/23Team MemberRelationshipSpecialtyStart Date End Date Richard Dennis MD [address] [place] [address] [place] [address] PCP - [employer]1 Richard Dennis MD [address] [place] [address] [place] [address] PCP - GeneralInternal Medicine02/23/23Team MemberRelationshipSpecialtyStart Date End Date Richard Dennis MD [address] [place] [address] [place] [address] PCP - Human Richard Dennis MD [address] [place] [address] [place] [address] PCP - GeneralInternal Medicine02/23/23Team MemberRelationshipSpecialtyStart Date End Date Richard Dennis MD [address] [place] [address] [place] [address] PCP - [employer]1 Richard Dennis MD [address] [place] [address] [place] [address] PCP - GeneralInternal Medicine02/23/23Team MemberRelationshipSpecialtyStart Date End Date Richard Dennis MD [address] [place] [address] [place] [address] PCP - [employer]1 Richard Dennis MD [address] [place] [address] [place] [address] PCP - GeneralInternal Medicine02/23/23Team MemberRelationshipSpecialtyStart Date End Date Richard Dennis MD [address] [place] [address] [place] [address] PCP - [place] [phone] Richard Dennis MD [address] [place] [address] [place] [address] PCP - GeneralInternal Medicine02/23/23Team MemberRelationshipSpecialtyStart Date End Date Richard Dennis MD [address] [place] [address] [place] [address] PCP - [place] [address] Richard Dennis MD [address] [place] [address] [place] [address] PCP - GeneralInternal Medicine02/23/23 Team Status: Inactive Member Role Status Dates Shady Shannon MD Attending Provider Active St art: January 17, 2025 End: January 17, 2025 Team Status: Inactive Member Role Status Dates Doris Hollingsworth DO Attending Provider Active Sta rt: January 18, 2025 End: January 18, 2025 Team Status: Inactive Member Role Status Dates Yunior Wong MD Attending Provider Active Start : January 19, 2025 End: January 19, 2025Team MemberRelationshipSpecialtyStart DateEnd Date Richard Dennis MD [address] [place] [address] [place] [address] PCP - [place] [phone] Richard Dennis MD [address] [place] [address] [place] [address] PCP - GeneralInternal Medicine02/23/23Team MemberRelationshipSpecialtyStart Date End Date Richard Dennis MD [address] [place] [address] [place] [address] PCP - [place] [address] Richard Dennis MD [address] [place] [address] [place] [address] PCP - [facility] Human [facility] S[facility]02/23/23Team MemberRelationshipSpecialtyStart Date End Date Richard Dennis MD [address] [place] [address] [place] [address] PCP - [place] [address] Richard Dennis MD [address] [place] [address] [place] [address] PCP - [facility]02/23/23Team MemberRelationshipSpecialtyStart Date End Date Richard Dennis MD [address] [place] [address] [place] [address] [facility] - [place] [address] Richard Dennis MD [address] [place] [address] [place] [address] PCP - [facility]02/23/23Te MemberRelationshipSpecialtyStart Date End Date Richard Dennis MD [address] [place] [address] [place] [address] PCP - [place] [address] Richard Dennis MD [address] [place] [address] [place] [address] PCP - GeneralInternal Medicine02/23/23 (unrecognized sect ion and content) No Status Records FoundNo Status Records FoundNo Status Records FoundNo Status Records FoundNo Status Records FoundNo Status Records FoundNo Status Records Found INFORMATION SOURCE (unrecogn ized section and content) DATE CREATED AUTHOR 09/13/2022 [facility] DATE CREATED AUTHOR AUTHOR'S ORGANIZ ATION 01/24/2025 [facility] DATE CREATED AUTHOR AUTHOR'S ORGANIZ ATION 04/29/2025 [facility] DATE CREATED AUTHOR AUTHOR'S ORGANIZ ATION 05/02/2025 [facility] DATE CREATED AUTHOR AUTHOR'S ORGANIZ ATION 05/04/2025 [facility] DATE CREATED AUTHOR AUTHOR'S ORGANIZ ATION 05/27/2025 [facility] DATE CREATED AUTHOR AUTHOR'S ORGANIZ ATION 07/25/2025 [facility] Reason for Visit (unrecogniz ed section and content) ReasonOnset DateCommentsMed Yyclkx494ReasonOnset DateCommentsMed Refill 4ReasonOnset DateCommentsMed Dwhzae254ReasonCommentsFollow-up Pain medResultslabsHypertensionReasonOnset DateCommentsMed Dlbevc3109/26/2024 ReasonOnset DateCommentsMed Zbmzgm4011/14/2024ReasonOnset DateCommentsMed Refill 01/09/2025ReasonCommentssurgical clearancePt having cystocoopy/turbt-bladder tumor removal with dr shannon on 01/17/25ReasonOnset DateCommentsMed Refill 02/16/2025ReasonOnset DateCommentsMed Edbxbz6203/30/2025ReasonCommentsMed Refill Irbesartan-HCTZ Goals (unrecognized section and content) Goals may [...] BE BASED ON THE PRIMARY CLINICAL RECORDS. [employer] [facility]. provides no warranty or guarantee of the accuracy or completeness of information in this document.
--- OUTSIDE RECORDS SUMMARY | 2025-07-27 13:49 | XMS_ITS | Encounter Summary ---
Author Organization [facility] Address [address] [place] [address] Care Team Providers Care Head Kiln Operator Name Role Phone Richard Dennis MD Primary Care Provider [phone] Mckenna Dawn PA Unavailable [phone] Encounter Details DateTypeDepartmentCare Team (Latest Contact Info)Pnipoxwpppk55/04/2025bstract [facility] [place] [facility] [address] [place] [address] [place] [address] Richard Dennis MD [address] [place] [address] [place] [address] Social History Tobacco UseTypesPacks/DayYears UsedDateSmoking Tobacco: Every DayCigarettes0.557 Smokeless Tobacco: NeverAlcohol UseStandard Drinks/WeekCommentsNot Currently0 (1 standard drink = 0.6 oz pure alcohol)Caffeine intake: 1-2 cups per dayPHQ-2 AnswerDate RecordedPatient Health Questionnaire-2 Beqsm271Sex and Gender InformationValueDate RecordedSex Assigned at BirthNot [...] MemberRelationshipSpecialtyStart DateEnd Date Richard Dennis MD [address] [place] [address] [place], [place] [address] PCP - GeneralInternal Medicine02/23/23 Mckenna Dawn PA [address] [place] [address] PCP - Human09/21/2211documented as of this encounter
--- OUTSIDE RECORDS SUMMARY | 2025-07-27 13:49 | XMS_ITS | Clinical Summary ---
Author Organization [facility] Address [address] [facility] [place] [address] Care Team Providers Care Cotton Farmer Name Role Phone Richard Dennis MD Primary Care Provider [phone] Mckenna Dawn Unavailable Allergies Active AllergyReactionsCriticalityNoted DateCommentsBeta Adrenergic Blockers 02/22/2023 Other Reaction(s): bronchospasm Medications MedicationSigDispense QuantityRefillsLast FilledStart DateEnd DateStatus CALCIUM-VITAMIN D PO Daily.08/19/2022ctive Cranberry 125 MG tablet Daily.08/19/2022ctive diclofenac sodium 1 % gel Indications:Primary osteoarthritis of right kneeApply 2 g topically in the morning and 2 g in the evening and 2 g before bedtime.Active zolpidem (Ambien) 10 MG tablet Indications:Chronic insomniaTake 1 tablet (10 mg) by mouth as needed at bedtime for sleep ICD 10:F51.04 30 tablet 5Active atorvastatin (Lipitor) 20 MG tablet Indications:Mixed hyperlipidemiaTAKE 1 TABLET BY MOUTH IN THE MORNING 100 tablet 5Active omeprazole (PriLOSEC) [address] capsule Indications:Gastro-esophageal reflux disease without esophagitisTAKE 1 CAPSULE BY MOUTH IN THE MORNING BEFORE MEAL(S) 100 capsule 5Active tadalafil (Cialis) 20 MG tablet Indications:Erectile dysfunction, unspecified erectile dysfunction typeTake 1 tablet (20 mg) by mouth Daily as needed for erectile dysfunction 10 tablet 1105076Active tamsulosin (Flomax) 0.4 MG 24 hr capsule Take 0.4 mg by mouth Daily5Active traMADol (Ultram) 50 MG tablet Take 50 mg by mouth every 6 (six) hours if needed for severe painActive irbesartan (Avapro) 300 MG tablet Indications:Benign essential hypertensionTake 1 tablet (300 mg) by mouth at bedtime 100 tablet tive Active Problems ProblemNoted DateDiagnosed DateBladder pain05/01/20252650Lvvwpyqv26/11/2025Primary osteoarthritis of right knee11/06/2023Hx of bladder tjcwjq3710/22/2023Microscopic mxicytoab48/01/2024enign essential kvsalvomudlt63/04/2023enign prostatic hyperplasia without lower urinary tract /04/2023hronic insomnia 02/22/2023igarette ijnzzo1702/22/2023DD (degenerative disc disease), lumbar 02/22/2023Erectile fgwnkjynkwn10/04/2023astro-esophageal reflux disease without kpizkoyvzns87/04/2023Hiatal xstscg6202/22/20232357Ujyuskuyrqrgqa83/04/2023hronic low back pain02/22/2023Other chronic pain02/22/2023Right yaxpxmzgvofsyjs39/04/2023 Unsteadiness on feet02/22/2023bnormal gait06/17/2021 Resolved Problems ProblemNoted DateDiagnosed DateResolved DateChronic kidney disease, stage 3a 504/ladder suynih74/ladder mass10/22/2023 12/06/2024MI 27.0-27.9,adult/07/2025Foreign body in bladder /07/20256617Hwbzdzhiovws19/31/202205/06/2024Tobacco user01/26/2020 05/01/2025 Encounters DateTypeDepartmentCare ZllhDqezudmuwih74/05/2025bstract [facility] [place] [facility] [address] [place] [address] [place] [phone] Richard Dennis MD 07/25/2025bstract [facility] [place] [facility] [address] [place] [address] [place] [address] Richard Dennis MD 06/27/2025Refill [facility] [place] [facility] [address] [facility] [address] [place] [address] Mckenna Dawn PA Benign essential nsqdhxypowzb12/19/2025bstract [facility] [place] [facility] [address] [facility] [address] [place] [address] Richard Dennis MD 05/03/2025Results Follow-Up [facility] [place] [address] [place] [address] Mckenna Dawn PA PSA, total and free, Basic metabolic panel05/02/2025bstract [facility] [place] [address] [place] [address] Richard Dennis MD 05/01/2025 9:00 AM EDTOffice Visit [facility] [place] [address] [place] [address] Mckenna Dawn PA Medicare annual wellness visit, subsequent (Primary Dx); ACP [...] smoker; Mixed hyperlipidemia ; Nocturia; Unsteadiness on feet05/01/2025bstract [facility] [place] [facility] [address] [facility] [address] [place] [address] Richard Dennis MD 05/01/2025amboo flowsheet [facility] [place] [facility] [address] [facility] [address] [place] [address] Mckenna Dawn PA 05/01/2025Travelfrom Last 3 Months Immunizations ImmunizationAdministration DatesNext Samuel ZZZX-AgM-111/26/2021,11/23/2020 Pneumococcal Conjugate PCV 13110/02/2019,09/03/2015Pneumococcal Polysaccharide TILU9915,07/22/2007 Family History Medical HistoryRelationNameCommentsDiabetesFatherHeart diseaseFatherHypertension FatherStrokeFatherCancerMotherDiabetesMotherRelationNameStatusCommentsFather DeceasedMotherDeceased Social History Tobacco UseTypesPacks/DayYears UsedDateSmoking Tobacco: Every DayCigarettes0.557 Smokeless Tobacco: Never Tobacco Cessation:Ready to Q uit: Not Asked; Counseling Given: Not Answered Alcohol UseStandard Drinks/WeekCommentsNot Currently0 (1 standard drink = 0.6 oz pure alcohol)Caffeine intake: 1-2 cups per dayPHQ-2AnswerDate RecordedPatient Health Questionnaire-2 Dbosj516Sex and Gender InformationValueDate RecordedSex Assigned at BirthNot on fileLegal JhyWhjf2312/03/2022 7:10 PM EDT Gender IdentityNot on fileSexual OrientationNot on file Last Filed Vital Signs Vital SignReadingTime TakenCommentsBlood Rbnxhgxh868/9205/01/2025 9:18 AM EDT Nkuow175605/01/2025 9:18 AM UDIApzhcijamqj07.3 ??C (97.3 ??F)12/01/2024 10:42 AM EDTRespiratory Ibbx195505/01/2025 9:18 AM EDTOxygen Fosewqlupu46%05/01/2025 9:18 AM EDTInhaled Oxygen Concentration--Bfbazg94.1 kg (148 lb)05/01/2025 9:18 AM EDT Grvmrq578.1 cm (5' 5 )05/01/2025 9:18 AM EDTBody Mass Index24.63005/01/2025 9:18 AM EDT Plan of Treatment Health MaintenanceDue DateLast DoneCommentsCT Sprenjjakwfx1951FIT-DNA 1950FIT1950FOBT1950 5224Pjpvydvachsoo1951OVID-19 Vaccine ( season), 12/14/2020, 12/06/2020, Additional history existsInfluenza Vaccine (#1)05/22/2025Lung Cancer Screening Shared Decision Rbmlyc6705/01/2026Postponed from 1950 (Patient Refused)Medicare Annual Wellness (AWV)608/07/2025, 01/27/2024, 3Colonoscopy Colorectal Cancer Bvjfuqlzw80/27/2027Pneumococcal Vaccine: 65+ UvjftNxduogdms42/12/2020, 01/26/2020, 09/03/2015, Additional history exists Procedures Procedure NamePriorityDate/TimeAssociated DiagnosisCommentsBASIC METABOLIC PANEL Sfgwojm3705/01/2025 10:23 AM EDT Stage 3b chronic kidney disease ([facility]) PSA, TOTAL AND MSCAKbnlnyh16/11/2025 10:23 AM EDT Elevated PSA LJMKNVAGVWIKughefm38/27/2017 12:00 PM EST from Last 3 Months or Most Recently Relevant to Health Maintenance Results * (ABNORMAL) PSA, total and free (05/01/2025 10:23 AM EDT)ComponentValueRef RangeTest MethodAnalysis TimePerformed AtPathologist SignaturePSA, TOTAL3.8< OR = 4.0 ng/mLQUESTPSA, FREE0.7ng/mLQUESTPSA, % FREE18(L)>25 % (calc)QUEST Comment: PSA(ng/mL) ?Free PSA(%) ? Estimated(x) Probability ? of Cancer(as%) 0-2.5 ?(*) ? Approx. 1 2.6-4.0(1) ? 0-27(2) ? 24(3) 4.1-10(4) ?0-10 ?56 ? 11-15 ? 28 ? 16-20 ? 20 ? 21-25 ? 16 >or =26 8 >10(+) N/A >50 References:(1)Jaleel et al.:Urology 60: 469-474 (2002) ? (2)Jaleel et al.:J.Urol 168: 922-925 (2002) ?Free PSA(%) ?? Sensitivity(%) ??Specificity(%) < or = 25 85 19 < or = 30 93 9 ? (3)Jaleel et al.:MEKA 277: 4547-9373 (1996) ? (4)Jaleel et al.:MEKA 279: 8903-9621 (1997) (x)These estimates vary with age, ethnicity, family ?? history and LUIS M results. (*)The diagnostic usefulness of % Free PSA has not been ?? established in patients with total PSA below 2.6 ng/mL (+)In men with PSA above 10 ng/mL, prostate cancer risk is ?? determined by total PSA alone. The Total [...] of the presence or absence of disease. Specimen (Source)Anatomical Location / LateralityCollection Method / Volume Collection TimeReceived TimeBloodVenous blood specimen / Upqplkf0505/01/2025 10:23 AM EDT05/01/2025 10:24 AM EDT Narrative Resulting Agency Comment Performing Organization Information ?Site ID: QPT ?Name: [facility] ?Address: [address] [place] [address], [address] [place] [phone] ?Director: Kendall Ambrosio MD Authorizing ProviderResult TypeResult StatusMckenna Dawn PAL BLOOD ORDERABLESFinal ResultPerforming OrganizationAddressCity/State/ZIP CodePhone Number QUEST * Basic metabolic panel (05/01/2025 10:23 AM EDT)ComponentValueRef RangeTest MethodAnalysis TimePerformed AtPathologist OopxmujoxTquncck4511 - 99 mg/dL QUESTComment: ? Fasting reference interval QCQ255 - 25 mg/dLQUESTCreatinine1.180.70 - 1.28 mg/eSZTQSDCPFI89> OR = 60 mL/min/1.57e4FLFGKDAY/CREATININE RATIOSEE NOTE: (calc)QUESTComment: ?? Not Reported: BUN and Creatinine are within ?? reference range. ? Bzugss417078 - 146 mmol/LQUESTPotassium, Bld3.93.5 - 5.3 mmol/WWSBAQDfcxoofp655 98 - 110 mmol/LQUESTCarbon Hckwxer0129 - 32 mmol/LQUESTCalcium9.48.6 - 10.3 mg/dLQUESTSpecimen (Source)Anatomical Location / LateralityCollection Method / VolumeCollection TimeReceived TimeBloodVenous blood specimen / Ozqvxpl6805/01/2025 10:23 AM EDT05/01/2025 10:24 AM EDT Narrative Resulting Agency Comment Performing Organization Information ?Site ID: QPT ?Name: [facility] ?Address: [address] [place] [address], [address] [place] [phone] ?Director: Kendall Ambrosio MD Authorizing ProviderResult TypeResult StatusMckenna Dawn PALAB BLOOD ORDERABLESFinal ResultPerforming OrganizationAddressCity/State/ZIP CodePhone Number [facility]ST * Colonoscopy (08/17/2017 12:00 PM EST)Anatomical RegionLateralityModality EndoscopySpecimen (Source)Anatomical Location / LateralityCollection Method / VolumeCollection TimeReceived Time08/17/2017 12:00 PM EST Narrative 08/17/2017 12:00 PM EST PERFORMED AT [facility] LOCATION:[id number] diverticulosis Procedure Note CONVERSION, GENERIC - 02/05/2023 PERFORMED AT [facility] LOCATION:[id number] diverticulosis Authorizing ProviderResult TypeResult StatusArt Vanessa HutchisonENDOSCOPY PROCEDURE ORDERABLESFinal Result from Last 3 Months or Most Recently Relevant to Health Maintenance Insurance Care Teams Team MemberRelationshipSpecialtyStart DateEnd Richard Dennis MD [address] [place] [address] [place] [address] PCP - GeneralInternal Medicine02/23/23 Mckenna Dawn PA [address] [place] [address] [place] [address] PCP - [employer]1
== END 2025-07-27 13:44 | disposition home or self-care (01) ==
LOC: CT 13:43
PROVIDERS: PCP Internal Medicine; Visit Provider Urology
DX: N20.0 Calculus of kidney (principal); Z87.442 Personal history of urinary calculi; R93.41 Abnormal radiologic findings on diagnostic imaging of renal pelvis, ureter, or bladder; R10.30 Lower abdominal pain, unspecified
CPT/HCPCS: 74176